=== PATIENT | female | born 1965 | race Hispanic/Latino ===

== ENCOUNTER 2017-10-11 23:46 | Inpatient (IN) | payer MEDICAID, OTHER ==
[2017-10-11 23:47] VITALS: BMI 54.9
--- NOTE | 2017-10-12 00:20 | ED PDOC ---
Arrival/HPI - General Chief Complaint: Shortness Of Breath Time Seen by Provider: 10/11/17 23:51 Historian: Patient - History of Present Illness Narrative History of Present Illness (Text): 10/12/17 00:19 Neena Dumont is a 52 year old female, whose past medical history includes diabetes, hypothyroidism, anemia, degenerative disc disease, GERD, and sarcoidosis, who presents to the Emergency department complaining of shortness of breath and fever. Patient states she has been experiencing intermittent fever for the past 2 days, max temperature of 102F at home tonight, with associated shortness of breath, chest tightness, and non-productive cough. Patient states she had nebulizer treatments at home with no significant relief. Patient also complaining of hematuria and left flank pain. Patient notes 1 episode of vomiting yesterday. Patient denies any chills, diarrhea, neck pain, headache, dizziness, or any other complaints. PMD: Dr. Hoffmann Time/Duration: < week (2 days) Symptom Onset: Gradual Symptom Course: Unchanged Activities at Onset: Light Context: Home Past Medical History - Provider Review Nursing Documentation Reviewed: Yes - Infectious Disease Hx of Infectious Diseases: None - Tetanus Immunization Tetanus Immunization: Unknown - Cardiac Hx Cardiac Disorders: Yes - Pulmonary Hx Respiratory Disorders: Yes Hx Asthma: Yes Hx Sleep Apnea: Yes Other/Comment: SARCOIDOSIS - Neurological Hx Neurological Disorder: Yes (headache,DM neuropathy left knee) - HEENT Hx HEENT Disorder: Yes (reading glasses) Hx Blind: No Hx Cataracts: No Hx Deafness: No Hx Difficulty Chewing: No Hx Epistaxis: No Hx Glaucoma: No Hx Macular Degeneration: No - Renal Hx Renal Disorder: No - Endocrine/Metabolic Hx Endocrine Disorders: Yes Hx Diabetes Mellitus Type 2: Yes Hx Hypothyroidism: Yes - Hematological/Oncological Hx Blood Disorders: Yes Hx Anemia: Yes Hx Cirrhosis: Yes (non alcoholic) - Integumentary Hx Dermatological Disorder: No Hx Basal Cell Carcinoma: No Hx Eczema: No Hx Melanoma: No Hx Psoriasis: No Hx Squamous Cell Carcinoma: No - Musculoskeletal/Rheumatological Hx Musculoskeletal Disorders: Yes Hx Arthritis: Yes - Gastrointestinal Hx Gastrointestinal Disorders: Yes Hx Gastroesophageal Reflux: Yes - Genitourinary/Gynecological Hx Genitourinary Disorders: No - Psychiatric Hx Anxiety: Yes Hx Panic Disorder: Yes Hx Substance Use: No - Past Surgical History Past Surgical History: No Previous - Surgical History Hx Cholecystectomy: Yes - Anesthesia Hx Anesthesia: Yes Hx Anesthesia Reactions: No Hx Malignant Hyperthermia: No - Suicidal Assessment Feels Threatened In Home Enviroment: No Family/Social History - Physician Review Nursing Documentation Reviewed: Yes Family/Social History: Unknown Family HX Smoking Status: Heavy Smoker > 10 Cigarettes Daily Hx Alcohol Use: No Hx Substance Use: No Hx Substance Use Treatment: No Allergies/Home Meds Allergies/Adverse Reactions: Allergies ciprofloxacin [From Cipro] Allergy (Verified 12/08/16 13:07) VOMITING ciprofloxacin HCl [From Cipro] Allergy (Verified 12/08/16 13:07) VOMITING clarithromycin [From Biaxin] Allergy (Verified 12/08/16 13:07) VOMITING clindamycin Allergy (Verified 12/08/16 13:07) VOMITING colistin Allergy (Verified 12/08/16 13:07) VOMITING erythromycin base Allergy (Verified 10/11/17 23:52) DIARRHEA hydromorphone HCl [From Dilaudid] Allergy (Verified 12/08/16 13:07) VOMITING levofloxacin [From Levaquin] Allergy (Verified 10/11/17 23:52) SHORTNESS OF BREATH Penicillins Allergy (Verified 10/11/17 23:52) SHORTNESS OF BREATH Home Medications: Home Meds Medication Instructions Recorded Confirmed Albuterol/Ipratropium [Duoneb 3 3 ml IH PRN PRN 03/16/12 12/08/16 mg/0.5 mg (3 ml) UD] Gabapentin 300 mg PO TID 07/05/13 12/08/16 Clonazepam [Klonopin] 1 mg PO TID 03/19/14 12/08/16 Quetiapine Fumarate [Seroquel] 100 mg PO TID 03/19/14 12/08/16 Sertraline [Zoloft] 200 mg PO DAILY 03/19/14 12/08/16 Hydroxyzine Pamoate [Vistaril] 50 mg PO BID PRN 06/03/14 12/08/16 Ondansetron ODT [Zofran ODT] 4 mg PO DAILY PRN 07/23/14 12/08/16 Topiramate [Topamax] 50 mg PO BID 07/23/14 12/08/16 Acetaminophen/Butalbital/Caf 1 tab PO Q6 PRN 09/03/14 12/08/16 [Fioricet 325 mg-50 mg-40 mg] Review of Systems - Physician Review All systems were reviewed & negative as marked: Yes - Review of Systems Constitutional: Fevers Eyes: Normal ENT: Normal Respiratory: SOB, Cough Cardiovascular: Chest Pain Gastrointestinal: Vomiting. absent: Abdominal Pain, Diarrhea Genitourinary Female: Hematuria. absent: Dysuria, Urine Output Changes Musculoskeletal: Back Pain. absent: Neck Pain Skin: Normal. absent: Rash Neurological: Normal. absent: Headache, Dizziness Endocrine: Normal Hemo/Lymphatic: Normal Psychiatric: Normal Physical Exam Vital Signs Reviewed: Yes Vital Signs Temp Pulse Resp BP Pulse Ox 10/12/17 02:00 96 H 20 133/66 97 10/12/17 00:55 102 F H 10/12/17 00:40 20 97 10/12/17 00:14 102.0 F H 94 H 30 H 128/88 97 Temperature: Febrile Blood Pressure: Normal Pulse: Regular Respiratory Rate: Normal Appearance: Positive for: Well-Appearing, Non-Toxic, Comfortable Pain Distress: None Mental Status: Positive for: Alert and Oriented X 3 - Systems Exam Head: Present: Atraumatic, Normocephalic Pupils: Present: PERRL Extroacular Muscles: Present: EOMI Conjunctiva: Present: Normal Mouth: Present: Moist Mucous Membranes Neck: Present: Normal Range of Motion Respiratory/Chest: Present: Rhonchi (Rhonchi bilaterally). No: Respiratory Distress, Accessory Muscle Use Cardiovascular: Present: Regular Rate and Rhythm, Normal S1, S2. No: Murmurs Abdomen: Present: Normal Bowel Sounds. No: Tenderness, Distention, Peritoneal Signs Back: Present: Normal Inspection Upper Extremity: Present: Normal Inspection. No: Cyanosis, Edema Lower Extremity: Present: Normal Inspection. No: Edema Neurological: Present: GCS=15, CN II-XII Intact, Speech Normal Skin: Present: Warm, Dry, Normal Color. No: Rashes Psychiatric: Present: Alert, Oriented x 3, Normal Insight, Normal Concentration Medical Decision Making ED Course and Treatment: 10/12/17 00:19 Impression: 52 year old female complaining of fever, shortness of breath, cough, and chest tightness x 2 days. Also complaining of hematuria and left flank pain. Plan: -- EKG -- Chest X-ray -- Labs, VBG, blood cultures -- Urinalysis, urine cultures -- IV fluids -- Duoneb -- Reassess and disposition Prior Visits: Notes and results from previous visits were reviewed. Progress Notes: Reviewed EKG, NSR at 95 bpm. Occasional PAC. Non-specific ST/T wave changes. 10/12/17 02:54 Chest X-ray reviewed, shows: LUNGS: Findings suspicious for mild pulmonary vascular congestion--there is bilateral perihilar interstitial prominence. Linear densities seen in the lower lobes bilaterally, most likely representing atelectasis or scarring. Lung volumes are low. No evidence of a large focal consolidation/infiltrate in the lungs. PLEURAL SPACE: No pneumothorax or pleural effusions seen. HEART: Heart does not appear significantly enlarged, allowing for magnification of the heart size by AP portable technique. MEDIASTINUM: Mediastinal contour is grossly stable. BONES/JOINTS: No acute bony abnormality visualized. IMPRESSION: - Findings suspicious for mild pulmonary vascular congestion. Recommend clinical correlation. - See above for remaining findings. 10/12/17 03:[address] Ruiz, who is aware and agrees with plan. Accepts pt in to her service. Pt will be admitted to Telemetry for COPD exacerbation and pyelonephritis. - Lab Interpretations Lab Results: 10/12/17 00:40 10/12/17 00:40 Lab Results 10/12/17 01:40: Urine Color Yellow, Urine Appearance Sl cloudy, Urine pH 6.0, Ur Specific [place] 1.025, Urine Protein 100 H, Urine Glucose (UA) Negative, Urine Ketones Negative, Urine Blood Moderate H, Urine Nitrate Positive H, Urine Bilirubin Moderate H, Urine Urobilinogen 2.0 H, Ur Leukocyte Esterase Trace H, Urine RBC 2 - 5, Urine WBC 15 - 20, Ur Epithelial Cells 1 - 3, Urine Bacteria Mod 10/12/17 00:40: Sodium 138, Chloride 105, Potassium 4.0, Carbon Dioxide 29, Anion Gap 8 L, BUN 20, Creatinine 0.8, Est GFR ( Amer) > 60, Est GFR (Non -Af Amer) > 60, Random Glucose 133 H, Calcium 8.9, Phosphorus 2.9, Magnesium 1.7 , Total Bilirubin 3.2 H, AST 42 H, ALT 39, Alkaline Phosphatase 187 H, Total Protein 6.7, Albumin 3.0, Globulin 3.7, Albumin/Globulin Ratio 0.8 L 10/12/17 00:40: pO2 56 H, VBG pH 7.33, VBG pCO2 58.0, VBG HCO3 30.6 H, VBG Total CO2 32.4 H, VBG O2 Sat (Calc) 90.3 H, VBG Base Excess 3.2 H, VBG Potassium 4.7, Sodium 140.0, Chloride 107.0, Glucose 146 H, Lactate 1.9, FiO2 21.0, Venous Blood Potassium 4.7 10/12/17 00:40: PT 14.8 H, INR 1.35 H, APTT 35.2 10/12/17 00:40: WBC 9.6 D, RBC 3.74, Hgb 11.9 L, Hct 36.0, MCV 96.3, MCH 31.8, MCHC 33.1, RDW 16.9 H, Plt Count 87 L, MPV 10.9, Gran % 79.7 H, Lymph % (Auto) 7.6 L, [place] % (Auto) 12.5 H, Eos % (Auto) 0.1 L, Baso % (Auto) 0.1, Gran # 7.63 H, Lymph # 0.7 L, [place] # 1.2 H, Eos # 0.0, Baso # 0.01 I have reviewed the lab results: Yes - RAD Interpretation Radiology Orders: 10/12/17 00:24 CHEST PORTABLE [RAD] Stat Body Recall Instructor: Radiologist - EKG Interpretation Interpreted by ED Physician: Yes Type: 12 lead EKG - Medication Orders Current Medication Orders: Albuterol/Ipratropium (Duoneb 3 Mg/0.5 Mg (3 Ml) Ud) 3 ml IH Q3H PRN PRN Reason: Shortness of Breath Discontinued Medications Acetaminophen (Tylenol 325mg Tab) 975 mg PO STAT STA Stop: 10/12/17 00:55 Last Admin: 10/12/17 00:55 Dose: Albuterol/Ipratropium (Duoneb 3 Mg/0.5 Mg (3 Ml) Ud) 3 ml IH ONCE STA Stop: 10/12/17 00:24 Last Admin: 10/12/17 00:40 Dose: 3 ml Albuterol/Ipratropium (Duoneb 3 Mg/0.5 Mg (3 Ml) Ud) 3 ml IH ONCE STA Stop: 10/12/17 01:01 Last Admin: 10/12/17 01:05 Dose: 3 ml Sodium Chloride (Sodium Chloride 0.9%) 1,000 mls @ 999 mls/hr IV .Q1H1M STA Stop: 10/12/17 01:34 Last Admin: 10/12/17 00:56 Dose: 999 mls/hr eMAR Start Stop Document 10/12/17 00:56 RD (Rec: 10/12/17 00:56 RD [id number]) Intravenous Solution Start Date 10/12/17 Start Time 00:56 End Date 10/12/17 End time 01:56 Total Infusion Time 60 Ceftriaxone Sodium (Rocephin 1 Gram Ivpb) 1 gm in 100 mls @ 200 mls/hr IV ONCE STA PRN Reason: Protocol Stop: 10/12/17 02:54 Ceftriaxone Sodium (Rocephin 1 Gram Ivpb (D5w)) 1 gm in 100 mls @ 200 mls/hr IVPB ONCE STA PRN Reason: Protocol Stop: 10/12/17 02:54 Last Admin: 10/12/17 02:42 Dose: 200 mls/hr eMAR Start Stop Document 10/12/17 02:42 RD (Rec: 10/12/17 02:43 RD [id number]) Intravenous Solution Start Date 10/12/17 Start Time 02:42 End Date 10/12/17 End time 03:12 Total Infusion Time 30 Methylprednisolone (Solu-Medrol) 125 mg IVP ONCE ONE Stop: 10/12/17 03:33 Oxycodone/Acetaminophen (Percocet 5/325 Mg Tab) 1 tab PO STAT STA Stop: 10/12/17 02:22 Last Admin: 10/12/17 02:42 Dose: 1 tab MAR Pain Assessment Document 10/12/17 02:42 RD (Rec: 10/12/17 02:42 RD [id number]) Pain Reassessment Is this a pain reassessment? No Sleep Is patient sleeping during reassessment? No Presence of Pain Presence of Pain Yes Location Pain Location Body Clarifier Operator - Scribe Statement The provider has reviewed the documentation as recorded by the Miguel Orozco Provider Scribe Attestation: All medical record entries made by the Scribe were at my direction and personally dictated by me. I have reviewed the chart and agree that the record accurately reflects my personal performance of the history, physical exam, medical decision making, and the department course for this patient. I have also personally directed, reviewed, and agree with the discharge instructions and disposition. Disposition/Present on Arrival - Present on Arrival Any Indicators Present on Arrival: No History of DVT/PE: Yes History of Uncontrolled Diabetes: Yes Urinary Catheter: No History of Decub. Ulcer: No History Surgical Site Infection Following: None - Disposition Have Diagnosis and Disposition been Completed?: Yes Diagnosis: Pyelonephritis, COPD exacerbation Disposition: HOSPITALIZED Disposition Time: 03:33 Patient Problems: Current Active Problems Problem Status Onset COPD exacerbation Acute Pyelonephritis Acute Condition: STABLE Referrals: Humberto Hoffmann MD [Primary Care Provider] - Follow up with primary Forms: [employer] ([place])
[2017-10-12] MEDS ORDERED: Albuterol-Ipratrop 3 mg / 0.5 (3 ml) UD IH STA ×2 (00:23→01:00)
[2017-10-12] MEDS ORDERED: Sodium Chloride 0.9% 1,000 ML IV ONE (00:24)
[2017-10-12] MEDS ORDERED: Sodium Chloride 0.9% 1,000 ML IV STA (00:34)
[2017-10-12 01:17] LABS: BASO # 0.01 K/mm3 (0.0-2.0); BASO % 0.1 % (0.0-3.0); EOS % 0.1 % (1.5-5.0); GRAN # 7.63 (1.4-6.5); GRAN % 79.7 % (50.0-68.0); LYMPH # 0.7 (1.2-3.4); LYMPH % 7.6 % (22.0-35.0); MEAN CELL VOLUME 96.3 fl (80.0-105.0); MEAN CORPUSCULAR HEMOGLOBIN 31.8 pg (25.0-35.0); MEAN CORPUSCULAR HGB CONC 33.1 g/dl (31.0-37.0); MEAN PLATELET VOLUME 10.9 fl (7.0-11.0); MONO # 1.2 (0.1-0.6); MONO % 12.5 % (1.0-6.0); RED CELL DISTRIBUTION WIDTH 16.9 % (11.5-14.5); WHITE BLOOD COUNT 9.6 10^3/ul (4.5-11.0)
[2017-10-12 01:22] LABS: VENOUS BLOOD GAS BASE EXCESS 3.2 mmol/L (0.0-2.0); VENOUS BLOOD PH 7.33 (7.32-7.43)
[2017-10-12 01:27] LABS: INR 1.35 (0.93-1.08); PARTIAL THROMBOPLASTIN TIME 35.2 Seconds (25.1-36.5)
[2017-10-12 01:30] LABS: ALB/GLOB RATIO 0.8 (1.1-1.8); ALKALINE PHOSPHATASE 187 U/L (38-126); ALT/SGPT 39 U/L (7-56); AST/SGOT 42 U/L (14-36); BILIRUBIN,TOTAL 3.2 mg/dL (0.2-1.3); BLOOD UREA NITROGEN 20 mg/dL (7-21); CALCIUM 8.9 mg/dL (8.4-10.5); CARBON DIOXIDE 29 mmol/L (21-33); CHLORIDE 105 mmol/L (98-107); GFR AFRICAN-AMERICAN > 60; GLUCOSE,RANDOM 133 mg/dL (70-110); MAGNESIUM 1.7 mg/dL (1.7-2.2); PHOSPHOROUS 2.9 mg/dL (2.5-4.5); SODIUM 138 mmol/L (132-148); TOTAL PROTEIN 6.7 g/dL (5.8-8.3)
[2017-10-12 02:12] LABS: URINE BILIRUBIN MODERATE (NEGATIVE); URINE BLOOD MODERATE (NEGATIVE); URINE GLUCOSE (UA) NEGATIVE (NEGATIVE); URINE KETONE NEGATIVE (NEGATIVE); URINE LEUKOCYTE ESTERASE TRACE Leu/uL (NEGATIVE); URINE PROTEIN 100 mg/dL (<30 mg/dL)
[2017-10-12 02:18] LABS: URINE APPEARANCE SL CLOUDY (CLEAR); URINE COLOR YELLOW (YELLOW)
[2017-10-12] MEDS ORDERED: Oxycodone/Acetaminophen 5/325 mg Tab PO STA (02:21)
[2017-10-12] MEDS ORDERED: cefTRIAXone 1 gm 1 GM/100 ML BAG IV STA (02:25)
[2017-10-12 02:27] LABS: URINE WBC 15 - 20 /hpf (0-6)
[2017-10-12 02:28] LABS: URINE BACTERIA MOD (NEG)
[2017-10-12] MEDS ORDERED: cefTRIAXone 1 gm 1 GM/100 ML BAG IVPB STA (02:32)
--- NOTE | 2017-10-12 02:49 | RAD ---
EXAM: XR Chest, 1 View EXAM DATE/TIME: 10/12/2017 12:24 AM CLINICAL HISTORY: 52 years old, female; Signs and symptoms; Shortness of breath; Additional info: Sepsis patient TECHNIQUE: Frontal view of the chest. COMPARISON: Prior chest radiographs of 2016-12-08 FINDINGS: LUNGS: Findings suspicious for mild pulmonary vascular congestion--there is bilateral perihilar interstitial prominence. Linear densities seen in the lower lobes bilaterally, most likely representing atelectasis or scarring. Lung volumes are low. No evidence of a large focal consolidation/infiltrate in the lungs. PLEURAL SPACE: No pneumothorax or pleural effusions seen. HEART: Heart does not appear significantly enlarged, allowing for magnification of the heart size by AP portable technique. MEDIASTINUM: Mediastinal contour is grossly stable. BONES/JOINTS: No acute bony abnormality visualized. IMPRESSION: - Findings suspicious for mild pulmonary vascular congestion. Recommend clinical correlation. - See above for remaining findings.
[2017-10-12] MEDS ORDERED: Albuterol-Ipratrop 3 mg / 0.5 (3 ml) UD IH PRN ×2 (03:33→11:17)
--- NOTE | 2017-10-12 10:50 | CARD ---
APPROVED REPORT EKG Measurement Heart [id number] <Conclusion> Sinus rhythm with premature supraventricular complexes Prolonged QT Abnormal ECG
[2017-10-12] MEDS: MethylPREDNISolone 40 mg Vial IV SCH ×2 (11:58→21:32)
[2017-10-12] MEDS: Levothyroxine 75 MCG TAB PO SCH (11:59)
[2017-10-12] MEDS: Albuterol-Ipratrop 3 mg / 0.5 (3 ml) UD IH SCH ×2 (14:08→20:06)
[2017-10-12] MEDS: Apap-Butalbital-Caffeine 325-50-40mg Tab PO PRN (15:00)
[2017-10-12] MEDS: Insulin Lispro (HUMAlog) HIGH Coverage SC SCH ×2 (17:46→21:57)
--- NOTE | 2017-10-12 18:29 | CT ---
CT chest without IV contrast Indication: Shortness of breath Technique: Contiguous axial images were obtained through the chest without intravenous contrast enhancement. Sagittal and coronal reconstructions were generated and reviewed. This CT exam was performed using 1 or more of the falling dose reduction techniques: Automated exposure control, adjustment of the MAA and/or kV according to patient size, and/or use of iterative reconstruction technique. Radiation dose (DLP): 957.32 MGy-cm. Comparison: Chest x-ray performed 10/12/17 Findings: Examination limited by habitus. Visualized portions of the inferior thyroid gland appear unremarkable. The unenhanced mediastinal and hilar vascular structures appear grossly unremarkable. Borderline cardiomegaly. Evaluation for adenopathy limited due to lack of IV contrast, particularly hilar adenopathy. Scattered prevascular mediastinal lymph nodes evident. Patchy bilateral multifocal opacities suspicious for pneumonia. Patchy ground-glass opacity at the right lung apex may reflect infection. Evidence of fluid noted along the periphery of the fissures on the right. No pneumothorax. Limited visualization of the noncontrast upper abdomen demonstrates partially imaged hepatomegaly and hepatic steatosis. Degenerative changes. Impression: Limited study. Patchy bilateral multifocal opacities suspicious for pneumonia. Patchy ground-glass opacity at the right lung apex may reflect infection. Evidence of fluid noted along the periphery of the fissures on the right. Recommend follow-up upon completion of treatment for acute symptoms to ensure complete resolution and exclude possibility of underlying neoplasm.
[2017-10-13] MEDS: Albuterol-Ipratrop 3 mg / 0.5 (3 ml) UD IH SCH ×4 (01:40→19:42)
[2017-10-13] MEDS: Pantoprazole 40 mg EC Tab PO SCH (05:49)
--- NOTE | 2017-10-13 08:05 | HP ---
HISTORY OF PRESENT ILLNESS: The patient is a 52-year-old came to the emergency room because of increasing shortness of breath. She did have fever, cough with yellow phlegm going on for 2 to 3 days. She spiked up to 102 and associated with generalized weakness, shortness of breath and some chest pressure. The patient states she does have nebulizer at home, has been using with no significant relief. She states that she was nauseous yesterday and she did vomit once. PAST MEDICAL HISTORY: Significant for; 1. Mmy-njjtlnf-aikfaqkdg diabetes. 2. Hypothyroidism. 3. Gastroesophageal reflux disease. 4. Degenerative disk disease. 5. Morbid obesity. 6. History of chronic anemia. ALLERGIES: THE PATIENT IS ALLERGIC TO CLINDAMYCIN, PENICILLIN, HYDROCORTISONE, LEVAQUIN, CLARITHROMYCIN, NEOMYCIN, CIPROFLOXACIN, AND HYDROMORPHONE. SOCIAL HISTORY: She used to smoke in the past. REVIEW OF SYSTEMS: Significant for generalized weakness and shortness of breath and cough. PHYSICAL EXAMINATION: VITAL SIGNS: She is afebrile, pulse 78, respirations 19, blood pressure 134/72. LUNGS: Bilateral fair expiratory rhonchi. HEART: S1 and S2 audible. ABDOMEN: Soft, obese, nontender. No rebound. No guarding. NEUROLOGIC: She is awake, alert, oriented, communicative. Moves all extremities. LABORATORY EXAMINATION: WBC is 9.6, hemoglobin is 11.9, hematocrit is 36, and platelet of . PT is 14.8 and INR is 1.35. Sodium 138, potassium 4.0, chloride is 105. CO2 is 29, BUN is 20, and creatinine is 0.8. Blood sugar is 133. Total bili 3.2. AST 42, alk phos 187. Urine shows moderate bilirubin, positive nitrites, wbc's. She had an x-ray of chest done that shows pulmonary congestion. ASSESSMENT: 1. Asthmatic bronchitis. 2. Pulmonary venous congestion. 3. Morbid obesity. 4. Xbj-kipmdqx-bjznzcubs diabetes. 5. History of depression. 6. Hypothyroidism. PLAN: We will start her on IV steroids, start her on doxycycline. Monitor her blood sugar.. Out of bed to chair. We will reevaluate the patient in a.m. I will order for CT scan of the chest also. Karson Ruiz MD [facility] # [id number]
[2017-10-13] MEDS: Insulin Lispro (HUMAlog) HIGH Coverage SC SCH ×4 (08:27→22:56)
[2017-10-13] MEDS: Levothyroxine 75 MCG TAB PO SCH (08:27)
[2017-10-13] MEDS: MethylPREDNISolone 40 mg Vial IV SCH ×2 (10:41→21:48)
[2017-10-13] MEDS: Apap-Butalbital-Caffeine 325-50-40mg Tab PO PRN (15:14)
--- NOTE | 2017-10-13 21:09 | PN ---
DATE: SUBJECTIVE: The patient is a 52-year-old, seen and examined. Still complaint of cough and congestion. No nausea or vomiting. No fever. No diarrhea. PHYSICAL EXAMINATION: VITAL SIGNS: She is afebrile, pulse 74, respirations 19, and blood pressure 146/74. LUNGS: Bilateral fair airflow. No rhonchi or crackle. HEART: S1 and S2 audible. ABDOMEN: Soft, obese, and nontender. No rebound. No guarding. NEUROLOGIC: She is awake, alert, oriented. Able to communicate. EXTREMITIES: Bilateral legs, no edema. However, she has stasis dermatitis. LABORATORY EXAM: There is no new lab available today. Her urine shows gram-negative rods. Blood cultures are negative. A CT scan of the chest was done that shows patchy bilateral multifocal obesity suspicious for pneumonia and patchy ground glass obesity at the right lung apex may reflect infection evidence of fluid noted. PLAN: The patient is currently on doxycycline. She is getting Rocephin. She is on IV steroid. I will start her on Rocephin to cover her for urinary tract infection and for pneumonia. Out of bed to chair. I ordered for deep vein thrombosis prophylaxis. Karson Ruiz MD
[2017-10-14] MEDS: Albuterol-Ipratrop 3 mg / 0.5 (3 ml) UD IH SCH ×4 (01:38→20:21)
[2017-10-14] MEDS: Pantoprazole 40 mg EC Tab PO SCH (06:23)
[2017-10-14] MEDS: Insulin Lispro (HUMAlog) HIGH Coverage SC SCH ×4 (08:00→21:48)
[2017-10-14] MEDS: Enoxaparin 40 mg Syringe SC SCH (09:58)
[2017-10-14] MEDS: MethylPREDNISolone 40 mg Vial IV SCH ×2 (09:58→21:53)
[2017-10-14] MEDS: Levothyroxine 75 MCG TAB PO SCH (09:58)
[2017-10-14] MEDS ORDERED: cefTRIAXone 1 gm 1 GM/100 ML BAG IVPB SCH (10:00)
--- NOTE | 2017-10-14 15:35 | PN ---
DATE: SUBJECTIVE: The patient is a 52-year-old, seen and examined. Still has cough and congestion. No more fever. PHYSICAL EXAMINATION: VITAL SIGNS: She is afebrile, pulse 70, respirations 20, and blood pressure 117/61. LUNGS: Bilateral expiratory rhonchi. HEART: S1 and S2 audible. ABDOMEN: Soft, obese, and nontender. No rebound. No guarding. NEUROLOGIC: She is awake, alert, oriented, and communicative. LABORATORY DATA: CT scan of the chest done shows patchy bilateral multifocal opacity suspicious for pneumonia and patchy ground-glass opacity at the right lung apex, may reflect infection. ASSESSMENT: 1. Patchy bilateral multifocal infiltrates. 2. Morbid obesity. 3. Hypertension. 4. Chronic stasis dermatitis. 5. Noninsulin-dependent diabetes. 6. Anxiety disorder. PLAN: Currently, the patient is on Rocephin and doxycycline. We will continue that. Dr. Ashley has been consulted. Out of bed to chair. Physical therapy evaluation and treatment. We will request for TCU evaluation. Since the patient has exertional dyspnea, she needs to complete a course of antibiotic also and will benefit from physical therapy. Karson Ruiz MD
--- NOTE | 2017-10-14 20:24 | CP.PCM.PCO ---
Physician Communication Note - Physician Communication Note Physician Communication Note: Benign but ugly ji-auricular 3cm skin lesion- Can be removed any time
--- NOTE | 2017-10-14 20:36 | CP.PCM.CON ---
Past Patient History - Infectious Disease Hx of Infectious Diseases: None - Tetanus Immunizations Tetanus Immunization: Unknown - Past Social History Smoking Status: Heavy Smoker > 10 Cigarettes Daily - CARDIAC Hx Cardiac Disorders: Yes - PULMONARY Hx Respiratory Disorders: Yes Hx Asthma: Yes Hx Sleep Apnea: Yes Other/Comment: SARCOIDOSIS - NEUROLOGICAL Hx Neurological Disorder: Yes (headache,DM neuropathy left knee) - HEENT Hx HEENT Problems: Yes (reading glasses) Hx Blind: No Hx Cataracts: No Hx Deafness: No Hx Difficulty Chewing: No Hx Epistaxis: No Hx Glaucoma: No Hx Macular Degeneration: No Other/Comment: Pseudotumor behind right eye - RENAL Hx Chronic Kidney Disease: No - ENDOCRINE/METABOLIC Hx Endocrine Disorders: Yes Hx Diabetes Mellitus Type 2: Yes Hx Hypothyroidism: Yes - HEMATOLOGICAL/ONCOLOGICAL Hx Blood Disorders: Yes Hx Anemia: Yes Hx Cirrhosis: Yes (non alcoholic) - INTEGUMENTARY Hx Dermatological Problems: No Hx Basil Cell: No Hx Eczema: No Hx Melanoma: No Hx Psoriasis: No Hx Squamous Cell: No - MUSCULOSKELETAL/RHEUMATOLOGICAL Hx Musculoskeletal Disorders: Yes Hx Arthritis: Yes Hx Falls: Yes - GASTROINTESTINAL Hx Gastrointestinal Disorders: Yes Hx Gastroesophageal Reflux: Yes - GENITOURINARY/GYNECOLOGICAL Hx Genitourinary Disorders: No - PSYCHIATRIC Hx Anxiety: Yes Hx Panic Symptoms: Yes - SURGICAL HISTORY Hx Cholecystectomy: Yes - ANESTHESIA Hx Anesthesia: Yes Hx Anesthesia Reactions: No Hx Malignant Hyperthermia: No Meds Allergies/Adverse Reactions: Allergies Allergy/AdvReac Type Severity Reaction Status Date / Time ciprofloxacin [From Cipro] Allergy VOMITING Verified 12/08/16 13:07 ciprofloxacin HCl Allergy VOMITING Verified 12/08/16 13:07 [From Cipro] clarithromycin [From Biaxin] Allergy VOMITING Verified 12/08/16 13:07 clindamycin Allergy VOMITING Verified 12/08/16 13:07 colistin Allergy VOMITING Verified 12/08/16 13:07 erythromycin base Allergy DIARRHEA Verified 10/11/17 23:52 hydromorphone HCl Allergy VOMITING Verified 12/08/16 13:07 [From Dilaudid] levofloxacin [From Levaquin] Allergy SHORTNESS Verified 10/11/17 23:52 OF BREATH Penicillins Allergy SHORTNESS Verified 10/11/17 23:52 OF BREATH - Medications Medications: Current Medications Acetaminophen/Butalbital/Caffeine (Fioricet) 1 tab PO Q6 PRN PRN Reason: Headache Last Admin: 10/13/17 15:14 Dose: 1 tab Albuterol/Ipratropium (Duoneb 3 Mg/0.5 Mg (3 Ml) Ud) 3 ml IH Q2H PRN PRN Reason: Shortness of Breath Albuterol/Ipratropium (Duoneb 3 Mg/0.5 Mg (3 Ml) Ud) 3 ml IH [id number] [facility] Last Admin: 10/14/17 14:16 Dose: 3 ml Clonazepam (Klonopin) 1 mg PO TID [facility] Last Admin: 10/14/17 17:51 Dose: 1 mg Enoxaparin Sodium (Lovenox) 40 mg SC DAILY [facility] PRN Reason: Protocol Last Admin: 10/14/17 09:58 Dose: 40 mg Gabapentin (Neurontin) 300 mg PO TID [facility] Last Admin: 10/14/17 17:52 Dose: 300 mg Hydroxyzine Pamoate (Vistaril) 50 mg PO BID PRN PRN Reason: Itching / Pruritus Last Admin: 10/13/17 10:52 Dose: 50 mg Doxycycline Hyclate 100 mg/ (Sodium Chloride) 100 mls @ 100 mls/hr IVPB Q12 [facility] PRN Reason: Protocol Last Admin: 10/14/17 10:00 Dose: 100 mls/hr Ceftriaxone Sodium (Rocephin 1 Gram Ivpb) 1 gm in 100 mls @ 100 mls/hr IVPB DAILY [facility] PRN Reason: Protocol Last Admin: 10/14/17 09:59 Dose: 100 mls/hr Insulin Human Lispro (Humalog High) 0 units SC ACHS [facility] PRN Reason: Protocol Last Admin: 10/14/17 18:23 Dose: 4 units Levothyroxine Sodium (Synthroid) 225 mcg PO ACB [facility] Last Admin: 10/14/17 09:58 Dose: 225 mcg Methylprednisolone (Solu-Medrol) 40 mg IV Q12 [facility] Last Admin: 10/14/17 09:58 Dose: 40 mg Pantoprazole Sodium (Protonix Ec Tab) 40 mg PO 0630 [facility] Last Admin: 10/14/17 06:23 Dose: 40 mg Quetiapine Fumarate (Seroquel) 100 mg PO TID [facility] PRN Reason: Protocol Last Admin: 10/14/17 17:51 Dose: 100 mg Sertraline HCl (Zoloft) 200 mg PO DAILY [facility] Last Admin: 10/14/17 09:56 Dose: 200 mg Topiramate (Topamax) 50 mg PO TID [facility] PRN Reason: Protocol Last Admin: 10/14/17 17:52 Dose: 50 mg Results - Vital Signs Recent Vital Signs: Last Vital Signs Temp 98.8 F 10/14/17 12:11 Pulse 86 10/14/17 18:00 Resp 18 10/14/17 12:11 BP 142/76 10/14/17 12:11 Pulse Ox 96 10/14/17 06:00 - Labs Result Diagrams: 10/12/17 00:40 10/12/17 00:40 Labs: Laboratory Results - last 24 hr 10/12/17 10/12/17 10/12/17 07:29 11:21 16:29 POC Glucose (mg/dL) 148 H 211 H 214 H 10/12/17 10/13/17 10/13/17 21:52 07:34 11:49 POC Glucose (mg/dL) 185 H 181 H 165 H 10/13/17 16:04 POC Glucose (mg/dL) 253 H
[2017-10-15] MEDS: Albuterol-Ipratrop 3 mg / 0.5 (3 ml) UD IH SCH ×4 (01:16→20:24)
--- NOTE | 2017-10-15 06:29 | CP.PCM.CON ---
<Soraya Schulte - Last Filed: 10/15/17 07:33> History of Present Illness - History of Present Illness History of Present Illness: Surgery HPI: 49 y/o Morbidly obese female with Pmhx ?Psuedotumor cerebri, DM, CHAY, Dyslipidemia, Hypothyroid and depression is admitted for Pneumonia and asthma attack. Surgery is consulted to evaluate for lesion on her left ear. Pt reports that she first noticed it on the back of her left ear when she was brushing her hair 2 year ago. It is getting larger and started to bother her ears when she put on her nasal oxygen. Denies bleeding, drainage, redness, swelling, peeling of the skin, skin dimpling, excoriation. She sometimes picks on it and see particles come out. Reports that her son also has similar dark raised lesion and has extensive history of cancer in the family. Pt hasn't had it checked out by a specialist. PMHX: as above Soc: (+) 1/2 ppd x 25 yrs; denies etoh, denies illicit drug substances Fam Hx: pancratic CA, lung CA Review of Systems - Review of Systems Review of Systems: See HPI Past Patient History - Infectious Disease Hx of Infectious Diseases: None - Tetanus Immunizations Tetanus Immunization: Unknown - Past Social History Smoking Status: Heavy Smoker > 10 Cigarettes Daily - CARDIAC Hx Cardiac Disorders: Yes - PULMONARY Hx Respiratory Disorders: Yes Hx Asthma: Yes Hx Sleep Apnea: Yes Other/Comment: SARCOIDOSIS - NEUROLOGICAL Hx Neurological Disorder: Yes (headache,DM neuropathy left knee) - HEENT Hx HEENT Problems: Yes (reading glasses) Hx Blind: No Hx Cataracts: No Hx Deafness: No Hx Difficulty Chewing: No Hx Epistaxis: No Hx Glaucoma: No Hx Macular Degeneration: No Other/Comment: Pseudotumor behind right eye - RENAL Hx Chronic Kidney Disease: No - ENDOCRINE/METABOLIC Hx Endocrine Disorders: Yes Hx Diabetes Mellitus Type 2: Yes Hx Hypothyroidism: Yes - HEMATOLOGICAL/ONCOLOGICAL Hx Blood Disorders: Yes Hx Anemia: Yes Hx Cirrhosis: Yes (non alcoholic) - INTEGUMENTARY Hx Dermatological Problems: No Hx Basil Cell: No Hx Eczema: No Hx Melanoma: No Hx Psoriasis: No Hx Squamous Cell: No - MUSCULOSKELETAL/RHEUMATOLOGICAL Hx Musculoskeletal Disorders: Yes Hx Arthritis: Yes Hx Falls: Yes - GASTROINTESTINAL Hx Gastrointestinal Disorders: Yes Hx Gastroesophageal Reflux: Yes - GENITOURINARY/GYNECOLOGICAL Hx Genitourinary Disorders: No - PSYCHIATRIC Hx Anxiety: Yes Hx Panic Symptoms: Yes - SURGICAL HISTORY Hx Cholecystectomy: Yes - ANESTHESIA Hx Anesthesia: Yes Hx Anesthesia Reactions: No Hx Malignant Hyperthermia: No Meds Allergies/Adverse Reactions: Allergies Allergy/AdvReac Type Severity Reaction Status Date / Time ciprofloxacin [From Cipro] Allergy VOMITING Verified 12/08/16 13:07 ciprofloxacin HCl Allergy VOMITING Verified 12/08/16 13:07 [From Cipro] clarithromycin [From Biaxin] Allergy VOMITING Verified 12/08/16 13:07 clindamycin Allergy VOMITING Verified 12/08/16 13:07 colistin Allergy VOMITING Verified 12/08/16 13:07 erythromycin base Allergy DIARRHEA Verified 10/11/17 23:52 hydromorphone HCl Allergy VOMITING Verified 12/08/16 13:07 [From Dilaudid] levofloxacin [From Levaquin] Allergy SHORTNESS Verified 10/11/17 23:52 OF BREATH Penicillins Allergy SHORTNESS Verified 10/11/17 23:52 OF BREATH - Medications Medications: Current Medications Acetaminophen/Butalbital/Caffeine (Fioricet) 1 tab PO Q6 PRN PRN Reason: Headache Last Admin: 10/13/17 15:14 Dose: 1 tab Albuterol/Ipratropium (Duoneb 3 Mg/0.5 Mg (3 Ml) Ud) 3 ml IH Q2H PRN PRN Reason: Shortness of Breath Albuterol/Ipratropium (Duoneb 3 Mg/0.5 Mg (3 Ml) Ud) 3 ml IH [id number] [facility] Last Admin: 10/15/17 01:16 Dose: 3 ml Clonazepam (Klonopin) 1 mg PO TID [facility] Last Admin: 10/14/17 17:51 Dose: 1 mg Enoxaparin Sodium (Lovenox) 40 mg SC DAILY [facility] PRN Reason: Protocol Last Admin: 10/14/17 09:58 Dose: 40 mg Gabapentin (Neurontin) 300 mg PO TID [facility] Last Admin: 10/14/17 17:52 Dose: 300 mg Hydroxyzine Pamoate (Vistaril) 50 mg PO BID PRN PRN Reason: Itching / Pruritus Last Admin: 10/13/17 10:52 Dose: 50 mg Doxycycline Hyclate 100 mg/ (Sodium Chloride) 100 mls @ 100 mls/hr IVPB Q12 [facility] PRN Reason: Protocol Last Admin: 10/14/17 21:53 Dose: 100 mls/hr Ceftriaxone Sodium (Rocephin 1 Gram Ivpb) 1 gm in 100 mls @ 100 mls/hr IVPB DAILY [facility] PRN Reason: Protocol Last Admin: 10/14/17 09:59 Dose: 100 mls/hr Insulin Human Lispro (Humalog High) 0 units SC ACHS [facility] PRN Reason: Protocol Last Admin: 10/14/17 21:48 Dose: Not Given Levothyroxine Sodium (Synthroid) 225 mcg PO ACB [facility] Last Admin: 10/14/17 09:58 Dose: 225 mcg Methylprednisolone (Solu-Medrol) 40 mg IV Q12 [facility] Last Admin: 10/14/17 21:53 Dose: 40 mg Pantoprazole Sodium (Protonix Ec Tab) 40 mg PO 0630 [facility] Last Admin: 10/14/17 06:23 Dose: 40 mg Quetiapine Fumarate (Seroquel) 100 mg PO TID [facility] PRN Reason: Protocol Last Admin: 10/14/17 17:51 Dose: 100 mg Sertraline HCl (Zoloft) 200 mg PO DAILY [facility] Last Admin: 10/14/17 09:56 Dose: 200 mg Topiramate (Topamax) 50 mg PO TID [facility] PRN Reason: Protocol Last Admin: 10/14/17 17:52 Dose: 50 mg Physical Exam - Constitutional Appears: No Acute Distress - Head Exam Head Exam: ATRAUMATIC, NORMAL INSPECTION, NORMOCEPHALIC - Eye Exam Eye Exam: EOMI, Normal appearance, PERRL Pupil Exam: NORMAL ACCOMODATION, PERRL - ENT Exam ENT Exam: Mucous Membranes Moist, Normal Exam Additional comments: L posterior side of ear has [id number] brown color raised mass. No erythema, no excoriation. - Neck Exam Neck exam: Positive for: Normal Inspection - Respiratory Exam Respiratory Exam: Clear to Auscultation Bilateral, NORMAL BREATHING PATTERN - Cardiovascular Exam Cardiovascular Exam: REGULAR RHYTHM - GI/Abdominal Exam GI & Abdominal Exam: Normal Bowel Sounds, Soft. absent: Tenderness - Extremities Exam Extremities exam: Positive for: normal inspection - Back Exam Back exam: NORMAL INSPECTION - Neurological Exam Neurological exam: Alert, CN II-XII Intact, Normal Gait, Oriented x3, Reflexes Normal - Psychiatric Exam Psychiatric exam: Normal Affect, Normal Mood - Skin Skin Exam: Dry, Intact, Normal Color, Warm Results - Vital Signs Recent Vital Signs: Last Vital Signs Temp 98.2 F 10/15/17 00:01 Pulse 74 10/15/17 06:00 Resp 18 10/15/17 00:01 BP 136/64 10/15/17 00:01 Pulse Ox 97 10/15/17 00:01 - Labs Result Diagrams: 10/12/17 00:40 10/12/17 00:40 Assessment & Plan - Assessment and Plan (Free Text) Assessment: L ear lesion -Planned for OR on for excision / biopsy -NPO after midnight on Mon night -Will book and get consent DW Dr. Valenzuela. <Zechariah Valenzuela - Last Filed: 10/16/17 10:28> Meds - Medications Medications: Current Medications Acetaminophen/Butalbital/Caffeine (Fioricet) 1 tab PO Q6 PRN PRN Reason: Headache Last Admin: 10/13/17 15:14 Dose: 1 tab Albuterol/Ipratropium (Duoneb 3 Mg/0.5 Mg (3 Ml) Ud) 3 ml IH Q2H PRN PRN Reason: Shortness of Breath Albuterol/Ipratropium (Duoneb 3 Mg/0.5 Mg (3 Ml) Ud) 3 ml IH [id number] [facility] Last Admin: 10/16/17 08:09 Dose: 3 ml Clonazepam (Klonopin) 1 mg PO TID [facility] Last Admin: 10/15/17 18:48 Dose: 1 mg Doxycycline Hyclate (Doryx) 100 mg PO Q12 [facility] PRN Reason: Protocol Stop: 10/24/17 22:01 Last Admin: 10/15/17 21:13 Dose: 100 mg Enoxaparin Sodium (Lovenox) 40 mg SC DAILY [facility] PRN Reason: Protocol Last Admin: 10/15/17 11:19 Dose: 40 mg Gabapentin (Neurontin) 300 mg PO TID [facility] Last Admin: 10/15/17 18:48 Dose: 300 mg Hydroxyzine Pamoate (Vistaril) 50 mg PO BID PRN PRN Reason: Itching / Pruritus Last Admin: 10/13/17 10:52 Dose: 50 mg Ceftriaxone Sodium (Rocephin 1 Gram Ivpb (D5w)) 1 gm in 100 mls @ 100 mls/hr IVPB DAILY [facility] PRN Reason: Protocol Last Admin: 10/15/17 11:23 Dose: 100 mls/hr Insulin Human Lispro (Humalog High) 0 units SC ACHS [facility] PRN Reason: Protocol Last Admin: 10/16/17 08:35 Dose: Not Given Levothyroxine Sodium (Synthroid) 225 mcg PO ACB [facility] Last Admin: 10/16/17 06:35 Dose: 225 mcg Methylprednisolone (Solu-Medrol) 40 mg IV Q12 [facility] Last Admin: 10/15/17 21:13 Dose: 40 mg Pantoprazole Sodium (Protonix Ec Tab) 40 mg PO 0630 [facility] Last Admin: 10/16/17 06:35 Dose: 40 mg Quetiapine Fumarate (Seroquel) 100 mg PO TID [facility] PRN Reason: Protocol Last Admin: 10/15/17 18:48 Dose: 100 mg Sertraline HCl (Zoloft) 200 mg PO DAILY [facility] Last Admin: 10/15/17 11:20 Dose: 200 mg Topiramate (Topamax) 50 mg PO TID [facility] PRN Reason: Protocol Last Admin: 10/15/17 18:48 Dose: 50 mg Results - Vital Signs Recent Vital Signs: Last Vital Signs Temp 97.8 F 10/16/17 06:00 Pulse 67 10/16/17 06:00 Resp 19 10/16/17 06:00 BP 142/73 10/16/17 06:00 Pulse Ox 97 10/16/17 06:00 - Labs Result Diagrams: 10/16/17 07:00 10/16/17 07:00 Labs: Laboratory Results - last 24 hr 10/15/17 10/16/17 10/16/17 10:45 07:00 07:00 WBC 6.0 D RBC 3.64 Hgb 11.6 L Hct 35.5 L MCV 97.5 MCH 31.9 MCHC 32.7 RDW 16.5 H Plt Count 98 L MPV 10.4 Sodium 143 Potassium 4.1 Chloride 106 Carbon Dioxide 29 Anion Gap 12 BUN 22 H Creatinine 0.7 Est GFR ( Amer) > 60 Est GFR (Non-Af Amer) > 60 Random Glucose 140 H Calcium 8.8 Total Bilirubin 1.2 AST 56 H D ALT 69 H Alkaline Phosphatase 202 H Total Protein 6.5 Albumin 2.9 L Globulin 3.6 Albumin/Globulin Ratio 0.8 L Procalcitonin 0.60 H Assessment & Plan - Assessment and Plan (Free Text) Plan: Change in plans: pt can have this removed under local in the office(Benign lesion) Lina Valenzuela MD FACS
[2017-10-15] MEDS: Levothyroxine 75 MCG TAB PO SCH (06:45)
[2017-10-15] MEDS: Pantoprazole 40 mg EC Tab PO SCH (06:45)
[2017-10-15] MEDS: Insulin Lispro (HUMAlog) HIGH Coverage SC SCH ×3 (08:38→17:12)
[2017-10-15] MEDS: Enoxaparin 40 mg Syringe SC SCH (11:19)
[2017-10-15] MEDS: cefTRIAXone 1 gm 1 GM/100 ML BAG IVPB SCH (11:23)
[2017-10-15] MEDS: MethylPREDNISolone 40 mg Vial IV SCH ×2 (11:23→21:13)
--- NOTE | 2017-10-15 13:32 | PN ---
DATE: 10/15/2017 SUBJECTIVE: The patient has no complaints of any chest pain. No shortness of breath. No headaches or dizziness. PHYSICAL EXAMINATION: VITAL SIGNS: Temperature is 98.2, pulse is 79, blood pressure is 137/72, respirations are 18. GENERAL: The patient is lying in bed, flat, comfortable. HEENT: No oral lesion. Anicteric sclerae. Moist mucosa. NECK: No JVD, adenopathy, or thyromegaly. CARDIOVASCULAR: S1 and S2, regular. No murmurs, rubs, or gallops. LUNGS: Clear to auscultation bilaterally. No wheeze, rales, or rhonchi. ABDOMEN: Bowel sounds are positive, soft, nontender and nondistended. EXTREMITIES: no cyanosis, clubbing or edema. LABORATORY DATA: White count is 9.6, hemoglobin is 11.9, creatinine 0.8. ASSESSMENT: 1. Urinary tract infection secondary to Klebsiella. 2. Morbid obesity with body mass index of 59. 3. Hypertension. 4. Chronic stasis dermatitis. 5. Diabetes type II. 6. Anxiety. PLAN: The patient is currently comfortable. She has had UTI secondary to Klebsiella, this is fairly sensitive. She is continuing on doxycycline for antibiotics. She is being followed by Infectious Disease. I appreciate the input. The patient is on Lovenox for DVT prophylaxis. She is on Neurontin for neuropathy. The patient is going to continue Solu-Medrol. She is receiving Zoloft for anxiety. She is on heart-healthy diet. Adam Wisdmo MD
[2017-10-16] MEDS: Insulin Lispro (HUMAlog) HIGH Coverage SC SCH ×5 (00:08→22:27)
[2017-10-16] MEDS: Albuterol-Ipratrop 3 mg / 0.5 (3 ml) UD IH SCH ×4 (01:49→19:39)
[2017-10-16] MEDS: Levothyroxine 75 MCG TAB PO SCH (06:35)
[2017-10-16] MEDS: Pantoprazole 40 mg EC Tab PO SCH (06:35)
[2017-10-16 07:19] LABS: HEMATOCRIT 35.5 % (36.0-48.0); MEAN CELL VOLUME 97.5 fl (80.0-105.0); MEAN CORPUSCULAR HEMOGLOBIN 31.9 pg (25.0-35.0); MEAN CORPUSCULAR HGB CONC 32.7 g/dl (31.0-37.0); MEAN PLATELET VOLUME 10.4 fl (7.0-11.0); RED CELL DISTRIBUTION WIDTH 16.5 % (11.5-14.5)
[2017-10-16 08:00] LABS: ALB/GLOB RATIO 0.8 (1.1-1.8); ALKALINE PHOSPHATASE 202 U/L (38-126); ALT/SGPT 69 U/L (7-56); AST/SGOT 56 U/L (14-36); BILIRUBIN,TOTAL 1.2 mg/dL (0.2-1.3); BLOOD UREA NITROGEN 22 mg/dL (7-21); CALCIUM 8.8 mg/dL (8.4-10.5); CARBON DIOXIDE 29 mmol/L (21-33); CHLORIDE 106 mmol/L (98-107); GFR AFRICAN-AMERICAN > 60; GLUCOSE,RANDOM 140 mg/dL (70-110); POTASSIUM 4.1 mmol/L (3.6-5.0); SODIUM 143 mmol/L (132-148); TOTAL PROTEIN 6.5 g/dL (5.8-8.3)
--- NOTE | 2017-10-16 09:49 | CON ---
DATE: 10/15/2017 CHIEF COMPLAINT: Weakness. LOCATION: The patient is seen earlier today in 374, bed 1. HISTORY OF PRESENT ILLNESS: This is a 52-year-old female with morbid obesity with BMI of 57, history of sarcoidosis, chronic obstructive lung disease, history of diverticulitis, history of cholecystectomy with multiple allergies including CIPRO, CLINDAMYCIN, CLARITHROMYCIN, ERYTHROMYCIN, COLISTIN and LEVAQUIN, who is admitted through the Emergency Room with diagnosis of pyelonephritis and COPD. In the Emergency Room, the patient was seen by Dr. Milan Menidola, who states the patient is also has diabetes mellitus, hypothyroidism, anemia, degenerative joint disease, and complained of shortness of breath. The patient is normally followed by Dr. Hoffmann. The patient also had complained of left flank pain and found to have a fever in the Emergency Room. Infectious Disease consultation requested. REVIEW OF SYSTEMS: Reveals the patient states her flank pain is improved. No nausea and vomiting at this point. No diarrhea or constipation. PAST MEDICAL HISTORY: Significant for morbid obesity with BMI of 59, sarcoidosis, chronic obstructive lung disease, depression on Zoloft, also on Seroquel, diverticulitis, diabetes, hypothyroidism, degenerative joint disease and anemia. PAST SURGICAL HISTORY: Significant for cholecystectomy and liver biopsy. ALLERGIES: THE PATIENT IS ALLERGIC TO CIPRO, CLARITHROMYCIN, CLINDAMYCIN, ERYTHROMYCIN, COLISTIN, LEVAQUIN, AND HYDROMORPHONE. HOME MEDICATIONS: Include Zoloft, Seroquel and inhalers. The patient was on doxycycline at home. The patient has no travel or no pet exposure. PHYSICAL EXAMINATION VITAL SIGNS: On exam, the patient's temperature is 98, T-max was 102, blood pressure is 130/60, respiratory rate is 18, it was up to 30 in the Emergency Room and yesterday it was 22 and a heart rate of 84, it was up to 98 in the Emergency Room. The patient was saturating at 94%. HEENT: Unremarkable. NECK: Supple. LUNGS: Have decreased breath sounds. HEART: Exam is normal S1, S2. ABDOMEN: Examination is soft, nontender. LABORATORY DATA: Examination reveals a white count of 9.6, hemoglobin of 11 and platelets of 87 and 79% granulocytosis. Coagulation is noted. INR of 1.35 and the chemistries reveals the patient's bilirubin is 3.2, alk phos is 187, glucose is elevated, BUN of 20, creatinine of 0.8. Urinalysis reveals 15-20 WBCs, moderate bacteria, moderate bilirubin and nitrates are positive, trace leukocyte esterase. Blood cultures are reported to be negative. Urine cultures; pansensitive Klebsiella in the urine. Urinalysis is noted and Dr. Schulte's consultation is reviewed. Left ear lesion, planning to go to the OR for excision or biopsy. Dr. Valenzuela communication report is reviewed. CAT scan of the chest shows bilateral opacities. Chest x-ray is also noted. The patient is on doxycycline and ceftriaxone. ASSESSMENT AND PLAN: This is a 52-year-old with morbidly obese female with BMI of 59 with sarcoidosis, chronic obstructive pulmonary disease, diverticulitis, depression, diabetes mellitus, degenerative joint disease, hypothyroidism, anemia, presenting with a temperature of 102, tachycardia, dyspnea, shortness of breath, infiltrates on the CAT scan and positive urinalysis, left-sided flank pain. 1. Sepsis with bilateral community-acquired pneumonia with Klebsiella urinary tract infection and left-sided pyelonephritis with multiple allergies and will treat the patient with Rocephin and doxycycline, maybe able to switch to p.o. once the patient's symptoms resolved. The patient should at least receive 10-14 days for both pyelonephritis and shorter course for community-acquired pneumonia in this patient with sepsis. We will order an human immunodeficiency virus test because of her age to be complete and we will check on the final culture and we will also order a procalcitonin, which determines the infiltrates are bacterial atypical versus viral. We will order a urine for Legionella and we will make further recommendations. We will change the doxycycline to p.o. if the patient is able to tolerate p.o. Madhav Ashley MD
[2017-10-16] MEDS: MethylPREDNISolone 40 mg Vial IV SCH ×2 (10:55→21:56)
[2017-10-16] MEDS: cefTRIAXone 1 gm 1 GM/100 ML BAG IVPB SCH (10:56)
[2017-10-16] MEDS: Enoxaparin 40 mg Syringe SC SCH (10:58)
--- NOTE | 2017-10-16 14:04 | CP.PCM.PN ---
Subjective - Date & Time of Evaluation Date of Evaluation: 10/16/17 Time of Evaluation: 06:45 - Subjective Subjective: General Surgery- Dr. Valenzuela Patient seen and examined at bedside this AM. No acute events overnight. tolerating current diet. Denies fevers, chills, nausea, vomiting, diarrhea, headaches Objective - Vital Signs/Intake and Output Vital Signs (last 24 hours): Temp Pulse Resp BP Pulse Ox 97.8 F 67 19 142/73 97 10/16/17 06:00 10/16/17 06:00 10/16/17 06:00 10/16/17 06:00 10/16/17 06:00 Intake and Output: 10/16/17 10/16/17 06:59 18:59 Intake Total 320 Output Total 1300 Balance -980 - Medications Medications: Current Medications Acetaminophen/Butalbital/Caffeine (Fioricet) 1 tab PO Q6 PRN PRN Reason: Headache Last Admin: 10/13/17 15:14 Dose: 1 tab Albuterol/Ipratropium (Duoneb 3 Mg/0.5 Mg (3 Ml) Ud) 3 ml IH Q2H PRN PRN Reason: Shortness of Breath Albuterol/Ipratropium (Duoneb 3 Mg/0.5 Mg (3 Ml) Ud) 3 ml IH [id number] [facility] Last Admin: 10/16/17 08:09 Dose: 3 ml Clonazepam (Klonopin) 1 mg PO TID [facility] Last Admin: 10/16/17 10:55 Dose: 1 mg Doxycycline Hyclate (Doryx) 100 mg PO Q12 [facility] PRN Reason: Protocol Stop: 10/24/17 22:01 Last Admin: 10/16/17 10:57 Dose: 100 mg Enoxaparin Sodium (Lovenox) 40 mg SC DAILY [facility] PRN Reason: Protocol Last Admin: 10/16/17 10:58 Dose: 40 mg Gabapentin (Neurontin) 300 mg PO TID [facility] Last Admin: 10/16/17 10:55 Dose: 300 mg Hydroxyzine Pamoate (Vistaril) 50 mg PO BID PRN PRN Reason: Itching / Pruritus Last Admin: 10/13/17 10:52 Dose: 50 mg Ceftriaxone Sodium (Rocephin 1 Gram Ivpb (D5w)) 1 gm in 100 mls @ 100 mls/hr IVPB DAILY [facility] PRN Reason: Protocol Last Admin: 10/16/17 10:56 Dose: 100 mls/hr Insulin Human Lispro (Humalog High) 0 units SC ACHS [facility] PRN Reason: Protocol Last Admin: 10/16/17 12:28 Dose: Not Given Levothyroxine Sodium (Synthroid) 225 mcg PO ACB [facility] Last Admin: 10/16/17 06:35 Dose: 225 mcg Methylprednisolone (Solu-Medrol) 40 mg IV Q12 [facility] Last Admin: 10/16/17 10:55 Dose: 40 mg Pantoprazole Sodium (Protonix Ec Tab) 40 mg PO 0630 [facility] Last Admin: 10/16/17 06:35 Dose: 40 mg Quetiapine Fumarate (Seroquel) 100 mg PO TID [facility] PRN Reason: Protocol Last Admin: 10/16/17 10:55 Dose: 100 mg Sertraline HCl (Zoloft) 200 mg PO DAILY [facility] Last Admin: 10/16/17 10:55 Dose: 200 mg Topiramate (Topamax) 50 mg PO TID [facility] PRN Reason: Protocol Last Admin: 10/16/17 10:55 Dose: 50 mg - Labs Labs: 10/16/17 07:00 10/16/17 07:00 PT 14.8 SECONDS (9.4-12.5) H 10/12/17 00:40 INR 1.35 (0.93-1.08) H 10/12/17 00:40 APTT 35.2 Seconds (25.1-36.5) 10/12/17 00:40 - Constitutional Appears: Non-toxic, No Acute Distress - Eye Exam Eye Exam: EOMI. absent: Scleral icterus - ENT Exam Additional comments: dark well circumscribed lesion on left year. raised, non-erythematous - Respiratory Exam Respiratory Exam: NORMAL BREATHING PATTERN. absent: Accessory Muscle Use, Respiratory Distress - Cardiovascular Exam Cardiovascular Exam: +S1, +S2. absent: Bradycardia, Tachycardia - GI/Abdominal Exam GI & Abdominal Exam: Soft, Normal Bowel Sounds. absent: Firm, Guarding, Rigid, Tenderness, Rebound - Extremities Exam Extremities Exam: Joint Swelling. absent: Calf Tenderness - Neurological Exam Neurological Exam: Alert, Awake, Oriented x3 - Skin Skin Exam: Erythema, Warm Assessment and Plan - Assessment and Plan (Free Text) Assessment: 52F admitted for Kelebsiella pneumoa, surgery consulted for lesion on left ear Plan: - will plan for removal of lesion in office as outpatient - no acute surgical intervention during this admission - continue medical management - further recs per Dr. Nicolas Mcfarland PGY1
[2017-10-16] MEDS: Alum-Mag Hydrox-Simethicone Susp (30 mL) PO PRN (14:20)
[2017-10-16] MEDS: Apap-Butalbital-Caffeine 325-50-40mg Tab PO PRN (16:09)
--- NOTE | 2017-10-16 17:38 | CP.PCM.PN ---
Subjective - Date & Time of Evaluation Date of Evaluation: 10/16/17 Time of Evaluation: 10:55 - Subjective Subjective: Comfortable, no fevers, not in distress, afebrile, breathing better. Objective - Vital Signs/Intake and Output Vital Signs (last 24 hours): Temp Pulse Resp BP Pulse Ox 97.8 F 67 19 142/73 97 10/16/17 06:00 10/16/17 06:00 10/16/17 06:00 10/16/17 06:00 10/16/17 06:00 Intake and Output: 10/16/17 10/16/17 06:59 18:59 Intake Total 320 Output Total 1300 Balance -980 - Medications Medications: Current Medications Acetaminophen/Butalbital/Caffeine (Fioricet) 1 tab PO Q6 PRN PRN Reason: Headache Last Admin: 10/13/17 15:14 Dose: 1 tab Albuterol/Ipratropium (Duoneb 3 Mg/0.5 Mg (3 Ml) Ud) 3 ml IH Q2H PRN PRN Reason: Shortness of Breath Albuterol/Ipratropium (Duoneb 3 Mg/0.5 Mg (3 Ml) Ud) 3 ml IH [id number] [facility] Last Admin: 10/16/17 08:09 Dose: 3 ml Clonazepam (Klonopin) 1 mg PO TID [facility] Last Admin: 10/15/17 18:48 Dose: 1 mg Doxycycline Hyclate (Doryx) 100 mg PO Q12 NOAM PRN Reason: Protocol Stop: 10/24/17 22:01 Last Admin: 10/15/17 21:13 Dose: 100 mg Enoxaparin Sodium (Lovenox) 40 mg SC DAILY NO[facility] PRN Reason: Protocol Last Admin: 10/15/17 11:19 Dose: 40 mg Gabapentin (Neurontin) 300 mg PO TID [facility] Last Admin: 10/15/17 18:48 Dose: 300 mg Hydroxyzine Pamoate (Vistaril) 50 mg PO BID PRN PRN Reason: Itching / Pruritus Last Admin: 10/13/17 10:52 Dose: 50 mg Ceftriaxone Sodium (Rocephin 1 Gram Ivpb (D5w)) 1 gm in 100 mls @ 100 mls/hr IVPB DAILY [facility] PRN Reason: Protocol Last Admin: 10/15/17 11:23 Dose: 100 mls/hr Insulin Human Lispro (Humalog High) 0 units SC ACHS [facility] PRN Reason: Protocol Last Admin: 10/16/17 08:35 Dose: Not Given Levothyroxine Sodium (Synthroid) 225 mcg PO ACB [facility] Last Admin: 10/16/17 06:35 Dose: 225 mcg Methylprednisolone (Solu-Medrol) 40 mg IV Q12 [facility] Last Admin: 10/15/17 21:13 Dose: 40 mg Pantoprazole Sodium (Protonix Ec Tab) 40 mg PO 0630 [facility] Last Admin: 10/16/17 06:35 Dose: 40 mg Quetiapine Fumarate (Seroquel) 100 mg PO TID [facility] PRN Reason: Protocol Last Admin: 10/15/17 18:48 Dose: 100 mg Sertraline HCl (Zoloft) 200 mg PO DAILY [facility] Last Admin: 10/15/17 11:20 Dose: 200 mg Topiramate (Topamax) 50 mg PO TID [facility] PRN Reason: Protocol Last Admin: 10/15/17 18:48 Dose: 50 mg - Labs Labs: 10/16/17 07:00 10/16/17 07:00 PT 14.8 SECONDS (9.4-12.5) H 10/12/17 00:40 INR 1.35 (0.93-1.08) H 10/12/17 00:40 APTT 35.2 Seconds (25.1-36.5) 10/12/17 00:40 - Constitutional Appears: Non-toxic, No Acute Distress - Head Exam Head Exam: NORMAL INSPECTION - Neck Exam Neck Exam: absent: Meningismus - Respiratory Exam Respiratory Exam: Decreased Breath Sounds - Cardiovascular Exam Cardiovascular Exam: +S1, +S2 - GI/Abdominal Exam GI & Abdominal Exam: Soft. absent: Tenderness Assessment and Plan - Assessment and Plan (Free Text) Plan: Assessment sepsis due to bilateral community-acquired pneumonia as well as Klebsiella left sided pyelopnephritis history of sepsis secondary to E. coli bacteremia secondary to left sided pyelonephritis Sarcoidosis History of diverticulitis History of cholecystectomy Morbid obesity with BMI 59 COPD DM degenerative joint disease hisotry of depression hypothyrtoidism chronic anemia Plan continue Rocephin to complete 10-14 days of therapy and 5-7 days of Doxycycline (day 2 today); PCT is slightly elevated at 0.6; blood cx are negative will continue to monitor clinically
--- NOTE | 2017-10-16 21:08 | PN ---
DATE: SUBJECTIVE: Patient is 52 years old, seen and examined, sitting in chair, still complaining of cough, congestion, shortness of breath, feeling weak. PHYSICAL EXAMINATION VITAL SIGNS: She is afebrile, pulse 67, respirations 19, blood pressure 142/73. LUNGS: Bilateral few expiratory rhonchi. HEART: S1 and S2 audible. ABDOMEN: Soft, nontender. No rebound. No guarding. NEUROLOGIC: She is awake, alert, oriented, communicative. LABORATORY DATA: WBC 6.0, hemoglobin 11.6, hematocrit 35, platelet of 98. Chemistry: Sodium 143, potassium 4.1, chloride 106, CO2 29, BUN 22, creatinine 0.7, blood sugar of 140. Her procalcitonin is 0.60. HIV test is negative. ASSESSMENT AND PLAN: 1. Bilateral pulmonary infiltrates. 2. Morbid obesity. 3. Noninsulin-dependent diabetes. 4. Hypertension. 5. Klebsiella urinary tract infection with pyelonephritis. PLAN: Currently, the patient is on doxycycline. She is getting nebulizer treatment. She is on DVT prophylaxis. She is on Protonix. She is on IV steroids. Patient is slowly making progress. We will request for TCU evaluation. If she is accepted, can be transferred to TCU today. Karson Ruiz MD
[2017-10-17] MEDS: Albuterol-Ipratrop 3 mg / 0.5 (3 ml) UD IH SCH ×4 (01:29→20:35)
[2017-10-17] MEDS: Pantoprazole 40 mg EC Tab PO SCH (05:51)
[2017-10-17] MEDS: Insulin Lispro (HUMAlog) HIGH Coverage SC SCH ×4 (07:58→21:27)
[2017-10-17] MEDS: Levothyroxine 75 MCG TAB PO SCH (08:01)
[2017-10-17] MEDS: MethylPREDNISolone 40 mg Vial IV SCH ×2 (09:47→21:26)
[2017-10-17] MEDS: cefTRIAXone 1 gm 1 GM/100 ML BAG IVPB SCH (09:48)
[2017-10-17] MEDS: Enoxaparin 40 mg Syringe SC SCH (09:52)
[2017-10-17] MEDS ORDERED: Lidocaine 5% Patch TD STA (12:43)
[2017-10-17] MEDS: Alum-Mag Hydrox-Simethicone Susp (30 mL) PO PRN (13:43)
[2017-10-17] MEDS: Apap-Butalbital-Caffeine 325-50-40mg Tab PO PRN (15:18)
--- NOTE | 2017-10-17 17:59 | PN ---
DATE: 10/17/2017 SUBJECTIVE: The patient is in bed, in no acute distress, nontoxic. OBJECTIVE: VITAL SIGNS: Temperature is 97, blood pressure is 112/70, respiratory rate is 16. HEENT: Unremarkable. NECK: Supple. LUNGS: Have decreased breath sounds. HEART: Normal S1, S2. ABDOMEN: Soft, nontender. LABORATORY EXAMINATION: Reveals a BUN of 22, creatinine of 0.7. White count of 6. Urinalysis is noted. Serology is noted. Urine culture has Klebsiella pneumoniae in the urine. The blood cultures are no growth. The Klebsiella in the urine is pansensitive. Review of orders reveals the patient to be on p.o. doxycycline and IV ceftriaxone. ASSESSMENT AND PLAN: This is a 52-year-old super morbidly obese female with a BMI of 59 and sepsis due to bilateral community-acquired pneumonia as well as urinary tract Klebsiella and left-sided pyelonephritis. The patient with a history of Escherichia coli bacteremia with a pyelonephritis and history of sarcoidosis and diverticulitis, history of cholecystectomy, depression, hypothyroidism, on ceftriaxone, doxycycline. Will need 10-14 days of antibiotics, maybe able to switch to p.o. doxycycline and p.o. Vantin to complete therapy or at least 14 days. Madhav Ashley MD
--- NOTE | 2017-10-17 19:18 | PN ---
DATE: SUBJECTIVE: The patient is 52 years old, seen and examined. Complaint of left lower back pain. Complaint of shortness of breath. No nausea or vomiting. Eating and tolerating. PHYSICAL EXAMINATION: VITAL SIGNS: The patient is afebrile, pulse 63, respirations 18, blood pressure 127/67. LUNGS: Bilateral fair airflow. No rhonchi or crackle. HEART: S1 and S2 audible. ABDOMEN: Soft, obese, nontender. No rebound. No guarding. She has paraspinal discomfort in the left mid back area. NEUROLOGIC: The patient is awake, alert, oriented, and communicative. Able to ambulate. Bilateral leg, no edema. Has chronic stasis dermatitis. LABORATORY DATA: Her blood sugar is 132. ASSESSMENT AND PLAN: 1. Bilateral infiltrates. 2. Morbid obesity. 3. Hypertension. 4. Hyperlipidemia. 5. History of depression. PLAN: We will order for lumbosacral spine x-ray, apply 5% Lidoderm patch. Continue on antibiotics. We will order for TCU evaluation if the patient is accepted, she can be transferred to TCU. Karson Ruiz MD
[2017-10-18] MEDS: Albuterol-Ipratrop 3 mg / 0.5 (3 ml) UD IH SCH ×4 (02:00→20:05)
[2017-10-18] MEDS: Pantoprazole 40 mg EC Tab PO SCH (06:03)
[2017-10-18] MEDS: Insulin Lispro (HUMAlog) HIGH Coverage SC SCH ×4 (08:00→21:59)
[2017-10-18] MEDS: Levothyroxine 75 MCG TAB PO SCH (08:11)
--- NOTE | 2017-10-18 10:42 | RAD ---
PROCEDURE: Radiographs of the Lumbar Spine. HISTORY: lower back pain COMPARISON: No prior. FINDINGS: BONES: Normal alignment. No listhesis. No fracture. DISC SPACES: There is disc degeneration at L4-5. OTHER FINDINGS: None. IMPRESSION: Disc degeneration at L4-5. The spine is otherwise unremarkable
[2017-10-18] MEDS: Apap-Butalbital-Caffeine 325-50-40mg Tab PO PRN (10:43)
[2017-10-18] MEDS: Enoxaparin 40 mg Syringe SC SCH (10:44)
[2017-10-18] MEDS: cefTRIAXone 1 gm 1 GM/100 ML BAG IVPB SCH (10:44)
[2017-10-18] MEDS: MethylPREDNISolone 40 mg Vial IV SCH (10:45)
[2017-10-18] MEDS: Lidocaine 5% Patch TD SCH (10:45)
[2017-10-18] MEDS: Alum-Mag Hydrox-Simethicone Susp (30 mL) PO PRN (11:48)
[2017-10-18] MEDS ORDERED: Barium Sulfate Susp 2.1% w/v, 2.0% w/w 450 mL Bottle PO ONE (13:51)
--- NOTE | 2017-10-18 15:53 | PN ---
DATE: 10/18/2017 SUBJECTIVE: The patient is in bed, in no acute distress, nontoxic. PHYSICAL EXAMINATION: VITAL SIGNS: Temperature is 98, blood pressure is 120/50, and respiratory rate of 18. HEENT: Unremarkable. NECK: Supple. LUNGS: Have decreased breath sounds. HEART: Normal S1, S2. ABDOMEN: Soft, nontender. LABORATORY DATA: Reveals a white count is 6, hemoglobin of 11, and platelets of 98. Chemistries reveals BUN of 22, creatinine of 0.7, and procalcitonin is 0.6. Microbiology reveals Klebsiella in the urine culture. Klebsiella in the urine is reported to be sensitive to ceftriaxone, Cipro, Bactrim, and cephalosporins, only resistant to ampicillin. ASSESSMENT AND PLAN: This is a 52-year-old morbidly obese female with a body mass index of 59 and sepsis with bilateral community-acquired pneumonia as well as Klebsiella and left-sided pyelonephritis. She continues to have pain in the left flank. We will order a CAT of the abdomen and pelvis and we will continue with the doxycycline and ceftriaxone. Her CAT is not possible because of size of the patient, at least an ultrasound should be done. We will also order an ultrasound of the kidneys. We will follow closely with you. Madhav Ashley MD
--- NOTE | 2017-10-18 16:32 | PN ---
DATE: 10/18/2017 SUBJECTIVE: The patient is 52 years old, seen and examined. Complains of mid back pain, lower back pain, minimal cough and congestion. PHYSICAL EXAMINATION: VITAL SIGNS: The patient is afebrile, pulse 74, respirations 20, blood pressure 125/52. LUNGS: Bilateral fair airflow. No rhonchi or crackles. HEART: S1 and S2 audible. ABDOMEN: Soft, obese, nontender. No rebound. No guarding. NEUROLOGIC: She is awake, alert, oriented, communicative. Bilateral leg, she has stasis dermatitis. LABORATORY DATA: Blood sugar is 132. Urine is growing Klebsiella pneumonia, so we will continue on doxycycline. She is on Rocephin. We will continue ____ and steroid. Currently, the patient is on Vantin. We will discontinue Rocephin and discontinue IV steroid and change into p.o. prednisone. If she remains stable, we will discharge in a.m. Karson Ruiz MD
--- NOTE | 2017-10-18 18:13 | US ---
PROCEDURE: Ultrasound of the Kidneys HISTORY: left flank pain r/o stones COMPARISON: CT abdomen pelvis without contrast performed 07/13/15 TECHNIQUE: Sonogram of the kidneys. FINDINGS: Examination markedly limited by habitus. RIGHT KIDNEY: Measures: 14.1 x 4.3 x 5.9 cm. Midpole echogenic focus measuring approximately 0.6 x 0.6 x 0.4 cm without clear evidence of posterior acoustic shadowing. No hydronephrosis or obstructing calculus identified. LEFT KIDNEY: Measures: 14.3 x 4.1 x 6.8 cm. Midpole echogenic focus measuring approximately 0.7 x 0.8 x 0.7 cm without clear evidence of posterior acoustic shadowing. No hydronephrosis or obstructing calculus identified. OTHER FINDINGS: None. IMPRESSION: Examination markedly limited by habitus. Bilateral sub cm echogenic foci without clear evidence of posterior acoustic shadowing, consider possible tiny angio myelolipoma less likely calcification. No hydronephrosis or obstructing calculus identified.
--- NOTE | 2017-10-18 20:22 | CT ---
EXAM: CT Abdomen and Pelvis Without Intravenous Contrast EXAM DATE/TIME: 10/18/2017 1:43 PM CLINICAL HISTORY: 52 years old, female; Pain; Abdominal pain; Prior surgery; Surgery type: Cholecystectomy - (3) c-sections - tubal ligation; Additional info: Left pylon TECHNIQUE: Axial computed tomography images of the abdomen and pelvis without intravenous contrast. All CT scans at this facility use one or more dose reduction techniques, viz.: automated exposure control; ma/kV adjustment per patient size (including targeted exams where dose is matched to indication; i.e. head); or iterative reconstruction technique. Coronal and sagittal reformatted images were created and reviewed. COMPARISON: Prior CT abdomen and pelvis of 07/13/2015. FINDINGS: LIMITATIONS: Artifact related to the patient's body habitus. LOWER THORAX: No infiltrate seen in the lung bases. ABDOMEN: LIVER: Liver is cirrhotic in appearance. Multiple abdominal collateral vessels again seen seen. This constellation of findings is compatible with portal hypertension due to chronic liver disease. GALLBLADDER AND BILE DUCTS: Cholecystectomy clips. No evidence of significant biliary ductal dilatation. PANCREAS: No CT evidence of acute pancreatitis. SPLEEN: Splenomegaly, with the spleen measuring 17 cm in length. This finding appears stable. ADRENALS: No acute abnormality of the adrenal glands identified. KIDNEYS AND URETERS: No acute abnormality of the kidneys seen. STOMACH AND BOWEL: No acute abnormality of the stomach, small bowel or colon identified. No evidence of bowel obstruction. APPENDIX: Appendix is seen, and is within normal limits in appearance. Negative. PELVIS: BLADDER: No acute abnormality of the bladder identified. REPRODUCTIVE:No acute abnormality of the reproductive organs is seen. No acute abnormality of the uterus identified. No evidence of large adnexal masses. ABDOMEN and PELVIS: INTRAPERITONEAL SPACE: No evidence of free intraperitoneal air or fluid. BONES/JOINTS: No acute fractures or other acute bony abnormality noted. SOFT TISSUES: Mild subcutaneous edema is seen in the pelvic wall soft tissues. No evidence of soft tissue abscess, soft tissue gas or soft tissue hematoma. VASCULATURE: No evidence of abdominal aortic aneurysm. LYMPH NODES: No evidence of diffuse lymphadenopathy. IMPRESSION: - No evidence of significant acute process. - Stable findings compared to an 07/13/2015 CT. - Findings compatible with portal hypertension due to chronic liver disease/cirrhosis. - Splenomegaly. - See above for remaining findings.
[2017-10-18] MEDS: Cefpodoxime (Vantin) 200 mg Tab PO SCH (21:27)
[2017-10-19] MEDS: Albuterol-Ipratrop 3 mg / 0.5 (3 ml) UD IH SCH ×3 (02:40→14:12)
[2017-10-19] MEDS: Pantoprazole 40 mg EC Tab PO SCH (05:35)
[2017-10-19 08:01] VITALS: BP 114/65; PULSE 64; RESP 18; TEMP 97.5; O2SAT 96
[2017-10-19] MEDS: Insulin Lispro (HUMAlog) HIGH Coverage SC SCH (08:36)
[2017-10-19] MEDS: Levothyroxine 75 MCG TAB PO SCH (08:36)
[2017-10-19] MEDS: Enoxaparin 40 mg Syringe SC SCH (10:14)
[2017-10-19] MEDS: Cefpodoxime (Vantin) 200 mg Tab PO SCH (10:15)
[2017-10-19] MEDS: Lidocaine 5% Patch TD SCH (10:37)
[2017-10-19] MEDS: Alum-Mag Hydrox-Simethicone Susp (30 mL) PO PRN (10:38)
--- NOTE | 2017-10-19 18:39 | PN ---
DATE: 10/19/2017 SUBJECTIVE: The patient is seen earlier this morning. She states her back pain is much improved. No nausea. No vomiting. No chest pain. No abdominal pain, diarrhea, or constipation. PHYSICAL EXAMINATION: VITAL SIGNS: Temperature is 98, blood pressure is 120/70, and respirations 16. HEENT: Unremarkable. NECK: Supple. LUNGS: Decreased breath sounds. HEART: Normal S1, S2. ABDOMEN: Soft, nontender. LABORATORY EXAMINATION: Reveals a white count of 6, hemoglobin of 11, and platelets of 98. Chemistries are noted. ASSESSMENT AND PLAN: This is a 52-year-old morbidly obese female with a body mass index of 59 and sepsis, bilateral community-acquired pneumonia with Klebsiella, and left-sided pyelonephritis and switched p.o. doxycycline and p.o. cefepime, complete 10 days therapy for pyelonephritis and pneumonia. Case discussed with PMD earlier today. The patient to follow up as outpatient. Madhav Ashley MD
--- NOTE | 2017-10-19 19:21 | DS ---
HISTORY OF PRESENT ILLNESS: The patient is 52 years old , seen and examined. Complaining of shortness of breath, but no cough, no fever, no chills, no nausea, no vomiting, no diarrhea. Eating and tolerating. PHYSICAL EXAMINATION: VITAL SIGNS: She is afebrile. Pulse 64, respirations 18, blood pressure 114/65. LUNGS: Bilateral good airflow. No rhonchi or crackles. HEART: S1, S2, audible. ABDOMEN: Soft, obese, nontender. No rebound, no guarding. NEUROLOGIC: The patient is awake, alert, oriented, communicative, able to ambulate. LABORATORY DATA: Her blood culture urine shows Klebsiella pneumonia. Blood cultures are negative. Urine culture is Klebsiella. Her CT scan of the abdomen and pelvis was done that is unremarkable. CT scan of the chest shows bilateral infiltrates. X-ray of the lumbar spine is unremarkable except DJD. PLAN: The patient is clinically stable. We will discharge the patient home on Doxy 100 twice a day for 10 days and Vantin 100 twice a day for 10 days. She has nebulizer at home. She will resume all her medications as prior to admission. Karson Ruiz MD
== END 2017-10-19 14:54 | disposition home or self-care (01) | DRG 584 ==
LOC: ED 23:46 → ERH 10-12 03:29 → 3RSO 10-12 05:39 → 3RNO 10-18 18:51
PROVIDERS: ADMIT Internal Medicine; ATTEND Internal Medicine
DX: A41.9 Sepsis, unspecified organism (principal); J18.9 Pneumonia, unspecified organism; J44.0 Chronic obstructive pulmonary disease with (acute) lower respiratory infection; E11.40 Type 2 diabetes mellitus with diabetic neuropathy, unspecified; N12 Tubulo-interstitial nephritis, not specified as acute or chronic; B96.1 Klebsiella pneumoniae [K. pneumoniae] as the cause of diseases classified elsewhere; D86.9 Sarcoidosis, unspecified; E66.01 Morbid (severe) obesity due to excess calories; Z68.43 Body mass index [BMI] 50.0-59.9, adult; I87.2 Venous insufficiency (chronic) (peripheral); M19.90 Unspecified osteoarthritis, unspecified site; F32.9 Major depressive disorder, single episode, unspecified; E03.9 Hypothyroidism, unspecified; D64.9 Anemia, unspecified; F41.9 Anxiety disorder, unspecified; I10 Essential (primary) hypertension; E78.5 Hyperlipidemia, unspecified; M51.36 Other intervertebral disc degeneration, lumbar region; K21.9 Gastro-esophageal reflux disease without esophagitis; Z88.3 Allergy status to other anti-infective agents; Z88.0 Allergy status to penicillin; Z79.84 Long term (current) use of oral hypoglycemic drugs; Z79.899 Other long term (current) drug therapy

== ENCOUNTER 2017-12-01 12:15 | Inpatient (IN) | payer MEDICAID, OTHER ==
[2017-12-01 12:17] VITALS: BMI 55.4
--- NOTE | 2017-12-01 13:19 | ED PDOC ---
Arrival/HPI - General Chief Complaint: Shortness Of Breath Time Seen by Provider: 12/01/17 12:22 - History of Present Illness Narrative History of Present Illness (Text): 12/01/17 13:16 52yoF, who has COPD, hx of recent hospitalization in october for pneumonia and dc'd on doxycycline 10/19/17, with progressive sob, yellow cough, and secondarily both lower legs swelling/redness and sent by PMD to ED but otherwise no nausea/vomiting/headache/dizziness/abdomen pain/numbness/tingling/ chest pain/loss of limb function/pain with urination/travel/prior blood clots/ prior cancer hx/prior hormonal use. 12/01/17 14:11 Time/Duration: Other (several days) Past Medical History - Provider Review Nursing Documentation Reviewed: Yes - Travel History Have you recently traveled outside [place] w/in the past 3 mons?: No - Infectious Disease Hx of Infectious Diseases: None - Tetanus Immunization Tetanus Immunization: Unknown - Cardiac Hx Cardiac Disorders: Yes - Pulmonary Hx Respiratory Disorders: Yes Hx Asthma: Yes Hx Sleep Apnea: Yes Other/Comment: SARCOIDOSIS on O2 @ 3LPM via NC - Neurological Hx Neurological Disorder: Yes (headache,DM neuropathy left knee) - HEENT Hx HEENT Disorder: Yes (reading glasses) Hx Blind: No Hx Cataracts: No Hx Deafness: No Hx Difficulty Chewing: No Hx Epistaxis: No Hx Glaucoma: No Hx Macular Degeneration: No Other/Comment: Pseudotumor behind right eye - Renal Hx Renal Disorder: No - Endocrine/Metabolic Hx Endocrine Disorders: Yes Hx Diabetes Mellitus Type 2: Yes Hx Hypothyroidism: Yes - Hematological/Oncological Hx Blood Disorders: Yes Hx Anemia: Yes Hx Cirrhosis: Yes (non alcoholic) - Integumentary Hx Dermatological Disorder: No Hx Basal Cell Carcinoma: No Hx Eczema: No Hx Melanoma: No Hx Psoriasis: No Hx Squamous Cell Carcinoma: No - Musculoskeletal/Rheumatological Hx Musculoskeletal Disorders: Yes Hx Arthritis: Yes Hx Falls: Yes - Gastrointestinal Hx Gastrointestinal Disorders: Yes Hx Gastroesophageal Reflux: Yes - Genitourinary/Gynecological Hx Genitourinary Disorders: No - Psychiatric Hx Anxiety: Yes Hx Depression: Yes Hx Panic Disorder: Yes Hx Substance Use: No - Past Surgical History Past Surgical History: No Previous - Surgical History Hx Cholecystectomy: Yes - Anesthesia Hx Anesthesia: Yes Hx Anesthesia Reactions: No Hx Malignant Hyperthermia: No - Suicidal Assessment Feels Threatened In Home Enviroment: No Family/Social History - Physician Review Nursing Documentation Reviewed: Yes Family/Social History: No Known Family HX Smoking Status: Heavy Smoker > 10 Cigarettes Daily Hx Alcohol Use: No Hx Substance Use: No Hx Substance Use Treatment: No Allergies/Home Meds Allergies/Adverse Reactions: Allergies ciprofloxacin [From Cipro] Allergy (Verified 12/08/16 13:07) VOMITING ciprofloxacin HCl [From Cipro] Allergy (Verified 12/08/16 13:07) VOMITING clarithromycin [From Biaxin] Allergy (Verified 12/08/16 13:07) VOMITING clindamycin Allergy (Verified 12/08/16 13:07) VOMITING colistin Allergy (Verified 12/08/16 13:07) VOMITING erythromycin base Allergy (Verified 10/11/17 23:52) DIARRHEA hydromorphone HCl [From Dilaudid] Allergy (Verified 12/08/16 13:07) VOMITING levofloxacin [From Levaquin] Allergy (Verified 10/11/17 23:52) SHORTNESS OF BREATH Penicillins Allergy (Verified 10/11/17 23:52) SHORTNESS OF BREATH Home Medications: Home Meds Medication Instructions Recorded Confirmed Acetaminophen/Butalbital/Caf 1 tab PO QID PRN 12/01/17 12/01/17 [Fioricet] Albuterol/Ipratropium [Duoneb 3 1 vial IH QID 12/01/17 12/01/17 mg/0.5 mg (3 ml) UD] Ergocalciferol [Drisdol 50,000 1 cap PO Q7D 12/01/17 12/01/17 Intl Units Cap] Gabapentin [Neurontin] 1 cap PO DAILY 12/01/17 12/01/17 Glimepiride [amaRYL] 1 tab PO DAILY 12/01/17 12/01/17 Ibuprofen [Motrin Tab] 1 tab PO PRN PRN 12/01/17 12/01/17 Levothyroxine [Synthroid] 1 tab PO DAILY 12/01/17 12/01/17 Metoclopramide [Reglan] 1 tab PO DAILY 12/01/17 12/01/17 QUEtiapine [Seroquel] 1 tab PO TID 12/01/17 12/01/17 Sertraline [Zoloft] 1 tab PO BID 12/01/17 12/01/17 Topiramate [Topamax] 1 tab PO TID 12/01/17 12/01/17 clonazePAM [Klonopin] 1 tab PO BID 12/01/17 12/01/17 clonazePAM [Klonopin] 1 tab PO DAILY 12/01/17 12/01/17 rifAXIMin [Xifaxan] 1 tab PO BID 12/01/17 12/01/17 Review of Systems - Review of Systems Systems not reviewed;Unavailable: Acuity of Condition Constitutional: Fatigue Eyes: Normal ENT: Normal Respiratory: SOB Cardiovascular: Normal Gastrointestinal: Normal Genitourinary Female: Normal Musculoskeletal: Other (b/l le swelling) Skin: Other (redness b/l le) Endocrine: Normal Hemo/Lymphatic: Normal Psychiatric: Normal Physical Exam Vital Signs Reviewed: Yes Vital Signs Temp Pulse Resp BP Pulse Ox 12/01/17 20:43 77 20 113/56 L 97 12/01/17 17:50 74 18 118/65 97 12/01/17 15:44 81 18 122/64 97 12/01/17 13:36 82 18 142/71 96 12/01/17 13:00 18 96 12/01/17 12:28 98.5 F 90 20 144/79 96 Temperature: Afebrile Blood Pressure: Hypertensive Pulse: Regular Respiratory Rate: Normal Appearance: Positive for: Comfortable, Ill-Appearing Pain Distress: None Mental Status: Positive for: Alert and Oriented X 3 - Systems Exam Head: Present: Atraumatic, Normocephalic Pupils: Present: PERRL Extroacular Muscles: Present: EOMI Conjunctiva: Present: Normal Ears: Present: Normal Mouth: Present: Moist Mucous Membranes Pharnyx: Present: Normal Nose (External): Present: Atraumatic Nose (Internal): Present: Normal Inspection Neck: Present: Normal Range of Motion Respiratory/Chest: Present: Clear to Auscultation, Good Air Exchange, Respiratory Distress Cardiovascular: Present: Regular Rate and Rhythm Abdomen: No: Tenderness, Distention, Normal Bowel Sounds, Peritoneal Signs, Rebound, Guarding, McBurney's Point Tender, Rovsing's Sign Present, Hernias, Feeding Tubes, Ostomy Tubes, Mass/Organomegaly, Scars, Other Back: Present: Normal Inspection Upper Extremity: Present: Normal Inspection Neurological: Present: GCS=15, CN II-XII Intact, Speech Normal, Motor Func Grossly Intact, Other (b/l le mild edema/pitting, with hyperemia with mild warmth but no fluctuance/crepitus. otherwise +warm/sensation/cap refill/dp pulses+) Skin: Present: Warm, Other (see le) Psychiatric: Present: Alert, Oriented x 3, Normal Insight, Normal Concentration Medical Decision Making ED Course and Treatment: 52yoF, who has COPD, hx of recent hospitalization in october for pneumonia and dc'd on doxycycline 10/19/17, with progressive sob, yellow cough, and secondarily both lower legs swelling/redness and sent by PMD to ED but otherwise no nausea/vomiting/headache/dizziness/abdomen pain/numbness/tingling/ chest pain/loss of limb function/pain with urination/travel/prior blood clots/ prior cancer hx/prior hormonal use. 97.6T 83HR 18RR 104/61BP 97% oxygen level. 12/01/17 14:10 pt states can tolerate morphine. 12/01/17 14:11 12/01/17 14:12 nurse notified labs hemolyzed chem and lactic. will re-draw. 12/01/2017 15:23 Chest X-ray IMPRESSION: Moderate vascular congestion. Dictator: Stef Egan MD 12/01/17 17:33 lactic 0.9 12/01/17 18:37 trop negative BNP 56 US b/l LE no acute finding of DVT. doxycycline iv paged Dr. Hoffmann 12/01/17 20:[address] Hoffmann/Kyle 12/01/17 21:32 d/w Dr. Mcfadden regarding pt with cellulitis b/l le, sob with neg trop/bnp, but cxr with vascular congestion. she stated can admit to med/surge for obs. - Critical Care Narrative Critical Care (Text): 52yoF, who has COPD, hx of recent hospitalization in october for pneumonia, with progressive sob, yellow cough, and secondarily both lower legs swelling/ redness and sent by PMD to ED but otherwise no nausea/vomiting/headache/ dizziness/abdomen pain/numbness/tingling/chest pain/loss of limb function/pain with urination/travel/prior blood clots/prior cancer hx/prior hormonal use. 98.5T 90Hr 20RR 144/79BP 96% 12/01/17 13:21 - Lab Interpretations Lab Results: 12/01/17 13:35 12/01/17 16:20 Lab Results 12/01/17 16:20: pO2 66 H, VBG pH 7.33, VBG pCO2 55.0, VBG HCO3 29.0 H, VBG Total CO2 30.7 H, VBG O2 Sat (Calc) 95.8 H, VBG Base Excess 1.9, VBG Potassium 3.8, Sodium 141.0, Chloride 110.0 H, Glucose 135 H, Lactate 0.9, FiO2 21.0, Venous Blood Potassium 3.8 12/01/17 16:20: Sodium 138, Chloride 105, Potassium 3.7, Carbon Dioxide 28, Anion Gap 9 L, BUN 13, Creatinine 0.7, Est GFR ( Amer) > 60, Est GFR (Non -Af Amer) > 60, Random Glucose 136 H, Calcium 9.1, Magnesium 1.8, Total Bilirubin 0.8, AST 41 H D, ALT 29, Alkaline Phosphatase 187 H, Lactate Dehydrogenase 455, Total Creatine Kinase 38, Troponin I < 0.01, NT-Pro-B Natriuret Pep 54.6, Total Protein 7.6, Albumin 3.3, Globulin 4.3, Albumin/ Globulin Ratio 0.8 L 12/01/17 14:00: Urine Color Yellow, Urine Appearance Clear, Urine pH 7.0, Ur Specific Chambers 1.015, Urine Protein Negative, Urine Glucose (UA) Negative, Urine Ketones Negative, Urine Blood Negative, Urine Nitrate Negative, Urine Bilirubin Negative, Urine Urobilinogen 1.0 H, Ur Leukocyte Esterase Negative 12/01/17 13:35: PT 11.8, INR 1.03, APTT 36.9 H 12/01/17 13:35: WBC 4.6 D, RBC 3.68, Hgb 11.9 L, Hct 37.0, MCV 100.5 D, MCH 32.3, MCHC 32.2, RDW 16.7 H, Plt Count 94 L, MPV 10.0, Gran % 63.4, Lymph % ( Auto) 24.1, [place] % (Auto) 10.1 H, Eos % (Auto) 1.5, Baso % (Auto) 0.9, Gran # 2.94, Lymph # 1.1 L, [place] # 0.5, Eos # 0.1, Baso # 0.04 - RAD Interpretation Radiology Orders: 12/01/17 12:45 CHEST TWO VIEWS (PA/LAT) [RAD] Stat 12/01/17 13:45 DUPLEX LOWER EXTRM VEIN BILAT [US] Stat Primer Inspector: Radiologist (cxr moderate degree of vascular congestion) - EKG Interpretation Interpreted by ED Physician: Yes (NSR, flipped t waves avr.) - Medication Orders Current Medication Orders: Discontinued Medications Acetaminophen (Tylenol 325mg Tab) 650 mg PO STAT STA Stop: 12/01/17 13:48 Last Admin: 12/01/17 14:12 Dose: Not Given Non-Admin Reason: Patient Refused Doxycycline Hyclate 100 mg/ (Sodium Chloride) 100 mls @ 100 mls/hr IVPB ONCE ONE PRN Reason: Protocol Stop: 12/01/17 19:35 Last Admin: 12/01/17 19:20 Dose: 100 mls/hr eMAR Start Stop Document 12/01/17 19:20 OCS (Rec: 12/01/17 19:21 [id number]) Intravenous Solution Start Date 12/01/17 Start Time 19:20 End Date 12/01/17 End time 20:20 Total Infusion Time 60 Morphine Sulfate (Morphine) 2 mg IVP STAT STA Stop: 12/01/17 14:09 Last Admin: 12/01/17 14:21 Dose: 2 mg MAR Pain Assessment Document 12/01/17 14:21 OCS (Rec: 12/01/17 14:21 [id number]) Pain Reassessment Is this a pain reassessment? Yes Sleep Is patient sleeping during reassessment? No Presence of Pain Presence of Pain Yes Pain Scale Used Pain Scale Used Numeric Location Left, Right or Bilateral Bilateral Upper or Lower Lower Pain Location Body Site Leg Description Description Constant Aggravating Factors ADL's IVP Administration Document 12/01/17 14:21 OCS (Rec: 12/01/17 14:21 [id number]) Charges for Administration # of IVP Administrations 1 Ondansetron HCl (Zofran Inj) 4 mg IM STAT STA Stop: 12/01/17 14:10 Last Admin: 12/01/17 14:21 Dose: 4 mg IM Administration Charges Document 12/01/17 14:21 OCS (Rec: 12/01/17 14:21 OCS [facility] [id number]) Injection Site MAR Injection Site Right Arm Charges for Administration # of IM Administrations 1 Disposition/Present on Arrival - Present on Arrival Any Indicators Present on Arrival: No History of DVT/PE: Yes History of Uncontrolled Diabetes: No Urinary Catheter: No History of Decub. Ulcer: No History Surgical Site Infection Following: None - Disposition Have Diagnosis and Disposition been Completed?: Yes Diagnosis: Cellulitis Disposition: HOSPITALIZED Disposition Time: 21:34 Patient Plan: Admission Condition: SERIOUS Discharge Instructions (ExitCare): Cellulitis (ED) Referrals: Humberto Hoffmann MD [Primary Care Provider] - Follow up with primary Forms: [employer] (Nauruan)
[2017-12-01 13:53] LABS: BASO # 0.04 K/mm3 (0.0-2.0); BASO % 0.9 % (0.0-3.0); EOS # 0.1 (0.0-0.7); EOS % 1.5 % (1.5-5.0); GRAN # 2.94 (1.4-6.5); GRAN % 63.4 % (50.0-68.0); HEMOGLOBIN 11.9 g/dL (12.0-16.0); LYMPH # 1.1 (1.2-3.4); LYMPH % 24.1 % (22.0-35.0); MEAN CELL VOLUME 100.5 fl (80.0-105.0); MEAN CORPUSCULAR HEMOGLOBIN 32.3 pg (25.0-35.0); MEAN CORPUSCULAR HGB CONC 32.2 g/dl (31.0-37.0); MONO # 0.5 (0.1-0.6); MONO % 10.1 % (1.0-6.0); RBC 3.68 10^6/uL (3.5-6.1); RED CELL DISTRIBUTION WIDTH 16.7 % (11.5-14.5); WHITE BLOOD COUNT 4.6 10^3/ul (4.5-11.0)
[2017-12-01 14:05] LABS: INR 1.03 (0.93-1.08); PARTIAL THROMBOPLASTIN TIME 36.9 Seconds (25.1-36.5); PROTHROMBIN TIME 11.8 SECONDS (9.4-12.5)
[2017-12-01] MEDS ORDERED: Morphine 2 mg/ml ISec IVP STA (14:08)
[2017-12-01 14:29] LABS: URINE BILIRUBIN NEGATIVE (NEGATIVE); URINE BLOOD NEGATIVE (NEGATIVE); URINE GLUCOSE (UA) NEGATIVE (NEGATIVE); URINE LEUKOCYTE ESTERASE NEGATIVE Leu/uL (NEGATIVE); URINE NITRATE NEGATIVE (NEGATIVE); URINE PROTEIN NEGATIVE mg/dL (<30 mg/dL)
[2017-12-01 14:32] LABS: URINE APPEARANCE CLEAR (CLEAR); URINE COLOR YELLOW (YELLOW)
--- NOTE | 2017-12-01 15:25 | RAD ---
HISTORY: 52yoF, SOB COMPARISON: 10/12/2017 TECHNIQUE: Chest PA and lateral FINDINGS: LUNGS: No active pulmonary disease. PLEURA: No significant pleural effusion identified. No pneumothorax apparent. CARDIOVASCULAR: There is a moderate degree of vascular congestion OSSEOUS STRUCTURES: No significant abnormalities. VISUALIZED UPPER ABDOMEN: Normal. OTHER FINDINGS: None. IMPRESSION: Moderate vascular congestion
[2017-12-01 16:29] LABS: VENOUS BLOOD GAS BASE EXCESS 1.9 mmol/L (0.0-2.0); VENOUS BLOOD GAS PO2 66 mm/Hg (30-55); VENOUS BLOOD PH 7.33 (7.32-7.43)
[2017-12-01 16:38] LABS: ALB/GLOB RATIO 0.8 (1.1-1.8); ALBUMIN 3.3 g/dL (3.0-4.8); ALT/SGPT 29 U/L (7-56); AST/SGOT 41 U/L (14-36); BLOOD UREA NITROGEN 13 mg/dL (7-21); CALCIUM 9.1 mg/dL (8.4-10.5); GFR AFRICAN-AMERICAN > 60; GFR NON-AFRICAN AMERICAN > 60; MAGNESIUM 1.8 mg/dL (1.7-2.2)
[2017-12-01 17:35] LABS: B-TYPE NATRIURETIC PEPTIDE 54.6 pg/mL (0-450); TROPONIN I < 0.01 ng/mL
--- NOTE | 2017-12-01 17:56 | US ---
HISTORY: Leg pain and swelling. Evaluate for DVT PHYSICIAN(S): Panda Osorio MD. TECHNIQUE: Duplex sonography and color-flow Doppler with graded compression were used to evaluate the deep venous systems of both lower extremities. The exam is limited by body habitus and edema. The tibial veins are not well seen. FINDINGS: The visualized deep venous systems of both lower extremities are sonographically normal and compressible. Normal wave forms and augmentation are seen. There is no sonographic evidence for deep venous thrombosis in the visualized segments of both lower extremities. IMPRESSION: No sonographic evidence for deep venous thrombosis in the visualized segments of both lower extremities. Very limited study.
[2017-12-01] MEDS: MethylPREDNISolone 40 mg Vial IVP SCH (22:53)
[2017-12-02] MEDS ORDERED: Albuterol-Ipratrop 3 mg / 0.5 (3 ml) UD IH SCH
[2017-12-02] MEDS: Levothyroxine 25 MCG TAB PO SCH ×2 (07:10→11:25)
--- NOTE | 2017-12-02 10:39 | CARD ---
APPROVED REPORT EKG Measurement Heart [id number] MI [id number] <Conclusion> Normal sinus rhythm NSSTW changes Prolonged QTC No change
[2017-12-02] MEDS: Enoxaparin 40 mg Syringe SC SCH (15:38)
[2017-12-02] MEDS: MethylPREDNISolone 40 mg Vial IVP SCH (21:17)
--- NOTE | 2017-12-03 00:52 | CON ---
DATE: CARDIOLOGY CONSULTATION REASON FOR CONSULTATION: Exacerbation of chronic obstructive lung disease. HISTORY OF PRESENT ILLNESS: The patient is a 52-year-old morbidly obese female, who has a history of chronic obstructive lung disease, on nasal O2 at home, who was recently hospitalized for pneumonia last month and was discharged on doxycycline. The patient presented because of worsening of shortness of breath, cough with productive yellow sputum as well as worsening of leg swelling and leg pain. The patient stated that she did have history of blood clots in her legs in the past. SOCIAL HISTORY: The patient was , lives with her . She is a smoker. CURRENT MEDICATIONS: Amaryl 2 mg once a day, Lasix 20 mg intravenous once a day, Protonix 40 mg intravenous once a day, Seroquel 100 mg t.i.d., Solu-Medrol 20 mg twice a day, Synthroid 25 mcg once a day, Zoloft 100 mg twice a day and Zofran 4 mg IM q. 6 hours p.r.n. REVIEW OF SYSTEMS: The patient reports multiple falls, but denies any passing out. PHYSICAL EXAMINATION GENERAL: The patient is morbidly obese, middle-aged female, who does not appear to in acute distress. VITAL SIGNS: Blood pressure 116/58, heart rate 68, temperature 98 and respirations 20. HEENT: Normocephalic. CHEST: Bilateral rhonchi. HEART: S1 and S2 regular. ABDOMEN: Soft. EXTREMITIES: 2 to 3+ pitting edema with changes of cellulitis. LABORATORY DATA: Hemoglobin and hematocrit 11.9 and 37, white count 4.6 and platelet count 94,000. SMA-7 within normal limits except for glucose of 139 and anion gap of 9. PTT 36.9. INR is 1.03. Influenza type A and B. EIA is negative. EKG revealed sinus rhythm, non-specific ST-T wave changes and prolonged QT interval. Echocardiogram study in 2015, revealed ejection fraction in the range of 45 to 50% with mild concentric LVH. Venous Doppler of the lower extremities. No sonographic evidence of DVT in the visualized segments. ASSESSMENT: 1. Congestive heart failure. 2. Exacerbation of chronic obstructive lung disease. 3. Bilateral leg cellulitis. 4. Multiple falls. RECOMMENDATIONS: Continue current IV Lasix 20 mg daily, Solu-Medrol 20 mg intravenously twice a day, Synthroid 25 mcg once a day. Obtain an echocardiogram and consider carotid ultrasound as well as CT scan without contrast. The most recent ultrasound study was in 2011, which revealed no significant disease. Kelby Marina MD
--- NOTE | 2017-12-03 02:15 | CP.PCM.HP ---
History of Present Illness - History of Present Illness History of Present Illness: Presented to ED with increase shortness of breath for past few days. No chest pain . She is also complaining of both leg swelling and erythema. No history of chest pain. No fever, cough. Present on Admission - Present on Admission Any Indicators Present on Admission: No Review of Systems - Constitutional Constitutional: As Per HPI - EENT Eyes: absent: As Per HPI, Blind Spots, Blurred Vision, Change in Vision, Decreased Night Vision, Diplopia, Discharge, Dry Eye, Exophthalmos, Floaters, Irritation, Itchy Eyes, Loss of Peripheral Vision, Pain, Photophobia, Requires Corrective Lenses, Sees Flashes, Spots in Vision, Tunnel Vision, Other Visual Disturbances, Loss of Vision, Other Ears: absent: As Per HPI, Decreased Hearing, Ear Discharge, Ear Pain, Tinnitus, Abnormal Hearing, Disequilibrium, Dizziness, Other Nose/Mouth/Throat: absent: As Per HPI, Epistaxis, Nasal Congestion, Nasal Discharge, Nasal Obstruction, Nasal Trauma, Nose Pain, Post Nasal Drip, Sinus Pain, Sinus Pressure, Bleeding Gums, Change in Voice, Dental Pain, Dry Mouth, Dysphagia, Halitosis, Hoarsness, Lip Swelling, Mouth Lesions, Mouth Pain, Odynophagia, Sore Throat, Throat Swelling, Tongue Swelling, Facial Pain, Neck Pain, Neck Mass, Other - Breasts Breasts: absent: As Per HPI, Change in Shape, Mass, Pain, Nipple Discharge, Nipple Inversion, Skin Changes, Swelling, Other - Cardiovascular Cardiovascular: As Per HPI - Respiratory Respiratory: As Per HPI - Gastrointestinal Gastrointestinal: absent: As Per HPI, Abdominal Pain, Belching, Bloating, Change in Bowel Habits, Change in Stool Character, Coffee Ground Emesis, Constipation, Cramping, Diarrhea, Dyspepsia, Dysphagia, Early Satiety, Excessive Flatus, Fecal Incontinence, Heartburn, Hematemesis, Hematochezia, Loose Stools, Melena, Nausea, Odynophagia, Temesmus, Vomiting, Other - Genitourinary Genitourinary: absent: As Per HPI, Change in Urinary Stream, Difficulty Urinating, Dysuria, Flank Pain, Hematuria, Pyuria, Nocturia, Urinary Incontinence, Urinary Frequency, Urinary Hesitance, Urinary Urgency, Voiding Freq/Small Amts, Freq UTI, Hx Renal/Bladder Calculi, Hx /Renal Surgery, Bladder Distension, Other - Musculoskeletal Musculoskeletal: absent: As Per HPI, Abnormal Gait, Arthralgias, Atrophy, Back Pain, Deformity, Joint Swelling, Limited Range of Motion, Loss of Height, Muscle Cramps, Muscle Weakness, Myalgias, Neck Pain, Numbness, Radiating Pain into Limb, Stiffness, Tingling, Other - Integumentary Integumentary: absent: As Per HPI, Acne, Alopecia, Bleeding Lesions, Change in Hair, Change in Nails, Change in Pigmentation, Changing Lesions, Dry Skin, Erythema, Furuncle, Hirsutism, Lesions, New Lesions, Non-Healing Lesions, Photosensitivity, Pruritus, Rash, Skin Pain, Skin Ulcer, Sores, Striae, Swelling , Unusual Bruising, Wounds, Jaundice, Other - Neurological Neurological: absent: As Per HPI, Abnormal Gait, Abnormal Hearing, Abnormal Movements, Abnormal Speech, Behavioral Changes, Burning Sensations, Confusion, Convulsions, Disequilibrium, Dizziness, Numbness, Focal Weakness, Frequent Falls , Headaches, Lack of Coordination, Loss of Vision, Memory Loss, Paresthesias, Radicular Pain, Restless Legs, Sensory Deficit, Syncope, Tingling, Tremor, Vertigo, Weakness, Other Visual Disturbances, Other - Psychiatric Psychiatric: absent: As Per HPI, Abnormal Sleep Pattern, Anhedonia, Anxiety, Auditory Hallucinations, Behavioral Changes, Change in Appetite, Change in Libido, Confusion, Depression, Difficulty Concentrating, Hallucinations, Homicidal Ideation, Hopelessness, Irritability, Memory Loss, Mood Swings, Panic Attacks, Paranoia, Suicidal Ideation, Visual Hallucinations, Tactile Hallucinations, Other - Hematologic/Lymphatic Hematologic: absent: As Per HPI, Easy Bleeding, Easy Bruising, Lymphadenopathy, Other Past Patient History - Infectious Disease Hx of Infectious Diseases: None - Tetanus Immunizations Tetanus Immunization: Unknown - Past Social History Smoking Status: Current Some Days Smoker - CARDIAC Hx Cardiac Disorders: Yes - PULMONARY Hx Asthma: Yes - NEUROLOGICAL Hx Neurological Disorder: Yes (headache,DM neuropathy left knee) - HEENT Hx HEENT Problems: Yes (reading glasses) Hx Blind: No Hx Cataracts: No Hx Deafness: No Hx Difficulty Chewing: No Hx Epistaxis: No Hx Glaucoma: No Hx Macular Degeneration: No Other/Comment: Pseudotumor behind right eye - RENAL Hx Chronic Kidney Disease: No - ENDOCRINE/METABOLIC Hx Diabetes Mellitus Type 2: Yes - HEMATOLOGICAL/ONCOLOGICAL Hx Blood Disorders: Yes Hx Anemia: Yes Hx Cirrhosis: Yes (non alcoholic) - INTEGUMENTARY Hx Dermatological Problems: No Hx Basil Cell: No Hx Eczema: No Hx Melanoma: No Hx Psoriasis: No Hx Squamous Cell: No - MUSCULOSKELETAL/RHEUMATOLOGICAL Hx Falls: Yes - GASTROINTESTINAL Hx Gastroesophageal Reflux: Yes - GENITOURINARY/GYNECOLOGICAL Hx Genitourinary Disorders: No - PSYCHIATRIC Hx Anxiety: Yes Hx Depression: Yes Hx Panic Symptoms: Yes Hx Substance Use: No - SURGICAL HISTORY Hx Cholecystectomy: Yes - ANESTHESIA Hx Anesthesia: Yes Hx Anesthesia Reactions: No Hx Malignant Hyperthermia: No Meds Allergies/Adverse Reactions: Allergies Allergy/AdvReac Type Severity Reaction Status Date / Time ciprofloxacin [From Cipro] Allergy VOMITING Verified 12/08/16 13:07 ciprofloxacin HCl Allergy VOMITING Verified 12/08/16 13:07 [From Cipro] clarithromycin [From Biaxin] Allergy VOMITING Verified 12/08/16 13:07 clindamycin Allergy VOMITING Verified 12/08/16 13:07 colistin Allergy VOMITING Verified 12/08/16 13:07 erythromycin base Allergy DIARRHEA Verified 10/11/17 23:52 hydromorphone HCl Allergy VOMITING Verified 12/08/16 13:07 [From Dilaudid] levofloxacin [From Levaquin] Allergy SHORTNESS Verified 10/11/17 23:52 OF BREATH Penicillins Allergy SHORTNESS Verified 10/11/17 23:52 OF BREATH Physical Exam - Constitutional Appears: Chronically Ill - Head Exam Head Exam: ATRAUMATIC, NORMAL INSPECTION, NORMOCEPHALIC - Eye Exam Eye Exam: Normal appearance - ENT Exam ENT Exam: Mucous Membranes Moist, Normal Exam - Neck Exam Neck exam: Positive for: Normal Inspection - Respiratory Exam Respiratory Exam: Clear to Auscultation Bilateral, NORMAL BREATHING PATTERN - Cardiovascular Exam Cardiovascular Exam: REGULAR RHYTHM, +S1, +S2 - GI/Abdominal Exam GI & Abdominal Exam: Normal Bowel Sounds - Extremities Exam Extremities exam: Positive for: normal inspection - Neurological Exam Neurological exam: Alert, CN II-XII Intact, Normal Gait, Oriented x3 - Skin Skin Exam: Normal Color, Warm Results - Vital Signs Recent Vital Signs: Last Vital Signs Temp 98.0 F 12/02/17 07:30 Pulse 68 12/02/17 08:02 Resp 20 12/02/17 07:30 BP 111/54 L 12/02/17 17:17 Pulse Ox 96 12/02/17 07:30 - Labs Result Diagrams: 12/01/17 13:35 12/01/17 16:20 Assessment & Plan - Assessment and Plan (Free Text) Assessment: 1. Respiratory distress 2. B/L leg cellulitis 3. Anemia Plan : CXR vascular congestion, no infiltrate. Cardiac evaluation, consult requested Dr. Sidhu. Echocardiogram ordered. B/L leg cellulitis. Multiple antibiotics allergy. ID consult Dr. Ramirez requested. Anemia - work up - iron studies, B12, folate, stool occult. encouraged ambulation. - Date & Time Date: 12/01/17 Time: 17:00
--- NOTE | 2017-12-03 02:23 | CP.PCM.PN ---
Subjective - Date & Time of Evaluation Date of Evaluation: 12/02/17 Time of Evaluation: 10:00 - Subjective Subjective: Comfortable in bed. SOB on walking few steps. No chest pain. No fever. Doppler lower ext. negative for DVT. CXR no infiltrate. Objective - Vital Signs/Intake and Output Vital Signs (last 24 hours): Temp Pulse Resp BP Pulse Ox 98.0 F 68 20 111/54 L 96 12/02/17 07:30 12/02/17 08:02 12/02/17 07:30 12/02/17 17:17 12/02/17 07:30 Intake and Output: 12/02/17 12/03/17 18:59 06:59 Intake Total 600 Balance 600 - Medications Medications: Current Medications Acetaminophen (Tylenol 325mg Tab) 650 mg PO Q6H PRN PRN Reason: Fever >100.4 F Clonazepam (Klonopin) 0.5 mg PO BID [facility] PRN Reason: Protocol Last Admin: 12/02/17 17:23 Dose: 0.5 mg Enoxaparin Sodium (Lovenox) 40 mg SC DAILY [facility] PRN Reason: Protocol Last Admin: 12/02/17 15:38 Dose: 40 mg Furosemide (Lasix) 40 mg IVP BID [facility] Last Admin: 12/02/17 17:17 Dose: 40 mg Gabapentin (Neurontin) 300 mg PO DAILY [facility] PRN Reason: Protocol Last Admin: 12/02/17 11:27 Dose: 300 mg Glimepiride (Amaryl) 2 mg PO BRK [facility] Last Admin: 12/02/17 11:28 Dose: 2 mg Levothyroxine Sodium (Synthroid) 25 mcg PO ACB [facility] Last Admin: 12/02/17 11:25 Dose: 25 mcg Methylprednisolone (Solu-Medrol) 20 mg IVP Q12 [facility] Last Admin: 12/02/17 21:17 Dose: 20 mg Ondansetron HCl (Zofran Inj) 4 mg IM Q6 PRN PRN Reason: Nausea/Vomiting Pantoprazole Sodium (Protonix Inj) 40 mg IVP DAILY [facility] Last Admin: 12/02/17 10:22 Dose: 40 mg Quetiapine Fumarate (Seroquel) 100 mg PO TID [facility] PRN Reason: Protocol Last Admin: 12/02/17 17:25 Dose: 100 mg Sertraline HCl (Zoloft) 100 mg PO BID [facility] Last Admin: 12/02/17 17:25 Dose: 100 mg Topiramate (Topamax) 100 mg PO TID [facility] PRN Reason: Protocol Last Admin: 12/02/17 17:25 Dose: 100 mg - Labs Labs: PT 11.8 SECONDS (9.4-12.5) 12/01/17 13:35 INR 1.03 (0.93-1.08) 12/01/17 13:35 APTT 36.9 Seconds (25.1-36.5) H 12/01/17 13:35 - Constitutional Appears: Chronically Ill - Head Exam Head Exam: ATRAUMATIC, NORMAL INSPECTION, NORMOCEPHALIC - Eye Exam Eye Exam: Normal appearance - ENT Exam ENT Exam: Mucous Membranes Moist - Neck Exam Neck Exam: Normal Inspection - Cardiovascular Exam Cardiovascular Exam: REGULAR RHYTHM, +S1, +S2 - GI/Abdominal Exam GI & Abdominal Exam: Soft, Normal Bowel Sounds - Extremities Exam Extremities Exam: Pedal Edema - Back Exam Back Exam: NORMAL INSPECTION - Neurological Exam Neurological Exam: Alert, Awake, CN II-XII Intact, Normal Gait, Oriented x3 - Skin Skin Exam: Normal Color, Warm Assessment and Plan - Assessment and Plan (Free Text) Assessment: 1. Dyspnea 2. B/L leg cellulitis 4.Anemia. Plan : continue IV diuretics. Echo awaited. Cardiology consult appreciated. doppler negative for DVT. Hb/hct stable. ID consulted for cellulitis.
[2017-12-03] MEDS: Levothyroxine 25 MCG TAB PO SCH (08:42)
[2017-12-03] MEDS: MethylPREDNISolone 40 mg Vial IVP SCH ×2 (11:11→21:48)
[2017-12-03] MEDS: Enoxaparin 40 mg Syringe SC SCH (11:11)
[2017-12-03 15:34] LABS: BARBITURATES, UR NEGATIVE (NEGATIVE); OPIATES, UR NEGATIVE (NEGATIVE); PHENCYCLIDINE, UR NEGATIVE (NEGATIVE)
[2017-12-03 15:39] LABS: BENZODIAZEPINES, UR POSITIVE (NEGATIVE)
[2017-12-03] MEDS: Vancomycin 1gm in NS 250ml 1 GM/250 ML BAG IVPB SCH (17:55)
--- NOTE | 2017-12-03 20:40 | PN ---
DATE: SUBJECTIVE: The patient is still experiencing shortness of breath and leg swelling. PHYSICAL EXAMINATION: VITAL SIGNS: Blood pressure 118/63, heart rate 81, temperature 97.8, respirations 22. HEENT: Normocephalic. CHEST: Bilateral rhonchi. HEART: S1 and S2 regular. EXTREMITIES: 2+ pitting edema. ASSESSMENT: 1. Congestive heart failure. 2. Chronic obstructive lung disease. 3. History of multiple falls. 4. Bilateral leg cellulitis. RECOMMENDATIONS: Continue current Amaryl, IV Lasix, subcutaneous Lovenox 40 mg once a day, Neurontin 300 mg once a day, Solu-Medrol 20 mg intervenous twice a day. I did request urine for drug screen and awaiting echocardiograph study. Kelby Marina MD
--- NOTE | 2017-12-03 22:06 | PN ---
DATE: SUBJECTIVE: The patient has no complaints of any chest pain, no shortness of breath, no headache. OBJECTIVE: VITAL SIGNS: Temperature is 97.8, pulse of 81, blood pressure is 118/63, and respirations are 23. GENERAL: The patient is lying in bed, flat, comfortable. HEENT: No oral lesion. Anicteric sclerae. Moist mucosa. NECK: No JVD, adenopathy, or thyromegaly. CARDIOVASCULAR: S1 and S2, regular. No murmurs, rubs, or gallops. LUNGS: Clear to auscultation bilaterally. No wheeze, rales, or rhonchi. ABDOMEN: Bowel sounds are positive, soft, nontender and nondistended. EXTREMITIES: Lower extremity erythema is improving. Right lower extremity 2 +edema. LABS: 11.9 hemoglobin ASSESSMENT: 1. Lower extremity cellulitis. 2. Anemia. 3. CIPRO ALLERGY. 4. Obesity with BMI of 55. 5. Right lower extremity edema. 6. Hypothyroidism. 7. Diabetes type 2 PLAN: The patient is currently comfortable. She is on Amaryl for diabetes. She is on Lasix IV daily. She is using Lovenox for DVT prophylaxis. She is on Solu-Medrol for her COPD. She is on Synthroid for her hypothyroidism. She is on sertraline, she is going to continue on that twice a day. Echocardiogram has been ordered. She is being followed by Cardiology and by Infectious Disease. Adam Wisdom MD
[2017-12-04] MEDS: Insulin Lispro (humaLOG) LOW Coverage SC SCH ×5 (00:46→22:26)
--- NOTE | 2017-12-04 04:34 | CON ---
DATE: 12/03/2017 LOCATION: The patient seen earlier this morning in room 567, bed 2. CHIEF COMPLAINT: Weakness from several days. HISTORY OF PRESENT ILLNESS: This is a 52-year-old female known to me from previous admissions with past medical history of morbid obesity with a BMI of 57, history of sarcoidosis, history of chronic obstructive lung disease, diverticulitis, history of cholecystectomy, and the patient has multiple allergies to Cipro, clarithromycin, colistin, erythromycin, Levaquin and clindamycin. She was admitted to the Emergency Room with diagnoses of cellulitis and shortness of breath. The patient may have multiple admissions in the past and the patient was in the hospital last month in 10/2017. REVIEW OF SYSTEMS: At this point, she is complaining of shortness of breath and she has had low-grade fever. No chills. No chest pain. No abdominal pain, diarrhea or constipation and she was seen in the Emergency Room by Dr. Chance Lara and complained of shortness of breath with cough, which is slightly worse than her usual cough, bilateral lower extremity erythema and edema. There is no headache. No abdominal pain. No dysuria or frequency. PAST MEDICAL HISTORY: Significant for asthma, sarcoidosis, chronic obstructive lung disease, nonalcoholic cirrhosis, diabetes mellitus and anemia. The patient also with a history of Klebsiella pyelonephritis, arthritis and hypothyroidism. PAST SURGICAL HISTORY: Significant for cholecystectomy and liver biopsy. ALLERGIES: INCLUDE CIPRO, LEVAQUIN, CLARITHROMYCIN, ERYTHROMYCIN, CLINDAMYCIN AND COLISTIN. MEDICATIONS AT HOME: Reveals the patient to be on rifaximin, Topamax, Zoloft, Seroquel, Reglan, levothyroxine, Motrin and gabapentin. PHYSICAL EXAMINATION VITAL SIGNS: The patient's temperature is 98, blood pressure is 111/60, respiratory rate of 22 and heart rate of 90. HEENT: Unremarkable. NECK: Supple. LUNGS: Decreased breath sounds. HEART: Normal S1 and S2. ABDOMEN: Soft and nontender. EXTREMITIES: Examination of lower extremities reveals the patient to have bilateral lower extremity edema and erythema. LABORATORY DATA: Reveals a white count of 4.6, hemoglobin of 11 and platelets of 94. Coagulation is noted. The patient's creatinine is 0.7 and random glucose is 131, AST is 41 and alk phos is 187. Urinalysis is unremarkable. The patient's toxicology showed cannabinoids to be positive. Serology for influenza is negative and the patient had a chest x-ray which has no active disease. History and physical examination of Dr. Mcfadden is reviewed. The patient had a ultrasound of the lower extremities. No evidence of DVT and review of orders reveals the patient started on Solu-Medrol. ASSESSMENT AND PLAN: This is a 52-year-old female with past medical history of asthma, sarcoidosis, morbid obesity, chronic obstructive lung disease, diverticulitis, cirrhosis, diabetes, anemia, hypothyroidism, admitted with shortness of breath, lower extremity edema and bilateral lower extremity cellulitis in a patient with multiple allergies with acute systolic congestive heart failure chronic congestive heart failure and we will follow with the patient's condition clinically and the patient's last echo was in 2014 which showed ejection fraction of 45%. We will also order procalcitonin and chest x-ray is reported to be negative. We will follow closely with you. Madhav Ashley MD
[2017-12-04] MEDS: Vancomycin 1gm in NS 250ml 1 GM/250 ML BAG IVPB SCH ×2 (04:43→18:05)
--- NOTE | 2017-12-04 07:45 | CON ---
DATE: 12/04/2017 PULMONARY CONSULTATION REFERRING PHYSICIAN: Dr. Wisdom. REASON FOR CONSULTATION: Chronic obstructive pulmonary disease. HISTORY OF PRESENT ILLNESS: The patient is a chronically ill 52-year-old female , with past medical history significant for advanced chronic obstructive pulmonary disease, on home oxygen, asthma, obesity, diabetes mellitus, who presents to [facility] with a 4-day history of worsening shortness of breath at rest, dyspnea on exertion, cough, and sputum production. There is no history of chest pain, coughing up of blood, or chest pain - made worse with deep respirations. There is no history of temperatures, chills or infectious exposure. There is no history of night sweats, weight loss or appetite change prior to the above events. No history of calf pains. No history of syncope or diaphoresis. No history of recent travel or trauma. REVIEW OF SYSTEMS: The patient does complain of some pain at the anterior aspects of both lower legs. No nausea, vomiting or diarrhea. No acute urinary symptoms. No new neurologic complaints. Rest of the review of systems negative. ALLERGIES: TO CIPROFLOXACIN, CLARITHROMYCIN, CLINDAMYCIN, DILAUDID, LEVAQUIN AND PENICILLINS. SOCIAL HISTORY: Positive for tobacco and negative for alcohol. FAMILY HISTORY: No inheritable diseases. MEDICATIONS: Include Topamax, Zoloft, Seroquel, Reglan, Synthroid, Neurontin, DuoNeb, Fioricet, Klonopin, Amaryl. PHYSICAL EXAMINATION: GENERAL: The patient appears comfortable this morning. She is not short of breath at rest. VITAL SIGNS: (Last noted in the computer): Temperature is 98.0, pulse 65, respirations 18, blood pressure 139/73. Oxygen saturation on nasal cannula is 94%. HEENT: Normocephalic, atraumatic. NECK: No JVD. CARDIOVASCULAR: Positive S1, S2. No S3 gallop. LUNGS: Decreased breath sounds at the bases. Mild bilateral rhonchi. No wheezing. EXTREMITIES: Positive for edema. No cyanosis, no clubbing. Calves are nontender to palpation. GI: Abdomen is soft, nontender and nondistended. Bowel sounds are positive. SKIN: Bilateral lower leg cellulitis. NEUROLOGIC: Exam limited at the present time. PERTINENT LABORATORY DATA: Chest x-ray was done on 12/01/2017 and reviewed. There is a mild increase in pulmonary vascular congestion. These findings are similar to the previous films done in [facility]. Complete metabolic profile: Anion gap 9, glucose 136, AST 41, alkaline phosphatase 187. Rest of the metabolic profile is within normal limits. CBC: White count 4.6, hemoglobin 11.9, hematocrit 37.0, platelets of 94,000. IMPRESSION: 1. Acute bronchitis. 2. Advanced chronic obstructive pulmonary disease, on home oxygen. 3. Asthma. 4. Bilateral lower leg cellulitis. 5. Possible congestive heart failure. PLAN: The patient presents to [facility] with a 4-day history of worsening pulmonary symptoms. In addition, as above, the patient also complains of worsening pain to the lower aspects of both lower extremities. In the emergency room, the patient was noted to have an acute cellulitis. She was thus admitted for additional evaluation. I did review the chest x-ray as above. On the chest x-ray, there is a mild increase in pulmonary vascular congestion. These findings are seen on previous films. On physical exam, the patient is in mild bronchospasm. The patient is currently on low-dose intravenous steroids. I will also add DuoNeb treatments. The patient is on DuoNeb treatments at home. I would continue with the antibiotic coverage as per Infectious Disease. Input by Dr. Ashley is noted. There are no temperatures noted. There is no leukocytosis. Procalcitonin has also been ordered. Input by Cardiology (Dr. Purcell) is also noted. Echocardiogram is ordered. The patient is on Lasix. The patient does feel much better this morning and is clinically improved - compared to the past few days. Additional pulmonary intervention will be based on the clinical status of the patient. I will discuss the above with Dr. Wisdom. Thank you very much for this pulmonary consultation. Quang Mann MD [facility]
[2017-12-04] MEDS: Albuterol-Ipratrop 3 mg / 0.5 (3 ml) UD IH SCH ×2 (07:49→13:08)
[2017-12-04] MEDS: Levothyroxine 25 MCG TAB PO SCH (08:13)
[2017-12-04] MEDS: MethylPREDNISolone 40 mg Vial IVP SCH ×2 (09:54→23:03)
[2017-12-04] MEDS: Enoxaparin 40 mg Syringe SC SCH (09:56)
--- NOTE | 2017-12-04 15:34 | PN ---
DATE: 12/04/2017 SUBJECTIVE: The patient is a 52-year-old seen and examined, sitting in chair. No shortness of breath at rest; however, complained of shortness of breath on walking. The patient is morbidly obese with chronic bilateral leg cellulitis. Eating and tolerating. PHYSICAL EXAMINATION: VITAL SIGNS: She is afebrile, pulse 69, respirations 20, and blood pressure 126/75. LUNGS: Bilateral fair airflow. No rhonchi or crackle. HEART: S1 and S2 audible. ABDOMEN: Soft, obese, nontender. No rebound. No guarding. NEUROLOGIC: The patient is awake, alert, and oriented. Able to communicate. EXTREMITIES: Bilateral erythema seems to be improving. LABORATORY EXAM: Blood sugar is 132. Echocardiogram is pending. Bilateral leg Doppler negative for DVT. ASSESSMENT: 1. Bilateral leg cellulitis. 2. Exertional dyspnea. 3. Chronic anemia. 4. Morbid obesity. 5. Hypothyroidism. 6. Non-insulin dependent diabetes. PLAN: Currently, the patient is on IV diuretics. She is on deep vein thrombosis prophylaxis. She is on IV vancomycin. Dr. Sidhu has been requested to consult to rule out underlying coronary disease. We will follow up with the patient in a.m. Karson Ruiz MD
--- NOTE | 2017-12-04 16:02 | PN ---
DATE: 12/04/2017 LOCATION: The patient is in room 567, bed 2. REASON FOR CONSULTATION: Shortness of breath and exacerbation of chronic obstructive pulmonary disease. SUBJECTIVE: The patient denied any chest pain or palpitation. The patient is sitting in chair. She says her shortness of breath is improving. The patient denies palpitation. PHYSICAL EXAMINATION: GENERAL: The patient is morbidly obese. VITAL SIGNS: Blood pressure 126/75, respirations 20, pulse 69, and temperature 97.8. HEENT: Head is normocephalic. Eyes, pupils are normal. Conjunctivae normal. Nose and throat normal. NECK: JVP low. Carotids equal. THORAX: AP diameter normal. LUNGS: Distant lung sounds. No significant rales. CARDIOVASCULAR: S1 and S2. ABDOMEN: Protuberant. No organomegaly. EXTREMITIES: The patient has cellulitis in bilateral legs with edema. LABORATORY DATA: WBC 4.6, hemoglobin 11.9, hematocrit 37.0, and platelets 94. Random sugar 132. Sodium 138, potassium 3.7, BUN 13, creatinine 0.7, calcium 9.1, magnesium 1.8, AST 41, and ALT 29. Troponin less than 0.01. Total protein and albumin normal. [id number] natriuretic peptide 54.6. DIAGNOSES: The patient is with shortness of breath, cough, and expectoration, history of chronic obstructive pulmonary disease, exacerbation of chronic obstructive pulmonary disease, morbid obesity, diabetes, hypertension, hyperlipidemia, pseudo cerebri, depression, history of hypothyroidism, sarcoidosis, history of ovarian tumor, history of migraine, and morbid obesity. PLAN: Chest x-ray looks like vascular congestion, film and the patient's [id number] natriuretic peptide is only 54.6. However, the patient has oedema on the legs. We will continue furosemide 40 IV b.i.d. The patient is on Lovenox 40 subcutaneously daily, gabapentin 300 mg p.o., DuoNeb hand nebulizer therapy, Amaryl 2 mg p.o. , methylprednisolone 20 mg IV q.12 hours, Synthroid 25 mcg daily, and vancomycin 1 g IV q.12 hours. Repeat echo has been ordered. Previously, the patient's echo on 07/13/2015, which showed LV ejection fraction of 45% to 42%, trace aortic regurgitation, trace to mild mitral regurgitation, so repeat echo has been ordered. We will continue present therapy and we will follow the results on those repeat echocardiogram. We will follow with you. Eagle Bales MD
--- NOTE | 2017-12-04 16:31 | CP.PCM.PN ---
Subjective - Date & Time of Evaluation Date of Evaluation: 12/04/17 Time of Evaluation: 12:30 - Subjective Subjective: Patient feels a little better, no fevers overnight, less swelling of her legs, no nausea or vomiting. Objective - Vital Signs/Intake and Output Vital Signs (last 24 hours): Temp Pulse Resp BP Pulse Ox 97.8 F 69 20 126/75 94 L 12/04/17 07:30 12/04/17 07:52 12/04/17 07:30 12/04/17 09:54 12/04/17 07:30 Intake and Output: 12/04/17 12/04/17 06:59 18:59 Intake Total 360 Balance 360 - Medications Medications: Current Medications Acetaminophen (Tylenol 325mg Tab) 650 mg PO Q6H PRN PRN Reason: Fever >100.4 F Albuterol/Ipratropium (Duoneb 3 Mg/0.5 Mg (3 Ml) Ud) 3 ml IH [id number] [facility] Last Admin: 12/04/17 07:49 Dose: 3 ml Albuterol/Ipratropium (Duoneb 3 Mg/0.5 Mg (3 Ml) Ud) 3 ml IH Q2H PRN PRN Reason: Shortness of Breath Clonazepam (Klonopin) 0.5 mg PO BID [facility] PRN Reason: Protocol Last Admin: 12/04/17 09:53 Dose: 0.5 mg Enoxaparin Sodium (Lovenox) 40 mg SC DAILY [facility] PRN Reason: Protocol Last Admin: 12/04/17 09:56 Dose: 40 mg Furosemide (Lasix) 40 mg IVP BID [facility] Last Admin: 12/04/17 09:54 Dose: 40 mg Gabapentin (Neurontin) 300 mg PO DAILY [facility] PRN Reason: Protocol Last Admin: 12/04/17 09:53 Dose: 300 mg Glimepiride (Amaryl) 2 mg PO BRK [facility] Last Admin: 12/04/17 08:13 Dose: 2 mg Vancomycin HCl (Vancomycin 1gm) 1 gm in 250 mls @ 167 mls/hr IVPB Q12H [facility] PRN Reason: Protocol Stop: 12/12/17 17:01 Last Admin: 12/04/17 04:43 Dose: 167 mls/hr Insulin Human Lispro (Humalog Low) 0 units SC ACHS [facility] PRN Reason: Protocol Last Admin: 12/04/17 08:14 Dose: Not Given Levothyroxine Sodium (Synthroid) 25 mcg PO ACB [facility] Last Admin: 12/04/17 08:13 Dose: 25 mcg Methylprednisolone (Solu-Medrol) 20 mg IVP Q12 [facility] Last Admin: 12/04/17 09:54 Dose: 20 mg Ondansetron HCl (Zofran Inj) 4 mg IM Q6 PRN PRN Reason: Nausea/Vomiting Pantoprazole Sodium (Protonix Inj) 40 mg IVP DAILY [facility] Last Admin: 12/04/17 09:54 Dose: 40 mg Quetiapine Fumarate (Seroquel) 100 mg PO TID [facility] PRN Reason: Protocol Last Admin: 12/04/17 09:53 Dose: 100 mg Sertraline HCl (Zoloft) 100 mg PO BID [facility] Last Admin: 12/04/17 09:53 Dose: 100 mg Topiramate (Topamax) 100 mg PO TID [facility] PRN Reason: Protocol Last Admin: 12/04/17 09:54 Dose: 100 mg - Labs Labs: PT 11.8 SECONDS (9.4-12.5) 12/01/17 13:35 INR 1.03 (0.93-1.08) 12/01/17 13:35 APTT 36.9 Seconds (25.1-36.5) H 12/01/17 13:35 - Constitutional Appears: Chronically Ill - Head Exam Head Exam: NORMAL INSPECTION - ENT Exam ENT Exam: Mucous Membranes Moist - Neck Exam Neck Exam: absent: Meningismus - Respiratory Exam Respiratory Exam: Decreased Breath Sounds - Cardiovascular Exam Cardiovascular Exam: +S1, +S2 - GI/Abdominal Exam GI & Abdominal Exam: Soft. absent: Tenderness - Extremities Exam Additional comments: decreased swelling and erythema of both legs Assessment and Plan - Assessment and Plan (Free Text) Plan: Assessment bilateral lower extremity cellulitis history of sepsis due to bilateral community-acquired pneumonia as well as Klebsiella left sided pyelopnephritis history of sepsis secondary to E. coli bacteremia secondary to left sided pyelonephritis Sarcoidosis History of diverticulitis History of cholecystectomy Morbid obesity with BMI 59 COPD DM degenerative joint disease hisotry of depression hypothyrtoidism chronic anemia Plan continue Vancomycin day 2 and will continue to monitor clinical response
--- NOTE | 2017-12-04 17:04 | CARD ---
APPROVED REPORT EXAM: Two-dimensional and M-mode echocardiogram with Doppler and color Doppler. INDICATION 2D DIMENSIONS IVSd1.2 (0.7-1.1cm)LVDd4.1 (3.9-5.9cm) PWd1.4 (0.7-1.1cm)LVDs2.9 (2.5-4.0cm) FS (%) 30.3 %LVEF (%)58.1 (>50%) M-Mode DIMENSIONS Left Atrium (MM)3.90 (2.5-4.0cm)Aortic Root3.10 (2.2-3.7cm) Aortic Cusp Exc.1.60 (1.5-2.0cm) Aortic Valve AoV Peak Lgsrlscx387.0cm/Angel Peak GR.23mmHg Mitral Valve MV E Itddlyrz495.0cm/sMV A Hwumlmlk321.0cm/sE/A ratio1.5 TDI Lateral E' Peak V13.40cm/sMedial E' Peak V8.19cm/sE/Lateral E'11.6 E/Medial E'19.0 Tricuspid Valve TR Peak [id number]/sRAP [id number] Peak Gr.40mmHg [id number] LEFT VENTRICLE The left ventricle is normal size. There is normal left ventricular wall thickness. The left ventricular function is normal. The left ventricular ejection fraction is within the normal range. There is normal LV segmental wall motion. The left ventricular diastolic function is normal. RIGHT VENTRICLE The right ventricle is normal size. There is normal right ventricular wall thickness. The right ventricular systolic function is normal. ATRIA The left atrium size is normal. The right atrium size is normal. AORTIC VALVE The aortic valve is not well visualized. No aortic regurgitation is present. MITRAL VALVE The mitral valve is not well visualized. There is no mitral valve regurgitation noted. TRICUSPID VALVE There is moderate pulmonary hypertension. GREAT VESSELS The aortic root is normal in size. The IVC is dilated. <Conclusion> Poor Echo window The left ventricle is normal size. There is normal left ventricular wall thickness. The left ventricular function is normal. The left ventricular ejection fraction is within the normal range. There is normal LV segmental wall motion. The left ventricular diastolic function is normal. There is moderate pulmonary hypertension.
--- NOTE | 2017-12-04 22:27 | CP.PCM.PN ---
Subjective - Date & Time of Evaluation Date of Evaluation: 12/04/17 Time of Evaluation: 22:27 - Subjective Subjective: Patient was seen at bedside. She complained of both legs pain. Has no other complaints. Pertinent medical record was reviewed. This 52 year old woman was admitted with increasing shortness of breath for past few days, bilateral leg cellulitis ,anemia. Has PMH of GERD,DM II, cirrhosism asthma, anxiety, depression, Anemia, smoker, cholecystectomy, 02:17 Ultram helped earlier, pain came back Rx, repeat. Objective - Vital Signs/Intake and Output Vital Signs (last 24 hours): Temp Pulse Resp BP Pulse Ox 98.3 F 77 20 131/70 96 12/04/17 16:00 12/04/17 16:00 12/04/17 16:00 12/04/17 18:06 12/04/17 16:00 Intake and Output: 12/04/1718 18:59 06:59 Intake Total 780 Balance 780 - Medications Medications: Current Medications Acetaminophen (Tylenol 325mg Tab) 650 mg PO Q6H PRN PRN Reason: Fever >100.4 F Albuterol/Ipratropium (Duoneb 3 Mg/0.5 Mg (3 Ml) Ud) 3 ml IH [id number] [facility] Last Admin: 12/04/17 13:08 Dose: 3 ml Albuterol/Ipratropium (Duoneb 3 Mg/0.5 Mg (3 Ml) Ud) 3 ml IH Q2H PRN PRN Reason: Shortness of Breath Clonazepam (Klonopin) 0.5 mg PO BID [facility] PRN Reason: Protocol Last Admin: 12/04/17 18:05 Dose: 0.5 mg Enoxaparin Sodium (Lovenox) 40 mg SC DAILY [facility] PRN Reason: Protocol Last Admin: 12/04/17 09:56 Dose: 40 mg Furosemide (Lasix) 40 mg IVP BID [facility] Last Admin: 12/04/17 18:06 Dose: 40 mg Gabapentin (Neurontin) 300 mg PO DAILY [facility] PRN Reason: Protocol Last Admin: 12/04/17 09:53 Dose: 300 mg Glimepiride (Amaryl) 2 mg PO BRK [facility] Last Admin: 12/04/17 08:13 Dose: 2 mg Vancomycin HCl (Vancomycin 1gm) 1 gm in 250 mls @ 167 mls/hr IVPB Q12H [facility] PRN Reason: Protocol Stop: 12/12/17 17:01 Last Admin: 12/04/17 18:05 Dose: 167 mls/hr Insulin Human Lispro (Humalog Low) 0 units SC ACHS NOAM PRN Reason: Protocol Last Admin: 12/04/17 22:26 Dose: Not Given Levothyroxine Sodium (Synthroid) 25 mcg PO ACB [facility] Last Admin: 12/04/17 08:13 Dose: 25 mcg Methylprednisolone (Solu-Medrol) 20 mg IVP Q12 [facility] Last Admin: 12/04/17 09:54 Dose: 20 mg Ondansetron HCl (Zofran Inj) 4 mg IM Q6 PRN PRN Reason: Nausea/Vomiting Pantoprazole Sodium (Protonix Ec Tab) 40 mg PO ACB [facility] Quetiapine Fumarate (Seroquel) 100 mg PO TID [facility] PRN Reason: Protocol Last Admin: 12/04/17 18:05 Dose: 100 mg Sertraline HCl (Zoloft) 100 mg PO BID [facility] Last Admin: 12/04/17 18:05 Dose: 100 mg Topiramate (Topamax) 100 mg PO TID [facility] PRN Reason: Protocol Last Admin: 12/04/17 18:05 Dose: 100 mg - Labs Labs: PT 11.8 SECONDS (9.4-12.5) 12/01/17 13:35 INR 1.03 (0.93-1.08) 12/01/17 13:35 APTT 36.9 Seconds (25.1-36.5) H 12/01/17 13:35 - Constitutional Appears: Well, No Acute Distress - Head Exam Head Exam: ATRAUMATIC, NORMAL INSPECTION, NORMOCEPHALIC - Eye Exam Eye Exam: Normal appearance - ENT Exam ENT Exam: Normal External Ear Exam - Neck Exam Neck Exam: Normal Inspection - Respiratory Exam Respiratory Exam: NORMAL BREATHING PATTERN - Cardiovascular Exam Cardiovascular Exam: absent: JVD - GI/Abdominal Exam GI & Abdominal Exam: absent: Distended - Rectal Exam Rectal Exam: Deferred - Exam Additional comments: Deferred. - Extremities Exam Additional comments: Both legs swelling, redness positive. - Back Exam Back Exam: NORMAL INSPECTION - Neurological Exam Neurological Exam: Alert, Oriented x3 - Psychiatric Exam Psychiatric exam: Normal Affect, Normal Mood - Skin Skin Exam: Normal Color Assessment and Plan - Assessment and Plan (Free Text) Assessment: Legs Pain. Cellulitis both legs. Obesity. Anemia. Anxiety. Depression. Plan: Ultram 50 mg PO stat. Ultra 50 mg PO was ordered later on also. Continue present management.
[2017-12-05] MEDS: Albuterol-Ipratrop 3 mg / 0.5 (3 ml) UD IH SCH ×4 (02:13→19:47)
[2017-12-05] MEDS: Vancomycin 1gm in NS 250ml 1 GM/250 ML BAG IVPB SCH ×2 (05:53→17:24)
[2017-12-05] MEDS: Insulin Lispro (humaLOG) LOW Coverage SC SCH ×4 (08:10→21:15)
--- NOTE | 2017-12-05 08:27 | PN ---
DATE: 12/05/2017 PULMONARY PROGRESS NOTE SUBJECTIVE: The patient appears comfortable this morning. She is not short of breath at rest. PHYSICAL EXAMINATION: VITAL SIGNS: Temperature is 98.4, pulse is 66, respirations are 18/20, and blood pressure is 114/56. Oxygen saturation on nasal cannula is 95% to 96%. HEENT: Normocephalic and atraumatic. NECK: No JVD. CARDIOVASCULAR: Positive S1 and S2. No S3 gallop. LUNGS: Improved breath sounds at the bases. Minimal/less rhonchi. No wheezing. EXTREMITIES: Positive for edema. No cyanosis, no clubbing. Calves are nontender to palpation. GASTROINTESTINAL: Abdomen is soft, nontender and nondistended. Bowel sounds are positive. SKIN: Bilateral lower leg cellulitis. NEUROLOGIC: Exam is limited at the present time. IMPRESSION 1. Acute bronchitis. 2. Advanced chronic obstructive pulmonary disease, on home oxygen. 3. Asthma. 4. Bilateral lower leg cellulitis. 5. Possible congestive heart failure. PLAN: The patient appears very comfortable this morning. She is not short of breath at rest. She does state to feeling much better overall. On physical exam, her bronchospasm is definitely less. I will continue the current nebulizer treatments and change to oral steroids this morning. The patient remains on antibiotic therapy - as per Infectious Diseases. There are no temperatures noted. There is no leukocytosis. Clinical status of the patient is certainly improved. The patient is advised to be out of bed as much as possible. I will discuss the above with the attending physician. Quang Mann MD [facility]
[2017-12-05] MEDS: Enoxaparin 40 mg Syringe SC SCH (10:21)
[2017-12-05] MEDS: Pantoprazole 40 mg EC Tab PO SCH (10:22)
[2017-12-05] MEDS: Levothyroxine 25 MCG TAB PO SCH (10:23)
[2017-12-05] MEDS: Oxycodone/Acetaminophen 5/325 mg Tab PO PRN (20:29)
--- NOTE | 2017-12-05 22:05 | PN ---
DATE: 12/05/2017 LOCATION: The patient is in room 567, bed 2. REASON FOR CONSULTATION: Shortness of breath and exacerbation of chronic obstructive pulmonary disease. SUBJECTIVE: The patient denied chest pain or palpitation. She is sitting in chair. She says that her shortness of breath is improving. The patient does not have any complaints of palpitation. PHYSICAL EXAMINATION VITAL SIGNS: Blood pressure 115/59, respirations 20, pulse 70, temperature 98.6. HEENT: Head is normocephalic. Eyes, pupils normal. Conjunctivae normal. NECK: JVP low. Carotids equal. THORAX: AP diameter normal. LUNGS: No significant rales. CARDIOVASCULAR: S1 and S2. ABDOMEN: Protuberant. No organomegaly. EXTREMITIES: No clubbing. No cyanosis. LABORATORY DATA: WBC 4.6, hemoglobin 11.9, hematocrit 37.0, and platelets 94. Random sugar 145. Sodium 138, potassium 3.7, BUN 13, creatinine 0.7, random glucose 137 and 136, AST 41, and ALT 29. The patient's chest x-ray read as vascular congestion, but actually is a poor presentation of film and NT pro brain natriuretic peptide is only 546; however, the patient has edema on the legs. The patient had echocardiogram done yesterday on 12/04/2017. It showed normal size LV. Normal LV systolic function with LV ejection fraction of 58%. Moderate pulmonary hypertension with RSVP 50 mmHg. Normal diastolic function. DIAGNOSES: The patient with shortness of breath, cough, and exacerbation of chronic obstructive pulmonary disease, morbid obesity, diabetes, hypertension, hyperlipidemia, pseudo cerebri, depression, history of hypothyroidism, sarcoidosis, history of ovarian tumor, history of migraine, and morbidly obese patient. PLAN: The patient is on Amaryl 2 mg p.o. daily, DuoNeb hand nebulizer therapy, furosemide 40 mg IV b.i.d., Lovenox 40 mg subcutaneously daily, gabapentin 300 mg daily, prednisone 30 mg p.o. daily, Protonix 40 mg daily, Synthroid 25 mcg daily. The patient is getting vancomycin 1 gm IV q.12 hours, Zoloft 100 mg p.o. b.i.d. We will continue present therapy and we will follow with you.. Eagle Bales MD [facility] # [id number]
[2017-12-05] MEDS: Albuterol-Ipratrop 3 mg / 0.5 (3 ml) UD IH PRN (23:34)
--- NOTE | 2017-12-06 00:14 | PN ---
DATE: 12/05/2017 SUBJECTIVE: The patient is in bed, in no acute distress. PHYSICAL EXAMINATION: VITAL SIGNS: Temperature is 98, blood pressure is 119/60, respiratory rate of 20. HEENT: Unremarkable. NECK: Supple. CARDIOPULMONARY: Normal S1 and S2. LUNGS: Have decreased breath sounds. ABDOMEN: Soft and nontender. LABORATORY DATA: Reveals a white count of 4.6, hemoglobin of 11, and platelets of 94. Chemistries reveal the patient to have a creatinine 0.7. The patient's procalcitonin is less than 0.05. Urinalysis is noted. Toxicology is noted. Serology reveals the influenza is negative. Microbiology reveals the blood cultures are negative. Urine cultures, mixed organisms. Review of orders revealed the patient is on vancomycin. Dr. Mann's note is reviewed from today. ASSESSMENT AND PLAN: This is a 52-year-old female with bilateral lower extremity cellulitis, which is greatly improved today and the history of sepsis with bilateral community-acquired pneumonia as well as Klebsiella, left-sided pyelonephritis, and history of sepsis secondary to Escherichia coli bacteremia with left-sided pyelonephritis, history of sarcoidosis, diverticulitis, and may be able to switch to p.o. doxycycline since the legs are greatly improved at 100 mg p.o. b.i.d. x5 days. We will discontinue the vancomycin and switch to p.o. doxycycline 100 mg p.o. 5 days. Madhav Ashley MD
[2017-12-06] MEDS: Albuterol-Ipratrop 3 mg / 0.5 (3 ml) UD IH SCH ×4 (01:11→19:34)
[2017-12-06 07:11] LABS: BASO # 0.02 K/mm3 (0.0-2.0); BASO % 0.4 % (0.0-3.0); EOS % 0.6 % (1.5-5.0); GRAN # 2.47 (1.4-6.5); GRAN % 51.1 % (50.0-68.0); HEMOGLOBIN 11.4 g/dL (12.0-16.0); LYMPH # 1.7 (1.2-3.4); LYMPH % 34.4 % (22.0-35.0); MEAN CELL VOLUME 98.1 fl (80.0-105.0); MEAN CORPUSCULAR HEMOGLOBIN 31.2 pg (25.0-35.0); MEAN CORPUSCULAR HGB CONC 31.8 g/dl (31.0-37.0); MEAN PLATELET VOLUME 10.1 fl (7.0-11.0); MONO # 0.7 (0.1-0.6); MONO % 13.5 % (1.0-6.0); RBC 3.65 10^6/uL (3.5-6.1); RED CELL DISTRIBUTION WIDTH 15.8 % (11.5-14.5); WHITE BLOOD COUNT 4.8 10^3/ul (4.5-11.0)
[2017-12-06 07:22] LABS: LDL CHOLESTEROL 83 mg/dL (0-129)
[2017-12-06 07:31] LABS: BLOOD UREA NITROGEN 20 mg/dL (7-21); GFR AFRICAN-AMERICAN > 60; GFR NON-AFRICAN AMERICAN > 60; HDL CHOLESTEROL 78 mg/dL (29-60)
[2017-12-06] MEDS: Insulin Lispro (humaLOG) LOW Coverage SC SCH ×3 (07:47→18:23)
--- NOTE | 2017-12-06 09:20 | PN ---
DATE: 12/05/2017 SUBJECTIVE: The patient is 52 years old, seen and examined, states she feels exhausted. Complained of back pain. Complained of leg pain. Wants Lasix to be discontinued, she states it is draining her and denies any chest pain. Mild shortness of breath on walking. PHYSICAL EXAMINATION VITAL SIGNS: She is afebrile. Pulse 73, respirations 20, blood pressure 119/67. LUNGS: Bilateral fair airflow. No rhonchi or crackle. HEART: S1 and S2 audible. ABDOMEN: Soft, obese, nontender. No rebound. No guarding. NEUROLOGIC: She is awake, alert, and oriented. Able to communicate. LABORATORY DATA: Blood sugar is 148. She had echocardiogram done that shows left ventricle is normal, normal wall thickness, function is also normal, left ventricular diastolic function is also within normal limit, and moderate pulmonary hypertension. ASSESSMENT: 1. Bilateral leg cellulitis, seems to be improving. 2. Bilateral leg edema, improving. 3. Asthmatic bronchitis. 4. Chronic obstructive pulmonary disease. 5. Morbid obesity. 6. Insulin-dependent diabetes. 7. Congestive heart failure. PLAN: We will discontinue Lasix. Encourage physical therapy. If the patient tolerated physical therapy, we will make discharge plan in a.m. Karson Ruiz MD
--- NOTE | 2017-12-06 09:26 | PN ---
DATE: 12/06/2017 PULMONARY NOTE SUBJECTIVE: The patient appears very comfortable this morning. She is not short of breath at rest. PHYSICAL EXAMINATION: VITAL SIGNS: (Last noted in the computer): Temperature is 98.6, pulse 73, respirations 18, blood pressure 119/67. Oxygen saturation on nasal cannula is 96%. HEENT: Normocephalic, atraumatic. NECK: No JVD. CARDIOVASCULAR: Positive S1, S2. No S3 gallop. LUNGS: Improved breath sounds at the bases. No rhonchi or wheezing this morning. EXTREMITIES: Positive for edema. No cyanosis or clubbing. Calves are nontender to palpation. GI: Abdomen is soft, nontender and nondistended. Bowel sounds are positive. SKIN: Improving lower leg cellulitis. NEUROLOGIC: Exam limited at the present time. IMPRESSION: 1. Acute bronchitis. 2. Advanced chronic obstructive pulmonary disease, on home oxygen. 3. Asthma. 4. Bilateral lower leg cellulitis. 5. Possible congestive heart failure. PLAN: The patient appears very comfortable this morning. She is not short of breath at rest. She does state to feeling much better overall. On physical exam, her bronchospasm has resolved. In addition, the oxygen saturation on nasal cannula is now 96%. I will continue with the current nebulizer treatments and oral steroids (changed yesterday) for now. I would continue with the treatment for her cellulitis as per Infectious Disease. Input by Dr. Ashley is noted. There are no temperatures noted. There is no leukocytosis. The clinical status of this patient is significantly improved overall. I would continue to wean the steroids over the next 5-7 days. I would also continue with the nebulizer treatments and supplemental oxygen. The patient is for probable discharge in the near future. I will thus follow up on this patient again as requested. Please call me for any additional Pulmonary questions or problems with this patient. I would be happy to reevaluate. Thank you for allowing me to participate the care of this patient. Quang Mann MD [facility]
[2017-12-06] MEDS ORDERED: Potassium Chloride 20 mEq/15 ml LIQ UD PO STA (10:35)
[2017-12-06] MEDS: Enoxaparin 40 mg Syringe SC SCH (10:46)
[2017-12-06] MEDS: Pantoprazole 40 mg EC Tab PO SCH (10:49)
[2017-12-06] MEDS: Levothyroxine 25 MCG TAB PO SCH (10:49)
--- NOTE | 2017-12-06 16:57 | PN ---
DATE: 12/06/2017 SUBJECTIVE: The patient is in bed, in no acute distress. Nontoxic. No fevers or chills. PHYSICAL EXAMINATION VITAL SIGNS: Temperature is 98, blood pressure is 120/70, and respiratory rate of 16. HEENT: Unremarkable. NECK: Supple. LUNGS: Decreased breath sounds. HEART: Normal S1 and S2. ABDOMEN: Soft and nontender. LABORATORY DATA: Reveals the patient has a white count of 4.8, hemoglobin of 11, and the chemistries are noted. The patient's urinalysis is noted. Microbiology is reviewed.. ASSESSMENT AND PLAN: This is a 52-year-old female with morbid obesity, body mass index of 55, super morbid obesity, with bilateral lower extremity cellulitis, which has greatly improved in a patient with a history of sepsis and bilateral community-acquired pneumonia, Klebsiella, left-sided pyelonephritis, history of chronic sepsis with Escherichia coli bacteremia, left-sided pyelonephritis, history of sarcoidosis, and currently on p.o. doxycycline 100 mg p.o. b.i.d. x5 days. The patient is also on prednisone. Dr. Mann's note is reviewed and appreciated. Madhav Ashley MD
--- NOTE | 2017-12-06 18:15 | PN ---
DATE: 12/06/2017 LOCATION: The patient is in room 567, bed 2. REASON FOR CONSULTATION: Shortness of breath, exacerbation of chronic obstructive pulmonary disease. SUBJECTIVE: The patient is morbidly obese, sitting in a chair. Denies chest pain, shortness of breath, palpitation, but she says when exerts she gets shortness of breath. PHYSICAL EXAMINATION VITAL SIGNS: Blood pressure 115/56, respirations 24, pulse 65, and temperature 98.8. HEENT: Head is normocephalic. Eyes, pupils are normal. Conjunctivae slightly pale. NECK: JVP low. Carotids equal. THORAX: AP diameter normal. LUNGS: No rales. CARDIOVASCULAR: S1 and S2. ABDOMEN: Protuberant. No organomegaly. EXTREMITIES: No clubbing. No cyanosis. LABORATORY DATA: WBC 4.8, hemoglobin 11.4, hematocrit 35.8, and platelets 90. Sodium 142, potassium 3.1, BUN 20, creatinine 0.7. Triglycerides 74, cholesterol 192, LDL 83, HDL 78, TSH 4.94. DIAGNOSES: Edema of the leg and cellulitis of the leg, respiratory tract infection, exacerbation of chronic obstructive pulmonary disease, morbid obesity, diabetes, hypertension, hyperlipidemia, pseudo cerebri, depression, history of hypothyroidism, sarcoidosis, history of ovarian tumor, and history of migraine patient is high risk for coronary artery disease. The patient is diabetic and goal in the diabetic is to keep LDL below 70, so we will add Lipitor 10 mg daily to the therapy. Also, patient's TSH is slightly elevated, we will go to Synthroid to 50 mcg daily, before she was getting 25 mcg daily. The patient is already on Lovenox, gabapentin, hand nebulizer therapy, Doryx 100 mg q. 12 hours, and Amaryl 2 mg p.o. daily. Also advised the patient to lose weight. We will repeat labs in the morning. We will follow with you. Eagle Bales MD
[2017-12-06] MEDS: Apap-Butalbital-Caffeine 325-50-40mg Tab PO PRN (18:24)
--- NOTE | 2017-12-06 19:59 | PN ---
DATE: SUBJECTIVE: The patient is a 52-year-old seen and examined, sitting in chair. Complain of generalized weakness. Bilateral leg swelling has improved. She still has difficulty walking. Complain of shortness of breath on walking. Eating and tolerating. PHYSICAL EXAMINATION VITAL SIGNS: She is afebrile, pulse 65, respirations 25 and blood pressure 115/56. LUNGS: Bilateral good air flow. No rhonchi or crackle. HEART: S1 and S2 audible. ABDOMEN: Soft, obese and nontender. No rebound. No guarding. NEUROLOGIC: She is awake, alert and oriented. Moves all extremities. EXTREMITIES: Bilateral leg +1 edema. Her erythema has significantly improved. LABORATORY DATA: WBC is 4.8, hemoglobin 11.4, hematocrit 35.8 and platelet of 90. Chemistry: Sodium 143, potassium 3.1, chloride 107, CO2 29, BUN 20, creatinine 0.7 and blood sugar of 172. Blood culture and urine cultures are negative. Had echocardiogram done that seems to be unremarkable. ASSESSMENT: 1. Exertional dyspnea. 2. Bilateral cellulitis, improving. 3. Morbid obesity. 4. Depression. 5. Hypothyroidism. PLAN: The patient is scheduled to have stress test done tomorrow that is unremarkable. She can be discharge home on p.o. Lasix. Karson Ruiz MD
[2017-12-06] MEDS: Albuterol-Ipratrop 3 mg / 0.5 (3 ml) UD IH PRN (23:32)
[2017-12-07] MEDS: Insulin Lispro (humaLOG) LOW Coverage SC SCH ×5 (01:02→22:07)
[2017-12-07] MEDS: Albuterol-Ipratrop 3 mg / 0.5 (3 ml) UD IH SCH ×4 (01:22→20:04)
[2017-12-07] MEDS: Levothyroxine 50 MCG TAB PO SCH (05:18)
[2017-12-07] MEDS ORDERED: Aminophylline 25 mg/ml Inj ONE (07:31)
[2017-12-07] MEDS: Pantoprazole 40 mg EC Tab PO SCH (07:54)
[2017-12-07 08:20] LABS: BLOOD UREA NITROGEN 17 mg/dL (7-21); CALCIUM 9.4 mg/dL (8.4-10.5); GFR AFRICAN-AMERICAN > 60; GFR NON-AFRICAN AMERICAN > 60
[2017-12-07] MEDS ORDERED: Potassium Chloride 20 mEq ER Tab PO ONE (08:53)
--- NOTE | 2017-12-07 10:54 | PN ---
DATE: 12/07/2017 LOCATION: The patient is in room number 567, bed 2. REASON FOR CONSULTATION: Follow up shortness of breath, exacerbation of chronic obstructive pulmonary disease. SUBJECTIVE: The patient states that when she exerts she gets shortness of breath, otherwise, she denies any chest pain or palpitation. She has no shortness of breath while sitting alone. PHYSICAL EXAMINATION: VITAL SIGNS: Blood pressure is 121/58, respirations of 24, pulse of 82, and temperature of 97.9. HEENT: Head is normocephalic. Eyes, pupils are normal. Conjunctivae are slightly pale. NECK: JVP is low. Carotids are equal. THORAX: AP diameter normal. LUNGS: No rales. CARDIOVASCULAR: S1 and S2. ABDOMEN: Protuberant. No organomegaly. EXTREMITIES: No clubbing. No cyanosis. LABORATORY DATA: WBC of 4.8, hemoglobin of 11.4, hematocrit of 35.8, and platelets of 90. Sodium of 140, potassium of 3.4, BUN of 17, and creatinine of 0.7. Calcium, phosphorus and magnesium are normal. Random sugar is 67. DIAGNOSES: Edema of the leg and cellulitis of the leg, respiratory tract infection, morbid obesity, diabetes, hypertension, hyperlipidemia, pseudo cerebri, depression, history of hypothyroidism, sarcoidosis, history of ovarian tumor, and history of migraine. PLAN: The patient will have IV Lexiscan stress test today with 2 days protocol because of the patient's overweight so stress test cannot be completed, Monday it will be completed and second set of which will be done tomorrow. The patient is diabetic and goal is to keep LDL below 70, so we will start Lipitor also 10 mg daily. TSH was slightly elevated, so we will increase Synthroid to 50 mcg daily from 25 mcg daily. The patient's potassium is low, we will give extra potassium and the patient is already on Lovenox, gabapentin, and nebulizer therapy. Doryx 100 mg q.12 hours. and Amaryl 2 mg p.o. daily. As before advised the patient to lose weight and will repeat SMA-7 tomorrow. Eagle Bales MD [facility] # [id number]
[2017-12-07] MEDS: Enoxaparin 40 mg Syringe SC SCH (10:58)
[2017-12-07] MEDS ORDERED: Potassium Chloride 20 mEq ER Tab PO SCH (11:00)
[2017-12-07] MEDS: Oxycodone/Acetaminophen 5/325 mg Tab PO PRN (16:16)
--- NOTE | 2017-12-07 18:22 | PN ---
DATE: SUBJECTIVE: The patient is 52-year-old, seen and examined, sitting in chair. Complain of bilateral leg getting stiff again. The patient refused to have Lasix yesterday. She states Lasix drains her and she feels very weak. Had nuclear stress test done first part today, awaiting for second part tomorrow. PHYSICAL EXAMINATION: GENERAL: She is awake, alert, oriented and communicative. VITAL SIGNS: She is afebrile. Pulse 65, respirations 20 and blood pressure 118/69. LUNGS: Bilateral fair airflow. No rhonchi or crackle. HEART: S1 and S2 audible. ABDOMEN: Soft, obese and nontender. No rebound. No guarding. NEUROLOGIC: The patient is awake, alert, and oriented. Able to communicate. Ambulatory. EXTREMITIES: Bilateral leg, resolving cellulitis and +2 leg edema. LABORATORY DATA: Sodium 140, potassium 3.4, chloride 109, CO2 of 24, BUN 17, creatinine 0.7 and blood sugar of 98. ASSESSMENT: 1. Bilateral leg cellulitis, improving bilateral leg edema. 2. Morbid obesity. 3. Hypertension. 4. Depression. 5. Electrolyte imbalance. PLAN: Currently, the patient is on glimepiride and doxycycline. Continue nebulizer treatment. Supplement potassium. Analgesic as needed. She is on Protonix and Seroquel, we will continue that. The patient will have second set of stress test done tomorrow and if it is unremarkable, will be discharged in a.m. Karson Ruiz MD
[2017-12-07 19:16] VITALS: TEMP 98.1
--- NOTE | 2017-12-08 | PN ---
DATE: 12/07/2017 SUBJECTIVE: The patient is in bed, in no acute distress. PHYSICAL EXAMINATION: VITAL SIGNS: Temperature is 98, blood pressure is 130/50, and respiratory rate of 18. HEENT: Unremarkable. NECK: Supple. LUNGS: Have decreased breath sounds. HEART: Normal S1 and S2. ABDOMEN: Soft and nontender. EXTREMITIES: Examination of legs are improved. LABORATORY DATA: Review of orders reveals the patient is on p.o. doxycycline. Microbiology is noted. ASSESSMENT AND PLAN: This is a 52-year-old female with bilateral leg cellulitis, bilateral leg edema, morbid obesity, hypertension, and depression, on p.o. doxycycline. Madhav Ashley MD
[2017-12-08] MEDS: Albuterol-Ipratrop 3 mg / 0.5 (3 ml) UD IH SCH ×3 (01:18→13:45)
[2017-12-08] MEDS: Levothyroxine 50 MCG TAB PO SCH (05:09)
[2017-12-08] MEDS: Insulin Lispro (humaLOG) LOW Coverage SC SCH (07:34)
[2017-12-08] MEDS: Pantoprazole 40 mg EC Tab PO SCH (07:34)
[2017-12-08 07:50] LABS: BLOOD UREA NITROGEN 19 mg/dL (7-21); CALCIUM 9.2 mg/dL (8.4-10.5); GFR AFRICAN-AMERICAN > 60; GFR NON-AFRICAN AMERICAN > 60; MAGNESIUM 2.1 mg/dL (1.7-2.2)
[2017-12-08 08:16] VITALS: BP 113/59; PULSE 71; RESP 20; O2SAT 100
[2017-12-08] MEDS: Enoxaparin 40 mg Syringe SC SCH (10:38)
[2017-12-08] MEDS: Apap-Butalbital-Caffeine 325-50-40mg Tab PO PRN (13:03)
--- NOTE | 2017-12-08 21:01 | CARD ---
APPROVED REPORT Protocol: LEXISCAN Test Type: Lexiscan Sestamibi Stress Test Attending Physician: Dr. Eagle Bales Referring Physician: Dr. Karson Ruiz Test Indications: Dyspnea Height:5 ft 5 in Weight:333lbs Medications: duoneb, klonopin, lovenox, neurontin, glimpeperide, insulin, synthroid, percocet, protonix, prednisone, seroquel, zoloft, topamax, ultram Medical History: 52 year old female with a h/o diabetes, COPD, htm and high cholesterol Target HR: 167 bpm Resting ECG: RSR. Resting Heart Rate: 64 bpm Resting Blood Pressure: 128/76mmHg Submaximum (85%): 142 bpm PROCEDURE Pharmacologic stress testing was performed using 0.4mg per 5ml of regadenoson given intravenously over 7-10 seconds. Reversal agent aminophyline 100 mg, given intravenously for Dyspnea. POST EXERCISE Reason for Termination: Protocol completed Target HR: No Max HR: 63 bpm 47% of Maximum Predicted HR: 167 bpm Exercise duration: 00:31 min:sec, 0 Stage Exercise capacity: 1.0METs Max Blood Pressure: 128/76mmHg Blood Pressure response to exercise: normal resting BP - appropriate response Heart Rate response to exercise: appropriate Chest Pain: No, none Angina index: 0 Arrhythmia: No, none ST Change: No, none Deviation: 0 mm TEST SUMMARY [id number]. INFUSIONDOSE 100:[id number]/.[id number]. [id number]. INTERPRETATION Stress EKG Conclusion: IV LEXISCAN NUCLEAR STRESS TEST NEGATIVE FOR CHEST PAIN AND NEGATIVE FOR ST-T CHANGES. NUCLEAR SCAN REPORT PENDING. Signed by Eagle Bales Electronically Approved: 12/07/2017 10:00:06 EXAM: Myocardial Perfusion STRESS/REST 2DAYS Stress Test Type: Pharmacologic Imaging Protocol Rest Spect myocardial perfusion imaging was performed in supine position 70 minutes following the injection of 30.6 mCi of Tc-99 Myoview. At peak stress, the patient was injected intravenously with 30.9mCi of Tc-99 tetrofosmin after an infusion time of 0 minutes and 10 seconds. Gated Stress Spect was performed 70 minutes after intravenous Tc-99 Myoview injection. The images were gated to evaluate regional wall motion and calculate ventricular ejection fraction.Images were reconstructed using backfilter projection method in short horizontal and verticle long axis. Spect slices were generated. LV Perfusion The quality of the study is suboptimal due to motion during the stress acquisition, significant breast attenuation and change of brest position from stress to rest sudy. The left ventricle is mildly enlarged in size. The right ventricle is unremarkable. The lung uptake is normal. The distribution of tracer reveals an area of moderately decreased perfusion involving mid to distal inferolateral wall on the stress study. The remainder of the LV myocardium is unremarkable. The rest myocardial perfusion study shows slight improvemento the defect. Wall Motion Gated wall motion study shows good contractility of the left ventricle. LVEF = 66%. Conclusion 1. Technically suboptimal study. 2. Probably normal SPECT myocardial perfusion study. 3. Partially reversible, inferolaeral defect is probably due to changing breast postion and motion artifact. 4. Normal gated wall motion of the left ventricle.
--- NOTE | 2017-12-08 21:23 | PN ---
DATE: 12/08/2017 LOCATION: The patient is in room 567, bed 2. REASON FOR CONSULTATION: Shortness of breath, exacerbation of chronic obstructive pulmonary disease, morbid obesity. SUBJECTIVE: The patient is sitting in chair without chest pain, palpitation, shortness of breath. She only gets shortness of breath when she start exerting. PHYSICAL EXAMINATION VITAL SIGNS: Blood pressure of 113/59, respirations 20, pulse 71, and temperature 98.1. HEENT: Head is normocephalic. Eyes, pupils are normal. Conjunctivae are slightly pale. NECK: JVP low. Carotids are equal. THORAX: AP diameter normal. LUNGS: Clear. CARDIOVASCULAR: S1 and S2. ABDOMEN: Protuberant. No organomegaly. EXTREMITIES: No clubbing. No cyanosis. LABORATORY DATA: WBC of 4.8, hemoglobin of 11.4, hematocrit 35.8 and platelets 90. Sodium 142, potassium 4.0, BUN 19, creatinine 0.9, random sugar 66 and second random sugar 177, calcium 9.2, phosphorus 4.0 and magnesium 2.1. DIAGNOSES: Edema of the leg with cellulitis, respiratory tract infection, morbid obesity, diabetes, hypertension, hyperlipidemia, pseudo cerebri, depression, history of hypothyroidism, sarcoidosis, history of ovarian tumor and history of migraine. PLAN: The patient's second part of IV Lexiscan will be completed today because of the patient being obese that is two days protocol. The patient clinically has no anginal symptoms. Strongly advised the patient to loose weight. We will continue present therapy and we will follow Lexiscan nuclear stress test report. Eagle Bales MD
--- NOTE | 2017-12-09 05:47 | DS ---
HOSPITAL COURSE: The patient is a 52-year-old, seen and examined. The patient was admitted because of both leg swelling, shortness of breath, generalized weakness, body aches and pain. She was diuresed, given IV antibiotic, did well. She has a stress test done that is pending, wants to go home. PHYSICAL EXAMINATION: VITAL SIGNS: She is afebrile, pulse 71, respiration 20, blood pressure 113/59. LUNGS: Bilateral fair airflow, decreased at the bases. HEART: S1 and S2 audible. ABDOMEN: Soft, obese, nontender. No rebound, no guarding. NEUROLOGIC: She is awake, alert, oriented, communicative, able to ambulate with a walker. Bilateral leg, she has chronic cellulitis, erythema has significantly improved. Edema also has come down from +3 to +1. LABORATORY EXAM: Sodium 142, potassium 4.0, chloride 108, CO2 of 28, BUN 19, creatinine 0.9, blood sugar of 177. Urine drug screen positive for marijuana. ASSESSMENT AND PLAN: 1. Bilateral leg cellulitis. 2. Morbid obesity. 3. Hypertension. 4. History of depression. 5. History of migraine headaches. 6. Hypothyroidism. 7. Neuropathy. PLAN: The patient is being discharged home. She will take Lasix 20 mg daily with potassium 20 mEq daily. She is given prescription for walker, and she will follow up with her PMD. Karson Ruiz MD
== END 2017-12-08 14:56 | disposition home or self-care (01) | DRG 563 ==
LOC: ED 12:15 → ERH 21:30 → 5RNO 12-02 00:32 → OBSVTOIN 12-02 15:00
PROVIDERS: ADMIT Internal Medicine Medical Oncology; ATTEND Internal Medicine
DX: L03.115 Cellulitis of right lower limb (principal); I50.23 Acute on chronic systolic (congestive) heart failure; E11.40 Type 2 diabetes mellitus with diabetic neuropathy, unspecified; E87.8 Other disorders of electrolyte and fluid balance, not elsewhere classified; J44.1 Chronic obstructive pulmonary disease with (acute) exacerbation; I11.0 Hypertensive heart disease with heart failure; K74.60 Unspecified cirrhosis of liver; D86.9 Sarcoidosis, unspecified; J44.0 Chronic obstructive pulmonary disease with (acute) lower respiratory infection; L03.116 Cellulitis of left lower limb; F32.9 Major depressive disorder, single episode, unspecified; F17.200 Nicotine dependence, unspecified, uncomplicated; E66.01 Morbid (severe) obesity due to excess calories; D64.9 Anemia, unspecified; G43.909 Migraine, unspecified, not intractable, without status migrainosus; J20.9 Acute bronchitis, unspecified; E03.9 Hypothyroidism, unspecified; I08.0 Rheumatic disorders of both mitral and aortic valves; K21.9 Gastro-esophageal reflux disease without esophagitis; R29.6 Repeated falls; Z91.81 History of falling; M19.90 Unspecified osteoarthritis, unspecified site; E78.5 Hyperlipidemia, unspecified; F41.0 Panic disorder [episodic paroxysmal anxiety]; Z68.43 Body mass index [BMI] 50.0-59.9, adult; Z99.81 Dependence on supplemental oxygen; Z88.3 Allergy status to other anti-infective agents; Z88.0 Allergy status to penicillin; Z87.01 Personal history of pneumonia (recurrent); Z79.84 Long term (current) use of oral hypoglycemic drugs

== ENCOUNTER 2017-12-25 16:21 | Emergency (ER) | payer OTHER ==
[2017-12-25 16:21] VITALS: BMI 55.4
[2017-12-25 16:57] VITALS: TEMP 98.2
--- NOTE | 2017-12-25 17:02 | ED PDOC ---
Arrival/HPI - General Time Seen by Provider: 12/25/17 16:54 Historian: Patient - History of Present Illness Narrative History of Present Illness (Text): 12/25/17 16:50 Neena Dumont is a 52 year old female, whose past medical history includes COPD and sarcoidosis, who presents to the emergency department complaining of shortness of breath since being discharged from the hospital on 12/09/17. Patient notes that 4 days ago she began to experience associated URI symptoms with low-grade fevers. No other complaints offered at this time. PMD: Dr. Ruiz Time/Duration: < week ( URI symptoms with low-grade fevers.), < month Symptom Onset: Gradual Symptom Course: Unchanged Activities at Onset: Light Context: Home Past Medical History - Provider Review Nursing Documentation Reviewed: Yes - Infectious Disease Hx of Infectious Diseases: None - Tetanus Immunization Tetanus Immunization: Unknown - Cardiac Hx Hypertension: Yes - Pulmonary Hx Chronic Obstructive Pulmonary Disease (COPD): Yes - Neurological Hx Neurological Disorder: Yes (headache,DM neuropathy left knee) - HEENT Hx HEENT Disorder: Yes (reading glasses) Hx Blind: No Hx Cataracts: No Hx Deafness: No Hx Difficulty Chewing: No Hx Epistaxis: No Hx Glaucoma: No Hx Macular Degeneration: No Other/Comment: Pseudotumor behind right eye - Renal Hx Renal Disorder: No - Endocrine/Metabolic Hx Diabetes Mellitus Type 2: Yes Hx Hypothyroidism: Yes - Hematological/Oncological Hx Blood Disorders: Yes Hx Anemia: Yes Hx Cirrhosis: Yes (non alcoholic) - Integumentary Hx Dermatological Disorder: No Hx Basal Cell Carcinoma: No Hx Eczema: No Hx Melanoma: No Hx Psoriasis: No Hx Squamous Cell Carcinoma: No - Musculoskeletal/Rheumatological Hx Falls: Yes - Gastrointestinal Hx Gastroesophageal Reflux: Yes - Genitourinary/Gynecological Hx Genitourinary Disorders: No - Psychiatric Hx Anxiety: Yes Hx Depression: Yes Hx Panic Disorder: Yes Hx Substance Use: No - Past Surgical History Past Surgical History: No Previous - Surgical History Hx Cholecystectomy: Yes - Anesthesia Hx Anesthesia: Yes Hx Anesthesia Reactions: No Hx Malignant Hyperthermia: No - Suicidal Assessment Feels Threatened In Home Enviroment: No Family/Social History - Physician Review Nursing Documentation Reviewed: Yes Family/Social History: No Known Family HX Smoking Status: Current Some Days Smoker Hx Alcohol Use: No Hx Substance Use: No Hx Substance Use Treatment: No Allergies/Home Meds Allergies/Adverse Reactions: Allergies ciprofloxacin [From Cipro] Allergy (Verified 12/25/17 16:40) VOMITING ciprofloxacin HCl [From Cipro] Allergy (Verified 12/25/17 16:40) VOMITING clarithromycin [From Biaxin] Allergy (Verified 12/25/17 16:40) VOMITING clindamycin Allergy (Verified 12/25/17 16:40) VOMITING colistin Allergy (Verified 12/25/17 16:40) VOMITING erythromycin base Allergy (Verified 12/25/17 16:40) DIARRHEA hydromorphone HCl [From Dilaudid] Allergy (Verified 12/25/17 16:40) VOMITING levofloxacin [From Levaquin] Allergy (Verified 12/25/17 16:40) SHORTNESS OF BREATH Penicillins Allergy (Verified 12/25/17 16:40) SHORTNESS OF BREATH Home Medications: Home Meds Medication Instructions Recorded Confirmed Albuterol/Ipratropium [Duoneb 3 1 vial IH QID 12/01/17 12/01/17 mg/0.5 mg (3 ml) UD] Ergocalciferol [Drisdol 50,000 1 cap PO Q7D 12/01/17 12/01/17 Intl Units Cap] Gabapentin [Neurontin] 1 cap PO DAILY 12/01/17 12/01/17 Glimepiride [amaRYL] 1 tab PO DAILY 12/01/17 12/01/17 Ibuprofen [Motrin Tab] 1 tab PO PRN PRN 12/01/17 12/01/17 Levothyroxine [Synthroid] 1 tab PO DAILY 12/01/17 12/01/17 Metoclopramide [Reglan] 1 tab PO DAILY 12/01/17 12/01/17 QUEtiapine [Seroquel] 1 tab PO TID 12/01/17 12/01/17 Sertraline [Zoloft] 1 tab PO BID 12/01/17 12/01/17 Topiramate [Topamax] 1 tab PO TID 12/01/17 12/01/17 clonazePAM [Klonopin] 1 tab PO BID 12/01/17 12/01/17 clonazePAM [Klonopin] 1 tab PO DAILY 12/01/17 12/01/17 rifAXIMin [Xifaxan] 1 tab PO BID 12/01/17 12/01/17 Review of Systems - Physician Review All systems were reviewed & negative as marked: Yes - Review of Systems Constitutional: Fevers Eyes: absent: Vision Changes ENT: absent: Hearing Changes Respiratory: SOB Cardiovascular: absent: Chest Pain Gastrointestinal: absent: Abdominal Pain Genitourinary Female: absent: Dysuria, Frequency Musculoskeletal: absent: Arthralgias Neurological: absent: Headache Endocrine: absent: Diaphoresis Hemo/Lymphatic: absent: Adenopathy Psychiatric: absent: Anxiety, Depression Physical Exam Vital Signs Reviewed: Yes Vital Signs Temp Pulse Resp BP Pulse Ox 12/25/17 17:49 88 18 145/58 L 95 12/25/17 16:57 98.2 F 79 18 149/54 L 97 Temperature: Afebrile Pulse: Regular Respiratory Rate: Normal Mental Status: Positive for: Alert and Oriented X 3 - Systems Exam Head: Present: Atraumatic, Normocephalic Pupils: Present: PERRL Extroacular Muscles: Present: EOMI Conjunctiva: Present: Normal Mouth: Present: Moist Mucous Membranes Neck: Present: Normal Range of Motion Respiratory/Chest: Present: Wheezes Cardiovascular: Present: Regular Rate and Rhythm, Normal S1, S2. No: Murmurs Abdomen: Present: Normal Bowel Sounds. No: Tenderness, Distention, Peritoneal Signs Back: Present: Normal Inspection Upper Extremity: Present: Normal Inspection. No: Cyanosis, Edema Lower Extremity: Present: Edema (non-pitting LE Edema) Neurological: Present: GCS=15, CN II-XII Intact, Speech Normal Skin: Present: Warm, Dry, Normal Color. No: Rashes Psychiatric: Present: Alert, Oriented x 3, Normal Insight, Normal Concentration Medical Decision Making ED Course and Treatment: 12/25/17 17:03 Impression: 52 year old female complaining of shortness of breath since being discharged from the hospital on 12/09/17 Differential Diagnosis included but are not limited to: Plan: -- Chest X-ray -- Labs -- Duoneb and Solu-medrol -- Reassess and disposition Prior Visits: Notes and results from previous visits were reviewed. Patient was last seen in the emergency department on 12/01/17 for progressive shortness of breath, yellow cough, and secondarily both lower legs swelling/redness. Patient was admitted to hospitalist care for further evaluation. Progress Notes: 12/25/17 17:34 EKG shows NSR at 75bpm with QTc:482. Otherwise normal intervals and no ST changes 12/25/17 21:21 Patient offered admission for shortness of breath. Cxray unchanged. Patient ambulating around ED without issue. Wheezing resolved. She is requesting dc with steroids. - Lab Interpretations Lab Results: 12/25/17 17:43 12/25/17 17:43 Lab Results 12/25/17 17:43: Sodium 143, Potassium 3.7, Chloride 108 H, Carbon Dioxide 28, Anion Gap 11, BUN 11, Creatinine 0.7, Est GFR ( Amer) > 60, Est GFR (Non- Af Amer) > 60, Random Glucose 113 H, Calcium 9.5, Phosphorus 3.0, Magnesium 1.9 , Total Bilirubin 0.6, AST 38 H, ALT 42, Alkaline Phosphatase 179 H, Troponin I < 0.01, Total Protein 7.0, Albumin 3.4, Globulin 3.6, Albumin/Globulin Ratio 1.0 L 12/25/17 17:43: WBC 6.3 D, RBC 3.79, Hgb 11.9 L, Hct 37.4, MCV 98.7, MCH 31.4, MCHC 31.8, RDW 14.8 H, Plt Count 89 L, MPV 9.5, Gran % 63.4, Lymph % (Auto) 25.8 , Dodge % (Auto) 9.7 H, Eos % (Auto) 0.8 L, Baso % (Auto) 0.3, Gran # 3.99, Lymph # (Auto) 1.6, Dodge # (Auto) 0.6, Eos # (Auto) 0.1, Baso # (Auto) 0.02 I have reviewed the lab results: Yes - RAD Interpretation Radiology Orders: 12/25/17 17:01 CHEST TWO VIEWS (PA/LAT) [RAD] Stat - Medication Orders Current Medication Orders: Discontinued Medications Albuterol/Ipratropium (Duoneb 3 Mg/0.5 Mg (3 Ml) Ud) 3 ml IH Q15M NOAM Stop: 12/25/17 17:46 Last Admin: 12/25/17 18:12 Dose: 3 ml Methylprednisolone (Solu-Medrol) 125 mg IVP STAT STA Stop: 12/25/17 17:02 Last Admin: 12/25/17 18:11 Dose: 125 mg IVP Administration Document 12/25/17 18:11 [place] (Rec: 12/25/17 18:11 [place] [facility] [id number] Charges for Administration # of IVP Administrations 1 Morphine Sulfate (Morphine) 4 mg IVP STAT STA Stop: 12/25/17 18:20 Last Admin: 12/25/17 18:43 Dose: 4 mg MAR Pain Assessment Document 12/25/17 18:43 [place] (Rec: 12/25/17 18:46 [place] [facility] [id number][place] Pain Reassessment Is this a pain reassessment? No Sleep Is patient sleeping during reassessment? No Presence of Pain Presence of Pain Yes Pain Scale Used Pain Scale Used Numeric Location Pain Location [employer] Description Intensity of Pain at present 7 IVP Administration Document 12/25/17 18:43 [place] (Rec: 12/25/17 18:46 [place] [facility] [id number][place] Charges for Administration # of IVP Administrations 1 - Scribe Statement The provider has reviewed the documentation as recorded by the Miguel Younger Provider Scribe Attestation: All medical record entries made by the Yessyibsantiago were at my direction and personally dictated by me. I have reviewed the chart and agree that the record accurately reflects my personal performance of the history, physical exam, medical decision making, and the department course for this patient. I have also personally directed, reviewed, and agree with the discharge instructions and disposition. Disposition/Present on Arrival - Present on Arrival Any Indicators Present on Arrival: No History of DVT/PE: Yes History of Uncontrolled Diabetes: Yes Urinary Catheter: No History Surgical Site Infection Following: None - Disposition Have Diagnosis and Disposition been Completed?: Yes Diagnosis: COPD exacerbation Disposition: HOME/ ROUTINE Disposition Time: 21:21 Patient Plan: Discharge Patient Problems: Current Active Problems Problem Status Onset COPD exacerbation Acute Condition: GOOD Discharge Instructions (ExitCare): COPD (Chronic Obstructive Pulmonary Disease ) (ED) Additional Instructions: Follow-up with PMD within 2 days. Return to ED if condition worsens. Use nebulizer as needed. Use full course of steroids. Prescriptions: Prednisone 50 mg PO DAILY #3 tablet Referrals: Humberto Hoffmann MD [Primary Care Provider] - Follow up with primary
[2017-12-25] MEDS: Albuterol-Ipratrop 3 mg / 0.5 (3 ml) UD IH SCH ×3 (17:15→18:12)
[2017-12-25 17:49] VITALS: O2SAT 95
[2017-12-25 17:55] LABS: BASO # 0.02 K/mm3 (0.0-2.0); BASO % 0.3 % (0.0-3.0); EOS # 0.1 (0.0-0.7); EOS % 0.8 % (1.5-5.0); GRAN # 3.99 (1.4-6.5); GRAN % 63.4 % (50.0-68.0); HEMOGLOBIN 11.9 g/dL (12.0-16.0); LYMPH # 1.6 (1.2-3.4); LYMPH % 25.8 % (22.0-35.0); MEAN CELL VOLUME 98.7 fl (80.0-105.0); MEAN CORPUSCULAR HEMOGLOBIN 31.4 pg (25.0-35.0); MEAN CORPUSCULAR HGB CONC 31.8 g/dl (31.0-37.0); MEAN PLATELET VOLUME 9.5 fl (7.0-11.0); MONO # 0.6 (0.1-0.6); MONO % 9.7 % (1.0-6.0); RBC 3.79 10^6/uL (3.5-6.1); RED CELL DISTRIBUTION WIDTH 14.8 % (11.5-14.5); WHITE BLOOD COUNT 6.3 10^3/ul (4.5-11.0)
[2017-12-25 18:19] LABS: ALBUMIN 3.4 g/dL (3.0-4.8); ALT/SGPT 42 U/L (7-56); AST/SGOT 38 U/L (14-36); BLOOD UREA NITROGEN 11 mg/dL (7-21); CALCIUM 9.5 mg/dL (8.4-10.5); GFR AFRICAN-AMERICAN > 60; GFR NON-AFRICAN AMERICAN > 60; MAGNESIUM 1.9 mg/dL (1.7-2.2)
[2017-12-25] MEDS ORDERED: Morphine 4 mg/ml ISec IVP STA (18:19)
[2017-12-25 18:22] LABS: TROPONIN I < 0.01 ng/mL
[2017-12-26 01:01] VITALS: BP 140/70; PULSE 81; RESP 20
--- NOTE | 2017-12-26 08:50 | RAD ---
HISTORY: COMPARISON: 12/01/2017. TECHNIQUE: Chest PA and lateral FINDINGS: LINES AND TUBES: None. LUNG AND PLEURA: There has been no significant interval change in severe pulmonary venous congestion interstitial pulmonary edema. No focal consolidation. HEART AND MEDIASTINUM: Persistent mild cardiomegaly with prominent central vasculature. The hilar and mediastinal contours are within normal limits. SKELETAL STRUCTURES: The bony structures are within normal limits for the patient's age. VISUALIZED UPPER ABDOMEN: Normal. OTHER FINDINGS: None. IMPRESSION: Cardiomegaly no change in pulmonary venous congestion and interstitial pulmonary edema.
--- NOTE | 2017-12-26 10:11 | CARD ---
APPROVED REPORT EKG Measurement Heart [id number] <Conclusion> Normal sinus rhythm NSSTW changes Prolonged QTc No change
== END 2017-12-25 21:35 | disposition home or self-care (01) ==
LOC: ED 16:21
DX: J44.1 Chronic obstructive pulmonary disease with (acute) exacerbation (principal); I10 Essential (primary) hypertension; E11.9 Type 2 diabetes mellitus without complications; D64.9 Anemia, unspecified; F17.210 Nicotine dependence, cigarettes, uncomplicated
CPT/HCPCS: 71046; 80053; 83735; 84100; 84484; 85025; 93005; 96374; 96375; 99284; J2270; J2930

== ENCOUNTER 2018-04-20 17:48 | Inpatient (IN) | payer OTHER ==
[2018-04-20 18:20] VITALS: BMI 51.2
[2018-04-20] MEDS ORDERED: Albuterol 0.083% Inhal Sol (2.5 mg/3 mL) UD INH STA (18:32)
[2018-04-20] MEDS ORDERED: Albuterol-Ipratrop 3 mg / 0.5 (3 ml) UD IH STA (18:32)
[2018-04-20 18:41] LABS: ARTERIAL BLOOD GAS HCO3 30.1 mmol/L (21-28); ARTERIAL BLOOD GAS O2 SAT 99.4 % (95-98); ARTERIAL BLOOD GAS PCO2 57 mm/Hg (35-45); ARTERIAL BLOOD GAS PH 7.33 (7.35-7.45); ARTERIAL BLOOD GAS TCO2 31.8 mmol.L (22-28)
--- NOTE | 2018-04-20 18:44 | ED PDOC ---
Arrival/HPI - General Chief Complaint: Shortness Of Breath Time Seen by Provider: 04/20/18 18:15 Historian: Patient, Spouse - History of Present Illness Narrative History of Present Illness (Text): 04/20/18 18:32 Patient is a 53 year old female whose past medical history includes anxiety, pseudotumor cerebri, and sarcoidosis of liver and lungs, who presents to the Emergency department complaining of dyspnea, hematuria, and blood with her stool over the past 2-3 days. Patient is present with her spouse, who is giving the patients history due to her dyspnea. Spouse reports that 3 days ago patient woke up with blood in her mouth. She subsequently had difficulty going to the bathroom. 2 days ago patient was able to have a bowel movement and urinate but noticed that both had blood present and her stool was black. Yesterday patient had another bowel movement with blood and black stool. of note patient had a fever for past 2 days but found her temperature to be normal today. She also mentions vomiting after taking anything PO. She denies any history of bowel obstruction or any documented episodes of seizures. She also mentions experiencing a severe headache that is located around her forehead. She has experienced headaches in the past but states those tend to be located behind her eyes. Patient denies fevers, chills, chest pain, cough, abdominal pain, back pain, neck pain, or any other complaint. Neurologist: PMD: Time/Duration: < week Symptom Onset: Gradual Symptom Course: Worsening Context: Home Past Medical History - Provider Review Nursing Documentation Reviewed: Yes - Infectious Disease Hx of Infectious Diseases: None - Tetanus Immunization Tetanus Immunization: Unknown - Cardiac Hx Hypertension: Yes - Pulmonary Hx Chronic Obstructive Pulmonary Disease (COPD): Yes - Neurological Hx Neurological Disorder: Yes (headache,DM neuropathy left knee) - HEENT Hx HEENT Disorder: Yes (reading glasses) Other/Comment: Pseudotumor behind right eye - Renal Hx Renal Disorder: No - Endocrine/Metabolic Hx Diabetes Mellitus Type 2: Yes Hx Hypothyroidism: Yes - Hematological/Oncological Hx Blood Disorders: Yes Hx Anemia: Yes Hx Cirrhosis: Yes (non alcoholic) - Integumentary Hx Dermatological Disorder: No - Musculoskeletal/Rheumatological Hx Falls: Yes - Gastrointestinal Hx Gastroesophageal Reflux: Yes - Genitourinary/Gynecological Hx Genitourinary Disorders: No - Psychiatric Hx Anxiety: Yes Hx Depression: Yes Hx Panic Disorder: Yes Hx Substance Use: No - Past Surgical History Past Surgical History: No Previous - Surgical History Hx Section: Yes (x3) Hx Cholecystectomy: Yes - Anesthesia Hx Anesthesia: Yes Hx Anesthesia Reactions: No Hx Malignant Hyperthermia: No - Suicidal Assessment Feels Threatened In Home Enviroment: No Family/Social History - Physician Review Nursing Documentation Reviewed: Yes Family/Social History: No Known Family HX Smoking Status: Current Some Days Smoker Hx Alcohol Use: No Hx Substance Use: No Hx Substance Use Treatment: No Allergies/Home Meds Allergies/Adverse Reactions: Allergies ciprofloxacin [From Cipro] Allergy (Verified 04/20/18 17:55) VOMITING ciprofloxacin HCl [From Cipro] Allergy (Verified 04/20/18 17:55) VOMITING clarithromycin [From Biaxin] Allergy (Verified 04/20/18 17:55) VOMITING clindamycin Allergy (Verified 04/20/18 17:55) VOMITING colistin Allergy (Verified 04/20/18 17:55) VOMITING erythromycin base Allergy (Verified 04/20/18 17:55) DIARRHEA hydromorphone HCl [From Dilaudid] Allergy (Verified 04/20/18 17:55) VOMITING levofloxacin [From Levaquin] Allergy (Verified 04/20/18 17:55) SHORTNESS OF BREATH Penicillins Allergy (Verified 04/20/18 17:55) SHORTNESS OF BREATH Home Medications: Home Meds Medication Instructions Recorded Confirmed Gabapentin [Neurontin] 1 cap PO DAILY 12/01/17 04/20/18 Glimepiride [amaRYL] 1 tab PO DAILY 12/01/17 04/20/18 Ibuprofen [Motrin Tab] 1 tab PO PRN PRN 12/01/17 04/20/18 Levothyroxine [Synthroid] 225 tab PO DAILY 12/01/17 04/20/18 Metoclopramide [Reglan] 1 tab PO DAILY 12/01/17 04/20/18 QUEtiapine [Seroquel] 1 tab PO TID 12/01/17 04/20/18 Sertraline [Zoloft] 200 mg PO DAILY 12/01/17 04/20/18 Topiramate [Topamax] 1 tab PO TID 12/01/17 04/20/18 clonazePAM [Klonopin] 1 mg PO BID 12/01/17 04/20/18 clonazePAM [Klonopin] 1 tab PO HS 12/01/17 04/20/18 Fluticasone Furoate [Arnuity 1 puff IH DAILY 04/20/18 04/20/18 Ellipta] Gabapentin [Neurontin] 1 cap PO TID 04/20/18 04/20/18 Glimepiride [amaRYL] 1 tab PO DAILY 04/20/18 04/20/18 Temazepam [Restoril] 1 cap PO HS 04/20/18 04/20/18 Tiotropium [place] [Spiriva 2 puff IH DAILY 04/20/18 04/20/18 Respimat] Tizanidine HCl [Zanaflex] 1 tab PO BID 04/20/18 04/20/18 Topiramate [Topamax] 1 tab PO DAILY 04/20/18 04/20/18 hydrOXYzine Pamoate [Vistaril] 1 cap PO TID 04/20/18 04/20/18 Review of Systems - Physician Review All systems were reviewed & negative as marked: Yes - Review of Systems Constitutional: absent: Fevers, Night Sweats Respiratory: SOB Cardiovascular: absent: Chest Pain Gastrointestinal: absent: Abdominal Pain Genitourinary Female: Hematuria Musculoskeletal: absent: Back Pain, Neck Pain Neurological: Headache. absent: Dizziness Physical Exam Vital Signs Reviewed: Yes Vital Signs Temp Pulse Resp BP Pulse Ox 04/21/18 00:43 97.9 F 83 19 135/68 99 04/20/18 23:15 73 19 133/71 98 04/20/18 18:13 16 04/20/18 17:59 99.4 F 75 18 125/69 98 Temperature: Afebrile Blood Pressure: Normal Pulse: Regular Respiratory Rate: Normal Appearance: Positive for: Well-Appearing Mental Status: Positive for: Alert and Oriented X 3 - Systems Exam Head: Present: Atraumatic, Normocephalic Pupils: Present: PERRL Extroacular Muscles: Present: EOMI Conjunctiva: Present: Normal Mouth: Present: Moist Mucous Membranes Neck: Present: Normal Range of Motion, JVD Respiratory/Chest: Present: Good Air Exchange, Wheezes (Musical wheezing anteriorly), Rales (Rales at the bases), Other (Conversational dyspnea). No: Clear to Auscultation, Respiratory Distress, Accessory Muscle Use Cardiovascular: Present: Regular Rate and Rhythm, Normal S1, S2. No: Murmurs Abdomen: Present: Other (Morbidly obese). No: Tenderness, Distention, Peritoneal Signs Back: Present: Normal Inspection Upper Extremity: Present: Edema (Chronic lymph edema). No: Cyanosis Lower Extremity: Present: Edema (chronic lymph edema) Neurological: Present: GCS=15, CN II-XII Intact, Speech Normal Skin: Present: Warm, Dry, Normal Color. No: Rashes Psychiatric: Present: Alert, Oriented x 3, Normal Insight, Normal Concentration Medical Decision Making ED Course and Treatment: 04/20/18 18:45 Impression: Patient is a 53 year old female who is complaining of hematuria, blood with bowel movements, and melena for the past 2-3 days. Differential Diagnosis included but are not limited to: GI bleeding vs. Heart failure vs. Severe anemia vs. Seizure disorder Plan: --Labs --EKG --arterial blood gas --Cardiac enzymes --Albuterol --Duoneb --Solu-Medrol --Protonix --Blood and urine culture --Urinalysis -- Reassess and disposition Prior Visits: Notes and results from previous visits were reviewed. Progress Notes: EKG shows NSR at 79 BPM with normal intervals and axis. Normal EKG. Interpreted by me. 04/20/18 21:12 Reevaluation: On reevaluation patient still feels the same and is wondering when she will undergo her CT exam. I told the patient that it should be soon. - Lab Interpretations Microbiology Results: Microbiology Results 04/20/18 19:35 Urine,Gallego Urine Culture - Final Gram Negative Scooter 04/20/18 18:50 Blood-Venous Blood Culture - Preliminary NO GROWTH AFTER 24 HOURS Lab Results: 04/20/18 18:50 04/20/18 18:50 Lab Results 04/20/18 19:52: Blood Type Confirm B POSITIVE 04/20/18 19:35: Urine Color Light brown, Urine Appearance Slight-cloudy, Urine pH 8.0, Ur Specific [place] 1.015, Urine Protein Trace H, Urine Glucose (UA) Negative, Urine Ketones Negative, Urine Blood Large H, Urine Nitrate Positive H , Urine Bilirubin Negative, Urine Urobilinogen 4.0 H, Ur Leukocyte Esterase Small H, Urine RBC 25 - 30, Urine WBC 10 - 15, Ur Epithelial Cells 4 - 5, Amorphous Sediment Few, Urine Bacteria Large, Urine Other Uyeast 04/20/18 18:50: Blood Type B POSITIVE, Antibody Screen Negative, BBK History Checked No verified bt 04/20/18 18:50: Sodium 145, Chloride 106, Potassium 3.8, Carbon Dioxide 32, Anion Gap 11, BUN 11, Creatinine 0.6 L, Est GFR ( Amer) > 60, Est GFR ( Non-Af Amer) > 60, Random Glucose 87, Calcium 8.4, Total Bilirubin 0.9, AST 28, ALT 30, Alkaline Phosphatase 154 H, Lactate Dehydrogenase 388, Total Creatine Kinase 25 L, Troponin I < 0.01, NT-Pro-B Natriuret Pep 284, Total Protein 6.8, Albumin 3.1, Globulin 3.7, Albumin/Globulin Ratio 0.8 L, Lipase 29 04/20/18 18:50: PT 12.5, INR 1.09 H 04/20/18 18:50: WBC 5.1, RBC 4.04, Hgb 12.3, Hct 37.9, MCV 93.8 D, MCH 30.4, MCHC 32.5, RDW 14.9 H, Plt Count 96 L, MPV 9.6, Gran % 59.4, Lymph % (Auto) 27.9 , [place] % (Auto) 11.3 H, Eos % (Auto) 1.0 L, Baso % (Auto) 0.4, Gran # 3.01, Lymph # (Auto) 1.4, [place] # (Auto) 0.6, Eos # (Auto) 0.1, Baso # (Auto) 0.02 04/20/18 18:39: pCO2 57 H, pO2 115.0 H, HCO3 30.1 H, ABG pH 7.33 L, ABG Total CO2 31.8 H, ABG O2 Saturation 99.4 H, ABG Base Excess 2.8, ABG Potassium 3.2 L, Sodium 142.0, Chloride 112.0 H, Glucose 79, Lactate 0.6 L, FiO2 32.0, Arterial Blood Potassium 3.2 L I have reviewed the lab results: Yes - RAD Interpretation Radiology Orders: 04/20/18 19:56 ANGIO CHEST/ABDOMEN/PELVIS [CT] Stat HEAD W/O CONTRAST [CT] Stat - EKG Interpretation Interpreted by ED Physician: Yes Type: 12 lead EKG - Medication Orders Current Medication Orders: Acetaminophen/Butalbital/Caffeine (Fioricet) 1 tab PO QID PRN PRN Reason: Headache Albuterol/Ipratropium (Duoneb 3 Mg/0.5 Mg (3 Ml) Ud) 3 ml IH [id number] [facility] Last Admin: 04/22/18 07:54 Dose: 3 ml Albuterol/Ipratropium (Duoneb 3 Mg/0.5 Mg (3 Ml) Ud) 3 ml IH Q2H PRN PRN Reason: Shortness of Breath Clonazepam (Klonopin) 1 mg PO HS NOAM PRN Reason: Protocol Last Admin: 04/21/18 21:53 Dose: Not Given Non-Admin Reason: Patient Asleep Clonazepam (Klonopin) 1 mg PO BID NOAM PRN Reason: Protocol Last Admin: 04/22/18 09:21 Dose: 1 mg Enoxaparin Sodium (Lovenox) 40 mg SC DAILY NOAM PRN Reason: Protocol Last Admin: 04/22/18 09:22 Dose: 40 mg Subcutaneous Administrations Document 04/22/18 09:22 PEPE (Rec: 04/22/18 09:22 PEPE [id number]) Injection Site MAR Injection Site Right Abdomen Charges for Administration # of Subcutaneous Administrations 1 Gabapentin (Neurontin) 300 mg PO TID NOAM PRN Reason: Protocol Last Admin: 04/22/18 09:21 Dose: 300 mg Glimepiride (Amaryl) 2 mg PO BRK [facility] Last Admin: 04/22/18 08:12 Dose: 2 mg Doxycycline Hyclate 100 mg/ (Sodium Chloride) 100 mls @ 100 mls/hr IVPB Q12 NOAM PRN Reason: Protocol Last Admin: 04/22/18 09:23 Dose: 100 mls/hr eMAR Start Stop Document 04/22/18 09:23 PEPE (Rec: 04/22/18 09:23 PEPE [id number]) Intravenous Solution Start Date 04/22/18 Start Time 09:23 End Date 04/22/18 End time 10:23 Total Infusion Time 60 Meropenem (Merrem Iv 1 Gm Premix) 50 mls @ 100 mls/hr IVPB Q8 NOAM PRN Reason: Protocol Last Admin: 04/22/18 05:51 Dose: 100 mls/hr eMAR Start Stop Document 04/22/18 05:51 AP (Rec: 04/22/18 05:52 AP [id number]) Intravenous Solution Start Date 04/22/18 Start Time 05:51 End Date 04/22/18 End time 06:21 Total Infusion Time 30 Insulin Human Lispro (Humalog High) 0 units SC ACHS NOAM PRN Reason: Protocol Last Admin: 04/22/18 11:50 Dose: Not Given Non-Admin Reason: Blood Sugar Parameter MAR Blood Glucose Document 04/22/18 11:50 BK (Rec: 04/22/18 11:50 BK [id number]) Blood Glucose Finger Stick Blood Glucose (70-120) 111 Levothyroxine Sodium (Synthroid) 225 mcg PO DAILY [facility] Last Admin: 04/22/18 09:22 Dose: 225 mcg Methylprednisolone (Solu-Medrol) 40 mg IV Q12 NOAM Last Admin: 04/22/18 09:22 Dose: 40 mg eMAR Start Stop Document 04/22/18 09:22 BK (Rec: 04/22/18 09:22 BK [id number]) Intravenous Solution Start Date 04/22/18 Start Time 09:22 End Date 04/22/18 End time 09:24 Total Infusion Time 2 Pantoprazole Sodium (Protonix Ec Tab) 40 mg PO 0630 [facility] Last Admin: 04/22/18 05:51 Dose: 40 mg Quetiapine Fumarate (Seroquel) 100 mg PO BID NOAM PRN Reason: Protocol Last Admin: 04/22/18 09:22 Dose: 100 mg Sertraline HCl (Zoloft) 200 mg PO DAILY [facility] Last Admin: 04/22/18 09:21 Dose: 200 mg Discontinued Medications Albuterol Sulfate (Albuterol 0.083% Inhal Mabel (2.5 Mg/3 Ml) Ud) 2.5 mg INH STAT STA Stop: 04/20/18 18:33 Last Admin: 04/20/18 18:46 Dose: 2.5 mg Albuterol/Ipratropium (Duoneb 3 Mg/0.5 Mg (3 Ml) Ud) 3 ml IH STAT STA Stop: 04/20/18 18:33 Last Admin: 04/20/18 19:00 Dose: 3 ml Albuterol/Ipratropium (Duoneb 3 Mg/0.5 Mg (3 Ml) Ud) 3 ml IH Q4H PRN PRN Reason: Wheezing Last Admin: 04/21/18 00:16 Dose: 3 ml Gabapentin (Neurontin) 300 mg PO DAILY NOAM PRN Reason: Protocol Last Admin: 04/21/18 10:30 Dose: Doxycycline Hyclate 100 mg/ (Sodium Chloride) 100 mls @ 100 mls/hr IVPB STAT STA PRN Reason: Protocol Stop: 04/20/18 23:51 Last Admin: 04/20/18 23:09 Dose: 100 mls/hr eMAR Start Stop Document 04/20/18 23:09 RD (Rec: 04/20/18 23:10 RD [id number]) Intravenous Solution Start Date 04/20/18 Start Time 23:09 End Date 04/21/18 End time 00:09 Total Infusion Time 60 Ceftriaxone Sodium (Rocephin 2 Gm Ivpb) 2 gm in 100 mls @ 100 mls/hr IVPB STAT STA PRN Reason: Protocol Stop: 04/20/18 23:51 Last Admin: 04/21/18 00:16 Dose: 100 mls/hr eMAR Start Stop Document 04/21/18 00:16 RD (Rec: 04/21/18 00:16 RD [id number]) Intravenous Solution Start Date 04/21/18 Start Time 00:16 End Date 04/21/18 End time 01:16 Total Infusion Time 60 Meropenem 500 mg/ Sodium (Chloride) 50 mls @ 100 mls/hr IVPB Q12 NOAM PRN Reason: Protocol Stop: 04/21/18 22:29 Last Admin: 04/21/18 21:54 Dose: 100 mls/hr eMAR Start Stop Document 04/21/18 21:54 AP (Rec: 04/21/18 21:54 AP [id number]) Intravenous Solution Start Date 04/21/18 Start Time 21:54 Vancomycin HCl 1.5 gm/ Sodium (Chloride) 500 mls @ 167 mls/hr IVPB ONCE ONE PRN Reason: Protocol Stop: 04/22/18 01:19 Last Admin: 04/21/18 23:00 Dose: 167 mls/hr eMAR Start Stop Document 04/21/18 23:00 AP (Rec: 04/21/18 23:01 AP [id number]) Intravenous Solution Start Date 04/22/18 Start Time 00:01 Methylprednisolone (Solu-Medrol) 125 mg IVP STAT STA Stop: 04/20/18 18:33 Last Admin: 04/20/18 18:59 Dose: 125 mg IVP Administration Document 04/20/18 18:59 SRE (Rec: 04/20/18 18:59 SRE [id number]) Charges for Administration # of IVP Administrations 1 Pantoprazole Sodium (Protonix Inj) 80 mg IVP STAT STA Stop: 04/20/18 18:33 Last Admin: 04/20/18 18:46 Dose: 80 mg IVP Administration Document 04/20/18 18:46 SRE (Rec: 04/20/18 18:59 SRE [id number]) Charges for Administration # of IVP Administrations 1 Quetiapine Fumarate (Seroquel) 100 mg PO TID NOAM PRN Reason: Protocol Last Admin: 04/21/18 13:25 Dose: 100 mg Behavioural Document 04/21/18 13:25 SG (Rec: 04/21/18 13:25 SG [id number]) Maintenance Maintenance Dose Yes Nonmedicinal Nonmedicinal Interventions Redirect Therapeutic Communication Activity Give food/fluids See nurse's notes Behavior Behavior for Medication: Anxiety Re-Assess: Reassess Psych Meds Document 04/21/18 14:25 SG (Rec: 04/21/18 15:21 SG [id number]) Reassess Psych Med Effective - Scribe Statement The provider has reviewed the documentation as recorded by the Scribe Humberto Carlos Provider Scribe Attestation: All medical record entries made by the Scribe were at my direction and personally dictated by me. I have reviewed the chart and agree that the record accurately reflects my personal performance of the history, physical exam, medical decision making, and the department course for this patient. I have also personally directed, reviewed, and agree with the discharge instructions and disposition. Disposition/Present on Arrival - Present on Arrival Any Indicators Present on Arrival: No History of DVT/PE: Yes History of Uncontrolled Diabetes: Yes Urinary Catheter: No History of Decub. Ulcer: No History Surgical Site Infection Following: None - Disposition Have Diagnosis and Disposition been Completed?: Yes Diagnosis: Acute exacerbation of COPD with asthma, Incontinence of feces, Bloody taste in mouth, Pseudotumor cerebri syndrome, New onset seizure, Near syncope, Sarcoidosis, Urinary tract infection, Upper GI bleeding, Lower GI bleeding Disposition: HOSPITALIZED Disposition Time: 23:00 Patient Plan: Admission Patient Problems: Current Active Problems Problem Status Onset Acute exacerbation of COPD with asthma Acute Bloody taste in mouth Acute Incontinence of feces Acute Lower GI bleeding Acute Near syncope Acute New onset seizure Acute Pseudotumor cerebri syndrome Acute Sarcoidosis Acute Upper GI bleeding Acute Urinary tract infection Acute Condition: FAIR
[2018-04-20 19:22] LABS: INR 1.09 (0.93-1.08); PROTHROMBIN TIME 12.5 SECONDS (9.4-12.5)
[2018-04-20 19:24] LABS: ALB/GLOB RATIO 0.8 (1.1-1.8); ALBUMIN 3.1 g/dL (3.0-4.8); ALT/SGPT 30 U/L (7-56); AST/SGOT 28 U/L (14-36); BLOOD UREA NITROGEN 11 mg/dL (7-21); CALCIUM 8.4 mg/dL (8.4-10.5); GFR AFRICAN-AMERICAN > 60; GFR NON-AFRICAN AMERICAN > 60; LIPASE 29 U/L (23-300)
[2018-04-20 19:28] LABS: BASO # 0.02 K/mm3 (0.0-2.0); BASO % 0.4 % (0.0-3.0); EOS # 0.1 (0.0-0.7); GRAN # 3.01 (1.4-6.5); GRAN % 59.4 % (50.0-68.0); HEMOGLOBIN 12.3 g/dL (12.0-16.0); LYMPH # 1.4 (1.2-3.4); LYMPH % 27.9 % (22.0-35.0); MEAN CELL VOLUME 93.8 fl (80.0-105.0); MEAN CORPUSCULAR HEMOGLOBIN 30.4 pg (25.0-35.0); MEAN CORPUSCULAR HGB CONC 32.5 g/dl (31.0-37.0); MEAN PLATELET VOLUME 9.6 fl (7.0-11.0); MONO # 0.6 (0.1-0.6); MONO % 11.3 % (1.0-6.0); RBC 4.04 10^6/uL (3.5-6.1); RED CELL DISTRIBUTION WIDTH 14.9 % (11.5-14.5); WHITE BLOOD COUNT 5.1 10^3/ul (4.5-11.0)
[2018-04-20 19:37] LABS: B-TYPE NATRIURETIC PEPTIDE 284 pg/mL (0-450); TROPONIN I < 0.01 ng/mL
[2018-04-20 20:05] LABS: URINE BILIRUBIN NEGATIVE (NEGATIVE); URINE BLOOD LARGE (NEGATIVE); URINE GLUCOSE (UA) NEGATIVE (NEGATIVE); URINE LEUKOCYTE ESTERASE SMALL Leu/uL (NEGATIVE); URINE PROTEIN TRACE mg/dL (<30 mg/dL)
[2018-04-20 20:08] LABS: URINE APPEARANCE SLIGHT-CLOUDY (CLEAR); URINE COLOR LIGHT BROWN (YELLOW)
[2018-04-20 20:13] LABS: URINE RBC 25 - 30 /hpf (0-2)
[2018-04-20 20:14] LABS: URINE AMORPHOUS SEDIMENT FEW; URINE BACTERIA LARGE (NEG)
[2018-04-20] MEDS ORDERED: cefTRIAXone 2 GM IN NS 2 GM/100 ML BAG IVPB STA (22:52)
--- NOTE | 2018-04-20 23:04 | ED PDOC ---
Physical Exam Vital Signs Reviewed: Yes Vital Signs Temp Pulse Resp BP Pulse Ox 04/20/18 23:15 73 19 133/71 98 04/20/18 18:13 16 04/20/18 17:59 99.4 F 75 18 125/69 98 Temperature: Afebrile Blood Pressure: Normal Pulse: Regular Respiratory Rate: Normal Appearance: Positive for: Well-Appearing, Non-Toxic, Comfortable Pain Distress: None Mental Status: Positive for: Alert and Oriented X 3 Medical Decision Making ED Course and Treatment: 04/20/18 23:03: Case endorsed to me by Dr. Eli. Pending CT scan results, reassessment and disposition. CT Angiography Chest With Intravenous Contrast Dictated and Authenticated by: Jenelle Lopes MD 04/20/2018 11:21 PM Eastern Time ([place] & [place]) IMPRESSION: No central pulmonary embolism. The segmental branches are limited by motion. Small bilateral pleural effusions with mild diffuse bilateral groundglass opacities. Findings could be secondary to pulmonary edema or infectious/laboratory process. Diffuse bilateral streaky opacities secondary to atelectasis or infiltrate. Mild nonspecific mediastinal adenopathy. CT Angiography Abdomen and Pelvis With Intravenous Contrast Dictated and Authenticated by: Jenelle Lopes MD 04/20/2018 11:21 PM Eastern Time ([place] & [place]) IMPRESSION: No evidence of an acute intra-abdominal or pelvic abnormality. Findings suspicious for cirrhosis with splenomegaly and portal hypertension. 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 Stable left adnexal mass since 2014. CT Head Without Intravenous Contrast Dictated and Authenticated by: Jenelle Lopes MD 04/20/2018 11:31 PM Eastern Time ([place] & [place]) IMPRESSION: No evidence of an acute intracranial abnormality. 04/20/18 23:55: Case discussed in detail with Dr. Ruiz results of imaging. rajix held as pt with h/o of bleeding. Will admit patient to her service. 04/21/18 19:45 - Lab Interpretations Lab Results: 04/20/18 18:50 04/20/18 18:50 Lab Results 04/20/18 19:52: Blood Type Confirm B POSITIVE 04/20/18 19:35: Urine Color Light brown, Urine Appearance Slight-cloudy, Urine pH 8.0, Ur Specific [place] 1.015, Urine Protein Trace H, Urine Glucose (UA) Negative, Urine Ketones Negative, Urine Blood Large H, Urine Nitrate Positive H , Urine Bilirubin Negative, Urine Urobilinogen 4.0 H, Ur Leukocyte Esterase Small H, Urine RBC 25 - 30, Urine WBC 10 - 15, Ur Epithelial Cells 4 - 5, Amorphous Sediment Few, Urine Bacteria Large, Urine Other Uyeast 04/20/18 18:50: Blood Type B POSITIVE, Antibody Screen Negative, BBK History Checked No verified bt 04/20/18 18:50: Sodium 145, Chloride 106, Potassium 3.8, Carbon Dioxide 32, Anion Gap 11, BUN 11, Creatinine 0.6 L, Est GFR ( Amer) > 60, Est GFR ( Non-Af Amer) > 60, Random Glucose 87, Calcium 8.4, Total Bilirubin 0.9, AST 28, ALT 30, Alkaline Phosphatase 154 H, Lactate Dehydrogenase 388, Total Creatine Kinase 25 L, Troponin I < 0.01, NT-Pro-B Natriuret Pep 284, Total Protein 6.8, Albumin 3.1, Globulin 3.7, Albumin/Globulin Ratio 0.8 L, Lipase 29 04/20/18 18:50: PT 12.5, INR 1.09 H 04/20/18 18:50: WBC 5.1, RBC 4.04, Hgb 12.3, Hct 37.9, MCV 93.8 D, MCH 30.4, MCHC 32.5, RDW 14.9 H, Plt Count 96 L, MPV 9.6, Gran % 59.4, Lymph % (Auto) 27.9 , [place] % (Auto) 11.3 H, Eos % (Auto) 1.0 L, Baso % (Auto) 0.4, Gran # 3.01, Lymph # (Auto) 1.4, [place] # (Auto) 0.6, Eos # (Auto) 0.1, Baso # (Auto) 0.02 04/20/18 18:39: pCO2 57 H, pO2 115.0 H, HCO3 30.1 H, ABG pH 7.33 L, ABG Total CO2 31.8 H, ABG O2 Saturation 99.4 H, ABG Base Excess 2.8, ABG Potassium 3.2 L, Sodium 142.0, Chloride 112.0 H, Glucose 79, Lactate 0.6 L, FiO2 32.0, Arterial Blood Potassium 3.2 L - RAD Interpretation Radiology Orders: 04/20/18 19:56 ANGIO CHEST/ABDOMEN/PELVIS [CT] Stat HEAD W/O CONTRAST [CT] Stat - Medication Orders Current Medication Orders: Discontinued Medications Albuterol Sulfate (Albuterol 0.083% Inhal [place]abel (2.5 Mg/3 Ml) Ud) 2.5 mg INH STAT STA Stop: 04/20/18 18:33 Last Admin: 04/20/18 18:46 Dose: 2.5 mg Albuterol/Ipratropium (Duoneb 3 Mg/0.5 Mg (3 Ml) Ud) 3 ml IH STAT STA Stop: 04/20/18 18:33 Last Admin: 04/20/18 19:00 Dose: 3 ml Doxycycline Hyclate 100 mg/ (Sodium Chloride) 100 mls @ 100 mls/hr IVPB STAT STA PRN Reason: Protocol Stop: 04/20/18 23:51 Last Admin: 04/20/18 23:09 Dose: 100 mls/hr eMAR Start Stop Document 04/20/18 23:09 RD (Rec: 04/20/18 23:10 RD [id number]) Intravenous Solution Start Date 04/20/18 Start Time 23:09 End Date 04/21/18 End time 00:09 Total Infusion Time 60 Ceftriaxone Sodium (Rocephin 2 Gm Ivpb) 2 gm in 100 mls @ 100 mls/hr IVPB STAT STA PRN Reason: Protocol Stop: 04/20/18 23:51 Methylprednisolone (Solu-Medrol) 125 mg IVP STAT STA Stop: 04/20/18 18:33 Last Admin: 04/20/18 18:59 Dose: 125 mg IVP Administration Document 04/20/18 18:59 SRE (Rec: 04/20/18 18:59 SRE [id number]) Charges for Administration # of IVP Administrations 1 Pantoprazole Sodium (Protonix Inj) 80 mg IVP STAT STA Stop: 04/20/18 18:33 Last Admin: 04/20/18 18:46 Dose: 80 mg IVP Administration Document 04/20/18 18:46 SRE (Rec: 04/20/18 18:59 SRE [id number]) Charges for Administration # of IVP Administrations 1 - Scribe Statement The provider has reviewed the documentation as recorded by the Scribe Isamar Hauser Provider Yessyibe Attestation: All medical record entries made by the Scribe were at my direction and personally dictated by me. I have reviewed the chart and agree that the record accurately reflects my personal performance of the history, physical exam, medical decision making, and the department course for this patient. I have also personally directed, reviewed, and agree with the discharge instructions and disposition. Disposition/Present on Arrival - Present on Arrival Any Indicators Present on Arrival: No History of DVT/PE: Yes History of Uncontrolled Diabetes: Yes Urinary Catheter: No History of Decub. Ulcer: No History Surgical Site Infection Following: None - Disposition Have Diagnosis and Disposition been Completed?: Yes Diagnosis: Acute exacerbation of COPD with asthma, Incontinence of feces, Bloody taste in mouth, Pseudotumor cerebri syndrome, New onset seizure, Near syncope, Sarcoidosis, Urinary tract infection, Upper GI bleeding, Lower GI bleeding Disposition: HOSPITALIZED Disposition Time: 02:00 Patient Problems: Current Active Problems Problem Status Onset Acute exacerbation of COPD with asthma Acute Bloody taste in mouth Acute Incontinence of feces Acute Lower GI bleeding Acute Near syncope Acute New onset seizure Acute Pseudotumor cerebri syndrome Acute Sarcoidosis Acute Upper GI bleeding Acute Urinary tract infection Acute Condition: FAIR
--- NOTE | 2018-04-20 23:22 | CT ---
EXAM: CT Angiography Chest With Intravenous Contrast CLINICAL HISTORY: 53 years old, female; Signs and symptoms; Shortness of breath; Patient HX: Blood in stool , gi bleed; Additional info: Shortness of breath and upper/lower gi bleeding TECHNIQUE: Axial computed tomographic angiography images of the chest with intravenous contrast using pulmonary embolism protocol. All CT scans at this facility use one or more dose reduction techniques, viz.: automated exposure control; ma/kV adjustment per patient size (including targeted exams where dose is matched to indication; i.e. head); or iterative reconstruction technique. MIP reconstructed images were created and reviewed. Coronal and sagittal reformatted images were created and reviewed. CONTRAST: 140 mL of OMNI 350 administered intravenously. COMPARISON: No relevant prior studies available. FINDINGS: Pulmonary arteries: The segmental branches of the pulmonary arteries are limited by motion. No central pulmonary embolism. Aorta: No acute findings. No thoracic aortic aneurysm. Lungs: Diffuse bilateral groundglass opacities. Pleural space: Small right pleural effusion. Trace left pleural effusion. Diffuse streaky opacities in the lungs bilaterally secondary to atelectasis or infiltrate. No pneumothorax. Heart: The heart demonstrates mild diffuse enlargement. No significant pericardial effusion. No evidence of RV dysfunction. Bones/joints: Degenerative changes. Anterior flowing osteophytes at multiple levels. No acute fracture. No dislocation. Soft tissues: Unremarkable. Lymph nodes: There multiple prominent mediastinal lymph nodes. The largest roofing sales representative lymph node measures 2.5 cm in the precarinal area. IMPRESSION: No central pulmonary embolism. The segmental branches are limited by motion. Small bilateral pleural effusions with mild diffuse bilateral groundglass opacities. Findings could be secondary to pulmonary edema or infectious/laboratory process. Diffuse bilateral streaky opacities secondary to atelectasis or infiltrate. Mild nonspecific mediastinal adenopathy. EXAM: CT Angiography Abdomen and Pelvis With Intravenous Contrast CLINICAL HISTORY: 53 years old, female; Signs and symptoms; Shortness of breath; Patient HX: Blood in stool , gi bleed; Additional info: Shortness of breath and upper/lower gi bleeding TECHNIQUE: Axial computed tomographic angiography images of the abdomen and pelvis with intravenous contrast. All CT scans at this facility use one or more dose reduction techniques, viz.: automated exposure control; ma/kV adjustment per patient size (including targeted exams where dose is matched to indication; i.e. head); or iterative reconstruction technique. MIP reconstructed images were created and reviewed. Coronal and sagittal reformatted images were created and reviewed. CONTRAST: 140 mL of OMNI 350 administered intravenously. COMPARISON: CT - ABD PELVIS PO CONTRAST ONLY 2017-10-18 18:15 FINDINGS: VASCULATURE: Aorta: The aorta demonstrates mild atherosclerotic calcification. No acute findings. No abdominal aortic aneurysm. No dissection. Celiac trunk and mesenteric arteries: No acute findings. No occlusion or significant stenosis. Renal arteries: No acute findings. No occlusion or significant stenosis. Iliac arteries: No acute findings. No occlusion or significant stenosis. Other veins: The left gonadal vein is enlarged, unchanged. There are varices extending from the upper abdomen to the anterior pelvis. ABDOMEN: Liver: The liver is nodular in contour raising suspicion for cirrhosis. Gallbladder and bile ducts: There has been a cholecystectomy. No ductal dilation. Pancreas: Unremarkable. No ductal dilation. No mass. Spleen: There is moderate splenomegaly measuring 17 cm. There are splenic varices are present. Adrenals: Unremarkable. No mass. Kidneys and ureters: Unremarkable. No hydronephrosis. No solid mass. Stomach and bowel: The descending and sigmoid are mildly thick walled probably secondary to nondistention. There is no evidence of intestinal obstruction. PELVIS: Appendix: A normal appendix is identified. Bladder: The bladder is decompressed by a Gallego catheter. Reproductive: There is a mass in the left adnexa measuring 5 x 3.6 cm, stable since 2015. ABDOMEN and PELVIS: Intraperitoneal space: Unremarkable. No significant fluid collection. No free air. Bones/joints: Degenerative changes. No acute fracture. No dislocation. Soft tissues: Unremarkable. Lymph nodes: Unremarkable. No enlarged lymph nodes. IMPRESSION: No evidence of an acute intra-abdominal or pelvic abnormality. Findings suspicious for cirrhosis with splenomegaly and portal hypertension. 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 Stable left adnexal mass since 2014.
--- NOTE | 2018-04-20 23:32 | CT ---
EXAM: CT Head Without Intravenous Contrast CLINICAL HISTORY: 53 years old, female; Signs and symptoms; Other: Seizure; Additional info: Pseudo tumor cerebri ? new onset seizure TECHNIQUE: Axial computed tomography images of the head/brain without intravenous contrast. All CT scans at this facility use one or more dose reduction techniques, viz.: automated exposure control; ma/kV adjustment per patient size (including targeted exams where dose is matched to indication; i.e. head); or iterative reconstruction technique. COMPARISON: No relevant prior studies available. FINDINGS: Brain: Unremarkable. No hemorrhage. No significant white matter disease. No edema. Ventricles: Unremarkable. No ventriculomegaly. Bones/joints: Unremarkable. No acute fracture. Soft tissues: Unremarkable. Sinuses: Unremarkable as visualized. No acute sinusitis. Mastoid air cells: Unremarkable as visualized. No mastoid effusion. IMPRESSION: No evidence of an acute intracranial abnormality.
[2018-04-21] MEDS ORDERED: Albuterol-Ipratrop 3 mg / 0.5 (3 ml) UD IH PRN ×2 (09:46)
--- NOTE | 2018-04-21 09:58 | CARD ---
APPROVED REPORT EKG Measurement Heart [id number] <Conclusion> Normal sinus rhythm Prolonged QTc No change
[2018-04-21] MEDS ORDERED: TIOTROPIUM BROMIDE IH SCH (10:00)
[2018-04-21] MEDS ORDERED: Levothyroxine 25 MCG TAB PO SCH (10:00)
[2018-04-21] MEDS: MethylPREDNISolone 40 mg Vial IV SCH ×2 (10:09→22:01)
[2018-04-21] MEDS: Insulin Lispro (HUMAlog) HIGH Coverage SC SCH ×3 (12:00→21:53)
[2018-04-21] MEDS: Enoxaparin 40 mg Syringe SC SCH (17:45)
[2018-04-21] MEDS: Albuterol-Ipratrop 3 mg / 0.5 (3 ml) UD IH SCH (21:53)
[2018-04-21] MEDS ORDERED: TEMAZEPAM PO SCH ×2 (22:00)
[2018-04-21] MEDS ORDERED: Meropenem 500 MG in Sodium Chloride 0.9% 50 ML IVPB SCH (22:00)
[2018-04-21] MEDS ORDERED: Vancomycin 1.5 GM in Sodium Chloride 0.9% 500 ML IVPB ONE (22:20)
[2018-04-22] MEDS: Albuterol-Ipratrop 3 mg / 0.5 (3 ml) UD IH SCH ×5 (01:09→20:02)
--- NOTE | 2018-04-22 03:25 | CON ---
DATE: HISTORY OF PRESENT ILLNESS: This is a 53-year-old obese female who has a past medical history of pseudotumor cerebri, sarcoidosis of the lung and liver, came to the emergency room with dyspnea, hematuria and patient had bowel movement with black stool and also experiencing severe headache, that is the reason called for the consult. No nausea. No vomiting. PAST MEDICAL HISTORY: As above. ALLERGIES: TO CIPRO, BIAXIN, CLINDAMYCIN, HYDROMORPHONE AND PENICILLIN. HOME MEDICATIONS: Gabapentin, glimepiride, Synthroid, Reglan, sertraline, Topamax, Klonopin, Neurontin, temazepam. REVIEW OF SYSTEMS: A 10-point review of system was negative. PHYSICAL EXAMINATION: GENERAL: The patient lying comfortably in the bed. VITAL SIGNS: Blood pressure 125/69. HEENT: Normocephalic, atraumatic. NECK: Supple. NEUROLOGIC: Awake, alert, oriented x3. No aphasia. Cranial nerves II through XII are tested. Pupils reactive. Spontaneous movement of the extremities noted. Deep tendon reflexes 1+. Sensory appears intact. Cerebellar gait deferred. LABORATORY DATA: WBC 5.1, hemoglobin 12.3, hematocrit 37.9, platelet 96. Sodium 145, potassium 3.8, chloride 106, CO2 of 32, glucose 87, BUN 11, creatinine 0.6. IMPRESSION: Headache, history of pseudotumor cerebri. PLAN: Continue present management. Patient is on Fioricet and headache is getting better. We will follow up. Anrdea Vigil MD
--- NOTE | 2018-04-22 04:06 | HP ---
HISTORY OF PRESENT ILLNESS: The patient is 53 years old, known from previous admissions, came to emergency room because of increasing cough, congestion, productive cough, generalized weakness. Denies any nausea. No hemoptysis, no hematemesis, had fever few days ago, took her usual nebulizer, but no significant relief. She came to the emergency room for further evaluation. PAST MEDICAL HISTORY: 1. Significant for morbid obesity. 2. COPD. 3. Hypertension. 4. History of pseudotumor cerebri. 5. Non-insulin dependent diabetes. 6. Chronic anemia. 7. History of cirrhosis of liver. ALLERGIES: SHE IS ALLERGIC TO CIPRO, CLARITHROMYCIN, CLINDAMYCIN, COLISTIN, LEVAQUIN AND HYDROMORPHONE. MEDICATIONS AT HOME: She is on hydroxyzine, glimepiride, gabapentin, Topamax, Zoloft, levothyroxine, tizanidine, Spiriva, Klonopin. SOCIAL HISTORY: She lives by herself with her . Heavy smoker, still smokes couple of cigarettes a day, socially drinks. PHYSICAL EXAMINATION GENERAL: On examination, complain of feeling tired, fatigued, cough, congestion. On examination, she is awake, alert, oriented, communicative. VITAL SIGNS: She is afebrile. Pulse 62, respirations 18, blood pressure 136/73. LUNGS: Bilateral fair airflow. No rhonchi or crackle. HEART: S1 and S2 audible. She has soft crackle posteriorly, cleared by coughing. EXTREMITIES: Bilateral legs, +2 edema. LABORATORY DATA: WBC is 5.1, hemoglobin 12.3, hematocrit , PT 12.5, INR 1.09. Chemistry, sodium 145, potassium 3.8, chloride 102, CO2 of 32, BUN 11, creatinine 0.6, blood sugar 157. LFTs are within normal limits. Alkaline phosphatase is 154. Troponin is negative. Urine showed leukocytes and large nitrites. CT scan of the head is negative. CT of the chest, small bilateral pleural effusion with mild diffuse bilateral ground-glass opacities. No evidence of any intraabdominal abnormalities. however, she has cirrhosis of liver. ASSESSION AND PLAN: 1. Probably chronic obstructive pulmonary disease exacerbation and community-acquired pneumonia. 2. Bilateral leg cellulitis. 3. Non-insulin dependent diabetes. 4. History of depression. 5. Asthmatic bronchitis. 6. Neuropathy. PLAN: Resume patient's usual medications, start on nebulizer treatment, started on doxycycline and I will also request for ID consult. Karson Ruiz MD
[2018-04-22] MEDS: Meropenem IV 1 gm in NS 50 ML IVPB SCH ×3 (05:51→21:50)
[2018-04-22] MEDS: Pantoprazole 40 mg EC Tab PO SCH (05:51)
[2018-04-22 07:42] LABS: GRAN # 2.9 (1.4-6.5); GRAN % 74.9 % (50.0-68.0); HEMOGLOBIN 12.2 g/dL (12.0-16.0); LYMPH # 0.7 (1.2-3.4); LYMPH % 18.6 % (22.0-35.0); MEAN CELL VOLUME 95.1 fl (80.0-105.0); MEAN CORPUSCULAR HGB CONC 31.6 g/dl (31.0-37.0); MONO # 0.3 (0.1-0.6); MONO % 6.5 % (1.0-6.0); RBC 4.06 10^6/uL (3.5-6.1); WHITE BLOOD COUNT 3.9 10^3/ul (4.5-11.0)
[2018-04-22] MEDS: Insulin Lispro (HUMAlog) HIGH Coverage SC SCH ×5 (08:04→22:05)
[2018-04-22 08:22] LABS: ALB/GLOB RATIO 0.8 (1.1-1.8); ALBUMIN 3.1 g/dL (3.0-4.8); ALT/SGPT 24 U/L (7-56); AST/SGOT 21 U/L (14-36); BLOOD UREA NITROGEN 17 mg/dL (7-21); CALCIUM 8.7 mg/dL (8.4-10.5); GFR AFRICAN-AMERICAN > 60; GFR NON-AFRICAN AMERICAN > 60
[2018-04-22] MEDS: MethylPREDNISolone 40 mg Vial IV SCH ×2 (09:22→21:49)
[2018-04-22] MEDS: Enoxaparin 40 mg Syringe SC SCH (09:22)
[2018-04-22] MEDS: Levothyroxine 75 MCG TAB PO SCH (09:22)
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
--- NOTE | 2018-04-22 13:42 | PN ---
DATE: 04/22/2018 SUBJECTIVE: The patient is 53 years old, seen and examined. Complained on generalized aches and pain. Complained of cough and congestion. PHYSICAL EXAMINATION: VITAL SIGNS: She is afebrile, pulse 58, respirations 18, blood pressure 124/62. LUNGS: Bilateral soft crackle, upper lung bases. HEART: S1 and S2 audible. ABDOMEN: Soft. Nontender. No rebound. No guarding. NEUROLOGICAL: She is awake, alert, oriented, able to communicate. EXTREMITIES: Bilateral legs, no edema. LABORATORY EXAM: WBC 3.9, hemoglobin 12, hematocrit 38, platelet 291. Chemistry: Sodium 144, potassium 4.2, chloride 106, CO2 of 31, BUN 17, creatinine 0.5, blood sugar of 111. Urine shows gram-negative rods. Blood cultures were negative. Sensitivity to follow. ASSESSMENT: 1. Chronic obstructive pulmonary disease exacerbation. 2. Gram-negative xander urinary tract infection. 3. Morbid obesity. 4. [id number] diabetes. 5. Hypertension. 6. Hyperlipidemia. PLAN: Currently, the patient is on doxycycline. She is on meropenem. Continue IV steroid. Continue on psych medication. The patient needs to be mobilized, but she is not very cooperative for that. She is encouraged to get out of bed to sit in a chair. I will discontinue . Karson Ruiz MD
[2018-04-22] MEDS: Apap-Butalbital-Caffeine 325-50-40mg Tab PO PRN ×2 (17:54→22:56)
[2018-04-23] MEDS: Albuterol-Ipratrop 3 mg / 0.5 (3 ml) UD IH SCH ×4 (03:55→22:21)
[2018-04-23] MEDS: Meropenem IV 1 gm in NS 50 ML IVPB SCH ×3 (06:02→21:15)
[2018-04-23] MEDS: Pantoprazole 40 mg EC Tab PO SCH (06:03)
[2018-04-23] MEDS: Apap-Butalbital-Caffeine 325-50-40mg Tab PO PRN (08:19)
[2018-04-23] MEDS: Levothyroxine 75 MCG TAB PO SCH (10:49)
[2018-04-23] MEDS: Enoxaparin 40 mg Syringe SC SCH (10:49)
[2018-04-23] MEDS: MethylPREDNISolone 40 mg Vial IV SCH ×2 (10:49→21:15)
--- NOTE | 2018-04-23 14:11 | PN ---
DATE: 04/23/2018 SUBJECTIVE: The patient is a 53 years old, seen and examined, lying in bed, complaining of back pain, complaining of feeling weak, gets tremulous when trying to get out of bed, still has cough and congestion. PHYSICAL EXAMINATION: VITAL SIGNS: She is afebrile. Pulse 63, respirations 18, blood pressure 114/59. LUNGS: Bilateral fair airflow with soft crackles, diffuse. HEART: S1, S2 audible. ABDOMEN: Soft, nontender. No rebound. No guarding. NEUROLOGICAL: The patient is awake, alert, oriented and communicative. DATA: Blood sugar is 96. Urine has gram-negative rods with colony count of 10,000. ASSESSMENT AND PLAN: 1. Chronic obstructive pulmonary disease exacerbation. 2. Morbid obesity. 3. Deconditioning, difficulty walking. 4. Gram-negative rods, urinary tract infection, probably Escherichia coli. PLAN: We will continue patient on Synthroid and doxycycline. Patient is on nebulizer treatment. Encourage ambulation. She is on DVT prophylaxis, taper down her steroid to 30 every 12 hours. Karson Ruiz MD
--- NOTE | 2018-04-23 14:58 | CP.PCM.PN ---
Subjective - Date & Time of Evaluation Date of Evaluation: 04/23/18 Time of Evaluation: 13:00 - Subjective Subjective: Does not feel short of breath if she is not moving, no fevers. Objective - Vital Signs/Intake and Output Vital Signs (last 24 hours): Temp Pulse Resp BP Pulse Ox 98.2 F 63 18 114/59 L 95 04/23/18 06:00 04/23/18 06:00 04/23/18 06:00 04/23/18 06:00 04/23/18 06:00 Intake and Output: 04/23/18 04/23/18 06:59 18:59 Intake Total 540 Output Total 1400 Balance -860 - Medications Medications: Current Medications Acetaminophen (Tylenol 325mg Tab) 650 mg PO Q6H PRN PRN Reason: Pain, moderate (4-7) Last Admin: 04/22/18 15:10 Dose: 650 mg Acetaminophen/Butalbital/Caffeine (Fioricet) 1 tab PO QID PRN PRN Reason: Headache Last Admin: 04/23/18 08:19 Dose: 1 tab Albuterol/Ipratropium (Duoneb 3 Mg/0.5 Mg (3 Ml) Ud) 3 ml IH [id number] NO[facility] Last Admin: 04/23/18 07:44 Dose: 3 ml Albuterol/Ipratropium (Duoneb 3 Mg/0.5 Mg (3 Ml) Ud) 3 ml IH Q2H PRN PRN Reason: Shortness of Breath Clonazepam (Klonopin) 1 mg PO HS NO[facility] PRN Reason: Protocol Last Admin: 04/22/18 21:47 Dose: 1 mg Clonazepam (Klonopin) 1 mg PO BID NO[facility] PRN Reason: Protocol Last Admin: 04/22/18 18:21 Dose: 1 mg Enoxaparin Sodium (Lovenox) 40 mg SC DAILY [facility] PRN Reason: Protocol Last Admin: 04/22/18 09:22 Dose: 40 mg Gabapentin (Neurontin) 300 mg PO TID [facility] PRN Reason: Protocol Last Admin: 04/22/18 17:54 Dose: 300 mg Glimepiride (Amaryl) 2 mg PO BRK [facility] Last Admin: 04/23/18 08:19 Dose: 2 mg Doxycycline Hyclate 100 mg/ (Sodium Chloride) 100 mls @ 100 mls/hr IVPB Q12 [facility] PRN Reason: Protocol Last Admin: 04/22/18 21:48 Dose: 100 mls/hr Meropenem (Merrem Iv 1 Gm Premix) 50 mls @ 100 mls/hr IVPB Q8 [facility] PRN Reason: Protocol Last Admin: 04/23/18 06:02 Dose: 100 mls/hr Insulin Human Lispro (Humalog High) 0 units SC ACHS [facility] PRN Reason: Protocol Last Admin: 04/22/18 22:05 Dose: Not Given Levothyroxine Sodium (Synthroid) 225 mcg PO DAILY [facility] Last Admin: 04/22/18 09:22 Dose: 225 mcg Methylprednisolone (Solu-Medrol) 40 mg IV Q12 [facility] Last Admin: 04/22/18 21:49 Dose: 40 mg Pantoprazole Sodium (Protonix Ec Tab) 40 mg PO 0630 [facility] Last Admin: 04/23/18 06:03 Dose: 40 mg Quetiapine Fumarate (Seroquel) 100 mg PO BID [facility] PRN Reason: Protocol Last Admin: 04/22/18 17:54 Dose: 100 mg Sertraline HCl (Zoloft) 200 mg PO DAILY [facility] Last Admin: 04/22/18 09:21 Dose: 200 mg - Labs Labs: 04/22/18 06:30 04/22/18 06:30 PT 12.5 SECONDS (9.4-12.5) 04/20/18 18:50 INR 1.09 (0.93-1.08) H 04/20/18 18:50 - Constitutional Appears: Chronically Ill - Head Exam Head Exam: NORMAL INSPECTION - Respiratory Exam Respiratory Exam: Decreased Breath Sounds - Cardiovascular Exam Cardiovascular Exam: +S1, +S2 - GI/Abdominal Exam GI & Abdominal Exam: Soft. absent: Tenderness Assessment and Plan - Assessment and Plan (Free Text) Plan: Assessment consider acute COPD exacerbation and bilateral HCAP history of bilateral lower extremity cellulitis history of sepsis due to bilateral community-acquired pneumonia as well as Klebsiella left sided pyelopnephritis history of sepsis secondary to E. coli bacteremia secondary to left sided pyelonephritis Sarcoidosis History of diverticulitis History of cholecystectomy Morbid obesity with BMI 59 COPD DM degenerative joint disease hisotry of depression hypothyrtoidism chronic anemia Plan gave a dose of IV Vancomycin and continue Merrem and Doxycycline day 2 pending blood, sputum cx, PCT; reviewed CT C/A/P; urine cx is showing <10 k GNB and the patient is not complaining of urinary symptoms - will repeat urine cx again will continue to monitor clinically
--- NOTE | 2018-04-23 15:52 | PN ---
DATE: 04/23/2018 NEUROLOGY FOLLOWUP CHIEF COMPLAINT: Headache followup. SUBJECTIVE: The patient is seen and examined at bedside and is doing much better. She had came in for COPD exacerbation and also found to have gram-negative rods and urinary tract infection, probably E. coli, on antibiotics. She is on Fioricet and gabapentin and Topamax at home for headaches. ALLERGIES: ALLERGIC TO CIPROFLOXACIN, CLARITHROMYCIN AND CLINDAMYCIN. MEDICATIONS: Reviewed by nurses' reconciliation sheet. FAMILY HISTORY: Noncontributory. PAST MEDICAL HISTORY: History of pseudotumor cerebri; history of morbid obesity; history of obstructive sleep apnea; history of anxiety, depression, on Zoloft and Seroquel high doses; history of hypothyroidism; history of migraine headaches and diabetes and diabetic peripheral neuropathy. LABORATORY DATA: Today's blood sugar is 96. PHYSICAL EXAMINATION: VITAL SIGNS: Temperature 98.2, pulse rate of 62, blood pressure 114/59, respiratory rate of 18, oxygen saturation 95% by room air. GENERAL: The patient is sitting up in bed with oxygen, in no acute distress. HEENT: Atraumatic, normocephalic. PERRLA. Extraocular muscles intact. NECK: Supple. No JVD, no adenopathy noted. LUNGS: Decreased breath sounds bilaterally with scattered rhonchi. ABDOMEN: Soft, nontender and nondistended. Bowel sounds are present. Morbid obesity. EXTREMITIES: Peripheral pulses 2+ felt bilaterally. There is mild lower extremity chronic stasis changes, has trace pedal edema bilaterally. NEUROLOGIC: The patient is alert and oriented to person, place, month and year. Speech is fluent without any errors. Cranial nerves II through XII intact. Poor attention span. Slow thought process. Motor exam: Moves all extremities equally. No pronator drifts seen. Sensory exam: Decreased light touch and pinprick up to the calves bilaterally. Decreased vibration of the toes. DTRs are 2+ throughout except for absent at both knees and ankles. Coordination: [id number] intact. No dysmetria noted. Occasional tremulousness of the hands, which is chronic. Gait is deferred for now. ASSESSMENT AND PLAN: This is a 53-year-old woman with history of chronic obstructive pulmonary disease, history of hypertension, history of morbid obesity, history of obstructive sleep apnea, history of diabetes type 2, history of diabetic peripheral neuropathy, history of deconditioned state, history of migraine headaches, history of depression and anxiety, who presented for a chronic obstructive pulmonary disease exacerbation, also found to have urinary tract infection with gram-negative rods, on antibiotics. I was consulted for headaches. The headaches are a combination of pseudotumor cerebri and migraine headaches exacerbated by chronic obstructive pulmonary disease exacerbation. 1. At this time, continue with her Fioricet 1 tablet p.o. four times daily for acute onset of headache. 2. Reduce the amount of Seroquel and Zoloft as an outpatient by Psychiatry. 3. We will continue with Topamax as well as her gabapentin from home. 4. We will give 1 stat dose of valproic acid to break the headache. At this time, continue with current present medical management and she will follow up with me as an outpatient. Jamari Vigil MD
[2018-04-23] MEDS: Valproate 500 MG in Sodium Chloride 0.9% 100 ML IVPB SCH ×2 (16:34→22:06)
[2018-04-23] MEDS: Insulin Lispro (HUMAlog) HIGH Coverage SC SCH ×2 (19:00→21:41)
[2018-04-23] MEDS ORDERED: Pantoprazole 40 mg EC Tab PO ONE (23:06)
[2018-04-24] MEDS: Albuterol-Ipratrop 3 mg / 0.5 (3 ml) UD IH SCH ×4 (03:05→20:55)
--- NOTE | 2018-04-24 03:46 | CP.PCM.PN ---
Subjective - Date & Time of Evaluation Date of Evaluation: 04/23/18 Time of Evaluation: 23:00 (Seen earlier) - Subjective Subjective: Seen for heart burn. Has no other complaints. Denies chest pain,sob,nausea,sweating ,palpitation. Medical record was reviewed. This 53 year old woman was admitted cough,congestion, generalized weakness, COPD exacerbation?/ PNA? Has PMH of NIDDM, bronchitis, neuropathy, obesity, depression, cellulitis of legs. Objective - Vital Signs/Intake and Output Vital Signs (last 24 hours): Temp Pulse Resp BP Pulse Ox 98.1 F 70 18 108/49 L 95 04/23/18 23:25 04/23/18 23:25 04/23/18 23:25 04/23/18 23:25 04/23/18 23:25 Intake and Output: 04/23/18 04/24/18 18:59 06:59 Intake Total 780 Output Total 980 950 Balance -980 -170 - Medications Medications: Current Medications Acetaminophen (Tylenol 325mg Tab) 650 mg PO Q6H PRN PRN Reason: Pain, moderate (4-7) Last Admin: 04/22/18 15:10 Dose: 650 mg Acetaminophen/Butalbital/Caffeine (Fioricet) 1 tab PO QID PRN PRN Reason: Headache Last Admin: 04/23/18 08:19 Dose: 1 tab Albuterol/Ipratropium (Duoneb 3 Mg/0.5 Mg (3 Ml) Ud) 3 ml IH [id number] NOAM Last Admin: 04/24/18 03:05 Dose: 3 ml Albuterol/Ipratropium (Duoneb 3 Mg/0.5 Mg (3 Ml) Ud) 3 ml IH Q2H PRN PRN Reason: Shortness of Breath Clonazepam (Klonopin) 1 mg PO HS NOAM PRN Reason: Protocol Last Admin: 04/23/18 21:15 Dose: 1 mg Clonazepam (Klonopin) 1 mg PO BID NOAM PRN Reason: Protocol Last Admin: 04/23/18 18:27 Dose: 1 mg Doxycycline Hyclate (Doryx) 100 mg PO Q12 NOAM Last Admin: 04/23/18 21:15 Dose: 100 mg Enoxaparin Sodium (Lovenox) 40 mg SC DAILY NO[facility] PRN Reason: Protocol Last Admin: 04/23/18 10:49 Dose: 40 mg Gabapentin (Neurontin) 300 mg PO TID [facility] PRN Reason: Protocol Last Admin: 04/23/18 18:27 Dose: 300 mg Glimepiride (Amaryl) 2 mg PO BRK [facility] Last Admin: 04/23/18 08:19 Dose: 2 mg Meropenem (Merrem Iv 1 Gm Premix) 50 mls @ 100 mls/hr IVPB Q8 [facility] PRN Reason: Protocol Last Admin: 04/23/18 21:15 Dose: 100 mls/hr Valproate Sodium 500 mg/ (Sodium Chloride) 105 mls @ 100 mls/hr IVPB Q8 [facility] Last Admin: 04/23/18 22:06 Dose: 100 mls/hr Insulin Human Lispro (Humalog High) 0 units SC ACHS [facility] PRN Reason: Protocol Last Admin: 04/23/18 21:41 Dose: Not Given Levothyroxine Sodium (Synthroid) 225 mcg PO DAILY [facility] Last Admin: 04/23/18 10:49 Dose: 225 mcg Methylprednisolone (Solu-Medrol) 40 mg IV Q12 [facility] Last Admin: 04/23/18 21:15 Dose: 40 mg Pantoprazole Sodium (Protonix Ec Tab) 40 mg PO 0630 [facility] Last Admin: 04/23/18 06:03 Dose: 40 mg Quetiapine Fumarate (Seroquel) 100 mg PO BID [facility] PRN Reason: Protocol Last Admin: 04/23/18 18:27 Dose: 100 mg Sertraline HCl (Zoloft) 200 mg PO DAILY [facility] Last Admin: 04/23/18 10:49 Dose: 200 mg - Labs Labs: 04/22/18 06:30 04/22/18 06:30 PT 12.5 SECONDS (9.4-12.5) 04/20/18 18:50 INR 1.09 (0.93-1.08) H 04/20/18 18:50 Micro Results 04/20/18 18:50 Blood-Venous Blood Culture - Preliminary NO GROWTH AFTER 4 DAYS 04/20/18 19:35 Urine,Gallego Urine Culture - Final Gram Negative Scooter Most Recent Lab Values WBC 3.9 10^3/ul (4.5-11.0) L D 04/22/18 06:30 RBC 4.06 10^6/uL (3.5-6.1) 04/22/18 06:30 Hgb 12.2 g/dL (12.0-16.0) 04/22/18 06:30 Hct 38.6 % (36.0-48.0) 04/22/18 06:30 MCV 95.1 fl (80.0-105.0) 04/22/18 06:30 MCH 30.0 pg (25.0-35.0) 04/22/18 06:30 MCHC 31.6 g/dl (31.0-37.0) 04/22/18 06:30 RDW 15.0 % (11.5-14.5) H 04/22/18 06:30 Plt Count 91 10^3/uL (120.0-450.0) L 04/22/18 06:30 MPV 10.0 fl (7.0-11.0) 04/22/18 06:30 Gran % 74.9 % (50.0-68.0) H 04/22/18 06:30 Lymph % (Auto) 18.6 % (22.0-35.0) L 04/22/18 06:30 [place] % (Auto) 6.5 % (1.0-6.0) H 04/22/18 06:30 Eos % (Auto) 0.0 % (1.5-5.0) L 04/22/18 06:30 Baso % (Auto) 0.0 % (0.0-3.0) 04/22/18 06:30 Gran # 2.90 (1.4-6.5) 04/22/18 06:30 Lymph # (Auto) 0.7 (1.2-3.4) L 04/22/18 06:30 [place] # (Auto) 0.3 (0.1-0.6) 04/22/18 06:30 Eos # (Auto) 0.0 (0.0-0.7) 04/22/18 06:30 Baso # (Auto) 0.00 K/mm3 (0.0-2.0) 04/22/18 06:30 PT 12.5 SECONDS (9.4-12.5) 04/20/18 18:50 INR 1.09 (0.93-1.08) H 04/20/18 18:50 pCO2 57 mm/Hg (35-45) H 04/20/18 18:39 pO2 115.0 mm/Hg (80-100) H 04/20/18 18:39 HCO3 30.1 mmol/L (21-28) H 04/20/18 18:39 ABG pH 7.33 (7.35-7.45) L 04/20/18 18:39 ABG Total CO2 31.8 mmol.L (22-28) H 04/20/18 18:39 ABG O2 Saturation 99.4 % (95-98) H 04/20/18 18:39 ABG Base Excess 2.8 mmol/L (-2.0-3.0) 04/20/18 18:39 ABG Potassium 3.2 mmol/L (3.6-5.2) L 04/20/18 18:39 Sodium 142.0 mmol/L (132-148) 04/20/18 18:39 Chloride 112.0 mmol/L (98-107) H 04/20/18 18:39 Glucose 79 mg/dl (65-105) 04/20/18 18:39 Lactate 0.6 mmol/L (0.7-2.1) L 04/20/18 18:39 FiO2 32.0 % 04/20/18 18:39 Sodium 144 mmol/L (132-148) 04/22/18 06:30 Potassium 4.2 mmol/L (3.6-5.0) 04/22/18 06:30 Chloride 106 mmol/L (98-107) 04/22/18 06:30 Carbon Dioxide 31 mmol/L (21-33) 04/22/18 06:30 Anion Gap 11 (10-20) 04/22/18 06:30 BUN 17 mg/dL (7-21) 04/22/18 06:30 Creatinine 0.5 mg/dl (0.7-1.2) L 04/22/18 06:30 Est GFR ( Amer) > 60 04/22/18 06:30 Est GFR (Non-Af Amer) > 60 04/22/18 06:30 POC Glucose (mg/dL) 118 mg/dL (65-110) H 04/24/18 21:26 Random Glucose 119 mg/dL (70-110) H 04/22/18 06:30 Calcium 8.7 mg/dL (8.4-10.5) 04/22/18 06:30 Total Bilirubin 0.4 mg/dL (0.2-1.3) 04/22/18 06:30 AST 21 U/L (14-36) 04/22/18 06:30 ALT 24 U/L (7-56) 04/22/18 06:30 Alkaline Phosphatase 133 U/L (38-126) H 04/22/18 06:30 Lactate Dehydrogenase 388 U/L (333-699) 04/20/18 18:50 Total Creatine Kinase 25 U/L (35-230) L 04/20/18 18:50 Troponin I < 0.01 ng/mL 04/20/18 18:50 NT-Pro-B Natriuret Pep 284 pg/mL (0-450) 04/20/18 18:50 Total Protein 6.8 g/dL (5.8-8.3) 04/22/18 06:30 Albumin 3.1 g/dL (3.0-4.8) 04/22/18 06:30 Globulin 3.7 gm/dL 04/22/18 06:30 Albumin/Globulin Ratio 0.8 (1.1-1.8) L 04/22/18 06:30 Lipase 29 U/L (23-300) 04/20/18 18:50 Procalcitonin < 0.05 NG/ML (0.19-0.49) L 04/23/18 11:55 Arterial Blood Potassium 3.2 mmol/L (3.6-5.2) L 04/20/18 18:39 Urine Color Light brown (YELLOW) 04/20/18 19:35 Urine Appearance Slight-cloudy (CLEAR) 04/20/18 19:35 Urine pH 8.0 (4.7-8.0) 04/20/18 19:35 Ur Specific [place] 1.015 (1.005-1.035) 04/20/18 19:35 Urine Protein Trace mg/dL (<30 mg/dL) H 04/20/18 19:35 Urine Glucose (UA) Negative mg/dL (NEGATIVE) 04/20/18 19:35 Urine Ketones Negative mg/dL (NEGATIVE) 04/20/18 19:35 Urine Blood Large (NEGATIVE) H 04/20/18 19:35 Urine Nitrate Positive (NEGATIVE) H 04/20/18 19:35 Urine Bilirubin Negative (NEGATIVE) 04/20/18 19:35 Urine Urobilinogen 4.0 E.U./dL (<1 E.U./dL) H 04/20/18 19:35 Ur Leukocyte Esterase Small [place]/uL (NEGATIVE) H 04/20/18 19:35 Urine RBC 25 - 30 /hpf (0-2) 04/20/18 19:35 Urine WBC 10 - 15 /hpf (0-6) 04/20/18 19:35 Ur Epithelial Cells 4 - 5 /hpf (0-5) 04/20/18 19:35 Amorphous Sediment Few 04/20/18 19:35 Urine Bacteria Large (NEG) 04/20/18 19:35 Urine Other Uyeast 04/20/18 19:35 Blood Type B POSITIVE 04/20/18 18:50 Blood Type Confirm B POSITIVE 04/20/18 19:52 Antibody Screen Negative 04/20/18 18:50 BBK History Checked No verified bt 04/20/18 18:50 - Constitutional Appears: Well, No Acute Distress - Head Exam Head Exam: ATRAUMATIC, NORMAL INSPECTION, NORMOCEPHALIC - Eye Exam Eye Exam: Normal appearance - ENT Exam ENT Exam: Normal External Ear Exam - Neck Exam Neck Exam: Normal Inspection - Respiratory Exam Respiratory Exam: NORMAL BREATHING PATTERN - Cardiovascular Exam Cardiovascular Exam: absent: JVD - GI/Abdominal Exam GI & Abdominal Exam: Distended - Rectal Exam Rectal Exam: Deferred - Exam Additional comments: Deferred. - Extremities Exam Extremities Exam: Normal Inspection - Back Exam Back Exam: NORMAL INSPECTION - Neurological Exam Neurological Exam: Alert, Awake, Oriented x3 - Psychiatric Exam Psychiatric exam: Normal Affect, Normal Mood - Skin Skin Exam: Normal Color Assessment and Plan - Assessment and Plan (Free Text) Assessment: Heart burn. NIDDM. Obesity. Depression Plan: Protonix 40 mg PO x 1. Continue present management.
[2018-04-24] MEDS: Meropenem IV 1 gm in NS 50 ML IVPB SCH (05:41)
[2018-04-24] MEDS: Pantoprazole 40 mg EC Tab PO SCH (05:41)
[2018-04-24] MEDS: Valproate 500 MG in Sodium Chloride 0.9% 100 ML IVPB SCH ×3 (06:38→21:20)
[2018-04-24] MEDS: Insulin Lispro (HUMAlog) HIGH Coverage SC SCH ×4 (07:56→21:53)
[2018-04-24] MEDS: Levothyroxine 75 MCG TAB PO SCH (09:34)
[2018-04-24] MEDS: Enoxaparin 40 mg Syringe SC SCH (09:35)
[2018-04-24] MEDS: MethylPREDNISolone 40 mg Vial IV SCH (09:36)
[2018-04-24] MEDS: Apap-Butalbital-Caffeine 325-50-40mg Tab PO PRN (13:54)
[2018-04-24 16:25] VITALS: PULSE 67
--- NOTE | 2018-04-24 20:56 | CP.PCM.PN ---
Subjective - Date & Time of Evaluation Date of Evaluation: 04/24/18 Time of Evaluation: 11:25 - Subjective Subjective: Breathing a little better, no fevers, still with cough but a little less. Objective - Vital Signs/Intake and Output Vital Signs (last 24 hours): Temp Pulse Resp BP Pulse Ox 98.5 F 67 20 131/66 95 04/24/18 14:00 04/24/18 14:00 04/24/18 14:00 04/24/18 14:00 04/24/18 14:00 Intake and Output: 04/24/18 04/25/18 18:59 06:59 Intake Total 1080 Output Total 1300 Balance -220 - Medications Medications: Current Medications Acetaminophen (Tylenol 325mg Tab) 650 mg PO Q6H PRN PRN Reason: Pain, moderate (4-7) Last Admin: 04/22/18 15:10 Dose: 650 mg Acetaminophen/Butalbital/Caffeine (Fioricet) 1 tab PO QID PRN PRN Reason: Headache Last Admin: 04/24/18 13:54 Dose: 1 tab Albuterol/Ipratropium (Duoneb 3 Mg/0.5 Mg (3 Ml) Ud) 3 ml IH [id number] NOAM Last Admin: 04/24/18 15:01 Dose: 3 ml Albuterol/Ipratropium (Duoneb 3 Mg/0.5 Mg (3 Ml) Ud) 3 ml IH Q2H PRN PRN Reason: Shortness of Breath Cefpodoxime Proxetil (Vantin) 200 mg PO Q12 [facility] PRN Reason: Protocol Clonazepam (Klonopin) 1 mg PO HS [facility] PRN Reason: Protocol Last Admin: 04/23/18 21:15 Dose: 1 mg Clonazepam (Klonopin) 1 mg PO BID [facility] PRN Reason: Protocol Last Admin: 04/24/18 18:20 Dose: 1 mg Doxycycline Hyclate (Doryx) 100 mg PO Q12 [facility] Last Admin: 04/24/18 09:34 Dose: 100 mg Enoxaparin Sodium (Lovenox) 40 mg SC DAILY [facility] PRN Reason: Protocol Last Admin: 04/24/18 09:35 Dose: 40 mg Gabapentin (Neurontin) 300 mg PO TID [facility] PRN Reason: Protocol Last Admin: 04/24/18 18:20 Dose: 300 mg Glimepiride (Amaryl) 2 mg PO BRK [facility] Last Admin: 04/24/18 08:38 Dose: 2 mg Valproate Sodium 500 mg/ (Sodium Chloride) 105 mls @ 100 mls/hr IVPB Q8 [facility] Last Admin: 04/24/18 13:54 Dose: 100 mls/hr Insulin Human Lispro (Humalog High) 0 units SC ACHS [facility] PRN Reason: Protocol Last Admin: 04/24/18 16:53 Dose: Not Given Levothyroxine Sodium (Synthroid) 225 mcg PO DAILY [facility] Last Admin: 04/24/18 09:34 Dose: 225 mcg Pantoprazole Sodium (Protonix Ec Tab) 40 mg PO 0630 [facility] Last Admin: 04/24/18 05:41 Dose: 40 mg Prednisone (Prednisone Tab) 20 mg PO DAILY [facility] Last Admin: 04/24/18 13:55 Dose: Not Given Quetiapine Fumarate (Seroquel) 100 mg PO BID [facility] PRN Reason: Protocol Last Admin: 04/24/18 18:20 Dose: 100 mg Sertraline HCl (Zoloft) 200 mg PO DAILY [facility] Last Admin: 04/24/18 09:34 Dose: 200 mg - Labs Labs: 04/22/18 06:30 04/22/18 06:30 PT 12.5 SECONDS (9.4-12.5) 04/20/18 18:50 INR 1.09 (0.93-1.08) H 04/20/18 18:50 - Constitutional Appears: Chronically Ill - Head Exam Head Exam: NORMAL INSPECTION - ENT Exam ENT Exam: Mucous Membranes Moist - Respiratory Exam Respiratory Exam: Decreased Breath Sounds - Cardiovascular Exam Cardiovascular Exam: +S1, +S2 - GI/Abdominal Exam GI & Abdominal Exam: Soft. absent: Tenderness Assessment and Plan - Assessment and Plan (Free Text) Plan: Assessment consider acute COPD exacerbation and bilateral HCAP history of bilateral lower extremity cellulitis history of sepsis due to bilateral community-acquired pneumonia as well as Klebsiella left sided pyelopnephritis history of sepsis secondary to E. coli bacteremia secondary to left sided pyelonephritis Sarcoidosis History of diverticulitis History of cholecystectomy Morbid obesity with BMI 59 COPD DM degenerative joint disease hisotry of depression hypothyrtoidism chronic anemia Plan gave a dose of IV Vancomycin and continue Merrem and Doxycycline day 3 pending blood, sputum cx, PCT; reviewed CT C/A/P; urine cx is showing <10 k GNB and the patient is not complaining of urinary symptoms - will repeat urine cx again complete 4-7 days of antibiotics will continue to monitor clinically
[2018-04-24] MEDS: Cefpodoxime (Vantin) 200 mg Tab PO SCH (21:21)
[2018-04-24] MEDS ORDERED: Pantoprazole 40 mg EC Tab PO ONE (22:50)
[2018-04-25] MEDS: Albuterol-Ipratrop 3 mg / 0.5 (3 ml) UD IH SCH ×3 (03:15→13:13)
[2018-04-25] MEDS: Valproate 500 MG in Sodium Chloride 0.9% 100 ML IVPB SCH ×2 (05:21→15:02)
[2018-04-25 07:55] VITALS: BP 109/53; RESP 18; TEMP 97.9; O2SAT 94
[2018-04-25] MEDS: Pantoprazole 40 mg EC Tab PO SCH (08:40)
[2018-04-25] MEDS: Enoxaparin 40 mg Syringe SC SCH (09:33)
[2018-04-25] MEDS: Levothyroxine 75 MCG TAB PO SCH (09:33)
[2018-04-25] MEDS: Cefpodoxime (Vantin) 200 mg Tab PO SCH (09:34)
[2018-04-25] MEDS: Insulin Lispro (HUMAlog) HIGH Coverage SC SCH ×2 (09:37→14:42)
[2018-04-25] MEDS: Apap-Butalbital-Caffeine 325-50-40mg Tab PO PRN ×2 (09:59→15:03)
--- NOTE | 2018-04-25 11:37 | DS ---
HISTORY OF PRESENT ILLNESS: The patient is 53 years old, seen and examined, lying in bed, seems to be comfortable, but no nausea or vomiting. No diarrhea. Complaining of generalized weakness and shakiness. PHYSICAL EXAMINATION: VITAL SIGNS: The patient is afebrile. Pulse 62, respirations 20, blood pressure 122/70. LUNGS: Bilateral soft crackle. expiratory rhonchi. HEART: S1, S2 audible. ABDOMEN: Soft, obese, nontender. No rebound or guarding. NEUROLOGIC: She is awake, alert, oriented, able to move all extremities, but has difficulty walking and she states she is very tired to walk on her own. High risk of fall. LABORATORY DATA: Blood sugar is 110, procalcitonin 0.05. Urine culture has gram-negative rods, 10,000 colony count. ASSESSMENT AND PLAN: 1. Morbid obesity, deconditioning. 2. Chronic obstructive pulmonary disease exacerbation. 3. Asthmatic bronchitis. 4. Gram-negative xander urinary tract infection. 5. History of anxiety disorder. 6. Difficulty walking and high risk for fall. PLAN: I spoke to social director. The patient needs subacute rehab. Her blood sugar is being monitored. As soon as arrangement is made, the patient will be transferred to subacute rehab. She will be maintained on doxycycline. She is on meropenem that can be switched to p.o. Vantin. We will continue all other medication and cut down her steroid to prednisone 20 b.i.d. for 5 days and then 20 daily for 5 days. Karson Ruiz MD
[2018-04-25] MEDS ORDERED: Meropenem IV 1 gm in NS 50 ML IVPB SCH (14:00)
--- NOTE | 2018-04-25 14:05 | DS ---
HISTORY OF PRESENT ILLNESS: The patient is 53 years old, who was admitted with increasing shortness of breath, generalized weakness, difficulty walking, unable to get out of bed. Has been on IV steroid, nebulizer treatment and antibiotics. Still feels weak, tired. Becomes dizzy when she chair. Has been on IV antibiotic and nebulizer treatment with very subtle improvement. She is totally deconditioned, has difficulty walking. PHYSICAL EXAMINATION: GENERAL: She is awake, alert, oriented, communicative. VITAL SIGNS: She is afebrile, pulse 67, respirations 18, blood pressure 109/53. LUNGS: Bilateral fair airflow. No rhonchi or crackle. HEART: S1 and S2 audible. ABDOMEN: Soft, obese, nontender. No rebound. No guarding. NEUROLOGICAL: The patient is awake, alert, oriented, communicative. LABORATORY EXAM: Blood sugar is 93. ASSESSMENT: 1. Morbid obesity. 2. Chronic obstructive pulmonary disease exacerbation. 3. Gram-negative urinary tract infection. 4. Anxiety disorder. 5. History of benign essential tremors. PLAN: Social workers are in the process of making arrangement for long-term rehab. We will continue her on nebulizer treatment and monitor her blood sugar. Currently, she is on doxycycline and meropenem. We will finish the duration as recommended by ID. Karson Ruiz MD
--- NOTE | 2018-04-25 19:14 | CP.PCM.PN ---
Subjective - Date & Time of Evaluation Date of Evaluation: 04/25/18 Time of Evaluation: 11:45 - Subjective Subjective: Breathing a little better, no fevers. Objective - Vital Signs/Intake and Output Vital Signs (last 24 hours): Temp Pulse Resp BP Pulse Ox 97.9 F 67 18 109/53 L 94 L 04/25/18 06:00 04/25/18 06:00 04/25/18 06:00 04/25/18 06:00 04/25/18 06:00 Intake and Output: 04/25/18 04/25/18 06:59 18:59 Intake Total 540 Output Total 1400 Balance -860 - Medications Medications: Current Medications Acetaminophen (Tylenol 325mg Tab) 650 mg PO Q6H PRN PRN Reason: Pain, moderate (4-7) Last Admin: 04/22/18 15:10 Dose: 650 mg Acetaminophen/Butalbital/Caffeine (Fioricet) 1 tab PO QID PRN PRN Reason: Headache Last Admin: 04/25/18 09:59 Dose: 1 tab Albuterol/Ipratropium (Duoneb 3 Mg/0.5 Mg (3 Ml) Ud) 3 ml IH [id number] NOAM Last Admin: 04/25/18 07:30 Dose: 3 ml Albuterol/Ipratropium (Duoneb 3 Mg/0.5 Mg (3 Ml) Ud) 3 ml IH Q2H PRN PRN Reason: Shortness of Breath Cefpodoxime Proxetil (Vantin) 200 mg PO Q12 [facility] PRN Reason: Protocol Last Admin: 04/25/18 09:34 Dose: 200 mg Clonazepam (Klonopin) 1 mg PO HS [facility] PRN Reason: Protocol Last Admin: 04/24/18 21:23 Dose: 1 mg Clonazepam (Klonopin) 1 mg PO BID [facility] PRN Reason: Protocol Last Admin: 04/25/18 09:33 Dose: 1 mg Doxycycline Hyclate (Doryx) 100 mg PO Q12 [facility] Last Admin: 04/25/18 09:34 Dose: 100 mg Enoxaparin Sodium (Lovenox) 40 mg SC DAILY [facility] PRN Reason: Protocol Last Admin: 04/25/18 09:33 Dose: 40 mg Gabapentin (Neurontin) 300 mg PO TID [facility] PRN Reason: Protocol Last Admin: 04/25/18 09:33 Dose: 300 mg Glimepiride (Amaryl) 2 mg PO BRK [facility] Last Admin: 04/25/18 08:40 Dose: 2 mg Valproate Sodium 500 mg/ (Sodium Chloride) 105 mls @ 100 mls/hr IVPB Q8 [facility] Last Admin: 04/25/18 05:21 Dose: 100 mls/hr Meropenem (Merrem Iv 1 Gm Premix) 50 mls @ 100 mls/hr IVPB Q8 [facility] PRN Reason: Protocol Insulin Human Lispro (Humalog High) 0 units SC ACHS [facility] PRN Reason: Protocol Last Admin: 04/25/18 09:37 Dose: Not Given Levothyroxine Sodium (Synthroid) 225 mcg PO DAILY [facility] Last Admin: 04/25/18 09:33 Dose: 225 mcg Pantoprazole Sodium (Protonix Ec Tab) 40 mg PO 0630 [facility] Last Admin: 04/25/18 08:40 Dose: Not Given Prednisone (Prednisone Tab) 20 mg PO DAILY [facility] Last Admin: 04/25/18 09:34 Dose: 20 mg Quetiapine Fumarate (Seroquel) 100 mg PO BID [facility] PRN Reason: Protocol Last Admin: 04/25/18 09:34 Dose: 100 mg Sertraline HCl (Zoloft) 200 mg PO DAILY [facility] Last Admin: 04/25/18 09:34 Dose: 200 mg - Labs Labs: 04/22/18 06:30 04/22/18 06:30 PT 12.5 SECONDS (9.4-12.5) 04/20/18 18:50 INR 1.09 (0.93-1.08) H 04/20/18 18:50 - Constitutional Appears: Chronically Ill - Head Exam Head Exam: NORMAL INSPECTION - Respiratory Exam Respiratory Exam: Decreased Breath Sounds - Cardiovascular Exam Cardiovascular Exam: +S1, +S2 - GI/Abdominal Exam GI & Abdominal Exam: Soft. absent: Tenderness Assessment and Plan - Assessment and Plan (Free Text) Plan: Assessment consider acute COPD exacerbation and bilateral HCAP history of bilateral lower extremity cellulitis history of sepsis due to bilateral community-acquired pneumonia as well as Klebsiella left sided pyelopnephritis history of sepsis secondary to E. coli bacteremia secondary to left sided pyelonephritis Sarcoidosis History of diverticulitis History of cholecystectomy Morbid obesity with BMI 59 COPD DM degenerative joint disease hisotry of depression hypothyrtoidism chronic anemia Plan gave a dose of IV Vancomycin and continue Merrem and Doxycycline day 4 pending blood, sputum cx, PCT; reviewed CT C/A/P; urine cx is showing <10 k GNB and the patient is not complaining of urinary symptoms - repeat urine cx is negative complete 4-7 days of antibiotics will continue to monitor clinically
== END 2018-04-25 18:43 | DRG 88 ==
LOC: ED 17:48 → ERH 23:57 → 2RSO 04-21 01:36 → 5RNO 04-22 13:56
PROVIDERS: ADMIT Internal Medicine; ATTEND Internal Medicine
DX: J44.1 Chronic obstructive pulmonary disease with (acute) exacerbation (principal); J45.901 Unspecified asthma with (acute) exacerbation; N39.0 Urinary tract infection, site not specified; E11.42 Type 2 diabetes mellitus with diabetic polyneuropathy; K74.60 Unspecified cirrhosis of liver; L03.116 Cellulitis of left lower limb; L03.115 Cellulitis of right lower limb; D86.0 Sarcoidosis of lung; R56.9 Unspecified convulsions; J98.11 Atelectasis; B96.89 Other specified bacterial agents as the cause of diseases classified elsewhere; E66.01 Morbid (severe) obesity due to excess calories; Z68.43 Body mass index [BMI] 50.0-59.9, adult; G25.0 Essential tremor; F41.0 Panic disorder [episodic paroxysmal anxiety]; D64.9 Anemia, unspecified; E03.9 Hypothyroidism, unspecified; E78.00 Pure hypercholesterolemia, unspecified; E78.5 Hyperlipidemia, unspecified; G47.33 Obstructive sleep apnea (adult) (pediatric); K21.9 Gastro-esophageal reflux disease without esophagitis; I10 Essential (primary) hypertension; I86.2 Pelvic varices; G93.2 Benign intracranial hypertension; F17.210 Nicotine dependence, cigarettes, uncomplicated; M19.90 Unspecified osteoarthritis, unspecified site; F31.9 Bipolar disorder, unspecified; G43.909 Migraine, unspecified, not intractable, without status migrainosus; R26.2 Difficulty in walking, not elsewhere classified; Z87.01 Personal history of pneumonia (recurrent); Z79.84 Long term (current) use of oral hypoglycemic drugs; Z85.43 Personal history of malignant neoplasm of ovary

== ENCOUNTER 2018-05-01 18:20 | Observation (INO) | payer OTHER ==
[2018-05-01 18:40] VITALS: BMI 50.5
[2018-05-01] MEDS ORDERED: Albuterol-Ipratrop 3 mg / 0.5 (3 ml) UD IH STA (19:09)
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
[2018-05-01 20:07] LABS: ARTERIAL BLOOD GAS HCO3 30.6 mmol/L (21-28); ARTERIAL BLOOD GAS O2 SAT 97.8 % (95-98); ARTERIAL BLOOD GAS PCO2 44 mm/Hg (35-45); ARTERIAL BLOOD GAS PH 7.45 (7.35-7.45)
[2018-05-01 20:13] LABS: BASO # 0.01 K/mm3 (0.0-2.0); BASO % 0.2 % (0.0-3.0); EOS % 0.6 % (1.5-5.0); GRAN # 2.91 (1.4-6.5); GRAN % 61.3 % (50.0-68.0); HEMOGLOBIN 12.5 g/dL (12.0-16.0); LYMPH # 1.3 (1.2-3.4); LYMPH % 27.6 % (22.0-35.0); MEAN CELL VOLUME 94.1 fl (80.0-105.0); MEAN CORPUSCULAR HEMOGLOBIN 30.9 pg (25.0-35.0); MEAN CORPUSCULAR HGB CONC 32.8 g/dl (31.0-37.0); MEAN PLATELET VOLUME 10.2 fl (7.0-11.0); MONO # 0.5 (0.1-0.6); MONO % 10.3 % (1.0-6.0); RBC 4.05 10^6/uL (3.5-6.1); RED CELL DISTRIBUTION WIDTH 15.1 % (11.5-14.5); WHITE BLOOD COUNT 4.8 10^3/ul (4.5-11.0)
[2018-05-01 20:24] LABS: PROTHROMBIN TIME 11.9 SECONDS (9.4-12.5)
[2018-05-01 20:25] LABS: INR 1.04 (0.93-1.08); PARTIAL THROMBOPLASTIN TIME 39.5 Seconds (25.1-36.5)
[2018-05-01 20:29] LABS: ALB/GLOB RATIO 0.9 (1.1-1.8); ALBUMIN 3.2 g/dL (3.0-4.8); ALT/SGPT 76 U/L (7-56); AST/SGOT 76 U/L (14-36); BLOOD UREA NITROGEN 15 mg/dL (7-21); CALCIUM 8.6 mg/dL (8.4-10.5); GFR AFRICAN-AMERICAN > 60; GFR NON-AFRICAN AMERICAN > 60
[2018-05-01 20:42] LABS: B-TYPE NATRIURETIC PEPTIDE 251 pg/mL (0-450); TROPONIN I < 0.01 ng/mL
[2018-05-01 21:20] LABS: PH,URINE 7.5 (4.7-8.0); URINE BILIRUBIN NEGATIVE (NEGATIVE); URINE BLOOD LARGE (NEGATIVE); URINE GLUCOSE (UA) NEGATIVE (NEGATIVE); URINE LEUKOCYTE ESTERASE SMALL Leu/uL (NEGATIVE); URINE PROTEIN TRACE mg/dL (<30 mg/dL)
[2018-05-01 21:21] LABS: URINE APPEARANCE CLEAR (CLEAR); URINE COLOR YELLOW (YELLOW)
[2018-05-01 21:27] LABS: URINE BACTERIA MANY (NEG); URINE RBC 25 - 30 /hpf (0-2)
[2018-05-01 21:28] LABS: URINE AMORPHOUS SEDIMENT FEW
[2018-05-01] MEDS ORDERED: Albuterol-Ipratrop 3 mg / 0.5 (3 ml) UD IH PRN (23:12)
[2018-05-01] MEDS ORDERED: Apap-Butalbital-Caffeine 325-50-40mg Tab PO ONE (23:14)
[2018-05-01] MEDS ORDERED: Apap-Butalbital-Caffeine 325-50-40mg Tab PO STA (23:31)
[2018-05-02] MEDS ORDERED: Levothyroxine 200 MCG TAB PO SCH (06:00)
[2018-05-02] MEDS: Levothyroxine 25 MCG TAB PO SCH (06:24)
[2018-05-02] MEDS: Albuterol-Ipratrop 3 mg / 0.5 (3 ml) UD IH SCH ×3 (07:28→19:43)
[2018-05-02] MEDS: Insulin Lispro (humaLOG) MEDIUM Coverage SC SCH ×4 (07:50→21:33)
[2018-05-02 08:16] VITALS: RESP 20
--- NOTE | 2018-05-02 08:31 | CT ---
PROCEDURE: CT HEAD WITHOUT CONTRAST. HISTORY: SILVA s/p fall/head trauma COMPARISON: None available. TECHNIQUE: Axial computed tomography images were obtained through the head/brain without intravenous contrast. Radiation dose: Total exam DLP = mGy-cm. This CT exam was performed using one or more of the following dose reduction techniques: Automated exposure control, adjustment of the mA and/or kV according to patient size, and/or use of iterative reconstruction technique. FINDINGS: HEMORRHAGE: No intracranial hemorrhage. BRAIN: No mass effect or edema. No atrophy or chronic microvascular ischemic changes. VENTRICLES: Unremarkable. No hydrocephalus. CALVARIUM: Unremarkable. PARANASAL SINUSES: Unremarkable as visualized. No significant inflammatory changes. MASTOID AIR CELLS: Unremarkable as visualized. No inflammatory changes. OTHER FINDINGS: None. IMPRESSION: Normal CT of the Head.
--- NOTE | 2018-05-02 09:22 | RAD ---
HISTORY: sob COMPARISON: 12/25/2017 FINDINGS: LUNGS: No active pulmonary disease. PLEURA: No significant pleural effusion identified, no pneumothorax apparent. CARDIOVASCULAR: Mild cardiomegaly and mild vascular congestion unchanged OSSEOUS STRUCTURES: No significant abnormalities. VISUALIZED UPPER ABDOMEN: Normal. OTHER FINDINGS: None. IMPRESSION: Mild cardiomegaly and mild vascular congestion unchanged
[2018-05-02] MEDS: Potassium Chloride 10 mEq ER Tab PO SCH (09:25)
--- NOTE | 2018-05-02 09:37 | CARD ---
APPROVED REPORT EKG Measurement Heart [id number] <Conclusion> Sinus bradycardia Otherwise normal ECG
[2018-05-02] MEDS ORDERED: TIZANIDINE HCL PO SCH (10:00)
[2018-05-02] MEDS ORDERED: Levothyroxine 25 MCG TAB PO SCH (10:00)
[2018-05-02] MEDS: Apap-Butalbital-Caffeine 325-50-40mg Tab PO PRN (11:10)
--- NOTE | 2018-05-02 13:58 | CP.PCM.PCO ---
Assessment & Plan - Assessment and Plan (Free Text) Assessment: NEURO COMMUNICATION NOTE: MRS. CLAYTON IS A PATIENT WITH HISTORY OF PSEUDOTUMOR CEREBRI, SEVERE MIGRAINE HEADACHES, COPD, CHAY, OBESITY, DIABETES, DIABETIC NEUROPATHY, HTN, DEPRESSION, INSOMNIA, ANXIETY WHO HAS UNSTABLE GAIT SECONDARY TO SEVERE PERIPHERAL NEUROPATHY FROM DIABETES AND DECONDITIONED STATE FROM CHRONIC MEDICAL PROBLEMS. -WOULD RECOMMEND PSYCH CONSULT TO REDUCE MEDS LIKE KLONIPIN OR HER DEPRESSION MEDICATIONS DUE TO SEDATIVE EFFECTS. - PHYSICAL THERAPY IS NEEDED. - B12 LEVEL -C/W MIGRAINE MEDICATIONS SUCH FIORICET AND TOPAMAX. THANK YOU. KAMRAN SAMPSON
--- NOTE | 2018-05-02 22:27 | CON ---
HISTORY OF PRESENT ILLNESS: This is a 53-year-old female with a past medical history of pseudotumor cerebri, anxiety, sarcoidosis of the liver and the lung, came to the Emergency Room, complaining of head trauma and difficulty to walk with a gait difficulty. The patient hit her forehead. Denies loss of consciousness and sitting comfortably on the chair on examination. ALLERGIES: TO MANY MEDICATIONS LIKE CIPROFLOXACIN, CLARITHROMYCIN, CLINDAMYCIN, ERYTHROMYCIN, LEVOFLOXACIN, AND PENICILLIN. REVIEW OF SYSTEMS: Ten-point review of systems negative except sitting on the chair comfortably. PHYSICAL EXAMINATION: HEENT: Normocephalic, atraumatic. NECK: Supple. NEUROLOGIC: Awake and oriented to self, place. Cranial nerves II to XII were tested, hearing intact, visual kohli full. No facial asymmetry. Tongue midline. Spontaneous movement of all the extremities noted. Deep tendon reflexes 1+. Both plantar's are downgoing. Sensory appears intact. Cerebellar, gait deferred. IMPRESSION: Fall secondary to possibly peripheral neuropathy and gait instability, obese, and traumatic fall with head injury. PLAN: CAT scan of the head was done which was reported negative. Continue present management. Workup in progress. We will follow up. Andrea Vigil MD
[2018-05-03] MEDS: Albuterol-Ipratrop 3 mg / 0.5 (3 ml) UD IH SCH ×4 (01:32→20:33)
--- NOTE | 2018-05-03 02:08 | HP ---
HISTORY OF PRESENT ILLNESS: Patient is 53 years old, who was recently transferred to [place] for rehab after she had COPD exacerbation. She has been on tapering dose of steroid and antibiotic. Patient claimed that she only had therapy for one time and yesterday when she was told that she is going home, she was trying to pack up her stuff and she lost balance and she fell. She states she is very unsteady to walk. She does complain of cough, congestion, and back pain. No history of nausea, vomiting. No diarrhea. PHYSICAL EXAMINATION: VITAL SIGNS: She is afebrile, pulse 56, respirations 20, blood pressure 115/53. LUNGS: Bilateral fair airflow. No rhonchi or crackle. HEART: S1 and S2 audible. ABDOMEN: Soft, nontender. No rebound. No guarding. NEUROLOGICAL: Patient is awake, alert, and communicative. EXTREMITIES: Bilateral legs +1 edema. ALLERGIES: SHE IS ALLERGIC TO CIPROFLOXACIN, CLARITHROMYCIN, CLINDAMYCIN, HYDROMORPHONE, LEVAQUIN, AND PENICILLIN. SOCIAL HISTORY: She used to be a heavy smoker. She still smokes but a few cigarettes a day. Socially drinks. MEDICATIONS AT HOME: She is on Vistaril 1 tablet three times a day, Klonopin 1 mg at bedtime and 1 mg twice a day, Topamax. She is on Zanaflex, temazepam, Zoloft, Seroquel, levothyroxine, ibuprofen, glimepiride, Advair. LABORATORY DATA: WBC is 4.8, hemoglobin 12.5, hematocrit 38.1, platelets of 83. Chemistry: Sodium 143, potassium 4.3, chloride 104, CO2 of 32, BUN 15, creatinine 0.5, blood sugar of 84. AST 76, ALT 76, alkaline phosphatase is 207. Urine shows small leukocyte and rbc's 25 to 30, wbc's 5 to [address] scan of the head done that is unremarkable. X-ray chest shows mild cardiomegaly and vascular congestion. ASSESSMENT: 1. Status post fall because of unstable gait. 2. History of chronic obstructive pulmonary disease. 3. Bipolar disorder. 4. History of hypertension. 5. Migraine headaches. 6. Hyperlipidemia. PLAN: Patient is on a bunch of medication affecting her mentation and balance. I will request Dr. Ceron to evaluate patient if medication can be modified or cut down. We will discontinue telemetry and probably transfer to [facility] in the a.m. Karson Ruiz MD
[2018-05-03] MEDS ORDERED: Levothyroxine 100 MCG TAB PO SCH (05:28)
[2018-05-03] MEDS: Levothyroxine 25 MCG TAB PO SCH (05:54)
[2018-05-03] MEDS: Insulin Lispro (humaLOG) MEDIUM Coverage SC SCH ×3 (08:00→17:22)
[2018-05-03] MEDS: Apap-Butalbital-Caffeine 325-50-40mg Tab PO PRN (09:13)
[2018-05-03] MEDS: Potassium Chloride 10 mEq ER Tab PO SCH (09:15)
[2018-05-03 19:30] VITALS: BP 100/68; PULSE 61; TEMP 98.4; O2SAT 96
--- NOTE | 2018-05-03 23:01 | CON ---
HISTORY OF PRESENT ILLNESS: The patient is a 53-year-old white female with a history of depression and anxiety as well as multiple psychiatric hospitalizations generally within the year 2012, as well as most recent one in 2014, at [facility], and treatment with Corinne Ornelas at [facility] where she was prescribed Zoloft 200 mg daily, Seroquel 100 mg p.o. four times daily, and Klonopin 1 mg in the a.m., 0.5 mg p.m., and 1 mg at bedtime, who presented to the emergency room 2 days ago bringing with a head injury due to a fall. Psychiatry was consulted to see if any medication adjustments can be made if in fact these medications are contributing to her gait instability and weakness. I reviewed recent notes of prior admissions and met with the patient at bedside as well as confirmed patient's medication doses with [facility]. The patient is a good historian. She is alert and well oriented to her current circumstances. She indicates that she has been feeling very stable with current psychiatric medication regimen and that she has been compliant with this regimen. She any medication changes as she strongly feels that this is not attributing to why she fell. The patient was recently medically hospitalized to an extended period of time and then was transferred to rehab for IV antibiotic at [place]. Apparently, the patient was given physical therapy as her insurance issues and her insurance did not want to cover this service. The patient became specifically more deconditioned in her opinion and has never regained her strength with this medical hospitalization. The patient indicates that she has been feeling weak in this past weak, but does not feel that her psychiatric medications as noted previously contributed at all for her fall. The patient denies taking more medications than prescribed and this was generally confirmed by speaking with her pharmacist who denied the patient asking for early refill. The patient denies any depression, feels that she is optimistic and doing fairly well right now except for recent stresses of her medical issues. She feels like she can overcome them. She is not hopeless. She does not feel helpless. Her anxiety is under control. She denies any hallucinations. The patient's thought process is coherent. The patient presented as well related and with appropriate reactivity during my interview. Her insight and judgment considered to be fair. RELEVANT PSYCHIATRIC MEDICATIONS: Reviewed. Include Klonopin 1 mg at bedtime and 0.5 mg b.i.d., Seroquel 50 mg at bedtime, and Zoloft 200 mg daily. PSYCHIATRIC HISTORY: The patient has had multiple hospitalizations mostly in the year 2012, and her first hospitalization was in 11/2012, for depression and after she overdosed on Xanax and metformin. She also overdosed on Xanax in 10/2013, that also led to a hospitalization at [facility]. Her most recent hospitalization was at [facility] approximately 2-1/2 years ago. The patient had tried to hang herself. After that hospitalization, she has been following up with Corinne Ornelas at [facility], has been following up with her over 2 years and has been reliably prescribed Zoloft, Seroquel, and Klonopin. The patient reports that she has been taking dose of Seroquel at 100 mg daily for over a year and Zoloft for multiple years as well as Klonopin. The patient sees Corinne Ornelas every 3 months, most recent followup be in this month, April. SOCIAL HISTORY: The patient was born and raised in [place]. She has been for 32 years with her and she resides with her . She has 3 adult children and she indicates that she is close to them. She is not employed and only has a 10th grade education. 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 Denies any drug or alcohol issues. Labs and vital were reviewed by this provider. IMPRESSION: Major depressive disorder in remission, anxiety disorder in remission, no acute psychiatric issues. RECOMMENDATIONS: We will resume Seroquel at 100 mg p.o. t.i.d. as the patient reports that this has been beneficial for herself for her mood and specifically stabilization of her mood, we will also continue with Klonopin at 1 mg in the a.m., 0.5 mg in the p.m., and 1 mg at bedtime. Zoloft will also be continued at 200 mg. It is very unlikely that her psychiatric medications caused her fall as the patient indicates there was deconditioning that contributed to her weakness at that time. I would not consider changing her psychiatric medications at this time as she has been stressed due to her medical issue and she requires having the dosages to have kept her stable for years. Again, please do not change her psychiatric medications dosages as we would like to ensure her continued psychiatric stability at this time. Psychiatry will sign off at this time. Miriam Causey MD
--- NOTE | 2018-05-04 10:29 | DS ---
DATE: 05/03/2018 SUBJECTIVE: The patient is a 53-year-old, seen and examined, lying in bed, not in any distress. No cough. No congestion. Complains of headache off and on. She is extremely weak. Difficulty walking. She was assessed by physical therapist and was advised to go to subacute rehab. Social Service are in the process of getting authorization for rehab. PHYSICAL EXAMINATION: GENERAL: She is awake, alert, oriented, communicative. Complains of headache intermittently. VITAL SIGNS: She is afebrile, pulse 60, respirations 20, blood pressure 102/58. LUNGS: Bilateral good airflow, a few occasional expiratory rhonchi. HEART: S1 and S2 audible. ABDOMEN: Soft, nontender. No rebound, no guarding. NEUROLOGICAL: She is awake, alert, communicative, morbidly obese. EXTREMITIES: Moves both extremities. She has chronic stasis dermatitis on both legs. ASSESSMENT: 1. Deconditioning. 2. Difficulty walking. 3. Chronic obstructive pulmonary disease. 4. Anxiety disorder. 5. Hypothyroidism. 6. History of migraine headache. 7. Morbid obesity. 8. Difficulty walking, status post multiple fall. PLAN: Once her authorization is approved for subacute rehab, she can be discharged today. Karson Ruiz MD
== END 2018-05-03 21:12 | disposition short-term general hospital (02) ==
LOC: ED 18:20 → ERH 22:08 → 3RNO 05-02 04:47
PROVIDERS: ADMIT Internal Medicine; ATTEND Internal Medicine
DX: E11.42 Type 2 diabetes mellitus with diabetic polyneuropathy (principal); S00.83XA Contusion of other part of head, initial encounter; S09.90XA Unspecified injury of head, initial encounter; R26.81 Unsteadiness on feet; J44.9 Chronic obstructive pulmonary disease, unspecified; I10 Essential (primary) hypertension; G43.909 Migraine, unspecified, not intractable, without status migrainosus; E78.5 Hyperlipidemia, unspecified; F41.9 Anxiety disorder, unspecified; D86.0 Sarcoidosis of lung; D86.89 Sarcoidosis of other sites; F17.210 Nicotine dependence, cigarettes, uncomplicated; G47.33 Obstructive sleep apnea (adult) (pediatric); F32.5 Major depressive disorder, single episode, in full remission; G93.2 Benign intracranial hypertension; G47.00 Insomnia, unspecified; E66.9 Obesity, unspecified; Z68.43 Body mass index [BMI] 50.0-59.9, adult; Z79.84 Long term (current) use of oral hypoglycemic drugs; Z88.3 Allergy status to other anti-infective agents; Z88.0 Allergy status to penicillin; W19.XXXA Unspecified fall, initial encounter
CPT/HCPCS: 70450; 71045; 80053; 81001; 82550; 82803; 82948; 83615; 83735; 83880; 84484; 85025; 85610; 85730; 87040; 87086; 93005; 94640; 94760; 97162; 97530; 99285; G0378; G8978; G8979

== ENCOUNTER 2018-09-01 14:09 | Inpatient (IN) | payer OTHER ==
[2018-09-01] MEDS ORDERED: Albuterol-Ipratrop 3 mg / 0.5 (3 ml) UD IH STA ×2 (14:15→14:22)
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
[2018-09-01 14:51] LABS: VENOUS BLOOD GAS PO2 108 mm/Hg (30-55); VENOUS BLOOD PH 7.37 (7.32-7.43)
[2018-09-01 14:57] LABS: BASO # 0.02 K/mm3 (0.0-2.0); BASO % 0.5 % (0.0-3.0); EOS # 0.1 (0.0-0.7); EOS % 1.7 % (1.5-5.0); GRAN # 1.96 (1.4-6.5); GRAN % 48.8 % (50.0-68.0); HEMOGLOBIN 13.1 g/dL (12.0-16.0); LYMPH # 1.4 (1.2-3.4); LYMPH % 33.8 % (22.0-35.0); MEAN CELL VOLUME 96.4 fl (80.0-105.0); MEAN CORPUSCULAR HEMOGLOBIN 31.5 pg (25.0-35.0); MEAN CORPUSCULAR HGB CONC 32.7 g/dl (31.0-37.0); MEAN PLATELET VOLUME 10.9 fl (7.0-11.0); MONO # 0.6 (0.1-0.6); MONO % 15.2 % (1.0-6.0); RBC 4.16 10^6/uL (3.5-6.1); RED CELL DISTRIBUTION WIDTH 14.3 % (11.5-14.5)
[2018-09-01 15:05] LABS: INR 1.02; PARTIAL THROMBOPLASTIN TIME 36.8 Seconds (25.1-36.5); PROTHROMBIN TIME 11.6 SECONDS (9.4-12.5)
--- NOTE | 2018-09-01 15:15 | CARD ---
APPROVED REPORT Date of service: 09/01/2018 EKG Measurement Heart [id number] <Conclusion> Normal sinus rhythm Normal ECG
[2018-09-01] MEDS ORDERED: guaiFENesin DM 200 mg-20 mg/10 ml UD PO PRN (15:47)
[2018-09-01] MEDS ORDERED: Albuterol 0.083% Inhal Sol (2.5 mg/3 mL) UD INH STA (15:52)
[2018-09-01 16:29] LABS: URINE APPEARANCE CLEAR (CLEAR); URINE BILIRUBIN NEGATIVE (NEGATIVE); URINE BLOOD LARGE (NEGATIVE); URINE COLOR YELLOW (YELLOW); URINE GLUCOSE (UA) NEGATIVE (NEGATIVE); URINE LEUKOCYTE ESTERASE TRACE Leu/uL (NEGATIVE); URINE PROTEIN NEGATIVE mg/dL (<30 mg/dL)
[2018-09-01 16:37] LABS: URINE EPITHELIAL CELLS 0 - 2 /hpf (0-5); URINE WBC 0 - 2 /hpf (0-6)
[2018-09-01 16:38] LABS: URINE BACTERIA NEG (NEG)
[2018-09-01 16:48] LABS: ALB/GLOB RATIO 0.8 (1.1-1.8); ALBUMIN 3.3 g/dL (3.0-4.8); ALT/SGPT 22 U/L (7-56); AST/SGOT 38 U/L (14-36); BLOOD UREA NITROGEN 12 mg/dL (7-21); CALCIUM 8.9 mg/dL (8.4-10.5); GFR NON-AFRICAN AMERICAN > 60
[2018-09-01 16:58] LABS: B-TYPE NATRIURETIC PEPTIDE 96.3 pg/mL (0-450); TROPONIN I < 0.01 ng/mL
[2018-09-01] MEDS ORDERED: Apap-Butalbital-Caffeine 325-50-40mg Tab PO PRN (18:05)
[2018-09-01] MEDS ORDERED: Albuterol-Ipratrop 3 mg / 0.5 (3 ml) UD IH PRN (18:05)
--- NOTE | 2018-09-01 18:21 | RAD ---
Date of service: 09/01/2018 HISTORY: Shortness of breath. COMPARISON: 05/01/2018. FINDINGS: LUNGS: No active pulmonary disease. Stable chronic interstitial lung disease. PLEURA: No significant pleural effusion identified, no pneumothorax apparent. CARDIOVASCULAR: No atherosclerotic calcification present Cardiomegaly. OSSEOUS STRUCTURES: No significant abnormalities. VISUALIZED UPPER ABDOMEN: Normal. OTHER FINDINGS: None. IMPRESSION: No active disease. No significant interval change compared to the prior examination(s).
[2018-09-01 20:09] LABS: VENOUS BLOOD GAS BASE EXCESS 5.6 mmol/L (0.0-2.0); VENOUS BLOOD GAS PO2 28 mm/Hg (30-55); VENOUS BLOOD PH 7.34 (7.32-7.43)
[2018-09-01 20:20] VITALS: BMI 62.1
[2018-09-01] MEDS ORDERED: Influenza Vaccine 60 mcg/0.5 mL SYR (4YR UP) IM ONE (20:21)
[2018-09-01] MEDS ORDERED: Pneumococcal 23-Valent Vaccine IM ONE (20:21)
[2018-09-01] MEDS: Albuterol-Ipratrop 3 mg / 0.5 (3 ml) UD IH SCH (20:42)
[2018-09-01] MEDS: Insulin Reg-HIGH-Coverage SC SCH (21:49)
[2018-09-01] MEDS: MethylPREDNISolone 40 mg Vial IV SCH (21:54)
[2018-09-01] MEDS ORDERED: TEMAZEPAM PO SCH (22:00)
[2018-09-01 23:32] LABS: VENOUS BLOOD GAS BASE EXCESS 6.5 mmol/L (0.0-2.0); VENOUS BLOOD GAS PO2 65 mm/Hg (30-55); VENOUS BLOOD PH 7.35 (7.32-7.43)
[2018-09-02] MEDS: Albuterol-Ipratrop 3 mg / 0.5 (3 ml) UD IH SCH ×4 (01:45→19:52)
--- NOTE | 2018-09-02 05:38 | HP ---
HISTORY OF PRESENT ILLNESS: The patient is a 53-year-old came to emergency room because of increasing cough, congestion, shortness of breath, had chills at home. She states she cannot walk small distance without getting short of breath. She cannot even go to the bathroom without getting short of breath. The patient states she has home oxygen, has been using more often, and her condition had got worse within the last 3 to 4 days. Did have chills and has productive cough, and she did notice that she has audible wheezing sound coming from her chest. Denies any nausea. Does complain of decreased appetite. The patient states she has been using her nebulizer with no significant relief. PAST MEDICAL HISTORY: Significant for 1. Being overweight. 2. Hypertension. 3. Evp-ezlbybs-kjgnbkgkl diabetes. 4. Degenerative disk disease. 5. Morbid obesity. 6. Anxiety disorder. ALLERGIES: SHE IS ALLERGIC TO CIPRO, CLARITHROMYCIN, CLINDAMYCIN, COLISTIN, HYDROMORPHONE, LEVAQUIN, AND PENICILLIN. SOCIAL HISTORY: She lives with her family. Denies smoking. Used to be heavy smoker, does smoke 5 to 6 cigarettes a day. MEDICATIONS AT HOME: The patient is on nebulizer treatment. She is on gabapentin, glimepiride 1 mg twice a day, ibuprofen, levothyroxine, Klonopin, temazepam and Zanaflex. REVIEW OF SYSTEMS: Significant for cough, congestion, and shortness of breath. PHYSICAL EXAMINATION GENERAL: She is awake, alert, able to communicate. VITAL SIGNS: She is afebrile, pulse 63, respirations 17, blood pressure 143/66. LUNGS: Bilateral fair airflow. No rhonchi or crackles. HEART: S1 and S2, audible. ABDOMEN: Soft, obese, nontender. No rebound, no guarding. NEUROLOGIC: The patient is awake, alert, and oriented. Able to communicate. Has generalized weakness. LABORATORY EXAM: WBC 4.0, hemoglobin 13, hematocrit 40, platelets 93. PT 11.6, INR 1.02. Chemistry: Sodium 141, potassium 3.5, chloride 107, CO2 of 30, BUN 12, creatinine 0.6, AST 38, alk phos 150. UA shows large blood, trace leukocytes. ASSESSMENT AND PLAN: 1. Chronic obstructive pulmonary disease exacerbation. 2. Morbid obesity. 3. Degenerative disk disease. 4. Hypertension. 5. Kre-pgormtq-fqzvnebvs diabetes. 6. Anxiety disorder. 7. Bipolar disorder. 8. Hypothyroidism. 9. History of migraine headaches. PLAN: The patient will be admitted to [facility]. We will start IV steroids, nebulizer treatment, out of bed to chair. We will monitor blood sugar, and we will order for CT of the chest to rule out underlying pneumonia. Karson Ruiz MD
[2018-09-02] MEDS: Pantoprazole 40 mg EC Tab PO SCH (06:02)
[2018-09-02] MEDS: Levothyroxine 200 MCG TAB PO SCH (06:02)
[2018-09-02 06:37] LABS: ALB/GLOB RATIO 0.8 (1.1-1.8); ALBUMIN 3.2 g/dL (3.0-4.8); ALT/SGPT 24 U/L (7-56); AST/SGOT 27 U/L (14-36); BLOOD UREA NITROGEN 13 mg/dL (7-21); GFR NON-AFRICAN AMERICAN > 60
[2018-09-02] MEDS: Insulin Reg-HIGH-Coverage SC SCH ×3 (07:51→16:19)
--- NOTE | 2018-09-02 08:52 | CT ---
Date of service: 09/02/2018 PROCEDURE: CT Chest without contrast HISTORY: Shortness of breath. COMPARISON: 04/20/2018. TECHNIQUE: Contiguous axial images were obtained through the chest without intravenous contrast enhancement. Sagittal and coronal reconstructions were performed. Radiation dose: Total exam DLP = 816.38 mGy-cm. This CT exam was performed using one or more of the following dose reduction techniques: Automated exposure control, adjustment of the mA and/or kV according to patient size, and/or use of iterative reconstruction technique. FINDINGS: LUNGS: Clear lungs. Visualized airway clear MEDIASTINUM: Unremarkable thoracic aorta. No aneurysm. Normal sized heart. Main pulmonary artery unremarkable. No vascular congestion. Stable mediastinal lymph nodes. No atherosclerotic calcification or mural plaque present. PLEURA: Trace right pleural effusion smaller than that seen previously. BONES: No fracture. No destructive lesion. Scoliosis, secondary degenerative change at multiple levels. UPPER ABDOMEN: Incompletely visualized cirrhotic liver and splenomegaly. OTHER FINDINGS: None. IMPRESSION: No acute findings related to/accounting for the clinical presentation. Interval improvement in previously identified infiltrates and pleural effusion. Additional benign and/or incidental findings described above.
[2018-09-02] MEDS: Potassium Chloride 20 mEq ER Tab PO SCH (09:58)
[2018-09-02] MEDS: MethylPREDNISolone 40 mg Vial IV SCH ×2 (09:59→21:33)
[2018-09-02] MEDS: cefTRIAXone 1 gm 1 GM/100 ML BAG IVPB SCH (09:59)
[2018-09-02] MEDS ORDERED: Potassium Chloride 10 mEq ER Tab PO SCH (10:00)
[2018-09-02] MEDS ORDERED: Levothyroxine 25 MCG TAB PO SCH (10:00)
--- NOTE | 2018-09-02 14:51 | PN ---
DATE: 09/02/2018 FOLLOWUP NOTE HISTORY OF PRESENT ILLNESS: Ms. Dumont is a 53-year-old female, admitted to the hospital with an increasing shortness of breath, chest congestion. No fever. Feeling lethargic. Has productive cough. Had chills. No rigors. CT chest done in the ED did not show any infiltrate. She has urine positive for E. coli. Continued IV antibiotic, ceftriaxone. PAST MEDICAL HISTORY: Overweight, hypertension, diabetes mellitus type 2, degenerative disk disease, morbid obesity, anxiety. ALLERGIES: MULTIPLE ALLERGIES TO CIPRO, CLARITHROMYCIN, CLINDAMYCIN, HYDROMORPHONE, LEVAQUIN, PENICILLIN. SOCIAL HISTORY: Lives with the family. No history of smoking. Ex heavy smoker. Lives at home. FAMILY HISTORY: Noncontributory. MEDICATIONS: Home medications are nebulizer, glimepiride, ibuprofen, levothyroxine, Klonopin, temazepam, Zanaflex. REVIEW OF SYSTEMS: As per HPI. Rest of 12-point review of systems reviewed negative. PHYSICAL EXAMINATION: GENERAL: Awake, alert, oriented, comfortable in chair. VITAL SIGNS: Afebrile, temperature 98.7; heart rate 60 per minute; respiratory rate 14 per minute; blood pressure 140/66. HEENT: Pallor positive. NECK: No lymphadenopathy. CHEST: Air entry present and equal, bilateral. No rhonchi. No crackle. ABDOMEN: Obese, soft, nontender. NEURO: Awake, alert, oriented x3. No focal sensorimotor deficits. EXTREMITIES: Bilateral 1+ edema. LABORATORY DATA: White count 4000, hemoglobin 13, hematocrit 40, platelets 93. INR 1.02. Sodium 141, potassium 3.5, creatinine 0.6. ASSESSMENT: 1. Chronic obstructive pulmonary disease exacerbation. 2. Escherichia coli urinary tract infection. 3. Leukopenia, anemia. 4. Migraine headache. 5. Bipolar. PLAN: She is currently on IV antibiotic, we will continue that. CT chest did not show any infiltrate, currently on Neurontin every 8 hours. We will continue that. Insulin, Synthroid 200 mcg daily, we will continue that. On IV steroids, Solu-Medrol 40 mg every 12 hours. Encourage ambulation. Protonix to continue. Sandra Mcfadden MD
[2018-09-03] MEDS: Albuterol-Ipratrop 3 mg / 0.5 (3 ml) UD IH SCH ×3 (01:20→20:43)
[2018-09-03] MEDS: Pantoprazole 40 mg EC Tab PO SCH (06:53)
[2018-09-03] MEDS: Levothyroxine 200 MCG TAB PO SCH (06:54)
[2018-09-03] MEDS: Insulin Reg-HIGH-Coverage SC SCH ×3 (07:30→16:24)
[2018-09-03] MEDS: Potassium Chloride 20 mEq ER Tab PO SCH (10:28)
[2018-09-03] MEDS: MethylPREDNISolone 40 mg Vial IV SCH ×2 (10:29→22:31)
[2018-09-03] MEDS: cefTRIAXone 1 gm 1 GM/100 ML BAG IVPB SCH (10:31)
--- NOTE | 2018-09-03 17:39 | PN ---
DATE: 09/03/2018 SUBJECTIVE: The patient is a 53-year-old, seen and examined, complaining of generalized weakness, complaining of difficulty walking, complaining of getting shortness of breath on walking. No nausea or vomiting. Eating fair. PHYSICAL EXAMINATION: VITAL SIGNS: She is afebrile. Pulse 63, respirations 20, blood pressure 100/50. LUNGS: Bilateral fair airflow. A few occasional expiratory rhonchi posteriorly. HEART: S1, S2 audible. ABDOMEN: Soft, obese, nontender. No rebound. No guarding. NEUROLOGICAL: The patient is awake, alert, oriented, able to communicate. LABORATORY DATA: There is no new lab available today. Blood sugar is 150. Urine culture positive for gram-positive cocci, identification to follow. ASSESSMENT: 1. Chronic obstructive pulmonary disease exacerbation. 2. Morbid obesity. 3. Qmt-vpdlnrk-vbgmoqvjf diabetes. 4. Hypertension. 5. Deconditioning and difficulty walking. PLAN: We will continue the patient on current medications. I will cut down methylprednisolone to 30 every 12 hours. Encourage ambulation. Awaiting physical therapy evaluation to make a disposition plan once we switch the steroid to p.o. Karson Ruiz MD
[2018-09-03 23:05] VITALS: TEMP 97.9
[2018-09-04] MEDS: Albuterol-Ipratrop 3 mg / 0.5 (3 ml) UD IH SCH ×3 (01:16→13:14)
[2018-09-04] MEDS: Levothyroxine 200 MCG TAB PO SCH (05:59)
[2018-09-04] MEDS: Insulin Reg-HIGH-Coverage SC SCH ×3 (07:03→14:18)
[2018-09-04] MEDS: Pantoprazole 40 mg EC Tab PO SCH (07:10)
[2018-09-04 07:41] VITALS: BP 121/66; PULSE 63; RESP 20; O2SAT 97
[2018-09-04] MEDS: Potassium Chloride 20 mEq ER Tab PO SCH (10:26)
[2018-09-04] MEDS: MethylPREDNISolone 40 mg Vial IV SCH (10:27)
[2018-09-04] MEDS: cefTRIAXone 1 gm 1 GM/100 ML BAG IVPB SCH (10:37)
--- NOTE | 2018-09-05 04:21 | DS ---
HISTORY OF PRESENT ILLNESS: The patient is a 53-year-old, seen and examined. She came in because of increasing shortness of breath, wheezing and cough, doing much better. Eating and tolerating. PHYSICAL EXAMINATION: VITAL SIGNS: She is afebrile, pulse 63, respirations 20, blood pressure 121/66. LUNGS: Bilateral fair airflow. No rhonchi or crackles. Few occasional expiratory rhonchi, posteriorly. HEART: S1, S2 audible. ABDOMEN: Soft, obese, nontender. No rebound. No guarding. NEUROLOGIC: She is awake, alert, oriented, communicative, and able to ambulate. LABORATORY DATA: Blood sugar is 108. ASSESSMENT: 1. Chronic obstructive pulmonary disease exacerbation. 2. Morbid obesity. 3. Hypertension. 4. Hyperlipidemia. 5. Degenerative disc disease. PLAN: We will discharge the patient on Vantin 200 mg twice a day and prednisone 20 mg twice a day for 5 days. The patient will follow with Dr. Palomo as an outpatient. Karson Ruiz MD
[2018-09-05] MEDS ORDERED: Cefpodoxime (Vantin) 200 mg Tab PO SCH (10:00)
== END 2018-09-04 19:51 | disposition home or self-care (01) | DRG 88 ==
LOC: ED 14:09 → ERH 17:23 → 5RSO 19:12 → OBSVTOIN 09-02 15:47 → INTOOBSV 09-03 15:32 → 5RSO 09-04 18:38
PROVIDERS: ADMIT Internal Medicine; ATTEND Internal Medicine
DX: J44.1 Chronic obstructive pulmonary disease with (acute) exacerbation (principal); N39.0 Urinary tract infection, site not specified; B96.20 Unspecified Escherichia coli [E. coli] as the cause of diseases classified elsewhere; E11.9 Type 2 diabetes mellitus without complications; D64.9 Anemia, unspecified; D72.819 Decreased white blood cell count, unspecified; E78.5 Hyperlipidemia, unspecified; E03.9 Hypothyroidism, unspecified; F31.9 Bipolar disorder, unspecified; G43.909 Migraine, unspecified, not intractable, without status migrainosus; I10 Essential (primary) hypertension; K21.9 Gastro-esophageal reflux disease without esophagitis; M51.9 Unspecified thoracic, thoracolumbar and lumbosacral intervertebral disc disorder; F41.9 Anxiety disorder, unspecified; R26.2 Difficulty in walking, not elsewhere classified; E66.01 Morbid (severe) obesity due to excess calories; Z68.44 Body mass index [BMI] 60.0-69.9, adult; Z79.84 Long term (current) use of oral hypoglycemic drugs; Z85.43 Personal history of malignant neoplasm of ovary; Z87.891 Personal history of nicotine dependence

== ENCOUNTER 2018-09-17 14:46 | Inpatient (IN) | payer OTHER ==
[2018-09-17 14:46] VITALS: BMI 62.1
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
[2018-09-17] MEDS: Albuterol-Ipratrop 3 mg / 0.5 (3 ml) UD IH SCH ×3 (16:05→16:33)
--- NOTE | 2018-09-17 16:19 | RAD ---
Date of service: 09/17/2018 HISTORY: dyspnea COMPARISON: 09/01/2018 FINDINGS: LUNGS: No active pulmonary disease. PLEURA: No significant pleural effusion identified, no pneumothorax apparent. CARDIOVASCULAR: No aortic atherosclerotic calcification present. Mild cardiomegaly mild vascular congestion OSSEOUS STRUCTURES: No significant abnormalities. VISUALIZED UPPER ABDOMEN: Normal. OTHER FINDINGS: None. IMPRESSION: Mild cardiomegaly and mild vascular congestion
[2018-09-17 16:34] LABS: BASO # 0.02 K/mm3 (0.0-2.0); BASO % 0.3 % (0.0-3.0); EOS # 0.1 (0.0-0.7); EOS % 0.9 % (1.5-5.0); GRAN # 5.33 (1.4-6.5); GRAN % 71.7 % (50.0-68.0); HEMOGLOBIN 13.8 g/dL (12.0-16.0); LYMPH # 1.3 (1.2-3.4); LYMPH % 17.8 % (22.0-35.0); MEAN CELL VOLUME 97.5 fl (80.0-105.0); MEAN CORPUSCULAR HEMOGLOBIN 31.9 pg (25.0-35.0); MEAN CORPUSCULAR HGB CONC 32.7 g/dl (31.0-37.0); MEAN PLATELET VOLUME 9.9 fl (7.0-11.0); MONO # 0.7 (0.1-0.6); MONO % 9.3 % (1.0-6.0); RBC 4.33 10^6/uL (3.5-6.1); RED CELL DISTRIBUTION WIDTH 14.8 % (11.5-14.5); WHITE BLOOD COUNT 7.4 10^3/uL (4.5-11.0)
[2018-09-17 16:50] LABS: ALB/GLOB RATIO 0.8 (1.1-1.8); ALBUMIN 3.3 g/dL (3.0-4.8); ALT/SGPT 42 U/L (7-56); AST/SGOT 37 U/L (14-36); BLOOD UREA NITROGEN 15 mg/dL (7-21); CALCIUM 9.2 mg/dL (8.4-10.5); GFR NON-AFRICAN AMERICAN > 60
--- NOTE | 2018-09-17 17:02 | CARD ---
APPROVED REPORT Date of service: 09/17/2018 EKG Measurement Heart [id number] [id number] <Conclusion> Normal sinus rhythm ST abnormality, possible digitalis effect Prolonged QT Abnormal ECG
[2018-09-17] MEDS ORDERED: Albuterol-Ipratrop 3 mg / 0.5 (3 ml) UD IH PRN (21:04)
[2018-09-17] MEDS: MethylPREDNISolone 40 mg Vial IV SCH (23:33)
[2018-09-18] MEDS: Albuterol-Ipratrop 3 mg / 0.5 (3 ml) UD IH SCH ×5 (01:34→19:29)
--- NOTE | 2018-09-18 03:55 | HP ---
DATE OF EXAM: HISTORY OF PRESENT ILLNESS: The patient is 53 years old came to emergency room because of increasing cough, congestion, shortness of breath. The patient states she has not been feeling well since then she was discharged. The patient was admitted on 09/02/2018 and she was discharged after 2 days; the patient states since then she has been having cough, congestion, shortness of breath, intermittent fever. The patient denies any nausea or vomiting. No history of chest pain. Does have shortness of breath. PAST MEDICAL HISTORY: Significant for: 1. Morbid obesity. 2. Hypertension. 3. Non-insulin dependent diabetes. 4. Degenerative disk disease. 5. Anxiety disorder. ALLERGIES: SHE IS ALLERGIC TO: 1. PENICILLIN. 2. LEVAQUIN. 3. HYDROMORPHONE. 4. COLISTIN. 5. CLINDAMYCIN. 6. CLARITHROMYCIN. 7. CIPRO. SOCIAL HISTORY: She lives with her . Used to smoke in the remote past. Used to be very heavy smoker. Still smokes a few cigarettes a day. MEDICATIONS AT HOME: She is on glimepiride 2 mg daily, nebulizer treatment, Klonopin, gabapentin, Seroquel, levothyroxine, sertraline. REVIEW OF SYSTEMS: Significant for cough, congestion, intermittent fever. PHYSICAL EXAMINATION: GENERAL: She is awake, alert, oriented, communicative. VITAL SIGNS: The patient is afebrile, pulse 96, respirations 18, blood pressure 120/51. LUNGS: Bilateral fair airflow. Bilateral rhonchi and crackle. HEART: S1 and S2 audible. ABDOMEN: Soft, obese, nontender. No rebound. No guarding. NEUROLOGIC: She is awake, alert, oriented, communicative. EXTREMITIES: Bilateral leg, +2 edema with chronic stasis dermatitis. LABORATORY DATA: WBC 7.4, hemoglobin 13.8, hematocrit 42.2, platelets 95. Chemistry; sodium 141, potassium 3.7, chloride 105, CO2 of 32, BUN 15, creatinine 0.5, blood sugar 129, total bili 2.3, alk phos 158. X-ray of chest, mild cardiomegaly and vascular congestion. ASSESSMENT: 1. Chronic obstructive pulmonary disease exacerbation. 2. Asthmatic bronchitis. 3. Morbid obesity. 4. Chronic degenerative disk disease. 5. Non-insulin dependent diabetes. PLAN: We will start the patient on IV steroid, nebulizer treatment. We will order CT scan of the chest for tomorrow. Monitor blood sugar. We will follow up in a.m. Karson Ruiz MD
[2018-09-18] MEDS: Levothyroxine 25 MCG TAB PO SCH (06:14)
[2018-09-18] MEDS: Levothyroxine 200 MCG TAB PO SCH (06:14)
[2018-09-18] MEDS: Insulin Lispro (humaLOG) MEDIUM Coverage SC SCH ×4 (08:11→21:28)
[2018-09-18] MEDS: MethylPREDNISolone 40 mg Vial IV SCH ×2 (09:57→21:19)
[2018-09-18] MEDS: TOPIRAMATE 100 MG PO SCH (09:58)
--- NOTE | 2018-09-18 10:42 | CT ---
Date of service: 09/18/2018 PROCEDURE: CT Chest without contrast HISTORY: SOB COMPARISON: Comparison made with CT chest 09/02/2018. TECHNIQUE: Contiguous axial images were obtained through the chest without intravenous contrast enhancement. Sagittal and coronal reconstructions were performed. Radiation dose: Total exam DLP = 1153.29 mGy-cm. This CT exam was performed using one or more of the following dose reduction techniques: Automated exposure control, adjustment of the mA and/or kV according to patient size, and/or use of iterative reconstruction technique. FINDINGS: LUNGS: Mild-moderate pulmonary venous congestion with more discrete patchy scattered opacities in both lower lobes left greater than right which may represent atelectasis and some chronic scarring changes. There also minor scarring changes in the right upper lobe and lung apex.. Minor atelectasis seen in the upper lobes as well. Previously noted small right-sided effusion improved. MEDIASTINUM: Heart remains enlarged. No significant pericardial effusion..The ascending thoracic aorta measures approximately 3. 4 cm and descending thoracic aorta measures approximately 2.9 cm. Pulmonary trunk measures approximately 3.2 cm. Minor aortic atherosclerotic calcification. PLEURA: No pleural fluid. No pneumothorax. BONES: No fracture. No destructive lesion. UPPER ABDOMEN: Cirrhotic appearing liver incompletely visualized. Additionally, incompletely visualized spleen remains enlarged measuring over 15 cm in AP dimension. Cholecystectomy. There are calcifications seen in the upper pole collecting system of both kidneys. The. The OTHER FINDINGS: None. IMPRESSION: Mild-moderate pulmonary venous congestive changes. There are more discrete patchy scattered opacities in both lower lobes that may represent atelectasis and chronic scarring changes. Minor atelectatic changes also seen in the posterior upper lobes previously noted small right-sided effusion improved. Hepatic cirrhosis. Marked splenomegaly. Cholecystectomy.
[2018-09-18] MEDS: Apap-Butalbital-Caffeine 325-50-40mg Tab PO PRN (20:34)
--- NOTE | 2018-09-18 22:18 | PN ---
DATE: 09/18/2018 SUBJECTIVE: The patient is a 53-year-old, seen and examined, complained of cough, congestion, chest pressure on coughing, feels very tired and fatigued, cannot walk without getting short of breath. Complaining of shortness of breath and chest discomfort when coughing. PHYSICAL EXAMINATION: VITAL SIGNS: She is afebrile, pulse 71, respirations 18, blood pressure 117/54. LUNGS: Bilateral soft crackles, more at bases. HEART: S1, S2 audible. ABDOMEN: Soft, nontender. No rebound, no guarding. NEUROLOGIC: The patient is awake, alert, oriented, able to communicate. LABORATORY DATA: Blood sugar is 187. ASSESSMENT: 1. Morbid obesity. 2. Congestive heart failure. 3. Chronic obstructive pulmonary disease exacerbation. 4. Hypertension. 5. Qkc-hqwbvqi-mnosmnaiv diabetes. PLAN: We will continue the patient on current medications. Continue nebulizer treatment. We will discontinue telemetry. Physical therapy evaluation has been requested. I will order for Dr. Mann for evaluation. Monitor blood sugar. We will reevaluate the patient in a.m. Karson Ruiz MD
[2018-09-18] MEDS: Non Formulary Medication (Temazepam [Restoril] 30 MG) PO SCH (23:50)
[2018-09-19] MEDS: Albuterol-Ipratrop 3 mg / 0.5 (3 ml) UD IH SCH ×4 (01:48→19:46)
[2018-09-19] MEDS: Levothyroxine 25 MCG TAB PO SCH (05:27)
[2018-09-19] MEDS: Levothyroxine 200 MCG TAB PO SCH (05:28)
[2018-09-19] MEDS ORDERED: Albuterol-Ipratrop 3 mg / 0.5 (3 ml) UD IH PRN (06:56)
[2018-09-19] MEDS: Insulin Lispro (humaLOG) MEDIUM Coverage SC SCH ×4 (08:42→21:25)
--- NOTE | 2018-09-19 09:50 | CON ---
PULMONARY CONSULTATION DATE: 09/19/2018 REASON FOR PULMONARY CONSULTATION: Chronic obstructive pulmonary disease. REFERRING PHYSICIAN: Dr. Ruiz. HISTORY OF PRESENT ILLNESS: The patient is a chronically ill 52-year-old female, with past medical history significant for advanced chronic obstructive pulmonary disease, positive extensive smoking history - still smokes, on home oxygen, asthma, obesity, diabetes mellitus, who presents with a 1-week history of increasing shortness of breath at rest, dyspnea on exertion, cough and sputum production. There is no history of chest pain, coughing up of blood or chest pain - made worse with deep respirations. There is no history of temperatures, chills or infectious exposure. There is no history of night sweats, weight loss or appetite change prior to the above events. No history of calf pains. No history of syncope or diaphoresis. No history of recent travel or trauma. REVIEW OF SYSTEMS. No history of nausea, vomiting or diarrhea. No acute urinary symptoms. No new neurological or musculoskeletal complaints. Rest of the review of systems negative. ALLERGIES: CIPROFLOXACIN, BIAXIN, CLINDAMYCIN, ERYTHROMYCIN, DILAUDID LEVAQUIN AND PENICILLIN. SOCIAL HISTORY: Positive for extensive tobacco usage - still smokes. No alcohol. FAMILY HISTORY: No inheritable diseases. HOME MEDICATIONS: Include Klonopin, Topiramate, Restoril, Zoloft, Seroquel, Lasix, Neurontin, DuoNebs, Zanaflex, prednisone and gabapentin. PHYSICAL EXAMINATION: GENERAL: The patient appears comfortable this morning. She is not short of breath at rest. VITAL SIGNS: Temperature is 97.9, pulse 66, respirations 19 and blood pressure 146/73. Oxygen saturation on nasal cannula is 96%. HEENT: Normocephalic and atraumatic. No JVD. CARDIOVASCULAR: Positive S1 and S2. No S3 gallop. LUNGS: Decreased breath sounds at the bases. Mild bilateral rhonchi. No wheezing. EXTREMITIES: Positive for edema. No cyanosis or clubbing. Calves are nontender to palpation. GASTROINTESTINAL: Abdomen is soft, nontender and nondistended. Bowel sounds are positive. SKIN: No acute rash. NEUROLOGIC: Limited at the present time. PERTINENT LABORATORY DATA: CAT scan of the chest was done yesterday. I did review the CAT scan. There are no significant infiltrates noted. There are scar like changes at both lower lobes. There are no obvious masses or nodules. There is no lymphadenopathy. CBC: White count 7.4K, hemoglobin 13.8, hematocrit 42.2 and platelets of 95,000. Complete metabolic profile: Glucose 129, bilirubin 2.3, AST 37 and alkaline phosphatase 158. Rest of the metabolic profile is within normal limits. IMPRESSION: 1. Acute bronchitis. 2. Advanced chronic obstructive pulmonary disease, on home oxygen. 3. Asthma. 4. Obesity. 5. Diabetes mellitus. PLAN: I did discuss the case with the night nurse at length. I have also reviewed the chart at length, and discussed the case with the patient at length. The patient presents to [facility] with a 1-week history of worsening pulmonary symptoms. The patient did have a CAT scan of the chest - noted above. There are scar like changes in both lower lobes. There are no significant infiltrates noted. There is no pulmonary mass or nodule noted. On physical exam, the patient is in [id number] bronchospasm. However, there is no significant alveolar-arterial gradient. I will continue the current nebulizer treatments and moderate dose intravenous steroids for now. I will also add inhaled budesonide. The patient was on a course of Vantin at home. There is no history of fevers. There is no leukocytosis. The patient does state to feeling much better overall, and is clinically improved. I have spoken with the patient again in reference to her social habits. The patient is followed by a private computational theory scientist (Dr. Rice) as an outpatient. Additional pulmonary intervention will be based on the clinical status of the patient. I will discuss the above with Dr. Ruiz. Thank you very much for this pulmonary consultation. Quang Mann MD [facility]
[2018-09-19] MEDS: MethylPREDNISolone 40 mg Vial IV SCH ×2 (09:51→21:26)
[2018-09-19] MEDS: TOPIRAMATE 100 MG PO SCH (10:37)
--- NOTE | 2018-09-19 11:50 | PN ---
DATE: 09/19/2018 SUBJECTIVE: The patient is 53 years old, seen and examined lying in bed. Still has cough, congestion with thick yellow greenish phlegm. Complained of shortness of breath on minimal exertion. PHYSICAL EXAMINATION: VITAL SIGNS: She is afebrile, pulse 66, respirations 19, blood pressure 143/73. LUNGS: Bilateral soft crackles, more so posteriorly. HEART: S1 and S2 audible. ABDOMEN: Soft, obese, nontender. No rebound. No guarding. NEUROLOGICAL: The patient is awake, alert, oriented, communicative. EXTREMITIES: Moves all extremities. His CT of the chest shows mild to moderate pulmonary venous congestion changes and discrete patchy scattered opacities in both lower lobes. ASSESSMENT: 1. Chronic obstructive pulmonary disease exacerbation. 2. Bilateral patchy infiltrate versus basal atelectasis. 3. Noninuslin-dependent diabetes. 4. Hypertension. 5. Hyperlipidemia. 6. Morbid obesity. PLAN: Currently, the patient is on nebulizer treatment. She is on glimepiride. She is getting Klonopin as needed. I will cut down her morning Klonopin since she is too sleepy during the activity time and she has been refusing physical therapy. Continue her on IV Lasix. I spoke to the therapist. We will start physical therapy and decide if the patient is a candidate of TCU or subacute rehab. Karson Ruiz MD
[2018-09-19] MEDS: guaiFENesin 100 mg/5 ml Syrup UD PO PRN (13:48)
[2018-09-19] MEDS: Apap-Butalbital-Caffeine 325-50-40mg Tab PO PRN ×2 (15:29→21:25)
[2018-09-19] MEDS ORDERED: Promethazine/Cod 6.25mg-10mg/5ml Syr UD PO ONE (20:58)
[2018-09-19] MEDS: Non Formulary Medication (Temazepam [Restoril] 30 MG) PO SCH (21:10)
[2018-09-20] MEDS: Albuterol-Ipratrop 3 mg / 0.5 (3 ml) UD IH SCH ×4 (01:15→19:28)
[2018-09-20] MEDS: Levothyroxine 25 MCG TAB PO SCH (06:21)
[2018-09-20] MEDS: Levothyroxine 200 MCG TAB PO SCH (06:21)
--- NOTE | 2018-09-20 07:25 | PN ---
DATE: 09/20/2018 PULMONARY NOTE SUBJECTIVE: The patient appears comfortable this morning. She is not short of breath at rest. PHYSICAL EXAMINATION: VITAL SIGNS: Temperature is 97.8, pulse 61, respirations 18/20, blood pressure 142/72. Oxygen saturation on nasal cannula is 96%. HEENT: Normocephalic, atraumatic. No JVD. CARDIOVASCULAR: Positive S1, S2. No S3 gallop. LUNGS: Decreased breath sounds at the bases. Much less rhonchi. No wheezing. EXTREMITIES: Positive for edema. No cyanosis. No clubbing. Calves are nontender to palpation. GI: Abdomen is soft, nontender and nondistended. Bowel sounds are positive. SKIN: No acute rash. NEUROLOGIC: Limited at the present time. IMPRESSION: 1. Acute bronchitis. 2. Advanced chronic obstructive pulmonary disease. 3. Asthma. 4. Obesity. 5. Diabetes mellitus. PLAN: The patient appears comfortable this morning. She is not short of breath at rest. She does state to feeling much better overall. On physical exam, her bronchospasm is definitely less. In addition, the alveolar-arterial gradient is also less. I will continue with the current nebulizer treatments and decrease the intravenous steroids this morning. I would also like to see the patient out of bed more often. Physical therapy evaluation is pending. Clinical status of the patient is definitely improved - compared to the initial presentation. She does remain guarded overall - as she continues to have advanced lung disease. I will discuss the above with Dr. Ruiz. Quang Mann MD MTD[facility]ianney
[2018-09-20] MEDS: Budesonide 0.5 mg/2 ml Inhal Susp UD IH SCH ×2 (07:57→19:29)
[2018-09-20] MEDS: Insulin Lispro (humaLOG) MEDIUM Coverage SC SCH ×4 (09:03→21:34)
[2018-09-20] MEDS: MethylPREDNISolone 40 mg Vial IVP SCH ×2 (09:27→21:38)
[2018-09-20] MEDS: TOPIRAMATE 100 MG PO SCH (09:31)
[2018-09-20] MEDS ORDERED: Promethazine 6.25 MG/5 ML CUP PO ONE ×2 (11:28→12:21)
--- NOTE | 2018-09-20 13:17 | PN ---
DATE: 09/20/2018 SUBJECTIVE: The patient is 53 years old, seen and examined, lying in bed, seems to be comfortable, still has productive cough. Complaining of generalized weakness. According to therapist, she is not participating in physical therapy either. PHYSICAL EXAMINATION: VITAL SIGNS: She is afebrile, pulse 61, respiration 22, blood pressure 108/45. LUNGS: Bilateral soft crackle in upper lung region. Bilateral lungs, few expiratory rhonchi. Decreased breath sounds at bases. HEART: S1 and S2 audible. No gallop. ABDOMEN: Soft, obese, and nontender. No rebound. No guarding. NEUROLOGICAL: The patient is awake, alert, able to communicate, moves all extremities, answering appropriately. LABORATORY DATA: Blood sugar is 103. ASSESSMENT: 1. Chronic obstructive pulmonary disease exacerbation. 2. Morbid obesity. 3. Hypertension. 4. Chronic headaches. 5. Cwo-kjsgxqz-qbrwgyedb diabetes. PLAN: We will continue patient on IV steroids, nebulizer treatment. We will discontinue telemetry. The patient is receiving Risperdal, cut down the nighttime Klonopin because the patient seems to be too sleepy. We will get input from physical therapy to evaluate that if she need to go to subacute rehab or she should be discharged home. Karson Ruiz MD
[2018-09-20] MEDS: Apap-Butalbital-Caffeine 325-50-40mg Tab PO PRN ×2 (16:29→22:28)
[2018-09-20] MEDS: guaiFENesin 100 mg/5 ml Syrup UD PO PRN (18:25)
[2018-09-20] MEDS: TEMAZEPAM 15 MG PO SCH (21:37)
[2018-09-21] MEDS: Albuterol-Ipratrop 3 mg / 0.5 (3 ml) UD IH SCH ×4 (02:16→19:46)
[2018-09-21] MEDS: Levothyroxine 25 MCG TAB PO SCH (05:59)
[2018-09-21] MEDS: Levothyroxine 200 MCG TAB PO SCH (05:59)
[2018-09-21] MEDS: Insulin Lispro (humaLOG) MEDIUM Coverage SC SCH ×4 (08:00→21:37)
--- NOTE | 2018-09-21 08:16 | PN ---
DATE: 09/21/2018 PULMONARY NOTE SUBJECTIVE: The patient appears comfortable this morning. She is not short of breath at rest. PHYSICAL EXAMINATION: VITAL SIGNS: (Last noted in the computer): The temperature is 99.2, pulse 76, respirations 19, blood pressure 143/69. Oxygen saturation on nasal cannula is 95%. HEENT: Normocephalic, atraumatic. No JVD. CARDIOVASCULAR: Positive S1, S2. No S3 gallop. LUNGS: Decreased breath sounds at the bases. Less rhonchi. No wheezing. EXTREMITIES: Positive for edema. No cyanosis, no clubbing. Calves are nontender to palpation. GASTROINTESTINAL: Abdomen is soft, nontender, and nondistended. Bowel sounds are positive. SKIN: No acute rash. NEUROLOGIC: Limited at the present time. IMPRESSION: 1. Acute bronchitis. 2. Advanced chronic obstructive pulmonary disease. 3. Asthma. 4. Obesity. 5. Diabetes mellitus. PLAN: The patient appears comfortable this morning. She is not short of breath at rest. She does state to feeling much better overall. On physical exam, her bronchospasm continues to slowly resolve. In addition, the alveolar-arterial gradient also continues to resolve. I will continue with the current nebulizer treatments and current intravenous steroids (decreased yesterday) for now. Clinical status of the patient appears significantly improved - compared to the initial presentation. The patient will need considerable physical therapy input - to get her back on her feet and walking. Due to her advanced lung disease, the patient's future status/prognosis certainly remains guarded. I will discuss the above with the attending physician. Quang Mnan MD [facility]TD[facility]
[2018-09-21] MEDS: MethylPREDNISolone 40 mg Vial IVP SCH ×2 (09:03→21:36)
[2018-09-21] MEDS: guaiFENesin 100 mg/5 ml Syrup UD PO PRN (11:55)
[2018-09-21] MEDS: Apap-Butalbital-Caffeine 325-50-40mg Tab PO PRN ×2 (13:40→20:32)
--- NOTE | 2018-09-21 13:40 | PN ---
DATE: 09/21/2018 SUBJECTIVE: The patient is a 53-year-old. Sitting by the edge of the bed. First time participated in therapy today. Eating and tolerating. Still has cough and congestion with phlegm production. PHYSICAL EXAMINATION VITAL SIGNS: She is afebrile. Pulse 62, respirations 20, blood pressure 138/61. LUNGS: Bilateral few expiratory rhonchi, a lot of chest congestion. HEART: S1, S2 audible. No gallop. ABDOMEN: Soft, obese, nontender, no rebound, no guarding. NEUROLOGIC: She is awake, alert, oriented, communicative, moves all extremities. Has generalized weakness. LABORATORY DATA: WBC 7.4, hemoglobin 13.8, hematocrit 42.2, platelets 95. Chemistry: Blood sugar is 165. ASSESSMENT: 1. Chronic obstructive pulmonary disease exacerbation. 2. Asthmatic bronchitis. 3. Morbid obesity. 4. Deconditioning and difficulty walking. 5. Bilateral atelectasis. 6. Lsp-ooxnnma-obnibrikp diabetes. 7. Chronic headache. PLAN: We will continue nebulizer treatment, taper down her steroids. Continue to monitor blood sugar according to therapy. We will make arrangement for subacute rehab. Once she is approved, she can be transferred to subacute rehab. Karson Ruiz MD
[2018-09-21] MEDS: TOPIRAMATE 100 MG PO SCH (14:01)
[2018-09-21] MEDS: Budesonide 0.5 mg/2 ml Inhal Susp UD IH SCH (19:46)
[2018-09-21] MEDS: TEMAZEPAM 15 MG PO SCH (21:39)
[2018-09-22] MEDS ORDERED: Oxycodone/Acetaminophen 5/325 mg Tab PO ONE (01:28)
[2018-09-22] MEDS: Albuterol-Ipratrop 3 mg / 0.5 (3 ml) UD IH SCH ×4 (03:01→20:11)
[2018-09-22] MEDS: Levothyroxine 200 MCG TAB PO SCH (05:46)
[2018-09-22] MEDS: Levothyroxine 25 MCG TAB PO SCH (05:46)
[2018-09-22] MEDS: guaiFENesin 100 mg/5 ml Syrup UD PO PRN (06:02)
[2018-09-22] MEDS: Budesonide 0.5 mg/2 ml Inhal Susp UD IH SCH ×2 (07:39→20:12)
[2018-09-22] MEDS: Insulin Lispro (humaLOG) MEDIUM Coverage SC SCH ×4 (09:07→21:58)
[2018-09-22] MEDS: MethylPREDNISolone 40 mg Vial IVP SCH ×2 (09:10→21:33)
[2018-09-22] MEDS: TOPIRAMATE 100 MG PO SCH (11:58)
[2018-09-22] MEDS: Oxycodone/Acetaminophen 5/325 mg Tab PO PRN ×2 (12:01→20:00)
[2018-09-22] MEDS: Apap-Butalbital-Caffeine 325-50-40mg Tab PO PRN (15:14)
[2018-09-22] MEDS: TOPIRAMATE 150 MG PO SCH (21:34)
[2018-09-22] MEDS: TEMAZEPAM 30 MG PO SCH (21:58)
[2018-09-22] MEDS ORDERED: TEMAZEPAM 30 MG PO SCH (22:00)
[2018-09-22] MEDS ORDERED: POLYETHYLENE GLYCOL 3350 17 GM/Dose PACKET PO ONE (22:00)
[2018-09-22] MEDS ORDERED: Home Med 1 UNIT PO SCH ×2 (22:00)
[2018-09-23] MEDS: Albuterol-Ipratrop 3 mg / 0.5 (3 ml) UD IH SCH ×4 (01:33→19:47)
[2018-09-23] MEDS: Oxycodone/Acetaminophen 5/325 mg Tab PO PRN ×3 (02:11→22:35)
[2018-09-23] MEDS: Levothyroxine 25 MCG TAB PO SCH (05:31)
[2018-09-23] MEDS: Levothyroxine 200 MCG TAB PO SCH (05:34)
[2018-09-23] MEDS: Budesonide 0.5 mg/2 ml Inhal Susp UD IH SCH ×2 (08:15→19:48)
[2018-09-23] MEDS: Insulin Lispro (humaLOG) MEDIUM Coverage SC SCH ×4 (08:23→22:00)
[2018-09-23] MEDS: MethylPREDNISolone 40 mg Vial IVP SCH ×2 (09:46→21:24)
[2018-09-23] MEDS ORDERED: TOPIRAMATE 100 MG PO SCH (10:00)
[2018-09-23] MEDS: TOPIRAMATE 100 MG PO SCH (10:56)
--- NOTE | 2018-09-23 14:09 | PN ---
DATE: 09/23/2018 SUBJECTIVE: The patient has no complaints of any chest pain, no shortness of breath, no headaches. She says she is breathing better. PHYSICAL EXAMINATION: VITAL SIGNS: Temperature is 97.9, pulse of 59, blood pressure is 127/66, respiration 20. GENERAL: The patient is lying in bed, flat, comfortable. HEENT: No oral lesion. Anicteric sclerae. Moist mucosa. NECK: No JVD, adenopathy, or thyromegaly. CARDIOVASCULAR: S1 and S2, regular. No murmurs, rubs, or gallops. LUNGS: Clear to auscultation bilaterally. No wheeze, rales, or rhonchi. ABDOMEN: Bowel sounds are positive, soft, nontender and nondistended. EXTREMITIES: No cyanosis, clubbing or edema. LABORATORY DATA: White count of 7.4, hemoglobin 13.8, creatinine 0.5. ASSESSMENT: 1. Acute chronic obstructive pulmonary disease. 2. Bronchitis. 3. Constipation. 4. Anxiety. 5. Gait dysfunction. 6. Diabetes type 2. 7. Chronic headaches. PLAN: The patient said she takes high doses of Klonopin than she is getting in the hospital and we will increase her Klonopin. She is on Amaryl for her diabetes type 2. She is on heparin for DVT prophylaxis. She is going to be on Lasix daily. The patient is on MiraLax for constipation. She is on a nicotine patch. She is on Percocet for pain. She is receiving Solu-Medrol for her COPD. She is on Seroquel, which will be continued. She is on Synthroid for her hypothyroidism. She is on Neurontin for her neuropathy. She is on Zoloft for her anxiety. This will be continued. Adam Wisdom MD
[2018-09-23] MEDS: Apap-Butalbital-Caffeine 325-50-40mg Tab PO PRN (16:21)
[2018-09-23] MEDS: TEMAZEPAM 30 MG PO SCH (21:25)
[2018-09-23] MEDS: TOPIRAMATE 150 MG PO SCH (21:25)
[2018-09-24] MEDS: Albuterol-Ipratrop 3 mg / 0.5 (3 ml) UD IH SCH ×3 (01:37→13:32)
[2018-09-24] MEDS: Oxycodone/Acetaminophen 5/325 mg Tab PO PRN (04:45)
[2018-09-24] MEDS: Levothyroxine 25 MCG TAB PO SCH (05:12)
[2018-09-24] MEDS: Levothyroxine 200 MCG TAB PO SCH (05:13)
[2018-09-24 06:55] VITALS: RESP 20
[2018-09-24 07:10] VITALS: BP 113/60; PULSE 54; TEMP 98.3; O2SAT 96
[2018-09-24] MEDS: Budesonide 0.5 mg/2 ml Inhal Susp UD IH SCH (07:46)
--- NOTE | 2018-09-24 08:05 | PN ---
DATE: 09/24/2018 SUBJECTIVE: The patient appears comfortable this morning. She is not short of breath at rest. PHYSICAL EXAMINATION: VITAL SIGNS (LAST NOTED IN THE COMPUTER): Temperature is 98.2, pulse is 60, respirations 18, blood pressure 107/56. Oxygen saturation on nasal cannula is 97%. HEENT: Normocephalic, atraumatic. NECK: No JVD. CARDIOVASCULAR: Positive S1, S2. No S3 gallop. LUNGS: Decreased breath sounds at the bases. Much less/minimal rhonchi. No wheezing. EXTREMITIES: Positive for edema. No cyanosis. No clubbing. Calves are nontender to palpation. GASTROINTESTINAL: Abdomen is soft, nontender and nondistended. Bowel sounds are positive. SKIN: No acute rash. NEUROLOGIC: Exam limited at the present time. IMPRESSION: 1. Acute bronchitis. 2. Advanced chronic obstructive pulmonary disease. 3. Asthma. 4. Obesity. 5. Diabetes mellitus. PLAN: The patient appears comfortable this morning. She is not short of breath at rest. She does state to feeling much, much better overall. On physical exam, her bronchospasm is certainly less. In addition, the alveolar-arterial gradient is also much less. I will continue the current nebulizer treatments and decrease the intravenous steroids this morning. Clinical status of the patient appears significantly improved - compared to her initial presentation. However, again, the future status/prognosis for this patient does remain guarded - as she continues to have advanced lung disease. I will discuss the above with the attending physician. Quang Mann MD [facility]END[facility]
--- NOTE | 2018-09-24 08:36 | PN ---
DATE: 09/22/2018 PULMONARY PROGRESS NOTE SUBJECTIVE: The patient still has respiratory distress. This is chronic in nature. There are no acute changes noted. The patient believes that her corticosteroids had been decreased. This is not the case as I have discussed this at length with the registered nurse. The patient has a history of severe restrictive lung disease secondary to obesity and pulmonary sarcoidosis. The patient has had acute and chronic sarcoidosis in the past. She has been treated with vigorous corticosteroids and Plaquenil. Further therapy was not available at that time. The status of her pulmonary sarcoidosis is not yet determined. The patient in addition had severe chronic obstructive pulmonary disease and cardiovascular disease. She has severe obesity with restrictive lung disease and diabetes mellitus. At this time, the patient denies any respiratory changes worse than what she has as a normal basis. She has not been followed up by Pulmonary in many years. The current status of her sarcoidosis is not known. PHYSICAL EXAMINATION GENERAL: The patient is sitting in bed, in no acute respiratory distress, stating that she thinks she is slightly more short of breath, but then admits that this is her chronic state of affairs. VITAL SIGNS: Shows a low-grade temperature of 99. Her heart rate is 80, respiratory rate 18, blood pressure 140/70, O2 sat on nasal cannula 96%. HEENT: Normocephalic, atraumatic. No jugular venous distention. CARDIOVASCULAR: Regular rhythm. S1, S2 without murmur, gallop or rub. CHEST: Decrease in breath sounds. Minimal rales appreciated. Minimal rhonchi noted. No wheezing appreciated. ABDOMEN: Soft. Bowel sounds normoactive. Obese. Normoactive bowel sounds. EXTREMITIES: Reveal edema. No cyanosis or clubbing. Homans' sign is negative. SKIN: Puffy. No rash or excoriation. No sarcoid lesions noted. NEUROLOGIC: Shows no focality. The patient is awake and alert. Her mentation appears to be normal. The CAT scan done several days ago shows multiple abnormalities including bilateral infiltrates, atelectasis, fibrosis, possible lymphadenopathy. CLINICAL IMPRESSION: 1. Sarcoidosis. 2. Abnormal CAT scan of the chest. 3. Advanced chronic obstructive pulmonary disease. 4. Severe restrictive lung disease. 5. Bronchospasm. 6. Obesity. 7. Diabetes mellitus. PLAN: The patient is to continue medication for COPD and mild pulmonary vascular congestion. CAT scan is abnormal. Further evaluation for recurrent sarcoidosis is essential. W will do AMALIA level and gallium scan. Echocardiogram to rule out additional pathology. Monitor AA gradient as followed by Dr. Mann. Continue hand nebulizer treatments. Close followup is essential. Continue vigorous supportive care and we will follow closely with you. Frankie Valladares MD
--- NOTE | 2018-09-24 08:37 | PN ---
DATE: 09/23/2018 PULMONARY PROGRESS NOTE SUBJECTIVE: Today, Neena is feeling somewhat better. There are no complaints, other than generalized weakness. She denies shortness of breath or discomfort. PHYSICAL EXAMINATION: GENERAL: The patient remains comfortable with no acute distress. VITAL SIGNS: Stable. She is afebrile. O2 saturation improved. HEENT: Normocephalic, atraumatic. NECK: Supple. No JVD. CARDIOVASCULAR: Regular rhythm without murmur, gallop, or rub. LUNGS: Global decrease in breath sounds, adventitious sounds persist. ABDOMEN: Obese, soft, nontender. EXTREMITIES: Reveal no clubbing, cyanosis, or edema. NEUROLOGIC: No focal findings. SKIN: Dry; intact IMPRESSION: As that of yesterday. The patient needs to have workup for sarcoidosis. The erythrocyte sedimentation rate is elevated. Angiotensin-converting enzyme is not yet been returned. Echocardiogram and gallium scan are still pending. The patient's acute bronchospasm is significantly improved. There is no evidence of pulmonary vascular congestion at this time. PLAN: As discussed yesterday, we will follow up on blood work and testing already ordered. We will attempt to expedite. The patient needs close outpatient followup. Sarcoidosis needs to be entertained as a working diagnosis. It is not clear at this time whether this condition is chronic in nature or there is an exacerbation. Gallium scan and angiotensin-converting enzyme should help. Close monitoring of bronchospasm. Taper steroids as tolerated. We will follow closely with you. To be discussed at length with Dr. Mann and Dr. Ruiz. Thank you for the opportunity to see the patient once again. Frankie Valladares MD [facility]
--- NOTE | 2018-09-24 08:58 | PN ---
DATE: 09/22/2018 SUBJECTIVE: Patient is 53 years old seen and examined, seems to be more alert, complaining of back pain, asking to increase her Zanaflex for her back pain. Denies any nausea or vomiting, eating and tolerating. PHYSICAL EXAMINATION: VITAL SIGNS: Patient is afebrile, pulse 57, respirations 20, blood pressure 111/60. LUNGS: Bilateral fair airflow. No rhonchi or crackle. Soft crackle upon coughing appreciated in lungs posteriorly in mid and lower lung region. HEART: S1, S2 audible. ABDOMEN: Soft, obese, nontender. No rebound, no guarding. NEUROLOGICAL: She is awake, alert, oriented, communicative, moves all extremities, complains of back pain. ASSESSMENT: 1. Morbid obesity. 2. Chronic obstructive pulmonary disease exacerbation. 3. Hypertension. 4. Chronic migraine headaches. 5. Chronic back pain. 6. Anxiety disorder. PLAN: We will continue patient on nebulizer treatment, she is on IV steroids, she is deconditioned, needs to be in subacute rehab. Arrangement is being made to transfer her to subacute rehab and possible discharge on . Karson Ruiz MD
[2018-09-24] MEDS: Insulin Lispro (humaLOG) MEDIUM Coverage SC SCH ×2 (09:43→11:32)
[2018-09-24] MEDS: TOPIRAMATE 100 MG PO SCH (09:46)
[2018-09-24] MEDS ORDERED: MethylPREDNISolone 40 mg Vial IVP SCH (10:00)
--- NOTE | 2018-09-24 23:34 | DS ---
HISTORY OF PRESENT ILLNESS: The patient is 53 years old who brought to emergency room because of increasing cough, congestion, and shortness of breath. The patient states she has been increasingly short of breath, weak, tired, and unable to walk for almost two weeks. The patient was recently admitted on 09/02/2018, she was given tapering lot of steroid, antibiotic. The patient still actively smokes almost half a pack a day. PAST MEDICAL HISTORY: Significant for: 1. Morbid obesity. 2. Migraine headache. 3. Anxiety disorder. 4. Depression. 5. Hypothyroidism. 6. Hoy-zqpzbyz-bntssevdr diabetes. 7. Diabetic neuropathy. 8. Chronic back pain. 9. Chronic constipation. ALLERGIES: THE PATIENT HAS MULTIPLE ALLERGIES INCLUDING CIPRO, CLARITHROMYCIN, CLINDAMYCIN, COLISTIN, LEVAQUIN, AND PENICILLIN. The patient's hospital stay was unremarkable. She was generally weak, but did not participate in therapy, recommendation was to transfer back to subacute rehab. PHYSICAL EXAMINATION: GENERAL: She is awake, alert, oriented, ambulatory, and communicative. VITAL SIGNS: She is afebrile, pulse 64, respirations 20, and blood pressure 113/60. LUNGS: Bilateral diffusely decreased breath sounds. Few occasional scattered expiratory rhonchi. HEART: S1 and S2 audible. ABDOMEN: Soft and nontender. No rebound. No guarding. NEUROLOGIC: The patient is awake, alert, oriented, communicative, and moves all extremities. Bilateral chronic stasis dermatitis. LABORATORY AND DIAGNOSTIC DATA: Blood sugar 131. CT scan of the chest was done that shows bilateral basal atelectasis and bxen-ia-hhkslzno pulmonary venous congestion with patchy scattered opacities in both lower lung regions with possible chronic scarring. ASSESSMENT: 1. Chronic obstructive pulmonary disease exacerbation. 2. Asthmatic bronchitis. 3. Hypertension. 4. Rlg-clplcqh-lltbwsyrx diabetes. PLAN: The patient will be discharged today to [facility] where she will receive tapering dose of steroids. Continue nebulizer treatment. Monitor blood sugar and on-call doctor will be taking over her care. Karson Ruiz MD
== END 2018-09-24 16:15 | DRG 140 ==
LOC: ED 14:46 → ERH 17:14 → 2RNO 21:30 → 3RSO 09-20 14:21
PROVIDERS: ADMIT Internal Medicine; ATTEND Internal Medicine
DX: J44.1 Chronic obstructive pulmonary disease with (acute) exacerbation (principal); I11.0 Hypertensive heart disease with heart failure; I50.9 Heart failure, unspecified; D86.0 Sarcoidosis of lung; J20.9 Acute bronchitis, unspecified; J44.0 Chronic obstructive pulmonary disease with (acute) lower respiratory infection; E11.40 Type 2 diabetes mellitus with diabetic neuropathy, unspecified; E03.9 Hypothyroidism, unspecified; E66.01 Morbid (severe) obesity due to excess calories; E78.5 Hyperlipidemia, unspecified; F17.210 Nicotine dependence, cigarettes, uncomplicated; G43.909 Migraine, unspecified, not intractable, without status migrainosus; K59.00 Constipation, unspecified; M54.9 Dorsalgia, unspecified; G89.29 Other chronic pain; J98.11 Atelectasis; J98.4 Other disorders of lung; Z68.44 Body mass index [BMI] 60.0-69.9, adult; Z79.84 Long term (current) use of oral hypoglycemic drugs; Z85.43 Personal history of malignant neoplasm of ovary; Z99.81 Dependence on supplemental oxygen

== ENCOUNTER 2018-10-02 21:30 | Inpatient (IN) | payer OTHER ==
[2018-10-02 21:30] VITALS: BMI 62.1
[2018-10-02] MEDS ORDERED: Oxycodone/Acetaminophen 5/325 mg Tab PO STA (21:51)
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
[2018-10-02] MEDS ORDERED: Morphine 2 mg/ml ISec SC STA (23:42)
[2018-10-02 23:59] LABS: INR 1.05; PARTIAL THROMBOPLASTIN TIME 34.7 Seconds (25.1-36.5)
[2018-10-03 00:09] LABS: TROPONIN I 0.01 ng/mL
[2018-10-03 00:11] LABS: ALB/GLOB RATIO 0.8 (1.1-1.8); ALT/SGPT 55 U/L (7-56); AST/SGOT 52 U/L (14-36); BLOOD UREA NITROGEN 14 mg/dL (7-21); GFR NON-AFRICAN AMERICAN > 60
[2018-10-03 00:28] LABS: PH,URINE 8.5 (4.7-8.0); URINE BILIRUBIN NEGATIVE (NEGATIVE); URINE BLOOD LARGE (NEGATIVE); URINE GLUCOSE (UA) NEGATIVE (NEGATIVE); URINE LEUKOCYTE ESTERASE SMALL Leu/uL (NEGATIVE); URINE PROTEIN TRACE mg/dL (<30 mg/dL)
[2018-10-03 00:30] LABS: URINE COLOR YELLOW (YELLOW)
[2018-10-03 00:31] LABS: URINE APPEARANCE CLOUDY (CLEAR)
[2018-10-03] MEDS ORDERED: Potassium Chloride 20 mEq ER Tab PO STA (00:49)
[2018-10-03 01:17] LABS: URINE RBC 20 - 25 /hpf (0-2)
[2018-10-03 01:18] LABS: URINE AMORPHOUS SEDIMENT MANY; URINE BACTERIA LARGE (NEG)
[2018-10-03 02:14] LABS: BASO # 0.01 K/mm3 (0.0-2.0); BASO % 0.1 % (0.0-3.0); EOS # 0.1 (0.0-0.7); EOS % 0.9 % (1.5-5.0); GRAN # 5.79 (1.4-6.5); GRAN % 67.9 % (50.0-68.0); HEMOGLOBIN 12.5 g/dL (12.0-16.0); LYMPH # 1.7 (1.2-3.4); LYMPH % 20.2 % (22.0-35.0); MEAN CELL VOLUME 95.5 fl (80.0-105.0); MEAN CORPUSCULAR HEMOGLOBIN 31.6 pg (25.0-35.0); MEAN CORPUSCULAR HGB CONC 33.1 g/dl (31.0-37.0); MEAN PLATELET VOLUME 9.6 fl (7.0-11.0); MONO # 0.9 (0.1-0.6); MONO % 10.9 % (1.0-6.0); RBC 3.96 10^6/uL (3.5-6.1); RED CELL DISTRIBUTION WIDTH 15.1 % (11.5-14.5); WHITE BLOOD COUNT 8.5 10^3/uL (4.5-11.0)
[2018-10-03] MEDS ORDERED: Dextrose 50% SYRINGE Inj (50 ml) IV PRN (03:34)
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
[2018-10-03] MEDS ORDERED: Albuterol-Ipratrop 3 mg / 0.5 (3 ml) UD IH PRN ×2 (03:58→04:08)
[2018-10-03] MEDS: Levothyroxine 200 MCG TAB PO SCH (05:41)
[2018-10-03] MEDS: Levothyroxine 25 MCG TAB PO SCH (05:41)
[2018-10-03] MEDS: Sodium Chloride 0.9% 1,000 ML IV SCH ×2 (06:50→19:10)
[2018-10-03 07:27] LABS: TROPONIN I 0.02 ng/mL
[2018-10-03 07:32] LABS: FREE T4 1.88 ng/dL (0.78-2.19)
[2018-10-03] MEDS: Insulin Lispro (humaLOG) LOW Coverage SC SCH ×4 (08:26→22:19)
--- NOTE | 2018-10-03 09:53 | CT ---
Date of service: 10/03/2018 PROCEDURE: CT HEAD WITHOUT CONTRAST. HISTORY: fall COMPARISON: 05/01/2018. TECHNIQUE: Axial computed tomography images were obtained through the head/brain without intravenous contrast. Supplemental Coronal and Sagittal projections created and reviewed. Radiation dose: Total exam DLP = 1071.28 mGy-cm. This CT exam was performed using one or more of the following dose reduction techniques: Automated exposure control, adjustment of the mA and/or kV according to patient size, and/or use of iterative reconstruction technique. FINDINGS: HEMORRHAGE: No intracranial hemorrhage. BRAIN: No mass effect or edema. No atrophy or chronic microvascular ischemic changes. VENTRICLES: Unremarkable. No hydrocephalus. CALVARIUM: Unremarkable. PARANASAL SINUSES: Unremarkable as visualized. No significant inflammatory changes. MASTOID AIR CELLS: Unremarkable as visualized. No inflammatory changes. OTHER FINDINGS: None. IMPRESSION: No acute intracranial abnormalities. No significant findings to account for the clinical presentation. No significant interval change compared to the prior examination(s). Concordant results (preliminary interpretation) provided by [employer]. Procedure Completed: 01:02. Preliminary Report: Dictated and Authenticated: 02:22. Final Interpretation: 09:49.
[2018-10-03] MEDS ORDERED: TOPIRAMATE 150 MG PO SCH (10:00)
[2018-10-03] MEDS: Enoxaparin 40 mg Syringe SC SCH (10:34)
--- NOTE | 2018-10-03 10:49 | RAD ---
Date of service: 10/03/2018 PROCEDURE: Radiographs of the pelvis. HISTORY: fall COMPARISON: None. FINDINGS: BONES: Pelvic Bones: Unremarkable. Hips: Grossly unremarkable. JOINTS: Sacroiliac Joints: Unremarkable. Pubic Symphysis: Unremarkable. OTHER FINDINGS: None. IMPRESSION: No acute findings related to/accounting for the clinical presentation. Concordant results with the preliminary interpretation rendered by the emergency department physician procedure.
--- NOTE | 2018-10-03 10:49 | RAD ---
Date of service: 10/03/2018 PROCEDURE: CHEST RADIOGRAPH, 1 VIEW HISTORY: syncope COMPARISON: 09/17/2018 FINDINGS: LUNGS: Clear. PLEURA: No pneumothorax or pleural fluid seen. CARDIOVASCULAR: No aortic atherosclerotic calcification present. No radiographic findings to suggest acute or significant cardiovascular disease. OSSEOUS STRUCTURES: No significant abnormalities. VISUALIZED UPPER ABDOMEN: Normal. OTHER FINDINGS: None. IMPRESSION: No active disease. No acute/significant interval changes.
--- NOTE | 2018-10-03 10:52 | RAD ---
Date of service: 10/03/2018 PROCEDURE: Left Wrist Radiographs. HISTORY: fall COMPARISON: None. FINDINGS: BONES: No definite fracture. Oblique lucency traversing the distal ulna. The finding is marked on the study for review. JOINTS: Normal. No dislocation. SOFT TISSUES: Soft tissue swelling about the wrist. OTHER FINDINGS: None. IMPRESSION: Lucency through the distal left ulna without cortical disruption. This may represent an atypical fracture and should be viewed in this context given soft tissue swelling. Follow-up radiographs if clinically appropriate recommended in 7-10 days. Per institutional protocol, the study has been designated for physician assistant manager retail review.
[2018-10-03] MEDS: Nystatin 100,000 Units/gm Cream(15 gm) TOP SCH ×3 (12:30→17:59)
[2018-10-03 12:35] LABS: HEPATITIS B SURFACE AG Negative (NEGATIVE)
[2018-10-03 12:41] LABS: HEPATITIS A IGM NEGATIVE (NEGATIVE); HEPATITIS B CORE AB NEGATIVE (NEGATIVE)
[2018-10-03 12:53] LABS: HEPATITIS C ANTIBODY NEGATIVE (NEGATIVE)
--- NOTE | 2018-10-03 13:43 | CARD ---
APPROVED REPORT Date of service: 10/02/2018 EKG Measurement Heart [id number] <Conclusion> Normal sinus rhythm IVCD STTW changes c/w ischemia Prolonged QT
--- NOTE | 2018-10-03 15:07 | US ---
PROCEDURE: Lower extremity JITENDRA exam HISTORY: Peripheral vascular disease with pain and claudication. Diabetes. Previous smoker PHYSICIAN(S): Panda Osorio MD. FINDINGS: The resting JITENDRA's are normal: right, 1.10and left, 0.96. The brachial systolic pressures are symmetric. The low thigh waveforms are relatively normal. The calf PVR waveforms augment normally. No significant gradients are noted across the thighs. The ankle and metatarsal waveforms are relatively normal and symmetric. No significant pressure gradients are noted across the lower legs. IMPRESSION: 1. Relatively normal JITENDRA and PVR examination at rest.
--- NOTE | 2018-10-03 15:08 | US ---
HISTORY: Leg pain and swelling. Evaluate for DVT PHYSICIAN(S): Panda Osorio MD. TECHNIQUE: Duplex sonography and color-flow Doppler with graded compression were used to evaluate the deep venous systems of both lower extremities. The exam is limited by edema FINDINGS: The visualized deep venous systems of both lower extremities are sonographically normal and compressible. Normal wave forms and augmentation are seen. There is no sonographic evidence for deep venous thrombosis in the visualized segments of both lower extremities. IMPRESSION: No sonographic evidence for deep venous thrombosis in the visualized segments of both lower extremities.
--- NOTE | 2018-10-03 15:40 | US ---
PROCEDURE: Bilateral carotid artery duplex ultrasound HISTORY: Carotid stenosis PHYSICIAN(S): Panda Osorio MD. TECHNIQUE: Duplex sonography and color-flow Doppler were used to evaluate the carotid bifurcations and limited segments of the vertebral arteries bilaterally. FINDINGS: There is mild smooth diffuse plaque noted at the carotid bifurcations bilaterally. The peak systolic velocity in the proximal right internal carotid artery is 86 cm/sec. This corresponds to a 20 to 39% proximal right ICA stenosis. Normal systolic velocities are noted in the proximal right external carotid artery. There is antegrade flow in the right vertebral artery. The peak systolic velocity in the proximal left internal carotid artery is 105 cm/sec. This corresponds to a 20 to 39% proximal left ICA stenosis. Normal systolic velocities are noted in the proximal left external carotid artery. There is antegrade flow in the left vertebral artery. IMPRESSION: 1. Bilateral 20-39% proximal ICA stenoses. 2. Antegrade flow in both vertebral arteries.
--- NOTE | 2018-10-03 16:36 | CT ---
Date of service: 10/03/2018 PROCEDURE: CT of the left upper extremity without contrast HISTORY: w/o contrast- r/o L distal ulna fracture COMPARISON: Plain film same day TECHNIQUE: Radiation dose: Total exam DLP = 177.45 mGy-cm. This CT exam was performed using one or more of the following dose reduction techniques: Automated exposure control, adjustment of the mA and/or kV according to patient size, and/or use of iterative reconstruction technique. FINDINGS: There is a questionable fracture of the distal ulna on plain film. There is no fracture seen on C T. The carpal bones are also intact. There is no soft tissue abnormality. IMPRESSION: No evidence of fracture
[2018-10-04] MEDS: Sodium Chloride 0.9% 1,000 ML IV SCH ×2 (02:50→06:16)
[2018-10-04] MEDS: Levothyroxine 25 MCG TAB PO SCH (06:32)
[2018-10-04] MEDS: Levothyroxine 200 MCG TAB PO SCH (06:32)
[2018-10-04 07:04] LABS: BASO # 0.02 K/mm3 (0.0-2.0); BASO % 0.5 % (0.0-3.0); EOS # 0.1 (0.0-0.7); GRAN # 2.35 (1.4-6.5); HEMOGLOBIN 11.9 g/dL (12.0-16.0); LYMPH # 1.4 (1.2-3.4); LYMPH % 31.4 % (22.0-35.0); MEAN CELL VOLUME 96.8 fl (80.0-105.0); MEAN CORPUSCULAR HEMOGLOBIN 31.5 pg (25.0-35.0); MEAN CORPUSCULAR HGB CONC 32.5 g/dl (31.0-37.0); MEAN PLATELET VOLUME 9.7 fl (7.0-11.0); MONO # 0.6 (0.1-0.6); MONO % 13.1 % (1.0-6.0); RBC 3.78 10^6/uL (3.5-6.1); RED CELL DISTRIBUTION WIDTH 15.4 % (11.5-14.5); WHITE BLOOD COUNT 4.4 10^3/uL (4.5-11.0)
[2018-10-04 07:38] LABS: ALB/GLOB RATIO 0.8 (1.1-1.8); ALBUMIN 2.6 g/dL (3.0-4.8); ALT/SGPT 45 U/L (7-56); AST/SGOT 59 U/L (14-36); BLOOD UREA NITROGEN 11 mg/dL (7-21); CALCIUM 8.2 mg/dL (8.4-10.5); GFR NON-AFRICAN AMERICAN > 60
[2018-10-04] MEDS ORDERED: Potassium Chloride 20 mEq ER Tab PO ONE (07:54)
[2018-10-04] MEDS: Insulin Lispro (humaLOG) LOW Coverage SC SCH ×4 (08:32→22:10)
[2018-10-04] MEDS: Enoxaparin 40 mg Syringe SC SCH (09:19)
[2018-10-04] MEDS: Nystatin 100,000 Units/gm Cream(15 gm) TOP SCH ×2 (09:29→14:03)
--- NOTE | 2018-10-04 11:04 | CP.PCM.PN ---
<Quintin Oseguera - Last Filed: 10/04/18 11:00> Subjective - Date & Time of Evaluation Date of Evaluation: 10/04/18 Time of Evaluation: 11:00 - Subjective Subjective: PGY1 Medicine Progress Note for Dr. Humberto Covington Patient seen and evaluated at bedside this morning. No acute events overnight. Patient without complaints. 12 point ROS negative. Objective - Vital Signs/Intake and Output Vital Signs (last 24 hours): Temp Pulse Resp BP Pulse Ox 97.8 F 70 20 106/53 L 96 10/04/18 06:00 10/04/18 06:00 10/04/18 06:00 10/04/18 06:00 10/04/18 06:00 Intake and Output: 10/04/18 10/04/18 06:59 18:59 Intake Total 4200 Output Total 1300 Balance 2900 - Medications Medications: Current Medications Albuterol/Ipratropium (Duoneb 3 Mg/0.5 Mg (3 Ml) Ud) 3 ml IH Q6H PRN PRN Reason: Shortness of Breath Clonazepam (Klonopin) 1 mg PO AMHS PRN; Protocol PRN Reason: Anxiety Dextrose (Dextrose 50% Inj) 0 ml IV STAT PRN; Protocol PRN Reason: Hypoglycemia Protocol Enoxaparin Sodium (Lovenox) 40 mg SC DAILY [facility]; Protocol Last Admin: 10/04/18 09:19 Dose: 40 mg Famotidine (Pepcid) 20 mg PO DAILY [facility] Last Admin: 10/04/18 09:20 Dose: 20 mg Gabapentin (Neurontin) 300 mg PO TID [facility]; Protocol Last Admin: 10/04/18 09:20 Dose: 300 mg Dextrose (Dextrose 5% In Water 1000 Ml) 1,000 mls @ 0 mls/hr IV .Q0M PRN; Protocol PRN Reason: Hypoglycemia Protocol Ibuprofen (Motrin Tab) 400 mg PO Q6H PRN PRN Reason: Pain, Mild (1-3) Last Admin: 10/03/18 16:11 Dose: 400 mg Insulin Human Lispro (Humalog Low) 0 units SC ACHS [facility]; Protocol Last Admin: 10/04/18 08:32 Dose: Not Given Levothyroxine Sodium (Synthroid) 200 mcg PO 0600 [facility] Last Admin: 10/04/18 06:32 Dose: 200 mcg Levothyroxine Sodium (Synthroid) 25 mcg PO 0600 [facility] Last Admin: 10/04/18 06:32 Dose: 25 mcg Nicotine (Nicoderm Cq) 1 patch TD DAILY [facility] Last Admin: 10/04/18 09:21 Dose: 1 patch Nystatin (Mycostatin Cream) 2 ea TOP TID [facility] Last Admin: 10/04/18 09:29 Dose: 2 applic Sertraline HCl (Zoloft) 200 mg PO DAILY [facility] Last Admin: 10/04/18 09:20 Dose: 200 mg Topiramate (Topamax) 100 mg PO BID [facility]; Protocol Last Admin: 10/04/18 09:20 Dose: 100 mg - Labs Labs: 10/04/18 06:45 10/04/18 06:45 PT 12.0 SECONDS (9.4-12.5) 10/02/18 23:00 INR 1.05 10/02/18 23:00 APTT 34.7 Seconds (25.1-36.5) 10/02/18 23:00 - Additional Findings Additional findings: - Constitutional Appears: No Acute Distress - Head Exam Head Exam: ATRAUMATIC, NORMOCEPHALIC - Eye Exam Eye Exam: EOMI, Normal appearance, PERRL Pupil Exam: NORMAL ACCOMODATION - ENT Exam ENT Exam: Mucous Membranes Moist - Neck Exam Neck exam: Positive for: Normal Inspection - Respiratory Exam Respiratory Exam: Clear to Auscultation Bilateral, NORMAL BREATHING PATTERN. absent: Rales, Rhonchi, Wheezes, Respiratory Distress, Stridor - Cardiovascular Exam Cardiovascular Exam: REGULAR RHYTHM, +S1, +S2. absent: Gallop, Rubs, Systolic Murmur L breast: white collection with surrounding erythema in L lateral inframammary fold - GI/Abdominal Exam GI & Abdominal Exam: Normal Bowel Sounds, Soft. absent: Distended, Firm, Tenderness Additional comments: large body habitus - Extremities Exam Extremities exam: Positive for: pedal edema Additional comments: LUE: tenderness to palpation of L 1st MCP, purpura noted on posterior L hand. limited ROM due to pain stasis derm changes in b/l LE: xerotic, erythematous hyperpigmented - Back Exam Back exam: NORMAL INSPECTION. absent: rash noted - Neurological Exam Neurological exam: Alert, Oriented x3 Neuro: no sensory defecits. 4/5 muscle strength in LLE and LUE. 5/5 muscle strength in RUE and RLE - Psychiatric Exam Psychiatric exam: Normal Affect, Normal Mood - Skin Skin Exam: Dry Assessment and Plan - Assessment and Plan (Free Text) Assessment: Patient is a 53-year-old Female with PMH COPD, Type 2 Diabetes Mellitus, Pseudotumor Cerebri, Hypothyroid, Depression, Anxiety, and Bipolar Disorder who was brought to ED status-post mechanical fall, admitted for further evaluation and treatment. Plan: Mechanical Fall/Pre-Syncope - Status-post fall when walking up stairs, pt denies loss of consciousness - Signed out of rehab 10/02 AGAINST MEDICAL ADVICE - CT head: no acute pathology - X-Ray pelvis: no acute findings - X-Ray left wrist: no acute findings - Orthostatics - Fall precautions - Carotid US: Bilateral 20-39% Proximal ICU Stenosis (See full report for details) - ECHO (11/30): EF 58%, normal LV function, nl diastolic function - PT/OT COPD - Duonebs q4h PRN - CXR 10/03: no active disease DM - Glucose 127 - Low dose sliding scale - Hypoglycemia protocol Hypothyroid - Free T4=1.88 TSH < 0.02 - Start home synthroid 225mcg PO AM Hypokalemia - K+ 3.0 on admission; Repleted in the ED - Magnesium=1.9 - Monitor daily CMP Transaminitis - AST 52 - Alk Phos 199 - Follow-up Hepatitis panel - Continue to monitor Hx of Pseudotumor Cerebri - Start home topamax - Topomax 150 PO AMHS - Topomax 100 PO AM Intertrigo: - Left breast - Likely ludivina - Nystatin topical cream to area Depression/Anxiety - Dlonopin 1mg PO daily - Zoloft 100mg PO daily - Seroquel 100mg PO BID - Neurontin 300mg PO TID Tobacco Use History - Nicotine patch PPX DVT: lovenox 40 sc GI: pepcid 20 po HHD Patient seen and case discussed in detail with Attending Physician Dr. Humberto Oseguera PGY1 <Carie Covington R - Last Filed: 10/05/18 18:52> Objective - Vital Signs/Intake and Output Vital Signs (last 24 hours): Temp Pulse Resp BP Pulse Ox 98 F 73 20 127/67 98 10/05/18 14:00 10/05/18 14:00 10/05/18 14:00 10/05/18 14:00 10/05/18 14:00 Intake and Output: 10/05/18 10/05/18 06:59 18:59 Intake Total 300 Output Total 550 Balance -250 - Medications Medications: Current Medications Albuterol/Ipratropium (Duoneb 3 Mg/0.5 Mg (3 Ml) Ud) 3 ml IH Q6H PRN PRN Reason: Shortness of Breath Clonazepam (Klonopin) 1 mg PO AMHS PRN; Protocol PRN Reason: Anxiety Last Admin: 10/05/18 09:57 Dose: 1 mg Dextrose (Dextrose 50% Inj) 0 ml IV STAT PRN; Protocol PRN Reason: Hypoglycemia Protocol Enoxaparin Sodium (Lovenox) 40 mg SC DAILY [facility]; Protocol Last Admin: 10/05/18 09:57 Dose: 40 mg Famotidine (Pepcid) 20 mg PO DAILY [facility] Last Admin: 10/05/18 09:57 Dose: 20 mg Gabapentin (Neurontin) 300 mg PO TID [facility]; Protocol Last Admin: 10/05/18 17:30 Dose: 300 mg Dextrose (Dextrose 5% In Water 1000 Ml) 1,000 mls @ 0 mls/hr IV .Q0M PRN; Protocol PRN Reason: Hypoglycemia Protocol Ibuprofen (Motrin Tab) 400 mg PO Q6H PRN PRN Reason: Pain, Mild (1-3) Last Admin: 10/03/18 16:11 Dose: 400 mg Insulin Human Lispro (Humalog Low) 0 units SC ACHS [facility]; Protocol Last Admin: 10/05/18 17:25 Dose: Not Given Levothyroxine Sodium 200 mcg/ (Levothyroxine Sodium 25 mcg) 225 mcg PO 0600 [facility] Last Admin: 10/05/18 06:10 Dose: 225 mcg Nicotine (Nicoderm Cq) 1 patch TD DAILY [facility] Last Admin: 10/05/18 09:57 Dose: 1 patch Nystatin (Mycostatin Cream) 2 ea TOP TID [facility] Last Admin: 10/05/18 14:05 Dose: Not Given Sertraline HCl (Zoloft) 200 mg PO DAILY [facility] Last Admin: 10/05/18 09:58 Dose: 200 mg Topiramate (Topamax) 100 mg PO BID [facility]; Protocol Last Admin: 10/05/18 18:25 Dose: 100 mg - Labs Labs: 10/05/18 07:00 10/05/18 07:00 PT 12.0 SECONDS (9.4-12.5) 10/02/18 23:00 INR 1.05 10/02/18 23:00 APTT 34.7 Seconds (25.1-36.5) 10/02/18 23:00 Attending/Attestation - Attestation I have personally seen and examined this patient.: Yes I have fully participated in the care of the patient.: Yes I have reviewed all pertinent clinical information, including history, physical exam and plan: Yes Notes (Text): Patient seen and examined by me with resident at 8:40 AM on 10/04/18. Case including HPI, physical exam, and assessment and plan discussed with resident. Agree with above with following additions/corrections. Patient is a 53-year-old female past medical history significant for COPD, type 2 diabetes, pseudotumor cerebri, hypothyroidism, depression, anxiety, and bipolar disorder presented to the emergency room after having a mechanical fall. Patient states she is feeling ok. Complains of pain in her left wrist. States the wrist brace she is wearing helps. Patient denies chest pain or shortness of breath. No headaches or dizziness. No change in vision. No fevers or chills. No nausea, vomiting, or abdominal pain. No dysuria. No diarrhea or constipation. Physical exam: General: Awake and alert lying in bed in no acute distress. HEENT: Normocephalic, atraumatic. Extraocular muscles intact, pupils equal and reactive, no scleral icterus. Oropharynx is pink and moist. Neck is supple. Cardiovascular: Normal rhythm. Normal S1 and S2. No murmurs, rubs, or gallops appreciated Pulmonary: Normal respiratory effort. No rhonchi, rales, or wheezing appreciated. Gastrointestinal: Soft, nondistended. Nontender. Morbidly obsese abdomen. Positive bowel sounds all 4 quadrants. No guarding. Musculoskeletal: Moves all extremities. No calf tenderness. Trace lower extremity edema appreciated. Central nervous system: AAOx3 Dermatologic: Skin warm and dry. Positive bilateral lowe extremity chronic venous stasis color changes. Positive intertrigo left breast fold. Assessment and plan: Patient is a 53-year-old female past medical history significant for COPD, type 2 diabetes, pseudotumor cerebri, hypothyroidism, depression, anxiety, and bipolar disorder presented to the emergency room after having a mechanical fall. 1. Mechanical fall. No loss of consciousness. Head CT per radiologist showed no acute intracranial abnormalities. Pelvic x-ray per radiologist showed no acute findings related to/accounting for the clinical presentation. Left wrist x-ray per radiologist showed lucency through the distal left ulna without cortical disruption. CT of left upper extremity per radiologist shows no evidence of fracture. Carotid ultrasounds per radiologist showed bilateral 20-39% proximal ICA stenosis. Physical therapist following and recommends [facility]. 2. COPD. Not in acute exacerbations. Continue nebulizer treatments as needed. 3. DM2. Continue insulin sliding scale. HgbA1C 5.6. Blood sugars on the lower side. Diabetic diet stopped. 4. Elevated LFTs. Downtrending. No abdominal pain. Continue to monitor. 5. Hypothyroidism. Free T4 within normal limits. Continue synthroid. 6. Hypokalemia. Replete potassium. Follow up repeat labs in AM. 7. Intertrigo. Left breast fold. Continue nystatin 8. Pseudotumor Cerebri. Continue topamax 9. Depression and anxiety. Bipolar disorder. Continue klonopin as needed. Continue Gabapentin. Continue Zoloft. 10. Tobacco abuse. Counseled on cessation. Continue with nictoine patch 11. Morbid obesity. Counseled on diet and exercise. 12. GI/DVT prophylaxis. Pepcid/lovenox Case discussed in detail with patient regarding current diagnosis and treatment plan. All questions answered.
[2018-10-05] MEDS ORDERED: Levothyroxine 25 MCG TAB ONE (06:11)
[2018-10-05 07:28] LABS: BASO # 0.02 K/mm3 (0.0-2.0); BASO % 0.6 % (0.0-3.0); EOS # 0.1 (0.0-0.7); EOS % 1.7 % (1.5-5.0); GRAN # 1.67 (1.4-6.5); GRAN % 47.4 % (50.0-68.0); HEMOGLOBIN 11.6 g/dL (12.0-16.0); LYMPH # 1.3 (1.2-3.4); LYMPH % 37.8 % (22.0-35.0); MEAN CELL VOLUME 98.1 fl (80.0-105.0); MEAN CORPUSCULAR HEMOGLOBIN 31.6 pg (25.0-35.0); MEAN CORPUSCULAR HGB CONC 32.2 g/dl (31.0-37.0); MEAN PLATELET VOLUME 10.1 fl (7.0-11.0); MONO # 0.4 (0.1-0.6); MONO % 12.5 % (1.0-6.0); RBC 3.67 10^6/uL (3.5-6.1); RED CELL DISTRIBUTION WIDTH 15.5 % (11.5-14.5); WHITE BLOOD COUNT 3.5 10^3/uL (4.5-11.0)
[2018-10-05 07:49] LABS: ALB/GLOB RATIO 0.7 (1.1-1.8); ALBUMIN 2.5 g/dL (3.0-4.8); ALT/SGPT 45 U/L (7-56); AST/SGOT 43 U/L (14-36); BLOOD UREA NITROGEN 13 mg/dL (7-21); CALCIUM 8.5 mg/dL (8.4-10.5); GFR NON-AFRICAN AMERICAN > 60
[2018-10-05] MEDS: Insulin Lispro (humaLOG) LOW Coverage SC SCH ×2 (09:09→17:25)
[2018-10-05] MEDS: Nystatin 100,000 Units/gm Cream(15 gm) TOP SCH ×2 (09:56→14:05)
[2018-10-05] MEDS: Enoxaparin 40 mg Syringe SC SCH (09:57)
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
--- NOTE | 2018-10-05 16:50 | CP.PCM.PN ---
<Matheus Andres - Last Filed: 10/05/18 17:01> Subjective - Date & Time of Evaluation Date of Evaluation: 10/05/18 Time of Evaluation: 11:00 - Subjective Subjective: INTERNAL MEDICINE PROGRESS NOTE FOR DR. OLIVIA Andres PGY-1 Pt seen and examined at bedside this am. No acute nursing events overnight. No acute complaints. 12 point ROS is negative Objective - Vital Signs/Intake and Output Vital Signs (last 24 hours): Temp Pulse Resp BP Pulse Ox 98 F 73 20 127/67 98 10/05/18 14:00 10/05/18 14:00 10/05/18 14:00 10/05/18 14:00 10/05/18 14:00 Intake and Output: 10/05/18 10/05/18 06:59 18:59 Intake Total 300 Output Total 550 Balance -250 - Medications Medications: Current Medications Albuterol/Ipratropium (Duoneb 3 Mg/0.5 Mg (3 Ml) Ud) 3 ml IH Q6H PRN PRN Reason: Shortness of Breath Clonazepam (Klonopin) 1 mg PO AMHS PRN; Protocol PRN Reason: Anxiety Last Admin: 10/05/18 09:57 Dose: 1 mg Dextrose (Dextrose 50% Inj) 0 ml IV STAT PRN; Protocol PRN Reason: Hypoglycemia Protocol Enoxaparin Sodium (Lovenox) 40 mg SC DAILY [facility]; Protocol Last Admin: 10/05/18 09:57 Dose: 40 mg Famotidine (Pepcid) 20 mg PO DAILY [facility] Last Admin: 10/05/18 09:57 Dose: 20 mg Gabapentin (Neurontin) 300 mg PO TID [facility]; Protocol Last Admin: 10/05/18 14:03 Dose: 300 mg Dextrose (Dextrose 5% In Water 1000 Ml) 1,000 mls @ 0 mls/hr IV .Q0M PRN; Protocol PRN Reason: Hypoglycemia Protocol Ibuprofen (Motrin Tab) 400 mg PO Q6H PRN PRN Reason: Pain, Mild (1-3) Last Admin: 10/03/18 16:11 Dose: 400 mg Insulin Human Lispro (Humalog Low) 0 units SC ACHS [facility]; Protocol Last Admin: 10/05/18 09:09 Dose: Not Given Levothyroxine Sodium 200 mcg/ (Levothyroxine Sodium 25 mcg) 225 mcg PO 0600 [facility] Last Admin: 10/05/18 06:10 Dose: 225 mcg Nicotine (Nicoderm Cq) 1 patch TD DAILY [facility] Last Admin: 10/05/18 09:57 Dose: 1 patch Nystatin (Mycostatin Cream) 2 ea TOP TID [facility] Last Admin: 10/05/18 14:05 Dose: Not Given Sertraline HCl (Zoloft) 200 mg PO DAILY [facility] Last Admin: 10/05/18 09:58 Dose: 200 mg Topiramate (Topamax) 100 mg PO BID [facility]; Protocol Last Admin: 10/05/18 09:56 Dose: 100 mg - Labs Labs: 10/05/18 07:00 10/05/18 07:00 PT 12.0 SECONDS (9.4-12.5) 10/02/18 23:00 INR 1.05 10/02/18 23:00 APTT 34.7 Seconds (25.1-36.5) 10/02/18 23:00 - Constitutional Appears: Well, Non-toxic, No Acute Distress - Head Exam Head Exam: ATRAUMATIC, NORMAL INSPECTION - Eye Exam Eye Exam: EOMI, Normal appearance - ENT Exam ENT Exam: Mucous Membranes Moist, Normal Exam - Neck Exam Neck Exam: Normal Inspection - Respiratory Exam Respiratory Exam: Clear to Ausculation Bilateral, NORMAL BREATHING PATTERN - Cardiovascular Exam Cardiovascular Exam: REGULAR RHYTHM, +S1, +S2 - GI/Abdominal Exam GI & Abdominal Exam: Distended, Soft. absent: Tenderness - Extremities Exam Extremities Exam: Normal Inspection. absent: Calf Tenderness - Back Exam Back Exam: NORMAL INSPECTION - Neurological Exam Neurological Exam: Alert, Oriented x3 - Psychiatric Exam Psychiatric exam: Normal Affect, Normal Mood - Skin Skin Exam: Dry, Intact, Warm Additional comments: Dark ecchymoses noted on tricep region b/l Assessment and Plan - Assessment and Plan (Free Text) Assessment: Patient is a 53-year-old Female with PMH COPD, Type 2 Diabetes Mellitus, Pseudotumor Cerebri, Hypothyroid, Depression, Anxiety, and Bipolar Disorder who was brought to ED status-post mechanical fall, admitted for further evaluation and treatment. Plan: Mechanical Fall/Pre-Syncope Status-post fall when walking up stairs, pt denies loss of consciousness Signed out of rehab 10/[address] head: no acute pathology X-Ray pelvis: no acute findings X-Ray left wrist: no acute findings Orthostatics Fall precautions Carotid US: Bilateral 20-39% Proximal ICU Stenosis (See full report for details) ECHO (11/30): EF 58%, normal LV function, nl diastolic function PT/OT COPD Duonebs q4h PRN CXR 10/03: no active disease DM Low dose sliding scale Hypoglycemia protocol Hypothyroid Free T4=1.88 TSH < 0.02 Start home synthroid 225mcg PO AM Hypokalemia Replete as necessary Transaminitis Follow-up 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, pt refusing. Case seen, examined and discussed with attending physician, Dr. Covington <Carie Covington R - Last Filed: 10/05/18 18:58> Objective - Vital Signs/Intake and Output Vital Signs (last 24 hours): Temp Pulse Resp BP Pulse Ox 98 F 73 20 127/67 98 10/05/18 14:00 10/05/18 14:00 10/05/18 14:00 10/05/18 14:00 10/05/18 14:00 Intake and Output: 10/05/18 10/05/18 06:59 18:59 Intake Total 300 Output Total 550 Balance -250 - Medications Medications: Current Medications Albuterol/Ipratropium (Duoneb 3 Mg/0.5 Mg (3 Ml) Ud) 3 ml IH Q6H PRN PRN Reason: Shortness of Breath Clonazepam (Klonopin) 1 mg PO AMHS PRN; Protocol PRN Reason: Anxiety Last Admin: 10/05/18 09:57 Dose: 1 mg Dextrose (Dextrose 50% Inj) 0 ml IV STAT PRN; Protocol PRN Reason: Hypoglycemia Protocol Enoxaparin Sodium (Lovenox) 40 mg SC DAILY [facility]; Protocol Last Admin: 10/05/18 09:57 Dose: 40 mg Famotidine (Pepcid) 20 mg PO DAILY [facility] Last Admin: 10/05/18 09:57 Dose: 20 mg Gabapentin (Neurontin) 300 mg PO TID [facility]; Protocol Last Admin: 10/05/18 17:30 Dose: 300 mg Dextrose (Dextrose 5% In Water 1000 Ml) 1,000 mls @ 0 mls/hr IV .Q0M PRN; Protocol PRN Reason: Hypoglycemia Protocol Ibuprofen (Motrin Tab) 400 mg PO Q6H PRN PRN Reason: Pain, Mild (1-3) Last Admin: 10/03/18 16:11 Dose: 400 mg Insulin Human Lispro (Humalog Low) 0 units SC ACHS [facility]; Protocol Last Admin: 10/05/18 17:25 Dose: Not Given Levothyroxine Sodium 200 mcg/ (Levothyroxine Sodium 25 mcg) 225 mcg PO 0600 [facility] Last Admin: 10/05/18 06:10 Dose: 225 mcg Nicotine (Nicoderm Cq) 1 patch TD DAILY [facility] Last Admin: 10/05/18 09:57 Dose: 1 patch Nystatin (Mycostatin Cream) 2 ea TOP TID [facility] Last Admin: 10/05/18 14:05 Dose: Not Given Sertraline HCl (Zoloft) 200 mg PO DAILY [facility] Last Admin: 10/05/18 09:58 Dose: 200 mg Topiramate (Topamax) 100 mg PO BID [facility]; Protocol Last Admin: 10/05/18 18:25 Dose: 100 mg - Labs Labs: 10/05/18 07:00 10/05/18 07:00 PT 12.0 SECONDS (9.4-12.5) 10/02/18 23:00 INR 1.05 10/02/18 23:00 APTT 34.7 Seconds (25.1-36.5) 10/02/18 23:00 Attending/Attestation - Attestation I have personally seen and examined this patient.: Yes I have fully participated in the care of the patient.: Yes I have reviewed all pertinent clinical information, including history, physical exam and plan: Yes Notes (Text): Patient seen and examined by me with resident at 10:30 AM on 10/05/18. Case including HPI, physical exam, and assessment and plan discussed with resident. Agree with above with following additions/corrections. Patient is a 53-year-old female past medical history significant for COPD, type 2 diabetes, pseudotumor cerebri, hypothyroidism, depression, anxiety, and bipolar disorder presented to the emergency room after having a mechanical fall. Patient states she is feeling better today. Left wrist pain improved. States the wrist brace is helping. Patient denies chest pain or shortness of breath. No headaches or dizziness. No change in vision. No fevers or chills. No nausea, vomiting, or abdominal pain. No dysuria. No diarrhea or constipation. Patient states she does not want to go to [facility]. She states she wants to go home but can not go up stairs. Patient has stairs to get into her home. Physical exam: General: Awake and alert lying in bed in no acute distress. HEENT: Normocephalic, atraumatic. Extraocular muscles intact, pupils equal and reactive, no scleral icterus. Oropharynx is pink and moist. Neck is supple. Cardiovascular: Normal rhythm. Normal S1 and S2. No murmurs, rubs, or gallops appreciated Pulmonary: Normal respiratory effort. No rhonchi, rales, or wheezing appreciated. Gastrointestinal: Soft, nondistended. Nontender. Morbidly obsese abdomen. Positive bowel sounds all 4 quadrants. No guarding. Musculoskeletal: Moves all extremities. No calf tenderness. Trace lower extremity edema appreciated. Central nervous system: AAOx3 Dermatologic: Skin warm and dry. Positive bilateral lower extremity chronic venous stasis color changes. Improving intertrigo left breast fold. Assessment and plan: Patient is a 53-year-old female past medical history significant for COPD, type 2 diabetes, pseudotumor cerebri, hypothyroidism, depression, anxiety, and bipolar disorder presented to the emergency room after having a mechanical fall. 1. Mechanical fall. No loss of consciousness. Physical therapist following and recommends [facility]. Continue PT. Patient is currently refusing [facility]. Head CT per radiologist showed no acute intracranial abnormalities. Pelvic x-ray per radiologist showed no acute findings related to/accounting for the clinical presentation. Left wrist x-ray per radiologist showed lucency through the distal left ulna without cortical disruption. CT of left upper extremity per radiologist shows no evidence of fracture. Carotid ultrasounds per radiologist showed bilateral 20-39% proximal ICA stenosis. Bilateral lower extremity venous Dopplers negative for DVT. JITENDRA exam per radiologist showed relatively normal JITENDRA and PVR examination at rest. 2. Positive urine culture for beta hemolytic strep group B. ID consulted secondary to multiple antibiotic allergies. Follow-up recommendations. 3. COPD. Not in acute exacerbations. Continue nebulizer treatments as needed. 4. DM2. Continue insulin sliding scale. HgbA1C 5.6. Blood sugars on the lower side. Diabetic diet stopped. 5. Elevated LFTs. Downtrending. No abdominal pain. Continue to monitor. 6. Hypothyroidism. Free T4 within normal limits. Continue synthroid. 7. Hypokalemia. Replete potassium. Follow up repeat labs in AM. 8. Intertrigo. Left breast fold. Improving. Continue nystatin 9. Pseudotumor Cerebri. Continue topamax 10. Depression and anxiety. Bipolar disorder. Continue klonopin as needed. Continue Gabapentin. Continue Zoloft. 11. Tobacco abuse. Counseled on cessation. Continue with nictoine patch 12. Morbid obesity. Counseled on diet and exercise. 13. GI/DVT prophylaxis. Pepcid/lovenox Case discussed in detail with patient regarding current diagnosis and treatment plan. All questions answered.
[2018-10-06] MEDS ORDERED: Levothyroxine 200 MCG TAB ONE (05:18)
[2018-10-06] MEDS: Insulin Lispro (humaLOG) LOW Coverage SC SCH ×4 (06:33→22:00)
[2018-10-06] MEDS: Enoxaparin 40 mg Syringe SC SCH (10:56)
[2018-10-06] MEDS: Nystatin 100,000 Units/gm Cream(15 gm) TOP SCH ×4 (10:58→20:45)
--- NOTE | 2018-10-06 14:02 | CP.PCM.PN ---
Subjective - Date & Time of Evaluation Date of Evaluation: 10/06/18 Time of Evaluation: 12:15 - Subjective Subjective: Infectious Disease Follow Up: October 06, 2018 53yo F with PMHx COPD, DM, pseudotumor cerebri, hypothyroid, depression, anxiety, and bipolar disorder who was brought to ED s/p mechanical fall. Patient reports signing out of acute rehab facility due to lack of cleanliness, and going home yesterday. She states that she tried to go up one step, and immediately felt her legs give out on her. She recalls falling on her left side and hitting her head. She denies any preceding dizziness and denies loss of c onsciousness. She has full memory of the fall. She reports pain in the L wrist, which she rates 7/10. She says she usually ambulates with a walker. She denies any headache, shortness of breath, chest pain, abdominal pain, nausea, vomiting, diarrhea, dysuria. Patient was found to have a urine culture with Group B strep. The patient with multiple antibiotic allergies. No symptoms. Objective - Vital Signs/Intake and Output Vital Signs (last 24 hours): Temp Pulse Resp BP Pulse Ox 97.6 F 67 20 107/57 L 96 10/06/18 06:00 10/06/18 06:00 10/06/18 06:00 10/06/18 06:00 10/06/18 06:00 Intake and Output: 10/06/18 10/06/18 06:59 18:59 Intake Total 300 Output Total 550 Balance -250 - Medications Medications: Current Medications Albuterol/Ipratropium (Duoneb 3 Mg/0.5 Mg (3 Ml) Ud) 3 ml IH Q6H PRN PRN Reason: Shortness of Breath Clonazepam (Klonopin) 1 mg PO AMHS PRN; Protocol PRN Reason: Anxiety Last Admin: 10/05/18 20:44 Dose: 1 mg Dextrose (Dextrose 50% Inj) 0 ml IV STAT PRN; Protocol PRN Reason: Hypoglycemia Protocol Enoxaparin Sodium (Lovenox) 40 mg SC DAILY [facility]; Protocol Last Admin: 10/06/18 10:56 Dose: 40 mg Famotidine (Pepcid) 20 mg PO DAILY [facility] Last Admin: 10/06/18 10:55 Dose: 20 mg Gabapentin (Neurontin) 300 mg PO TID [facility]; Protocol Last Admin: 10/06/18 13:38 Dose: 300 mg Dextrose (Dextrose 5% In Water 1000 Ml) 1,000 mls @ 0 mls/hr IV .Q0M PRN; Protocol PRN Reason: Hypoglycemia Protocol Insulin Human Lispro (Humalog Low) 0 units SC ACHS [facility]; Protocol Last Admin: 10/06/18 10:57 Dose: Not Given Ketorolac Tromethamine (Toradol) 15 mg IVP Q8H PRN PRN Reason: Pain, moderate (4-7) Last Admin: 10/06/18 10:56 Dose: 15 mg Levothyroxine Sodium 200 mcg/ (Levothyroxine Sodium 25 mcg) 225 mcg PO 0600 [facility] Last Admin: 10/06/18 05:29 Dose: 225 mcg Nicotine (Nicoderm Cq) 1 patch TD DAILY [facility] Last Admin: 10/06/18 10:55 Dose: 1 patch Nystatin (Mycostatin Cream) 2 ea TOP TID [facility] Last Admin: 10/06/18 10:58 Dose: 1 applic Sertraline HCl (Zoloft) 200 mg PO DAILY [facility] Last Admin: 10/06/18 10:54 Dose: 200 mg Topiramate (Topamax) 100 mg PO BID [facility]; Protocol Last Admin: 10/06/18 10:54 Dose: 100 mg - Labs Labs: 10/05/18 07:00 10/05/18 07:00 PT 12.0 SECONDS (9.4-12.5) 10/02/18 23:00 INR 1.05 10/02/18 23:00 APTT 34.7 Seconds (25.1-36.5) 10/02/18 23:00 - Constitutional Appears: Non-toxic, No Acute Distress, Chronically Ill - Head Exam Head Exam: ATRAUMATIC, NORMOCEPHALIC - Eye Exam Eye Exam: EOMI, PERRL Pupil Exam: NORMAL ACCOMODATION, PERRL - ENT Exam ENT Exam: Mucous Membranes Moist, Normal External Ear Exam, TM's Normal Bilaterally - Neck Exam Neck Exam: Full ROM, Normal Inspection - Respiratory Exam Respiratory Exam: Clear to Ausculation Bilateral, NORMAL BREATHING PATTERN. absent: Rales, Rhonchi, Wheezes - Cardiovascular Exam Cardiovascular Exam: REGULAR RHYTHM, RRR, +S1, +S2 - GI/Abdominal Exam GI & Abdominal Exam: Soft, Normal Bowel Sounds. absent: Distended, Tenderness - Extremities Exam Extremities Exam: Joint Swelling, Pedal Edema Additional comments: LUE: tenderness to palpation of L 1st MCP, ecchymosis noted on posterior L hand. limited ROM due to pain statis derm changes in b/l LE: xerotic, erythematous hyperpigmented - Neurological Exam Neurological Exam: Alert, CN II-XII Intact, Oriented x3 - Psychiatric Exam Psychiatric exam: Normal Affect, Normal Mood - Skin Additional comments: As above. L breast: white collection with surrounding erythema in L lateral inframammary fold Assessment and Plan - Assessment and Plan (Free Text) Assessment: 53yo F with PMH COPD, DM, pseudotumor cerebri, hypothyroid, depression, anxiety, and bipolar disorder who was brought to ED s/p mechanical fall found to have Group B strep in the urine cultures. Extensive antibiotic allergies. At this point, would give IV Vancomycin for antibiotic coverage for a maximum of 3 days. Recheck urine cultures and urinalysis. Supportive care. Monitor fever trend and WBC trend. So far no fevers or leukocytosis. Thank you for allowing me to participate in the care of this patient, we will follow with you.
--- NOTE | 2018-10-06 14:27 | CP.PCM.PN ---
<Matheus Andres - Last Filed: 10/06/18 14:22> Subjective - Date & Time of Evaluation Date of Evaluation: 10/06/18 Time of Evaluation: 12:00 - Subjective Subjective: INTERNAL MEDICINE PROGRESS NOTE FOR DR. OLIVIA Andres PGY1 Pt seen and examined at bedside this am. Pt reports abdominal pain overnight that was relieved with toradol. She denies other 12 point ROS Objective - Vital Signs/Intake and Output Vital Signs (last 24 hours): Temp Pulse Resp BP Pulse Ox 97.6 F 67 20 107/57 L 96 10/06/18 06:00 10/06/18 06:00 10/06/18 06:00 10/06/18 06:00 10/06/18 06:00 Intake and Output: 10/06/18 10/06/18 06:59 18:59 Intake Total 300 Output Total 550 Balance -250 - Medications Medications: Current Medications Albuterol/Ipratropium (Duoneb 3 Mg/0.5 Mg (3 Ml) Ud) 3 ml IH Q6H PRN PRN Reason: Shortness of Breath Clonazepam (Klonopin) 1 mg PO AMHS PRN; Protocol PRN Reason: Anxiety Last Admin: 10/05/18 20:44 Dose: 1 mg Dextrose (Dextrose 50% Inj) 0 ml IV STAT PRN; Protocol PRN Reason: Hypoglycemia Protocol Enoxaparin Sodium (Lovenox) 40 mg SC DAILY [facility]; Protocol Last Admin: 10/06/18 10:56 Dose: 40 mg Famotidine (Pepcid) 20 mg PO DAILY [facility] Last Admin: 10/06/18 10:55 Dose: 20 mg Gabapentin (Neurontin) 300 mg PO TID [facility]; Protocol Last Admin: 10/06/18 13:38 Dose: 300 mg Dextrose (Dextrose 5% In Water 1000 Ml) 1,000 mls @ 0 mls/hr IV .Q0M PRN; Protocol PRN Reason: Hypoglycemia Protocol Insulin Human Lispro (Humalog Low) 0 units SC ACHS [facility]; Protocol Last Admin: 10/06/18 10:57 Dose: Not Given Ketorolac Tromethamine (Toradol) 15 mg IVP Q8H PRN PRN Reason: Pain, moderate (4-7) Last Admin: 10/06/18 10:56 Dose: 15 mg Levothyroxine Sodium 200 mcg/ (Levothyroxine Sodium 25 mcg) 225 mcg PO 0600 [facility] Last Admin: 10/06/18 05:29 Dose: 225 mcg Nicotine (Nicoderm Cq) 1 patch TD DAILY [facility] Last Admin: 10/06/18 10:55 Dose: 1 patch Nystatin (Mycostatin Cream) 2 ea TOP TID [facility] Last Admin: 10/06/18 10:58 Dose: 1 applic Sertraline HCl (Zoloft) 200 mg PO DAILY [facility] Last Admin: 10/06/18 10:54 Dose: 200 mg Topiramate (Topamax) 100 mg PO BID [facility]; Protocol Last Admin: 10/06/18 10:54 Dose: 100 mg - Labs Labs: 10/05/18 07:00 10/05/18 07:00 PT 12.0 SECONDS (9.4-12.5) 10/02/18 23:00 INR 1.05 10/02/18 23:00 APTT 34.7 Seconds (25.1-36.5) 10/02/18 23:00 - Constitutional Appears: Well, Non-toxic, No Acute Distress - Head Exam Head Exam: ATRAUMATIC, NORMAL INSPECTION - Eye Exam Eye Exam: EOMI, Normal appearance - ENT Exam ENT Exam: Mucous Membranes Moist, Normal Exam - Neck Exam Neck Exam: Normal Inspection - Respiratory Exam Respiratory Exam: Decreased Breath Sounds, NORMAL BREATHING PATTERN - Cardiovascular Exam Cardiovascular Exam: REGULAR RHYTHM, +S1, +S2 - GI/Abdominal Exam GI & Abdominal Exam: Soft, Normal Bowel Sounds - Extremities Exam Extremities Exam: Normal Inspection. absent: Calf Tenderness - Back Exam Back Exam: NORMAL INSPECTION - Neurological Exam Neurological Exam: Alert, Awake, Oriented x3 - Psychiatric Exam Psychiatric exam: Flat Affect, Normal Mood - Skin Skin Exam: Dry, Intact, Warm Assessment and Plan - Assessment and Plan (Free Text) Assessment: Patient is a 53-year-old Female with PMH COPD, Type 2 Diabetes Mellitus, Pseudotumor Cerebri, Hypothyroid, Depression, Anxiety, and Bipolar Disorder who was brought to ED status-post mechanical fall Plan: Mechanical Fall/Pre-Syncope Status-post fall when walking up stairs, No LOC Signed out of rehab 10/02 AGAINST MEDICAL ADVICE PT following and recommends JASMYNE. Continue PT. Patient is currently refusing JASMYNE. Start 15mg toradol for pain control. Avoid opiates CT head: no acute pathology X-Ray pelvis: no acute findings X-Ray left wrist: no acute findings Orthostatics Fall precautions Carotid US: Bilateral 20-39% Proximal ICU Stenosis (See full report for details) ECHO (11/30): EF 58%, normal LV function, nl diastolic function PT/OT Positive urine cultures Urine culture growing b-hemolytic group B strep Likely contaminant obtain repeat urine cultures ID consult d/t multiple allergies COPD Not in exacerbation Duonebs q4h PRN CXR 10/03: no active disease DM Continue low dose sliding scale Hypoglycemia protocol Hypothyroid Free T4=1.88 TSH < 0.02 Start home synthroid 225mcg PO AM Hypokalemia Replete as necessary Transaminitis Downtrending Hep panel is negative Monitor CMP Hx of Pseudotumor Cerebri Start home topamax Topomax 150 PO AMHS Topomax 100 PO AM Intertrigo: Left breast Likely ludivina Nystatin topical cream to area Depression/Anxiety Klonopin 1mg PO daily Zoloft 100mg PO daily Seroquel 100mg PO BID Neurontin 300mg PO TID Tobacco Use History Counseled on cessation Nicotine patch PPX: DVT: lovenox 40 sc GI: pepcid 20 po HHD Dispo: Pt accepted to [facility], pt refusing. Case seen, examined and discussed with attending physician, Dr. Covington <Carie Covington R - Last Filed: 10/06/18 15:14> Objective - Vital Signs/Intake and Output Vital Signs (last 24 hours): Temp Pulse Resp BP Pulse Ox 97.6 F 67 20 107/57 L 96 10/06/18 06:00 10/06/18 06:00 10/06/18 06:00 10/06/18 06:00 10/06/18 06:00 Intake and Output: 10/06/18 10/06/18 06:59 18:59 Intake Total 300 Output Total 550 Balance -250 - Medications Medications: Current Medications Albuterol/Ipratropium (Duoneb 3 Mg/0.5 Mg (3 Ml) Ud) 3 ml IH Q6H PRN PRN Reason: Shortness of Breath Clonazepam (Klonopin) 1 mg PO AMHS PRN; Protocol PRN Reason: Anxiety Last Admin: 10/05/18 20:44 Dose: 1 mg Dextrose (Dextrose 50% Inj) 0 ml IV STAT PRN; Protocol PRN Reason: Hypoglycemia Protocol Enoxaparin Sodium (Lovenox) 40 mg SC DAILY [facility]; Protocol Last Admin: 10/06/18 10:56 Dose: 40 mg Famotidine (Pepcid) 20 mg PO DAILY [facility] Last Admin: 10/06/18 10:55 Dose: 20 mg Gabapentin (Neurontin) 300 mg PO TID [facility]; Protocol Last Admin: 10/06/18 13:38 Dose: 300 mg Dextrose (Dextrose 5% In Water 1000 Ml) 1,000 mls @ 0 mls/hr IV .Q0M PRN; Protocol PRN Reason: Hypoglycemia Protocol Insulin Human Lispro (Humalog Low) 0 units SC ACHS [facility]; Protocol Last Admin: 10/06/18 10:57 Dose: Not Given Ketorolac Tromethamine (Toradol) 15 mg IVP Q8H PRN PRN Reason: Pain, moderate (4-7) Last Admin: 10/06/18 10:56 Dose: 15 mg Levothyroxine Sodium 200 mcg/ (Levothyroxine Sodium 25 mcg) 225 mcg PO 0600 [facility] Last Admin: 10/06/18 05:29 Dose: 225 mcg Nicotine (Nicoderm Cq) 1 patch TD DAILY [facility] Last Admin: 10/06/18 10:55 Dose: 1 patch Nystatin (Mycostatin Cream) 2 ea TOP TID [facility] Last Admin: 10/06/18 10:58 Dose: 1 applic Sertraline HCl (Zoloft) 200 mg PO DAILY [facility] Last Admin: 10/06/18 10:54 Dose: 200 mg Topiramate (Topamax) 100 mg PO BID [facility]; Protocol Last Admin: 10/06/18 10:54 Dose: 100 mg - Labs Labs: 10/05/18 07:00 10/05/18 07:00 PT 12.0 SECONDS (9.4-12.5) 10/02/18 23:00 INR 1.05 10/02/18 23:00 APTT 34.7 Seconds (25.1-36.5) 10/02/18 23:00 Attending/Attestation - Attestation I have personally seen and examined this patient.: Yes I have fully participated in the care of the patient.: Yes I have reviewed all pertinent clinical information, including history, physical exam and plan: Yes Notes (Text): Patient seen and examined by me with resident at 9AM on 10/06/18. Case including HPI, physical exam, and assessment and plan discussed with resident. Agree with above with following additions/corrections. Patient is a 53-year-old female past medical history significant for COPD, type 2 diabetes, pseudotumor cerebri, hypothyroidism, depression, anxiety, and bipolar disorder presented to the emergency room after having a mechanical fall. Patient states she is feeling ok today. States she is having lower abdominal pain and points to her suprapubic area. Patient states she is also unable to urinate. Patient states that she was told that she needs antibiotics. Patient denies any dysuria. Left wrist pain improved. No chest pain or shortness of breath. No headaches or dizziness. No change in vision. No fevers or chills. No nausea, vomiting, or abdominal pain. No dysuria. No diarrhea or constipation. Physical exam: General: Awake and alert lying in bed in no acute distress. HEENT: Normocephalic, atraumatic. Extraocular muscles intact, pupils equal and reactive, no scleral icterus. Oropharynx is pink and moist. Neck is supple. Cardiovascular: Normal rhythm. Normal S1 and S2. No murmurs, rubs, or gallops appreciated Pulmonary: Normal respiratory effort. No rhonchi, rales, or wheezing apprec iated. Gastrointestinal: Soft, nondistended. Morbidly obsese abdomen. Mild suprapubic tendnerss. Positive bowel sounds all 4 quadrants. No guarding. Musculoskeletal: Moves all extremities. No calf tenderness. Trace lower extremity edema appreciated. Central nervous system: AAOx3 Dermatologic: Skin warm and dry. Positive bilateral lower extremity chronic venous stasis color changes. Improving intertrigo left breast fold. Assessment and plan: Patient is a 53-year-old female past medical history significant for COPD, type 2 diabetes, pseudotumor cerebri, hypothyroidism, depression, anxiety, and bipolar disorder presented to the emergency room after having a mechanical fall. 1. Mechanical fall. No loss of consciousness. Physical therapist following and recommended JASMYNE. Continue PT. Patient refusing JASMYNE. Head CT per radiologist showed no acute intracranial abnormalities. Pelvic x-ray per radiologist showed no acute findings related to/accounting for the clinical presentation. Left wr ist x-ray per radiologist showed lucency through the distal left ulna without cortical disruption. CT of left upper extremity per radiologist shows no evidence of fracture. Carotid ultrasounds per radiologist showed bilateral 20- 39% proximal ICA stenosis. Bilateral lower extremity venous Dopplers negative for DVT. JITENDRA exam per radiologist showed relatively normal JITENDRA and PVR examination at rest. 2. Positive urine culture for beta hemolytic strep group B. Likely contaminant. Pending repeat UA and urine culture. Discussed with ID. Dr. Camacho. 3. COPD. Not in acute exacerbation. Continue nebulizer treatments as needed. 4. DM2. Continue insulin sliding scale. HgbA1C 5.6. Blood sugars on the lower s yamileth. Diabetic diet stopped. 5. Elevated LFTs. Downtrending. No abdominal pain. Continue to monitor. 6. Hypothyroidism. Free T4 within normal limits. Continue synthroid. 7. Hypokalemia. Potassium repleted. Follow up labs in AM. 8. Intertrigo. Left breast fold. Improving. Continue nystatin 9. Pseudotumor Cerebri. Continue topamax 10. Depression and anxiety. Bipolar disorder. Continue klonopin as needed. Continue Gabapentin. Continue Zoloft. 11. Tobacco abuse. Counseled on cessation. Continue with nictoine patch 12. Morbid obesity. Counseled on diet and exercise. 13. GI/DVT prophylaxis. Pepcid/lovenox Case discussed in detail with patient regarding current diagnosis and treatment plan. All questions answered.
[2018-10-06 15:40] LABS: URINE BILIRUBIN SMALL (NEGATIVE); URINE BLOOD SMALL (NEGATIVE); URINE GLUCOSE (UA) NEGATIVE (NEGATIVE); URINE LEUKOCYTE ESTERASE MODERATE Leu/uL (NEGATIVE); URINE PROTEIN TRACE mg/dL (<30 mg/dL)
[2018-10-06 15:46] LABS: URINE COLOR YELLOW (YELLOW)
[2018-10-06 15:47] LABS: URINE APPEARANCE CLOUDY (CLEAR)
[2018-10-06 16:29] LABS: URINE BACTERIA MOD (NEG)
[2018-10-06 16:30] LABS: URINE AMORPHOUS SEDIMENT MODERATE; URINE TRIPLE PHOSPHATE CRYSTAL OCC /hpf
[2018-10-07] MEDS: Vancomycin 1gm in NS 250ml 1 GM/250 ML BAG IVPB SCH ×2 (01:00→09:56)
[2018-10-07] MEDS ORDERED: Levothyroxine 25 MCG TAB ONE (05:32)
[2018-10-07 08:19] LABS: HEMOGLOBIN 11.7 g/dL (12.0-16.0); MEAN CELL VOLUME 96.5 fl (80.0-105.0); MEAN CORPUSCULAR HEMOGLOBIN 31.5 pg (25.0-35.0); MEAN CORPUSCULAR HGB CONC 32.6 g/dl (31.0-37.0); MEAN PLATELET VOLUME 9.6 fl (7.0-11.0); RBC 3.72 10^6/uL (3.5-6.1); RED CELL DISTRIBUTION WIDTH 15.2 % (11.5-14.5); WHITE BLOOD COUNT 4.1 10^3/uL (4.5-11.0)
[2018-10-07 08:26] LABS: ALB/GLOB RATIO 0.7 (1.1-1.8); ALBUMIN 2.6 g/dL (3.0-4.8); ALT/SGPT 41 U/L (7-56); AST/SGOT 42 U/L (14-36); BLOOD UREA NITROGEN 21 mg/dL (7-21); CALCIUM 8.5 mg/dL (8.4-10.5); GFR NON-AFRICAN AMERICAN > 60
[2018-10-07] MEDS: Enoxaparin 40 mg Syringe SC SCH (09:55)
[2018-10-07] MEDS: Nystatin 100,000 Units/gm Cream(15 gm) TOP SCH ×3 (09:57→17:21)
--- NOTE | 2018-10-07 13:37 | CP.PCM.PN ---
<Matheus Andres - Last Filed: 10/07/18 13:34> Subjective - Date & Time of Evaluation Date of Evaluation: 10/07/18 Time of Evaluation: 13:34 - Subjective Subjective: INTERNAL MEDICINE PROGRESS NOTE FOR DR. AMADOU Andres PGY1 Pt seen and examined at bedside today. She is resting comfortably. She continues to complain of non-specific lower abdominal pain. 12 point ROS is negative Objective - Vital Signs/Intake and Output Vital Signs (last 24 hours): Temp Pulse Resp BP Pulse Ox 97.6 F 72 20 122/54 L 93 L 10/07/18 06:00 10/07/18 06:00 10/07/18 06:00 10/07/18 06:00 10/07/18 06:00 Intake and Output: 10/07/18 10/07/18 06:59 18:59 Intake Total 540 Balance 540 - Medications Medications: Current Medications Albuterol/Ipratropium (Duoneb 3 Mg/0.5 Mg (3 Ml) Ud) 3 ml IH Q6H PRN PRN Reason: Shortness of Breath Clonazepam (Klonopin) 1 mg PO AMHS PRN; Protocol PRN Reason: Anxiety Last Admin: 10/07/18 10:05 Dose: 1 mg Dextrose (Dextrose 50% Inj) 0 ml IV STAT PRN; Protocol PRN Reason: Hypoglycemia Protocol Enoxaparin Sodium (Lovenox) 40 mg SC DAILY [facility]; Protocol Last Admin: 10/07/18 09:55 Dose: 40 mg Famotidine (Pepcid) 20 mg PO DAILY [facility] Last Admin: 10/07/18 09:56 Dose: 20 mg Gabapentin (Neurontin) 300 mg PO TID [facility]; Protocol Last Admin: 10/07/18 09:56 Dose: 300 mg Dextrose (Dextrose 5% In Water 1000 Ml) 1,000 mls @ 0 mls/hr IV .Q0M PRN; Protocol PRN Reason: Hypoglycemia Protocol Vancomycin HCl (Vancomycin 1gm) 1 gm in 250 mls @ 167 mls/hr IVPB DAILY [facility]; Protocol Stop: 10/08/18 23:59 Last Admin: 10/07/18 09:56 Dose: 167 mls/hr Insulin Human Lispro (Humalog Low) 0 units SC ACHS [facility]; Protocol Last Admin: 10/06/18 22:00 Dose: Not Given Ketorolac Tromethamine (Toradol) 15 mg IVP Q8H PRN PRN Reason: Pain, moderate (4-7) Last Admin: 10/07/18 08:42 Dose: 15 mg Levothyroxine Sodium 200 mcg/ (Levothyroxine Sodium 25 mcg) 225 mcg PO 0600 [facility] Last Admin: 10/07/18 05:43 Dose: 225 mcg Nicotine (Nicoderm Cq) 1 patch TD DAILY [facility] Last Admin: 10/07/18 09:56 Dose: 1 patch Nystatin (Mycostatin Cream) 2 ea TOP TID [facility] Last Admin: 10/07/18 09:57 Dose: 1 applic Sertraline HCl (Zoloft) 200 mg PO DAILY [facility] Last Admin: 10/07/18 09:56 Dose: 200 mg Topiramate (Topamax) 100 mg PO BID [facility]; Protocol Last Admin: 10/07/18 09:56 Dose: 100 mg - Labs Labs: 10/07/18 07:00 10/07/18 07:00 PT 12.0 SECONDS (9.4-12.5) 10/02/18 23:00 INR 1.05 10/02/18 23:00 APTT 34.7 Seconds (25.1-36.5) 10/02/18 23:00 - Constitutional Appears: Well, Non-toxic - Head Exam Head Exam: NORMAL INSPECTION, NORMOCEPHALIC - Eye Exam Eye Exam: EOMI, Normal appearance - ENT Exam ENT Exam: Mucous Membranes Moist, Normal Exam - Neck Exam Neck Exam: Normal Inspection - Respiratory Exam Respiratory Exam: Clear to Ausculation Bilateral, NORMAL BREATHING PATTERN - Cardiovascular Exam Cardiovascular Exam: REGULAR RHYTHM, +S1, +S2 - GI/Abdominal Exam GI & Abdominal Exam: Soft. absent: Tenderness - Extremities Exam Extremities Exam: Normal Inspection. absent: Calf Tenderness - Back Exam Back Exam: NORMAL INSPECTION - Neurological Exam Neurological Exam: Alert, Awake, Oriented x3 - Psychiatric Exam Psychiatric exam: Flat Affect, Normal Mood - Skin Skin Exam: Dry, Intact, Warm Assessment and Plan - Assessment and Plan (Free Text) Assessment: Patient is a 53-year-old Female with PMH COPD, Type 2 Diabetes Mellitus, Pseudotumor Cerebri, Hypothyroid, Depression, Anxiety, and Bipolar Disorder who was brought to ED status-post mechanical fall at rehab facility Plan: Mechanical Fall/Pre-Syncope Status-post fall when walking up stairs, No LOC Signed out of rehab 10/02 AGAINST MEDICAL ADVICE PT following and recommends JASMYNE. Continue PT. Patient is currently refusing JASMYNE. Start 15mg toradol for pain control. Avoid opiates CT head: no acute pathology X-Ray pelvis: no acute findings X-Ray left wrist: no acute findings Orthostatics Fall precautions Carotid US: Bilateral 20-39% Proximal ICU Stenosis (See full report for details) ECHO (11/30): EF 58%, normal LV function, nl diastolic function PT/OT Positive urine cultures Encouraged on oral hydration Urine culture growing b-hemolytic group B strep Likely contaminant Continue empiric vancomycin coverage obtain repeat urine cultures ID consult d/t multiple allergies COPD Not in exacerbation Duonebs q4h PRN CXR 10/03: no active disease DM Continue low dose sliding scale Hypoglycemia protocol Hypothyroid Free T4=1.88 TSH < 0.02 Start home synthroid 225mcg PO AM Hypokalemia Replete as necessary Transaminitis Downtrending Hep panel is negative Monitor CMP Hx of Pseudotumor Cerebri Start home topamax Topomax 150 PO AMHS Topomax 100 PO AM Intertrigo: Left breast, likely ludivina Nystatin topical cream to area Depression/Anxiety Klonopin 1mg PO daily Zoloft 100mg PO daily Seroquel 100mg PO BID Neurontin 300mg PO TID Tobacco Use History Counseled on cessation Nicotine patch Obesity counseled on weight loss PPX: DVT: lovenox 40 sc GI: pepcid 20 po HHD Dispo: Pending [facility]ASMYNE placement Case seen, examined and discussed with attending physician, Dr. Taylor <Eze Taylor - Last Filed: 10/08/18 17:08> Objective - Vital Signs/Intake and Output Vital Signs (last 24 hours): Temp Pulse Resp BP Pulse Ox 98.2 F 69 18 104/48 L 95 10/08/18 14:00 10/08/18 14:00 10/08/18 14:00 10/08/18 14:00 10/08/18 14:00 Intake and Output: 10/08/18 10/08/18 06:59 18:59 Intake Total 640 Output Total 350 Balance 290 - Labs Labs: 10/08/18 07:30 10/08/18 07:30 PT 12.0 SECONDS (9.4-12.5) 10/02/18 23:00 INR 1.05 10/02/18 23:00 APTT 34.7 Seconds (25.1-36.5) 10/02/18 23:00 Attending/Attestation - Attestation I have personally seen and examined this patient.: Yes I have fully participated in the care of the patient.: Yes I have reviewed all pertinent clinical information, including history, physical exam and plan: Yes Notes (Text): 10/08/18 17:04 Attending note; Patient seen and examined with resident. Patient is alert and awake. Complaining of suprapubic discomfort. Tolerating diet well. Denies any fevers, chills. Denies any nausea, vomiting. Patient is a 53-year-old female past medical history significant for COPD, type 2 diabetes, pseudotumor cerebri, hypothyroidism, depression, anxiety, and bipolar disorder presented to the emergency room after having a mechanical fall. 1. Mechanical fall. No loss of consciousness. Physical therapist following and recommended JASMYNE. Patient refusing JASMYNE. Head CT showed no acute intracranial abnormalities. Pelvic x-ray, wrist x ray is negative for fracture. CT of left upper extremity shows no evidence of fracture. Carotid ultrasounds showed bilateral 20-39% proximal ICA stenosis. Bilateral lower extremity venous Dopplers negative for DVT. JITENDRA showed relatively normal JITENDRA and PVR examination at rest. 2. Positive urine culture for beta hemolytic strep group B. Likely contaminant. Currently on IV vancomycin. Repeat urine culture is pending. 3. COPD. Not in acute exacerbation. Continue nebulizer treatments as needed. 4. DM2. Continue insulin sliding scale. HgbA1C 5.6. 5. Intertrigo. Left breast fold. Improving. Continue nystatin 6. Pseudotumor Cerebri. Continue topamax 7. Depression and anxiety. Bipolar disorder. Continue klonopin as needed. Continue Gabapentin. Continue Zoloft. 8. Tobacco abuse. Counseled on cessation. Continue with nictoine patch 9. Morbid obesity. Counseled on diet and exercise. GI/DVT prophylaxis. Pepcid/lovenox. Possible discharge to rehabilitation tomorrow. Will discuss with shoe caser. upon discharge the patient will follow up with PMD Dr. zavala.
[2018-10-07] MEDS: Insulin Lispro (humaLOG) LOW Coverage SC SCH ×3 (13:43→21:15)
--- NOTE | 2018-10-07 17:43 | CP.PCM.PN ---
Subjective - Date & Time of Evaluation Date of Evaluation: 10/07/18 Time of Evaluation: 15:15 - Subjective Subjective: Infectious Disease Follow Up: October 07, 2018 53yo F with PMHx COPD, DM, pseudotumor cerebri, hypothyroid, depression, anxiety, and bipolar disorder who was brought to ED s/p mechanical fall. Patient reports signing out of acute rehab facility due to lack of cleanliness, and going home yesterday. She states that she tried to go up one step, and immediately felt her legs give out on her. She recalls falling on her left side and hitting her head. She denies any preceding dizziness and denies loss of c onsciousness. She has full memory of the fall. She reports pain in the L wrist, which she rates 7/10. She says she usually ambulates with a walker. She denies any headache, shortness of breath, chest pain, abdominal pain, nausea, vomiting, diarrhea, dysuria. Patient was found to have a urine culture with Group B strep. The patient with multiple antibiotic allergies. No symptoms. Patient continues to give vague abdominal complaints but is not in any distress when no one is in her view/vision. Objective - Vital Signs/Intake and Output Vital Signs (last 24 hours): Temp Pulse Resp BP Pulse Ox 98.2 F 70 20 89/45 L 95 10/07/18 14:00 10/07/18 14:00 10/07/18 14:00 10/07/18 14:00 10/07/18 14:00 Intake and Output: 10/07/18 10/07/18 06:59 18:59 Intake Total 540 Balance 540 - Medications Medications: Current Medications Albuterol/Ipratropium (Duoneb 3 Mg/0.5 Mg (3 Ml) Ud) 3 ml IH Q6H PRN PRN Reason: Shortness of Breath Clonazepam (Klonopin) 1 mg PO [facility] PRN; Protocol PRN Reason: Anxiety Last Admin: 10/07/18 10:05 Dose: 1 mg Dextrose (Dextrose 50% Inj) 0 ml IV STAT PRN; Protocol PRN Reason: Hypoglycemia Protocol Enoxaparin Sodium (Lovenox) 40 mg SC DAILY [facility]; Protocol Last Admin: 10/07/18 09:55 Dose: 40 mg Famotidine (Pepcid) 20 mg PO DAILY [facility] Last Admin: 10/07/18 09:56 Dose: 20 mg Gabapentin (Neurontin) 300 mg PO TID [facility]; Protocol Last Admin: 10/07/18 17:19 Dose: 300 mg Dextrose (Dextrose 5% In Water 1000 Ml) 1,000 mls @ 0 mls/hr IV .Q0M PRN; Protocol PRN Reason: Hypoglycemia Protocol Vancomycin HCl (Vancomycin 1gm) 1 gm in 250 mls @ 167 mls/hr IVPB DAILY [facility]; Protocol Stop: 10/08/18 23:59 Last Admin: 10/07/18 09:56 Dose: 167 mls/hr Insulin Human Lispro (Humalog Low) 0 units SC ACHS [facility]; Protocol Last Admin: 10/07/18 17:20 Dose: Not Given Ketorolac Tromethamine (Toradol) 15 mg IVP Q8H PRN PRN Reason: Pain, moderate (4-7) Last Admin: 10/07/18 17:25 Dose: 15 mg Levothyroxine Sodium 200 mcg/ (Levothyroxine Sodium 25 mcg) 225 mcg PO 0600 [facility] Last Admin: 10/07/18 05:43 Dose: 225 mcg Nicotine (Nicoderm Cq) 1 patch TD DAILY [facility] Last Admin: 10/07/18 09:56 Dose: 1 patch Nystatin (Mycostatin Cream) 2 ea TOP TID [facility] Last Admin: 10/07/18 17:21 Dose: Not Given Sertraline HCl (Zoloft) 200 mg PO DAILY [facility] Last Admin: 10/07/18 09:56 Dose: 200 mg Topiramate (Topamax) 100 mg PO BID [facility]; Protocol Last Admin: 10/07/18 17:19 Dose: 100 mg - Labs Labs: 10/07/18 07:00 10/07/18 07:00 PT 12.0 SECONDS (9.4-12.5) 10/02/18 23:00 INR 1.05 10/02/18 23:00 APTT 34.7 Seconds (25.1-36.5) 10/02/18 23:00 - Constitutional Appears: Non-toxic, No Acute Distress, Chronically Ill - Head Exam Head Exam: ATRAUMATIC, NORMOCEPHALIC - Eye Exam Eye Exam: EOMI, PERRL Pupil Exam: NORMAL ACCOMODATION, PERRL - ENT Exam ENT Exam: Mucous Membranes Moist, Normal External Ear Exam, TM's Normal Bilaterally - Neck Exam Neck Exam: Full ROM, Normal Inspection - Respiratory Exam Respiratory Exam: Clear to Ausculation Bilateral, NORMAL BREATHING PATTERN. absent: Rales, Rhonchi, Wheezes - Cardiovascular Exam Cardiovascular Exam: REGULAR RHYTHM, RRR, +S1, +S2 - GI/Abdominal Exam GI & Abdominal Exam: Soft, Normal Bowel Sounds. absent: Distended, Tenderness - Rectal Exam Rectal Exam: Deferred, NORMAL INSPECTION - Extremities Exam Extremities Exam: Joint Swelling, Pedal Edema Additional comments: LUE: tenderness to palpation of L 1st MCP, ecchymosis noted on posterior L hand. limited ROM due to pain statis derm changes in b/l LE: xerotic, erythematous hyperpigmented - Neurological Exam Neurological Exam: Alert, Awake, CN II-XII Intact, Oriented x3 - Psychiatric Exam Psychiatric exam: Normal Affect, Normal Mood - Skin Additional comments: As above. L breast: white collection with surrounding erythema in L lateral inframammary fold Assessment and Plan - Assessment and Plan (Free Text) Assessment: 53yo F with PMH COPD, DM, pseudotumor cerebri, hypothyroid, depression, anxiety, and bipolar disorder who was brought to ED s/p mechanical fall found to have Group B strep in the urine cultures. Extensive antibiotic allergies. At this point, would give IV Vancomycin for antibiotic coverage for a maximum of 3 days. Recheck urine cultures and urinalysis. Supportive care. Monitor fever trend and WBC trend. So far no fevers or leukocytosis. Vague abdominal complaints but not in distress if someone is not in have line of sight/view. Thank you for allowing me to participate in the care of this patient, we will follow with you.
[2018-10-08] MEDS ORDERED: Levothyroxine 25 MCG TAB ONE (05:45)
[2018-10-08 07:49] LABS: HEMOGLOBIN 11.5 g/dL (12.0-16.0); MEAN CELL VOLUME 96.5 fl (80.0-105.0); MEAN CORPUSCULAR HEMOGLOBIN 30.9 pg (25.0-35.0); MEAN PLATELET VOLUME 9.5 fl (7.0-11.0); RBC 3.72 10^6/uL (3.5-6.1); RED CELL DISTRIBUTION WIDTH 15.2 % (11.5-14.5)
[2018-10-08 07:59] LABS: BLOOD UREA NITROGEN 22 mg/dL (7-21); CALCIUM 8.4 mg/dL (8.4-10.5); GFR NON-AFRICAN AMERICAN > 60
[2018-10-08 09:26] VITALS: O2SAT 95
[2018-10-08] MEDS: Vancomycin 1gm in NS 250ml 1 GM/250 ML BAG IVPB SCH (10:24)
[2018-10-08] MEDS: Enoxaparin 40 mg Syringe SC SCH (10:25)
[2018-10-08] MEDS: Nystatin 100,000 Units/gm Cream(15 gm) TOP SCH (10:27)
[2018-10-08] MEDS: Insulin Lispro (humaLOG) LOW Coverage SC SCH ×2 (10:28→11:40)
[2018-10-08 15:16] VITALS: BP 104/48; PULSE 69; RESP 18; TEMP 98.2
--- NOTE | 2018-10-08 16:03 | CP.PCM.PN ---
Subjective - Date & Time of Evaluation Date of Evaluation: 10/08/18 Time of Evaluation: 13:00 - Subjective Subjective: Infectious Disease Follow Up: October 08, 2018 53yo F with PMHx COPD, DM, pseudotumor cerebri, hypothyroid, depression, anxiety, and bipolar disorder who was brought to ED s/p mechanical fall. Patient reports signing out of acute rehab facility due to lack of cleanliness, and going home yesterday. She states that she tried to go up one step, and immediately felt her legs give out on her. She recalls falling on her left side and hitting her head. She denies any preceding dizziness and denies loss of c onsciousness. She has full memory of the fall. She reports pain in the L wrist, which she rates 7/10. She says she usually ambulates with a walker. She denies any headache, shortness of breath, chest pain, abdominal pain, nausea, vomiting, diarrhea, dysuria. Patient was found to have a urine culture with Group B strep. The patient with multiple antibiotic allergies. No symptoms. Patient continues to give vague abdominal complaints but is not in any distress when no one is in her view/vision. Objective - Vital Signs/Intake and Output Vital Signs (last 24 hours): Temp Pulse Resp BP Pulse Ox 98.2 F 69 18 104/48 L 95 10/08/18 14:00 10/08/18 14:00 10/08/18 14:00 10/08/18 14:00 10/08/18 14:00 Intake and Output: 10/08/18 10/08/18 06:59 18:59 Intake Total 640 Output Total 350 Balance 290 - Labs Labs: 10/08/18 07:30 10/08/18 07:30 PT 12.0 SECONDS (9.4-12.5) 10/02/18 23:00 INR 1.05 10/02/18 23:00 APTT 34.7 Seconds (25.1-36.5) 10/02/18 23:00 - Constitutional Appears: Non-toxic, No Acute Distress, Chronically Ill - Head Exam Head Exam: ATRAUMATIC, NORMOCEPHALIC - Eye Exam Eye Exam: EOMI, PERRL Pupil Exam: NORMAL ACCOMODATION, PERRL - ENT Exam ENT Exam: Mucous Membranes Moist, Normal External Ear Exam, TM's Normal Bilaterally - Neck Exam Neck Exam: Full ROM, Normal Inspection - Respiratory Exam Respiratory Exam: Clear to Ausculation Bilateral, NORMAL BREATHING PATTERN. absent: Rales, Rhonchi, Wheezes - Cardiovascular Exam Cardiovascular Exam: REGULAR RHYTHM, RRR, +S1, +S2 - GI/Abdominal Exam GI & Abdominal Exam: Soft, Normal Bowel Sounds. absent: Distended, Tenderness - Extremities Exam Extremities Exam: Joint Swelling, Pedal Edema Additional comments: LUE: tenderness to palpation of L 1st MCP, ecchymosis noted on posterior L hand. limited ROM due to pain statis derm changes in b/l LE: xerotic, erythematous hyperpigmented - Neurological Exam Neurological Exam: Alert, Awake, CN II-XII Intact, Oriented x3 - Psychiatric Exam Psychiatric exam: Normal Affect, Normal Mood - Skin Additional comments: As above. L breast: white collection with surrounding erythema in L lateral inframammary fold Assessment and Plan - Assessment and Plan (Free Text) Assessment: 53yo F with PMH COPD, DM, pseudotumor cerebri, hypothyroid, depression, anxiety, and bipolar disorder who was brought to ED s/p mechanical fall found to have Group B strep in the urine cultures. Extensive antibiotic allergies. At this point, would give IV Vancomycin for antibiotic coverage for a maximum of 3 days. Recheck urine cultures and urinalysis. Supportive care. Monitor fever trend and WBC trend. So far no fevers or leukocytosis. Vague abdominal complaints but not in distress if someone is not in have line of sight/view. She is refusing JASMYNE. Thank you for allowing me to participate in the care of this patient, we will follow with you.
--- NOTE | 2018-10-08 16:20 | CP.PCM.DIS ---
<Matheus Andres - Last Filed: 10/08/18 16:12> Provider - Provider Date of Admission: 10/03/18 13:40 Attending physician: Eze Taylor MD Time Spent in preparation of Discharge (in minutes): 45 Hospital Course - Lab Results Lab Results: Micro Results 10/06/18 13:00 Urine,Clean Catch Urine Culture - Final Proteus Mirabilis 10/05/18 21:45 Urine Urine Culture - Final 50-100,000 CFU/ML. MULTIPLE SPECIES. SUGGEST REPEAT SPECIMEN. 10/03/18 00:00 Urine,Clean Catch Urine Culture - Final Beta Hemolytic Strep Group B Most Recent Lab Values WBC 4.0 10^3/uL (4.5-11.0) L 10/08/18 07:30 RBC 3.72 10^6/uL (3.5-6.1) 10/08/18 07:30 Hgb 11.5 g/dL (12.0-16.0) L 10/08/18 07:30 Hct 35.9 % (36.0-48.0) L 10/08/18 07:30 MCV 96.5 fl (80.0-105.0) 10/08/18 07:30 MCH 30.9 pg (25.0-35.0) 10/08/18 07:30 MCHC 32.0 g/dl (31.0-37.0) 10/08/18 07:30 RDW 15.2 % (11.5-14.5) H 10/08/18 07:30 Plt Count 86 10^3/uL (120.0-450.0) L 10/08/18 07:30 MPV 9.5 fl (7.0-11.0) 10/08/18 07:30 Gran % 47.4 % (50.0-68.0) L 10/05/18 07:00 Lymph % (Auto) 37.8 % (22.0-35.0) H 10/05/18 07:00 Mcdowell % (Auto) 12.5 % (1.0-6.0) H 10/05/18 07:00 Eos % (Auto) 1.7 % (1.5-5.0) 10/05/18 07:00 Baso % (Auto) 0.6 % (0.0-3.0) 10/05/18 07:00 Gran # 1.67 (1.4-6.5) 10/05/18 07:00 Lymph # (Auto) 1.3 (1.2-3.4) 10/05/18 07:00 Mcdowell # (Auto) 0.4 (0.1-0.6) 10/05/18 07:00 Eos # (Auto) 0.1 (0.0-0.7) 10/05/18 07:00 Baso # (Auto) 0.02 K/mm3 (0.0-2.0) 10/05/18 07:00 PT 12.0 SECONDS (9.4-12.5) 10/02/18 23:00 INR 1.05 10/02/18 23:00 APTT 34.7 Seconds (25.1-36.5) 10/02/18 23:00 Sodium 141 mmol/L (132-148) 10/08/18 07:30 Potassium 3.9 mmol/L (3.6-5.0) 10/08/18 07:30 Chloride 116 mmol/L (98-107) H 10/08/18 07:30 Carbon Dioxide 24 mmol/L (21-33) 10/08/18 07:30 Anion Gap 5 (10-20) L 10/08/18 07:30 BUN 22 mg/dL (7-21) H 10/08/18 07:30 Creatinine 0.6 mg/dl (0.7-1.2) L 10/08/18 07:30 Est GFR ( Amer) > 60 10/08/18 07:30 Est GFR (Non-Af Amer) > 60 10/08/18 07:30 POC Glucose (mg/dL) 79 mg/dL (65-110) 10/08/18 11:31 Random Glucose 95 mg/dL (70-110) 10/08/18 07:30 Hemoglobin A1c 5.6 % (4.2-6.5) 10/03/18 06:20 Calcium 8.4 mg/dL (8.4-10.5) 10/08/18 07:30 Phosphorus 4.0 mg/dL (2.5-4.5) 10/07/18 07:00 Magnesium 2.0 mg/dL (1.7-2.2) 10/07/18 07:00 Total Bilirubin 1.2 mg/dL (0.2-1.3) 10/07/18 07:00 AST 42 U/L (14-36) H 10/07/18 07:00 ALT 41 U/L (7-56) 10/07/18 07:00 Alkaline Phosphatase 120 U/L (38-126) 10/07/18 07:00 Troponin I 0.01 ng/mL D 10/03/18 11:00 Total Protein 6.1 g/dL (5.8-8.3) 10/07/18 07:00 Albumin 2.6 g/dL (3.0-4.8) L 10/07/18 07:00 Globulin 3.6 gm/dL 10/07/18 07:00 Albumin/Globulin Ratio 0.7 (1.1-1.8) L 10/07/18 07:00 Free T4 1.88 ng/dL (0.78-2.19) 10/03/18 06:20 TSH 3rd Generation < 0.02 mIU/mL (0.46-4.68) L 10/03/18 06:20 Urine Color Yellow (YELLOW) 10/06/18 13:00 Urine Appearance Cloudy (CLEAR) 10/06/18 13:00 Urine pH 7.0 (4.7-8.0) 10/06/18 13:00 Ur Specific Wilsey 1.020 (1.005-1.035) 10/06/18 13:00 Urine Protein Trace mg/dL (<30 mg/dL) H 10/06/18 13:00 Urine Glucose (UA) Negative mg/dL (NEGATIVE) 10/06/18 13:00 Urine Ketones Negative mg/dL (NEGATIVE) 10/06/18 13:00 Urine Blood Small (NEGATIVE) H 10/06/18 13:00 Urine Nitrate Negative (NEGATIVE) 10/06/18 13:00 Urine Bilirubin Small (NEGATIVE) H 10/06/18 13:00 Urine Urobilinogen 4.0 E.U./dL (<1 E.U./dL) H 10/06/18 13:00 Ur Leukocyte Esterase Moderate Sherry/uL (NEGATIVE) H 10/06/18 13:00 Urine RBC 2 - 5 /hpf (0-2) 10/06/18 13:00 Urine WBC 10 - 15 /hpf (0-6) 10/06/18 13:00 Ur Epithelial Cells 10 - 12 /hpf (0-5) 10/06/18 13:00 Triple Phos Crystals Occ /hpf 10/06/18 13:00 Amorphous Sediment Moderate 10/06/18 13:00 Urine Bacteria Mod (NEG) 10/06/18 13:00 Urine Other Mucus 10/02/18 23:58 Topiramate 6.6 mcg/mL (see note) 10/03/18 06:20 Hepatitis A IgM Ab Negative (NEGATIVE) 10/03/18 06:20 Hep Bs Antigen Negative (NEGATIVE) 10/03/18 06:20 Hep B Core IgM Ab Negative (NEGATIVE) 10/03/18 06:20 Hepatitis C Antibody Negative (NEGATIVE) 10/03/18 06:20 - Hospital Course Hospital Course: Upon Admission 53yo F with PMH COPD, DM, pseudotumor cerebri, hypothyroid, depression, anxiety, and bipolar disorder who was brought to ED s/p mechanical fall. Pt reports signing out of acute rehab facility due to lack of cleanliness, and going home yesterday. She said she tried to go up one step, and immediately felt her legs give out on her. She recalls falling on her left side and hitting her head. She denies any preceding dizziness and denies loss of consciousness. She has full memory of the fall. She reports pain in the L wrist, which she rates 7/10. She says she usually ambulates with a walker. She denies any headache, shortness of breath, chest pain, abdominal pain, nausea, vomiting, diarrhea, dysuria. Hospital Course Imaging was done to evaluate structural abnormalities after pts fall. Xray of pelvis/L wrist were negative. Carotid u/s revealed b/l 20-39% stenosis. Echo was wnl. Pt was found to have positive urine cultures. It initially grew b-hemolytic group B strep, and then grew proteus mirabilis. These were mostly likely contaminated as they were taken from bedpan. She was given duoneb treatments as needed for SOB. She was continued on sliding scale insulin for diabetes. She was continued on her home medications. She was evaluated by physical therapy and was recommended to go back to subacute rehab. Pt had refused several times of going back to subacute rehab. She was informed of the risks of going back home without subacute rehab first. Despite several discussions regarding risks of going home without rehab, patient insisted on being discharged home. She is to be discharged home with home antibiotics and medication for treatment of dysuria. Upon discharge: Pt denies acute complaints. Her vital signs are stable. Labs are stable. She is to be discharged home with bactrim and pyridimine. She has been instructed to follow up with her primary care doctor. Discharge Exam - Head Exam Head Exam: ATRAUMATIC, NORMOCEPHALIC - Eye Exam Eye Exam: EOMI, Normal appearance - ENT Exam ENT Exam: Mucous Membranes Moist, Normal Exam - Neck Exam Neck exam: Normal Inspection - Respiratory Exam Respiratory Exam: NORMAL BREATHING PATTERN, UNREMARKABLE - Cardiovascular Exam Cardiovascular Exam: REGULAR RHYTHM, +S1, +S2 - GI/Abdominal Exam GI & Abdominal Exam: Normal Bowel Sounds, Unremarkable - Neurological Exam Neurological exam: Alert, Oriented x3 - Psychiatric Exam Psychiatric exam: Flat Affect - Skin Skin Exam: Dry, Intact, Warm Discharge Plan - Discharge Medications Prescriptions: Phenazopyridine [Pyridium] 200 mg PO BID #14 tab Sulfamethoxazole/Trimethoprim [Bactrim DS Tab] 1 tab PO BID #14 tab - Follow Up Plan Condition: FAIR Disposition: HOME/ ROUTINE Instructions: Urinary Tract Infection, Adult (DC), Syncope (Fainting) (DC), Flu Vaccine, Urinary Tract Infection in Women (DC), Dysuria (GEN) Additional Instructions: Please follow these instructions upon discharge from the hospital: Please visit your primary care doctor within 3-5 days of leaving the hospital. You have been prescribed an antibiotic for your urinary tract infection. This antibiotic is called "Bactrim." Please take this medication twice daily for 1 week. You have been prescribed a medication called "pyridium 200mg." Please take this medication twice a day for symptoms of pain during urination. Please resume the medications that you were taking previously If your symptoms return, please visit the nearest emergency room. <Eze Taylor - Last Filed: 10/08/18 17:10> Provider - Provider Date of Admission: 10/03/18 13:40 Attending physician: Eze Taylor MD Hospital Course - Lab Results Lab Results: Micro Results 10/06/18 13:00 Urine,Clean Catch Urine Culture - Final Proteus Mirabilis 10/05/18 21:45 Urine Urine Culture - Final 50-100,000 CFU/ML. MULTIPLE SPECIES. SUGGEST REPEAT SPECIMEN. 10/03/18 00:00 Urine,Clean Catch Urine Culture - Final Beta Hemolytic Strep Group B Most Recent Lab Values WBC 4.0 10^3/uL (4.5-11.0) L 10/08/18 07:30 RBC 3.72 10^6/uL (3.5-6.1) 10/08/18 07:30 Hgb 11.5 g/dL (12.0-16.0) L 10/08/18 07:30 Hct 35.9 % (36.0-48.0) L 10/08/18 07:30 MCV 96.5 fl (80.0-105.0) 10/08/18 07:30 MCH 30.9 pg (25.0-35.0) 10/08/18 07:30 MCHC 32.0 g/dl (31.0-37.0) 10/08/18 07:30 RDW 15.2 % (11.5-14.5) H 10/08/18 07:30 Plt Count 86 10^3/uL (120.0-450.0) L 10/08/18 07:30 MPV 9.5 fl (7.0-11.0) 10/08/18 07:30 Gran % 47.4 % (50.0-68.0) L 10/05/18 07:00 Lymph % (Auto) 37.8 % (22.0-35.0) H 10/05/18 07:00 Mcdowell % (Auto) 12.5 % (1.0-6.0) H 10/05/18 07:00 Eos % (Auto) 1.7 % (1.5-5.0) 10/05/18 07:00 Baso % (Auto) 0.6 % (0.0-3.0) 10/05/18 07:00 Gran # 1.67 (1.4-6.5) 10/05/18 07:00 Lymph # (Auto) 1.3 (1.2-3.4) 10/05/18 07:00 Mcdowell # (Auto) 0.4 (0.1-0.6) 10/05/18 07:00 Eos # (Auto) 0.1 (0.0-0.7) 10/05/18 07:00 Baso # (Auto) 0.02 K/mm3 (0.0-2.0) 10/05/18 07:00 PT 12.0 SECONDS (9.4-12.5) 10/02/18 23:00 INR 1.05 10/02/18 23:00 APTT 34.7 Seconds (25.1-36.5) 10/02/18 23:00 Sodium 141 mmol/L (132-148) 10/08/18 07:30 Potassium 3.9 mmol/L (3.6-5.0) 10/08/18 07:30 Chloride 116 mmol/L (98-107) H 10/08/18 07:30 Carbon Dioxide 24 mmol/L (21-33) 10/08/18 07:30 Anion Gap 5 (10-20) L 10/08/18 07:30 BUN 22 mg/dL (7-21) H 10/08/18 07:30 Creatinine 0.6 mg/dl (0.7-1.2) L 10/08/18 07:30 Est GFR ( Amer) > 60 10/08/18 07:30 Est GFR (Non-Af Amer) > 60 10/08/18 07:30 POC Glucose (mg/dL) 79 mg/dL (65-110) 10/08/18 11:31 Random Glucose 95 mg/dL (70-110) 10/08/18 07:30 Hemoglobin A1c 5.6 % (4.2-6.5) 10/03/18 06:20 Calcium 8.4 mg/dL (8.4-10.5) 10/08/18 07:30 Phosphorus 4.0 mg/dL (2.5-4.5) 10/07/18 07:00 Magnesium 2.0 mg/dL (1.7-2.2) 10/07/18 07:00 Total Bilirubin 1.2 mg/dL (0.2-1.3) 10/07/18 07:00 AST 42 U/L (14-36) H 10/07/18 07:00 ALT 41 U/L (7-56) 10/07/18 07:00 Alkaline Phosphatase 120 U/L (38-126) 10/07/18 07:00 Troponin I 0.01 ng/mL D 10/03/18 11:00 Total Protein 6.1 g/dL (5.8-8.3) 10/07/18 07:00 Albumin 2.6 g/dL (3.0-4.8) L 10/07/18 07:00 Globulin 3.6 gm/dL 10/07/18 07:00 Albumin/Globulin Ratio 0.7 (1.1-1.8) L 10/07/18 07:00 Free T4 1.88 ng/dL (0.78-2.19) 10/03/18 06:20 TSH 3rd Generation < 0.02 mIU/mL (0.46-4.68) L 10/03/18 06:20 Urine Color Yellow (YELLOW) 10/06/18 13:00 Urine Appearance Cloudy (CLEAR) 10/06/18 13:00 Urine pH 7.0 (4.7-8.0) 10/06/18 13:00 Ur Specific Wilsey 1.020 (1.005-1.035) 10/06/18 13:00 Urine Protein Trace mg/dL (<30 mg/dL) H 10/06/18 13:00 Urine Glucose (UA) Negative mg/dL (NEGATIVE) 10/06/18 13:00 Urine Ketones Negative mg/dL (NEGATIVE) 10/06/18 13:00 Urine Blood Small (NEGATIVE) H 10/06/18 13:00 Urine Nitrate Negative (NEGATIVE) 10/06/18 13:00 Urine Bilirubin Small (NEGATIVE) H 10/06/18 13:00 Urine Urobilinogen 4.0 E.U./dL (<1 E.U./dL) H 10/06/18 13:00 Ur Leukocyte Esterase Moderate Sherry/uL (NEGATIVE) H 10/06/18 13:00 Urine RBC 2 - 5 /hpf (0-2) 10/06/18 13:00 Urine WBC 10 - 15 /hpf (0-6) 10/06/18 13:00 Ur Epithelial Cells 10 - 12 /hpf (0-5) 10/06/18 13:00 Triple Phos Crystals Occ /hpf 10/06/18 13:00 Amorphous Sediment Moderate 10/06/18 13:00 Urine Bacteria Mod (NEG) 10/06/18 13:00 Urine Other Mucus 10/02/18 23:58 Topiramate 6.6 mcg/mL (see note) 10/03/18 06:20 Hepatitis A IgM Ab Negative (NEGATIVE) 10/03/18 06:20 Hep Bs Antigen Negative (NEGATIVE) 10/03/18 06:20 Hep B Core IgM Ab Negative (NEGATIVE) 10/03/18 06:20 Hepatitis C Antibody Negative (NEGATIVE) 10/03/18 06:20 Attending/Attestation - Attestation I have personally seen and examined this patient.: Yes I have fully participated in the care of the patient.: Yes I have reviewed all pertinent clinical information, including history, physical exam and plan: Yes Notes (Text): 10/08/18 17:08 Attending note; Patient seen and examined with resident. Patient is alert and awake. Complaining of mild suprapubic discomfort. Tolerating diet well. Denies any fevers, chills. Denies any nausea, vomiting. Patient is a 53-year-old female past medical history significant for COPD, type 2 diabetes, pseudotumor cerebri, hypothyroidism, depression, anxiety, and bipolar disorder presented to the emergency room after having a mechanical fall. 1. Mechanical fall. No loss of consciousness. Physical therapist following and recommended JASMYNE. Patient refusing JASMYNE. Head CT showed no acute intracranial abnormalities. Pelvic x-ray, wrist x ray is negative for fracture. CT of left upper extremity shows no evidence of fracture. Carotid ultrasounds showed bilateral 20-39% proximal ICA stenosis. Bilateral lower extremity venous Dopplers negative for DVT. JITENDRA showed relatively normal JITENDRA and PVR examination at rest. 2. Positive urine culture for beta hemolytic strep group B. Likely contaminant. Repeat urine culture is positive for Proteus. Started on by mouth Bactrim. Continue Pyridium. 3. COPD. Not in acute exacerbation. Continue nebulizer treatments as needed. 4. DM2. Continue insulin sliding scale. HgbA1C 5.6. 5. Intertrigo. Left breast fold. Improving. Continue nystatin 6. Pseudotumor Cerebri. Continue topamax 7. Depression and anxiety. Bipolar disorder. Continue klonopin as needed. Continue Gabapentin. Continue Zoloft. 8. Tobacco abuse. Counseled on cessation. Continue with nictoine patch 9. Morbid obesity. Counseled on diet and exercise. GI/DVT prophylaxis. Pepcid/lovenox. Case discussed with director of social work in detail. Patient refused JASMYNE placement. The risks of going home explained to the patient in detail including fall, fracture and life-threatening injuries. Patient still refused to go to [facility]. Patient will be discharged home. upon discharge the patient will follow up with PMD Dr. zavala. 10/08/18 17:09
[2018-10-08] MEDS ORDERED: Tmp-Smz 800 mg-160 mg DS Tab PO SCH (18:00)
== END 2018-10-08 15:16 | disposition home or self-care (01) | DRG 15 ==
LOC: ED 21:30 → ERH 10-03 02:43 → 2RSO 10-03 03:53 → OBSVTOIN 10-03 13:40 → 5RNO 10-04 11:21
PROVIDERS: ADMIT Internal Medicine; ATTEND Internal Medicine
DX: I65.23 Occlusion and stenosis of bilateral carotid arteries (principal); N39.0 Urinary tract infection, site not specified; B96.4 Proteus (mirabilis) (morganii) as the cause of diseases classified elsewhere; G93.2 Benign intracranial hypertension; J44.9 Chronic obstructive pulmonary disease, unspecified; E87.6 Hypokalemia; K74.60 Unspecified cirrhosis of liver; L30.4 Erythema intertrigo; I10 Essential (primary) hypertension; F31.9 Bipolar disorder, unspecified; E03.9 Hypothyroidism, unspecified; E11.9 Type 2 diabetes mellitus without complications; F40.240 Claustrophobia; E66.01 Morbid (severe) obesity due to excess calories; Z68.42 Body mass index [BMI] 45.0-49.9, adult; W18.30XA Fall on same level, unspecified, initial encounter; Z72.0 Tobacco use; Z85.43 Personal history of malignant neoplasm of ovary; Z88.1 Allergy status to other antibiotic agents; Z80.0 Family history of malignant neoplasm of digestive organs; Z82.49 Family history of ischemic heart disease and other diseases of the circulatory system

== ENCOUNTER 2018-10-13 14:01 | Inpatient (IN) | payer OTHER ==
[2018-10-13 14:21] VITALS: BMI 54.9
[2018-10-13 15:54] LABS: INR 1.15; PARTIAL THROMBOPLASTIN TIME 37.2 Seconds (25.1-36.5); PROTHROMBIN TIME 13.1 SECONDS (9.4-12.5)
[2018-10-13 16:02] LABS: TROPONIN I 0.02 ng/mL
[2018-10-13 16:03] LABS: BASO # 0.01 K/mm3 (0.0-2.0); BASO % 0.2 % (0.0-3.0); EOS # 0.1 (0.0-0.7); EOS % 1.4 % (1.5-5.0); GRAN # 3.3 (1.4-6.5); HEMOGLOBIN 10.8 g/dL (12.0-16.0); LYMPH # 1.2 (1.2-3.4); LYMPH % 22.6 % (22.0-35.0); MEAN CELL VOLUME 97.4 fl (80.0-105.0); MEAN CORPUSCULAR HEMOGLOBIN 31.4 pg (25.0-35.0); MEAN CORPUSCULAR HGB CONC 32.2 g/dl (31.0-37.0); MEAN PLATELET VOLUME 9.9 fl (7.0-11.0); MONO # 0.6 (0.1-0.6); MONO % 10.8 % (1.0-6.0); RBC 3.44 10^6/uL (3.5-6.1); RED CELL DISTRIBUTION WIDTH 15.9 % (11.5-14.5); WHITE BLOOD COUNT 5.1 10^3/uL (4.5-11.0)
[2018-10-13 16:19] LABS: ALB/GLOB RATIO 0.8 (1.1-1.8); ALBUMIN 2.9 g/dL (3.0-4.8); ALT/SGPT 34 U/L (7-56); AST/SGOT 49 U/L (14-36); BLOOD UREA NITROGEN 12 mg/dL (7-21); CALCIUM 8.5 mg/dL (8.4-10.5); GFR NON-AFRICAN AMERICAN > 60
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
--- NOTE | 2018-10-13 17:30 | CT ---
Date of service: 10/13/2018 PROCEDURE: CT HEAD WITHOUT CONTRAST. HISTORY: Focal weakness. COMPARISON: Comparison made with prior CT scan brain 10/03/2018.. TECHNIQUE: Axial computed tomography images were obtained through the head/brain without intravenous contrast. Radiation dose: Total exam DLP = 1015.41 mGy-cm. This CT exam was performed using one or more of the following dose reduction techniques: Automated exposure control, adjustment of the mA and/or kV according to patient size, and/or use of iterative reconstruction technique. FINDINGS: HEMORRHAGE: No acute parenchymal, subarachnoid or extra-axial hemorrhage. BRAIN: No evidence of large acute infarct. Minor chronic periventricular white matter ischemic changes. Note that the possibility of a small hyperacute infarct cannot be excluded on this exam. Ventricular and sulcal size exhibit mild age-appropriate volume loss. VENTRICLES: No obstructive hydrocephalus. CALVARIUM: No acute calvarial fractures PARANASAL SINUSES: Unremarkable as visualized. No significant inflammatory changes. MASTOID AIR CELLS: Unremarkable as visualized. No inflammatory changes. OTHER FINDINGS: . Findings suggest mild exophthalmos however clinical correlation with ophthalmologic examination recommended. IMPRESSION: No evidence of acute intracranial hemorrhage. Minor chronic periventricular white matter ischemic changes.
[2018-10-13 17:56] LABS: ARTERIAL BLOOD GAS HCO3 25.9 mmol/L (21-28); ARTERIAL BLOOD GAS HEMOGLOBIN 10.5 g/dL (11.7-17.4); ARTERIAL BLOOD GAS O2 CAPACITY 14.3 mL/dl (16-24); ARTERIAL BLOOD GAS O2 CONTENT 14.1 ML/dl (15-23); ARTERIAL BLOOD GAS O2 SAT 98.3 % (95-98); ARTERIAL BLOOD GAS PCO2 48 mm/Hg (35-45); ARTERIAL BLOOD GAS PH 7.34 (7.35-7.45); ARTERIAL BLOOD GAS TCO2 27.4 mmol.L (22-28)
--- NOTE | 2018-10-13 17:59 | RAD ---
Date of service: 10/13/2018 HISTORY: admission COMPARISON: No comparison made with chest radiograph 10/03/2018. FINDINGS: LUNGS: Poor inspiration with low lung volumes, crowded bronchovascular markings and mild bibasilar atelectasis. The central pulmonary vasculature is also slightly increased which could be due to portable technique, poor inspiration and semi-erect patient positioning however rule out mild pulmonary venous congestion. PLEURA: No significant pleural effusion identified, no pneumothorax apparent. CARDIOVASCULAR: No aortic atherosclerotic calcification present. Cardiomegaly. No pulmonary vascular congestion. OSSEOUS STRUCTURES: Mild multilevel degenerative spondylosis of the thoracic spine VISUALIZED UPPER ABDOMEN: Normal. OTHER FINDINGS: None. IMPRESSION: Poor inspiration with low lung volumes, crowded bronchovascular markings and mild bibasilar atelectasis. The central pulmonary vasculature is also slightly increased which could be due to portable technique, poor inspiration and semi-erect patient positioning however rule out mild pulmonary venous congestion.
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
[2018-10-13 18:58] LABS: PH,URINE 6.5 (4.7-8.0); URINE BILIRUBIN NEGATIVE (NEGATIVE); URINE BLOOD LARGE (NEGATIVE); URINE GLUCOSE (UA) 100 mg/dL (NEGATIVE); URINE LEUKOCYTE ESTERASE TRACE Leu/uL (NEGATIVE); URINE PROTEIN 30 mg/dL (<30 mg/dL)
[2018-10-13 19:00] LABS: URINE APPEARANCE CLEAR (CLEAR); URINE COLOR AMBER (YELLOW); URINE RBC TNTC /hpf (0-2)
[2018-10-13 19:01] LABS: URINE BACTERIA SMALL (NEG)
[2018-10-13] MEDS: Vancomycin 1gm in NS 250ml 1 GM/250 ML BAG IVPB SCH (20:56)
[2018-10-13] MEDS ORDERED: Piperacillin/Tazobact 3.375 gm 100 ML IVPB SCH (22:00)
[2018-10-13] MEDS ORDERED: Pneumococcal 23-Valent Vaccine IM ONE (22:30)
[2018-10-13] MEDS ORDERED: Influenza Vaccine 60 mcg/0.5 mL SYR (4YR UP) IM ONE (22:30)
[2018-10-13] MEDS: Aztreonam 1 Gm in NS 100mL 100 ML IVPB SCH (22:43)
[2018-10-14] MEDS: Aztreonam 1 Gm in NS 100mL 100 ML IVPB SCH (06:16)
[2018-10-14] MEDS: Pantoprazole 40 mg EC Tab PO SCH (06:17)
[2018-10-14] MEDS: Levothyroxine 25 MCG TAB PO SCH (06:17)
[2018-10-14] MEDS: Vancomycin 1gm in NS 250ml 1 GM/250 ML BAG IVPB SCH ×2 (06:18→20:35)
[2018-10-14 08:02] LABS: BASO # 0.02 K/mm3 (0.0-2.0); BASO % 0.4 % (0.0-3.0); EOS # 0.1 (0.0-0.7); EOS % 1.2 % (1.5-5.0); GRAN # 3.27 (1.4-6.5); LYMPH # 1.1 (1.2-3.4); LYMPH % 21.9 % (22.0-35.0); MEAN CELL VOLUME 98.6 fl (80.0-105.0); MEAN CORPUSCULAR HEMOGLOBIN 30.7 pg (25.0-35.0); MEAN CORPUSCULAR HGB CONC 31.2 g/dl (31.0-37.0); MEAN PLATELET VOLUME 9.8 fl (7.0-11.0); MONO # 0.6 (0.1-0.6); MONO % 11.5 % (1.0-6.0); RBC 3.58 10^6/uL (3.5-6.1)
[2018-10-14 09:29] LABS: ALB/GLOB RATIO 0.7 (1.1-1.8); ALBUMIN 2.7 g/dL (3.0-4.8); ALT/SGPT 33 U/L (7-56); AST/SGOT 39 U/L (14-36); BLOOD UREA NITROGEN 13 mg/dL (7-21); CALCIUM 8.4 mg/dL (8.4-10.5); GFR NON-AFRICAN AMERICAN > 60
[2018-10-14] MEDS: Enoxaparin 40 mg Syringe SC SCH (09:33)
--- NOTE | 2018-10-14 13:23 | CP.PCM.PN ---
<Carlos Arenas - Last Filed: 10/14/18 15:13> Subjective - Date & Time of Evaluation Date of Evaluation: 10/14/18 Time of Evaluation: 13:23 - Subjective Subjective: Internal Medicine Progress Note Patient seen and assessed at bedside. No acute events noted overnight. Patient reports that she is still feeling weak. She denies any other complaints at this time and 12 point ROS is unremarkable other than what has been mentioned above. Objective - Vital Signs/Intake and Output Vital Signs (last 24 hours): Temp Pulse Resp BP Pulse Ox 98.3 F 80 20 117/53 L 96 10/14/18 07:00 10/14/18 07:00 10/14/18 07:00 10/14/18 07:00 10/14/18 07:00 - Medications Medications: Current Medications Clonazepam (Klonopin) 1 mg PO [facility]; Protocol Enoxaparin Sodium (Lovenox) 40 mg SC DAILY [facility]; Protocol Last Admin: 10/14/18 09:33 Dose: 40 mg Gabapentin (Neurontin) 300 mg PO Q8H NO[facility]; Protocol Vancomycin HCl (Vancomycin 1gm) 1 gm in 250 mls @ 167 mls/hr IVPB Q12H NOAM; Protocol Last Admin: 10/14/18 06:18 Dose: 167 mls/hr Levothyroxine Sodium (Synthroid) 25 mcg PO 0600 [facility] Last Admin: 10/14/18 06:17 Dose: 25 mcg Levothyroxine Sodium (Synthroid) 224 mcg PO 0700 [facility] Topiramate Er 150 (Mg (Home Med)) 150 mg PO [facility] Pantoprazole Sodium (Protonix Ec Tab) 40 mg PO 0600 [facility] Last Admin: 10/14/18 06:17 Dose: 40 mg Sertraline HCl (Zoloft) 200 mg PO DAILY [facility] - Labs Labs: 10/14/18 07:00 10/14/18 09:00 PT 13.1 SECONDS (9.4-12.5) H 10/13/18 15:20 INR 1.15 10/13/18 15:20 APTT 37.2 Seconds (25.1-36.5) H 10/13/18 15:20 - Constitutional Appears: Non-toxic, No Acute Distress - Head Exam Head Exam: ATRAUMATIC, NORMOCEPHALIC - Eye Exam Eye Exam: EOMI - ENT Exam ENT Exam: Normal Exam - Neck Exam Neck Exam: Full ROM - Respiratory Exam Respiratory Exam: Clear to Ausculation Bilateral, NORMAL BREATHING PATTERN. absent: Accessory Muscle Use, Rales, Rhonchi, Wheezes, Respiratory Distress - Cardiovascular Exam Cardiovascular Exam: RRR, +S1, +S2 - GI/Abdominal Exam GI & Abdominal Exam: Soft, Normal Bowel Sounds. absent: Tenderness - Extremities Exam Extremities Exam: absent: Normal Inspection (Chronic venous stasis changes to b/l lower extremities) - Neurological Exam Neurological Exam: Alert, Awake, Oriented x3 - Psychiatric Exam Psychiatric exam: Normal Affect, Normal Mood - Skin Skin Exam: Dry, Intact, Warm Assessment and Plan - Assessment and Plan (Free Text) Assessment: 53 year old female with past medical history significant for COPD, sarcoidosis, DM2, pseudotumor cerebri, hypothyroidism, depression, anxiety, and bipolar disorder who presented with generalized weakness. Plan: 1. Generalized Weakness -CT Head showed minor periventricular ischemic changes but no acute IC abnormalities -Labs and VS currently within normal limits or near patient's baseline -Blood and Urine cultures pending -Continue Neurochecks Q4 -High fall risk precautions -Skilled PT Screen: Skilled PT indicated -SW/CM referral for discharge planning, all recommendations appreciated -PT and OT consulted, all recommendations appreciated 2. HCAP -Chest X-Ray showed crowded BV markings, mild bibasilar atelectasis and mild PVC -Strep. Pneumo serology, Legionella serology and procalcitonin pending -Continue Vancomycin (Day 1) -Continue Duonebs Q2 PRN for SOB 3. History of Anxiety -Continue home Klonopin 4. History of Depression -Continue home Zoloft 5. History of Seizure Disorder -Continue home Topiramate ER and Gabapentin -Seizure precautions 6. History of DM2 -SSI-Low and Accuchecks ACHS -Moderate carbohydrate consistency diet 7. History of Hypothyroidism -Continue home Synthroid 8. History of Depression -Continue home Zoloft GI Prophylaxis: Protonix DVT Prophylaxis: Lovenox Diet: Heart Healthy Code Status: Full Code Patient seen and case discussed with attending, Dr. Taylor. Carlos Arenas, PGY2 <Eze Taylor - Last Filed: 10/14/18 17:20> Objective - Vital Signs/Intake and Output Vital Signs (last 24 hours): Temp Pulse Resp BP Pulse Ox 98.3 F 80 20 117/53 L 96 10/14/18 07:00 10/14/18 07:00 10/14/18 07:00 10/14/18 07:00 10/14/18 07:00 - Medications Medications: Current Medications Albuterol/Ipratropium (Duoneb 3 Mg/0.5 Mg (3 Ml) Ud) 3 ml IH Q2H PRN PRN Reason: Shortness of Breath Clonazepam (Klonopin) 1 mg PO [facility]; Protocol Enoxaparin Sodium (Lovenox) 40 mg SC DAILY [facility]; Protocol Last Admin: 10/14/18 09:33 Dose: 40 mg Gabapentin (Neurontin) 300 mg PO Q8H [facility]; Protocol Vancomycin HCl (Vancomycin 1gm) 1 gm in 250 mls @ 167 mls/hr IVPB Q12H [facility]; Protocol Last Admin: 10/14/18 06:18 Dose: 167 mls/hr Insulin Human Regular (Humulin R Low) [address] [facility]; Protocol Levothyroxine Sodium (Synthroid) 25 mcg PO 0600 [facility] Last Admin: 10/14/18 06:17 Dose: 25 mcg Levothyroxine Sodium (Synthroid) 224 mcg PO 0700 [facility] Topiramate Er 150 (Mg (Home Med)) 150 mg PO [facility] Pantoprazole Sodium (Protonix Ec Tab) 40 mg PO 0600 [facility] Last Admin: 10/14/18 06:17 Dose: 40 mg Sertraline HCl (Zoloft) 200 mg PO DAILY [facility] - Labs Labs: 10/14/18 07:00 10/14/18 09:00 PT 13.1 SECONDS (9.4-12.5) H 10/13/18 15:20 INR 1.15 10/13/18 15:20 APTT 37.2 Seconds (25.1-36.5) H 10/13/18 15:20 Attending/Attestation - Attestation I have personally seen and examined this patient.: Yes I have fully participated in the care of the patient.: Yes I have reviewed all pertinent clinical information, including history, physical exam and plan: Yes Notes (Text): 10/14/18 17:14 Attending note; Patient seen and examined with resident. Patient is alert and awake. Complaining of generalized weakness. Patient is not able to do stairs at home. Tolerating diet well. Denies any fevers, chills. Denies any nausea, vomiting. Denies any urinary symptoms. Patient is a 53-year-old female past medical history significant for COPD, type 2 diabetes, pseudotumor cerebri, hypothyroidism, depression, anxiety, and bipolar disorder is admitted for generalized weakness and gait instability. Patient was recently discharged from the hospital after patient refused rehabilitation placement. 1. Gait instability; due to morbid obesity, neuropathy. Patient refused far during last admission. Discussed in detail. We will get licensed social worker evaluation for [facility] placement. Patient is agreeing to go to rehabilitation now. 2. Head CT is negative for acute infarcts shows chronic microvascular changes. 3. Chest x-ray with bibasilar atelectasis. Intensive spirometry ordered. Patient is afebrile and nontoxic. 4. Obesity/COPD; Continue nebulizer treatments as needed. 5. DM2. Continue insulin sliding scale. 6. Pseudotumor Cerebri. Continue topamax 7. Depression and anxiety. Bipolar disorder. Continue klonopin,Zoloft. continue Neurontin. 8. Tobacco abuse. Counseled on cessation. Continue with nictoine patch 9. Morbid obesity. Counseled on diet and exercise. We discussed with case filler tomorrow for discharge planning to [facility]. upon discharge the patient will follow up with PMD Dr. zavala.
[2018-10-14] MEDS ORDERED: Albuterol-Ipratrop 3 mg / 0.5 (3 ml) UD IH PRN (15:26)
[2018-10-14] MEDS: Insulin Reg-LOW-Coverage SC SCH ×2 (20:29→22:21)
[2018-10-14] MEDS: TOPIRAMATE 150 MG PO SCH ×2 (20:31→22:24)
--- NOTE | 2018-10-14 22:31 | CARD ---
APPROVED REPORT Date of service: 10/13/2018 EKG Measurement Heart [id number] [id number] <Conclusion> Normal sinus rhythm Normal Electrocardiogram
[2018-10-15] MEDS: Levothyroxine 25 MCG TAB PO SCH (05:52)
[2018-10-15 07:56] LABS: BASO # 0.02 K/mm3 (0.0-2.0); BASO % 0.4 % (0.0-3.0); EOS # 0.1 (0.0-0.7); EOS % 1.4 % (1.5-5.0); GRAN # 3.17 (1.4-6.5); GRAN % 65.5 % (50.0-68.0); HEMOGLOBIN 10.8 g/dL (12.0-16.0); LYMPH # 0.9 (1.2-3.4); LYMPH % 18.4 % (22.0-35.0); MEAN CELL VOLUME 97.4 fl (80.0-105.0); MEAN CORPUSCULAR HEMOGLOBIN 31.3 pg (25.0-35.0); MEAN CORPUSCULAR HGB CONC 32.1 g/dl (31.0-37.0); MEAN PLATELET VOLUME 9.2 fl (7.0-11.0); MONO # 0.7 (0.1-0.6); MONO % 14.3 % (1.0-6.0); RBC 3.45 10^6/uL (3.5-6.1); RED CELL DISTRIBUTION WIDTH 15.9 % (11.5-14.5); WHITE BLOOD COUNT 4.8 10^3/uL (4.5-11.0)
[2018-10-15 08:03] LABS: ALB/GLOB RATIO 0.7 (1.1-1.8); ALBUMIN 2.8 g/dL (3.0-4.8); ALT/SGPT 32 U/L (7-56); AST/SGOT 39 U/L (14-36); BLOOD UREA NITROGEN 13 mg/dL (7-21); CALCIUM 8.6 mg/dL (8.4-10.5); GFR NON-AFRICAN AMERICAN > 60
[2018-10-15] MEDS: Insulin Reg-LOW-Coverage SC SCH ×4 (09:01→22:02)
[2018-10-15] MEDS: Enoxaparin 40 mg Syringe SC SCH (09:05)
[2018-10-15] MEDS: Levothyroxine 112 MCG TAB PO SCH (09:06)
[2018-10-15] MEDS: TOPIRAMATE 150 MG PO SCH (09:08)
--- NOTE | 2018-10-15 15:27 | CP.PCM.PN ---
Subjective - Date & Time of Evaluation Date of Evaluation: 10/15/18 Time of Evaluation: 08:00 - Subjective Subjective: Internal medicine progress note for Dr. Palomino Patient seen and examined this am at bedside. KIMBERLY per nursing. Patient states she is feeling well, her weakness has improved and she denies SOB. She states that she would be amenable to go to [facility] at this time for further strengthening before going home. She understands that it is unsafe for her to go home due to her fall risk. Objective - Vital Signs/Intake and Output Vital Signs (last 24 hours): Temp Pulse Resp BP Pulse Ox 97.5 F L 78 20 128/66 91 L 10/15/18 14:00 10/15/18 14:00 10/15/18 14:00 10/15/18 14:00 10/15/18 14:00 Intake and Output: 10/15/18 10/15/18 06:59 18:59 Intake Total 360 Balance 360 - Medications Medications: Current Medications Albuterol/Ipratropium (Duoneb 3 Mg/0.5 Mg (3 Ml) Ud) 3 ml IH Q2H PRN PRN Reason: Shortness of Breath Clonazepam (Klonopin) 1 mg PO AMHS NOAM; Protocol Last Admin: 10/15/18 09:05 Dose: 1 mg Enoxaparin Sodium (Lovenox) 40 mg SC DAILY NOAM; Protocol Last Admin: 10/15/18 09:05 Dose: 40 mg Gabapentin (Neurontin) 300 mg PO Q8H NOAM; Protocol Last Admin: 10/15/18 14:21 Dose: 300 mg Vancomycin HCl (Vancomycin 1gm) 1 gm in 250 mls @ 167 mls/hr IVPB Q12H NOAM; Protocol Last Admin: 10/14/18 20:35 Dose: 167 mls/hr Insulin Human Regular (Humulin R Low) 0 units SC ACHS NOAM; Protocol Last Admin: 10/15/18 12:56 Dose: 1 units Levothyroxine Sodium (Synthroid) 25 mcg PO 0600 NOAM Last Admin: 10/15/18 05:52 Dose: 25 mcg Levothyroxine Sodium (Synthroid) 224 mcg PO 0700 NOAM Last Admin: 10/15/18 09:06 Dose: 224 mcg Topiramate Er 150 (Mg (Home Med)) 150 mg PO AMHS NOAM Last Admin: 10/15/18 09:08 Dose: Not Given Pantoprazole Sodium (Protonix Ec Tab) 40 mg PO 0600 [facility] Last Admin: 10/14/18 06:17 Dose: 40 mg Sertraline HCl (Zoloft) 200 mg PO DAILY [facility] Last Admin: 10/15/18 14:20 Dose: 200 mg - Labs Labs: 10/15/18 07:30 10/15/18 07:30 PT 13.1 SECONDS (9.4-12.5) H 10/13/18 15:20 INR 1.15 10/13/18 15:20 APTT 37.2 Seconds (25.1-36.5) H 10/13/18 15:20 - Constitutional Appears: Well, Non-toxic, No Acute Distress, Chronically Ill - Head Exam Head Exam: ATRAUMATIC, NORMOCEPHALIC - Eye Exam Eye Exam: EOMI - ENT Exam ENT Exam: Mucous Membranes Moist - Respiratory Exam Respiratory Exam: NORMAL BREATHING PATTERN - Cardiovascular Exam Cardiovascular Exam: REGULAR RHYTHM - GI/Abdominal Exam GI & Abdominal Exam: Soft. absent: Distended, Firm, Guarding, Tenderness - Extremities Exam Extremities Exam: absent: Calf Tenderness, Pedal Edema - Neurological Exam Neurological Exam: Alert, Awake, Oriented x3 - Psychiatric Exam Psychiatric exam: Flat Affect, Normal Mood - Skin Skin Exam: Dry, Intact, Warm Additional comments: chronic venous stasis skin changes over lower extremities bilaterally Assessment and Plan - Assessment and Plan (Free Text) Assessment: 53 year old female with generalized weakness 2/2 chronic deconditioning Plan: 1. Generalized Weakness -CT Head showed minor periventricular ischemic changes but no acute IC abnormali ties -Labs and VS currently within normal limits or near patient's baseline -Blood and Urine cultures negative as of 24 hours -Continue Neurochecks Q4 -High fall risk precautions -Skilled PT Screen: Skilled PT indicated -SW/CM referral for discharge planning, all recommendations appreciated -PT and OT consulted, all recommendations appreciated 2. HCAP -Chest X-Ray showed crowded BV markings, mild bibasilar atelectasis and mild PVC -Continue Vancomycin (Day 2) -Continue Duonebs Q2 PRN for SOB 3. History of Anxiety -Continue home Klonopin 4. History of Depression -Continue home Zoloft 5. History of Seizure Disorder -Continue home Topiramate ER and Gabapentin -Seizure precautions 6. History of DM2 -SSI-Low and Accuchecks ACHS -Moderate carbohydrate consistency diet 7. History of Hypothyroidism -Continue home Synthroid 8. History of Depression -Continue home Zoloft GI Prophylaxis: Protonix DVT Prophylaxis: Lovenox Diet: Heart Healthy Code Status: Full Code
[2018-10-15] MEDS: Vancomycin 1gm in NS 250ml 1 GM/250 ML BAG IVPB SCH ×2 (17:09→17:33)
[2018-10-16] MEDS: TOPIRAMATE 150 MG PO SCH ×2 (00:06→09:53)
[2018-10-16] MEDS: Levothyroxine 25 MCG TAB PO SCH (06:14)
[2018-10-16] MEDS: Levothyroxine 112 MCG TAB PO SCH (06:14)
[2018-10-16] MEDS: Pantoprazole 40 mg EC Tab PO SCH (06:14)
[2018-10-16] MEDS: Vancomycin 1gm in NS 250ml 1 GM/250 ML BAG IVPB SCH ×2 (06:18→09:53)
[2018-10-16] MEDS: Insulin Reg-LOW-Coverage SC SCH ×3 (07:17→16:36)
[2018-10-16 07:19] LABS: BASO # 0.01 K/mm3 (0.0-2.0); BASO % 0.3 % (0.0-3.0); EOS # 0.1 (0.0-0.7); EOS % 1.5 % (1.5-5.0); GRAN # 2.33 (1.4-6.5); GRAN % 58.6 % (50.0-68.0); HEMOGLOBIN 10.8 g/dL (12.0-16.0); LYMPH % 25.7 % (22.0-35.0); MEAN CELL VOLUME 96.3 fl (80.0-105.0); MEAN CORPUSCULAR HGB CONC 32.2 g/dl (31.0-37.0); MONO # 0.6 (0.1-0.6); MONO % 13.9 % (1.0-6.0); RBC 3.48 10^6/uL (3.5-6.1); RED CELL DISTRIBUTION WIDTH 15.8 % (11.5-14.5)
[2018-10-16 07:36] LABS: ALB/GLOB RATIO 0.8 (1.1-1.8); ALBUMIN 2.8 g/dL (3.0-4.8); ALT/SGPT 30 U/L (7-56); AST/SGOT 39 U/L (14-36); BLOOD UREA NITROGEN 13 mg/dL (7-21); CALCIUM 8.6 mg/dL (8.4-10.5); GFR NON-AFRICAN AMERICAN > 60
[2018-10-16] MEDS: Enoxaparin 40 mg Syringe SC SCH (09:52)
--- NOTE | 2018-10-16 13:59 | CP.PCM.DIS ---
Provider - Provider Date of Admission: 10/13/18 18:15 Attending physician: Eagle Hunter MD Primary care physician: Humberto Hoffmann MD Consults: 10/13/18 21:30 Nursing Referral for Palliative Care Routine Comment: poncho score Physician Instructions: Reason For Exam: eval Social Work Referral Routine Comment: dc plan Physician Instructions: Reason For Exam: eval 10/13/18 22:30 Case Management Referral Routine Comment: Physician Instructions: Reason For Exam: Reason for Referral: Discharge Planning Inpatient [employer] Core Measures Referral Routine Comment: weakness both legs Physician Instructions: Reason For Exam: eval Transition In Care/Readmission Reduction Routine Comment: weakness both legs Physician Instructions: Reason For Exam: eval Hospital Course - Lab Results Lab Results: Micro Results 10/13/18 19:00 Blood Blood Culture - Preliminary NO GROWTH AFTER 48 HOURS 10/13/18 18:45 Blood Blood Culture - Preliminary NO GROWTH AFTER 48 HOURS 10/13/18 18:40 Urine,Catheterized Urine Culture - Final No Growth (<1,000 CFU/ML) Most Recent Lab Values WBC 4.0 10^3/uL (4.5-11.0) L 10/16/18 06:50 RBC 3.48 10^6/uL (3.5-6.1) L 10/16/18 06:50 Hgb 10.8 g/dL (12.0-16.0) L 10/16/18 06:50 Hct 33.5 % (36.0-48.0) L 10/16/18 06:50 MCV 96.3 fl (80.0-105.0) 10/16/18 06:50 MCH 31.0 pg (25.0-35.0) 10/16/18 06:50 MCHC 32.2 g/dl (31.0-37.0) 10/16/18 06:50 RDW 15.8 % (11.5-14.5) H 10/16/18 06:50 Plt Count 99 10^3/uL (120.0-450.0) L 10/16/18 06:50 MPV 9.0 fl (7.0-11.0) 10/16/18 06:50 Gran % 58.6 % (50.0-68.0) 10/16/18 06:50 Lymph % (Auto) 25.7 % (22.0-35.0) 10/16/18 06:50 [place] % (Auto) 13.9 % (1.0-6.0) H 10/16/18 06:50 Eos % (Auto) 1.5 % (1.5-5.0) 10/16/18 06:50 Baso % (Auto) 0.3 % (0.0-3.0) 10/16/18 06:50 Gran # 2.33 (1.4-6.5) 10/16/18 06:50 Lymph # (Auto) 1.0 (1.2-3.4) L 10/16/18 06:50 [place] # (Auto) 0.6 (0.1-0.6) 10/16/18 06:50 Eos # (Auto) 0.1 (0.0-0.7) 10/16/18 06:50 Baso # (Auto) 0.01 K/mm3 (0.0-2.0) 10/16/18 06:50 PT 13.1 SECONDS (9.4-12.5) H 10/13/18 15:20 INR 1.15 10/13/18 15:20 APTT 37.2 Seconds (25.1-36.5) H 10/13/18 15:20 pCO2 48 mm/Hg (35-45) H 10/13/18 17:52 pO2 91.0 mm/Hg (80-100) 10/13/18 17:52 HCO3 25.9 mmol/L (21-28) 10/13/18 17:52 ABG pH 7.34 (7.35-7.45) L 10/13/18 17:52 ABG Total CO2 27.4 mmol.L (22-28) 10/13/18 17:52 ABG O2 Saturation 98.3 % (95-98) H 10/13/18 17:52 ABG O2 Content 14.1 ML/dl (15-23) L 10/13/18 17:52 ABG Base Excess -0.2 mmol/L (-2.0-3.0) 10/13/18 17:52 ABG Hemoglobin 10.5 g/dL (11.7-17.4) L 10/13/18 17:52 ABG Carboxyhemoglobin 2.2 % (0.5-1.5) H 10/13/18 17:52 POC ABG HHb (Measured) 1.6 % (0-5) 10/13/18 17:52 ABG Methemoglobin 1.2 % (0.0-3.0) 10/13/18 17:52 ABG O2 Capacity 14.3 mL/dl (16-24) L 10/13/18 17:52 Hgb O2 Saturation 94.9 % (95.0-98.0) L 10/13/18 17:52 FiO2 32.0 % 10/13/18 17:52 Sodium 142 mmol/L (132-148) 10/16/18 06:50 Potassium 3.6 mmol/L (3.6-5.0) 10/16/18 06:50 Chloride 113 mmol/L (98-107) H 10/16/18 06:50 Carbon Dioxide 28 mmol/L (21-33) 10/16/18 06:50 Anion Gap 5 (10-20) L 10/16/18 06:50 BUN 13 mg/dL (7-21) 10/16/18 06:50 Creatinine 0.5 mg/dl (0.7-1.2) L 10/16/18 06:50 Est GFR ( Amer) > 60 10/16/18 06:50 Est GFR (Non-Af Amer) > 60 10/16/18 06:50 POC Glucose (mg/dL) 104 mg/dL (65-110) 10/16/18 06:27 Random Glucose 109 mg/dL (70-110) 10/16/18 06:50 Calcium 8.6 mg/dL (8.4-10.5) 10/16/18 06:50 Phosphorus 2.6 mg/dL (2.5-4.5) 10/16/18 06:50 Magnesium 1.7 mg/dL (1.7-2.2) 10/16/18 06:50 Total Bilirubin 1.5 mg/dL (0.2-1.3) H 10/16/18 06:50 AST 39 U/L (14-36) H 10/16/18 06:50 ALT 30 U/L (7-56) 10/16/18 06:50 Alkaline Phosphatase 129 U/L (38-126) H 10/16/18 06:50 Lactate Dehydrogenase 660 U/L (333-699) 10/13/18 15:20 Total Creatine Kinase 39 U/L (35-230) 10/13/18 15:20 Troponin I 0.02 ng/mL D 10/13/18 15:20 Total Protein 6.4 g/dL (5.8-8.3) 10/16/18 06:50 Albumin 2.8 g/dL (3.0-4.8) L 10/16/18 06:50 Globulin 3.7 gm/dL 10/16/18 06:50 Albumin/Globulin Ratio 0.8 (1.1-1.8) L 10/16/18 06:50 Procalcitonin 0.06 NG/ML (0.19-0.49) L 10/13/18 18:40 Free T4 1.93 ng/dL (0.78-2.19) 10/14/18 07:00 TSH 3rd Generation < 0.02 mIU/mL (0.46-4.68) L 10/13/18 18:40 Urine Color [place] (YELLOW) 10/13/18 18:40 Urine Appearance Clear (CLEAR) 10/13/18 18:40 Urine pH 6.5 (4.7-8.0) 10/13/18 18:40 Ur Specific [place] 1.025 (1.005-1.035) 10/13/18 18:40 Urine Protein 30 mg/dL (<30 mg/dL) H 10/13/18 18:40 Urine Glucose (UA) 100 mg/dL (NEGATIVE) H 10/13/18 18:40 Urine Ketones Negative mg/dL (NEGATIVE) 10/13/18 18:40 Urine Blood Large (NEGATIVE) H 10/13/18 18:40 Urine Nitrate Positive (NEGATIVE) H 10/13/18 18:40 Urine Bilirubin Negative (NEGATIVE) 10/13/18 18:40 Urine Urobilinogen 2.0 E.U./dL (<1 E.U./dL) H 10/13/18 18:40 Ur Leukocyte Esterase Trace [place]ry/uL (NEGATIVE) H 10/13/18 18:40 Urine RBC Tntc /hpf (0-2) 10/13/18 18:40 Urine WBC 1 - 3 /hpf (0-6) 10/13/18 18:40 Ur Epithelial Cells 6 - 8 /hpf (0-5) 10/13/18 18:40 Urine Bacteria Small (NEG) 10/13/18 18:40 Discharge Exam - Head Exam Head Exam: ATRAUMATIC, NORMOCEPHALIC Discharge Plan - Follow Up Plan Condition: STABLE Disposition: HOME/ ROUTINE Instructions: Weakness (ED) Additional Instructions: Please follow these instructions upon discharge from the hospital: Please follow up with your primary care doctor, Dr. Hoffmann, within 3-5 days of being discharged from your [facility]. Please discuss all medical issues addressed during your admission. Please resume all medications that you are taking at [facility] while at [facility] as they are currently prescribed. Please resume taking all home medications as prescribed once you have been discharged from [facility] If your symptoms return, please visit the nearest emergency room immediately. Referrals: Humberto Hoffmann MD [Primary Care Provider] -
[2018-10-16 14:17] VITALS: BP 108/48; PULSE 71; RESP 20; TEMP 98.1; O2SAT 96
== END 2018-10-16 21:20 | DRG 533 ==
LOC: ED 14:01 → ERH 18:15 → 5RSO 19:13
PROVIDERS: ADMIT Internal Medicine; ATTEND Internal Medicine
DX: E11.40 Type 2 diabetes mellitus with diabetic neuropathy, unspecified (principal); J18.9 Pneumonia, unspecified organism; J44.0 Chronic obstructive pulmonary disease with (acute) lower respiratory infection; D86.9 Sarcoidosis, unspecified; J98.11 Atelectasis; K74.60 Unspecified cirrhosis of liver; N18.9 Chronic kidney disease, unspecified; E11.22 Type 2 diabetes mellitus with diabetic chronic kidney disease; R26.81 Unsteadiness on feet; E66.01 Morbid (severe) obesity due to excess calories; I12.9 Hypertensive chronic kidney disease with stage 1 through stage 4 chronic kidney disease, or unspecified chronic kidney disease; E03.9 Hypothyroidism, unspecified; F31.9 Bipolar disorder, unspecified; G93.2 Benign intracranial hypertension; K21.9 Gastro-esophageal reflux disease without esophagitis; K76.0 Fatty (change of) liver, not elsewhere classified; G40.909 Epilepsy, unspecified, not intractable, without status epilepticus; F41.9 Anxiety disorder, unspecified; R53.1 Weakness; Y95 Nosocomial condition; Z68.43 Body mass index [BMI] 50.0-59.9, adult; Z72.0 Tobacco use; Z85.43 Personal history of malignant neoplasm of ovary; Z88.0 Allergy status to penicillin

== ENCOUNTER 2018-12-24 09:30 | Inpatient (IN) | payer OTHER ==
[2018-12-24] MEDS ORDERED: Albuterol-Ipratrop 3 mg / 0.5 (3 ml) UD IH STA (10:25)
--- NOTE | 2018-12-24 10:44 | RAD ---
Date of service: 12/24/2018 HISTORY: cough COMPARISON: 10/13/2018 FINDINGS: LUNGS: There is a patchy infiltrate in the right upper lobe increased from the previous study PLEURA: No significant pleural effusion identified, no pneumothorax apparent. CARDIOVASCULAR: Aortic calcification Mild cardiomegaly no pulmonary vascular congestion. OSSEOUS STRUCTURES: No significant abnormalities. VISUALIZED UPPER ABDOMEN: Normal. OTHER FINDINGS: None. IMPRESSION: There is a patchy infiltrate in the right upper lobe increased from the previous study
[2018-12-24 10:58] LABS: BASO # 0.02 K/mm3 (0.0-2.0); BASO % 0.3 % (0.0-3.0); EOS % 0.1 % (1.5-5.0); HEMOGLOBIN 12.3 g/dL (12.0-16.0); LYMPH % 12.8 % (22.0-35.0); MEAN CELL VOLUME 99.2 fl (80.0-105.0); MEAN CORPUSCULAR HEMOGLOBIN 32.1 pg (25.0-35.0); MEAN CORPUSCULAR HGB CONC 32.4 g/dl (31.0-37.0); MEAN PLATELET VOLUME 9.7 fl (7.0-11.0); MONO # 0.5 (0.1-0.6); MONO % 6.2 % (1.0-6.0); RBC 3.83 10^6/uL (3.5-6.1); RED CELL DISTRIBUTION WIDTH 14.3 % (11.5-14.5); WHITE BLOOD COUNT 7.7 10^3/uL (4.5-11.0)
[2018-12-24 11:06] LABS: ALB/GLOB RATIO 0.7 (1.1-1.8); ALBUMIN 3.2 g/dL (3.0-4.8); ALT/SGPT 21 U/L (7-56); AST/SGOT 38 U/L (14-36); BLOOD UREA NITROGEN 10 mg/dL (7-21); CALCIUM 9.5 mg/dL (8.4-10.5); GFR NON-AFRICAN AMERICAN > 60
[2018-12-24 11:09] LABS: INR 1.14; PARTIAL THROMBOPLASTIN TIME 39.7 Seconds (26.9-38.3); PROTHROMBIN TIME 12.9 SECONDS (9.4-12.5)
[2018-12-24 11:18] LABS: B-TYPE NATRIURETIC PEPTIDE 386 pg/mL (0-450); TROPONIN I < 0.01 ng/mL
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
[2018-12-24] MEDS ORDERED: Aztreonam 1 Gm in NS 100mL 100 ML IVPB STA (12:04)
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
[2018-12-24] MEDS ORDERED: Albuterol-Ipratrop 3 mg / 0.5 (3 ml) UD IH PRN (12:26)
--- NOTE | 2018-12-24 17:09 | CARD ---
APPROVED REPORT Date of service: 12/24/2018 EKG Measurement Heart [id number] <Conclusion> Normal sinus rhythm Prolonged QT Abnormal ECG
[2018-12-24 18:17] VITALS: BMI 48.4
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
[2018-12-24] MEDS: Albuterol-Ipratrop 3 mg / 0.5 (3 ml) UD IH SCH (21:31)
[2018-12-24] MEDS: Aztreonam 1 Gm in NS 100mL 100 ML IVPB SCH (22:44)
[2018-12-24] MEDS: Vancomycin 1gm in NS 250ml 1 GM/250 ML BAG IVPB SCH (23:57)
[2018-12-25] MEDS: Albuterol-Ipratrop 3 mg / 0.5 (3 ml) UD IH SCH ×6 (01:19→19:55)
[2018-12-25] MEDS ORDERED: Levothyroxine 200 MCG TAB ONE (05:21)
[2018-12-25] MEDS: Aztreonam 1 Gm in NS 100mL 100 ML IVPB SCH ×3 (05:37→21:05)
[2018-12-25] MEDS ORDERED: Levothyroxine 200 MCG TAB PO SCH (06:00)
--- NOTE | 2018-12-25 07:41 | CP.PCM.PN ---
<Jj Weems - Last Filed: 12/25/18 15:14> Subjective - Date & Time of Evaluation Date of Evaluation: 12/25/18 Time of Evaluation: 07:41 - Subjective Subjective: Jj Weems DO, PGY-1 Hospitalist Progress Note for Dr. Humberto Covington Patient was seen and examined at bedside this AM. She states she feels less short of breath this morning but still has no appetite. She states she does not have an appetite and would prefer to rest at this time. She denies chills, CP, abdominal pain/nausea/vomiting, or urinary complaints. Objective - Vital Signs/Intake and Output Vital Signs (last 24 hours): Temp Pulse Resp BP Pulse Ox 98.2 F 73 18 134/61 97 12/24/18 21:48 12/24/18 21:48 12/24/18 21:48 12/24/18 21:48 12/24/18 21:48 Intake and Output: 12/25/18 12/25/18 06:59 18:59 Intake Total 100 Output Total 1400 Balance -1300 - Medications Medications: Current Medications Albuterol/Ipratropium (Duoneb 3 Mg/0.5 Mg (3 Ml) Ud) 3 ml IH [id number] CAMILO Last Admin: 12/25/18 05:00 Dose: Not Given Albuterol/Ipratropium (Duoneb 3 Mg/0.5 Mg (3 Ml) Ud) 3 ml IH Q2H PRN PRN Reason: Shortness of Breath Clonazepam (Klonopin) 1 mg PO DAILY PRN; Protocol PRN Reason: Anxiety Gabapentin (Neurontin) 300 mg PO TID CAMILO; Protocol Last Admin: 12/24/18 17:40 Dose: 300 mg Heparin Sodium (Porcine) (Heparin) 5,000 units SC Q8 CAMILO; Protocol Last Admin: 12/25/18 05:38 Dose: 5,000 units Aztreonam (Azactam 1 Gm) 100 mls @ 100 mls/hr IVPB Q8 CAMILO; Protocol Last Admin: 12/25/18 05:37 Dose: 100 mls/hr Vancomycin HCl (Vancomycin 1gm) 1 gm in 250 mls @ 167 mls/hr IVPB Q12H CAMILO; Protocol Last Admin: 12/24/18 23:57 Dose: 167 mls/hr Levothyroxine Sodium 200 mcg/ (Levothyroxine Sodium 25 mcg) 225 mcg PO 0600 CAMILO Methylprednisolone (Solu-Medrol) 40 mg IVP Q12 CAMILO Sertraline HCl (Zoloft) 200 mg PO DAILY CAMILO Topiramate (Topamax) 100 mg PO DAILY CAMILO; Protocol Topiramate (Topamax) 150 mg PO HS CAMILO; Protocol Last Admin: 12/24/18 22:57 Dose: 150 mg - Labs Labs: 12/24/18 10:30 12/24/18 10:30 PT 12.9 SECONDS (9.4-12.5) H 12/24/18 10:30 INR 1.14 12/24/18 10:30 APTT 39.7 Seconds (26.9-38.3) H 12/24/18 10:30 - Constitutional Appears: No Acute Distress, Unkempt, Chronically Ill - Head Exam Head Exam: ATRAUMATIC, NORMOCEPHALIC - Eye Exam Eye Exam: EOMI, PERRL - ENT Exam ENT Exam: Mucous Membranes Moist - Neck Exam Neck Exam: Full ROM, Normal Inspection - Respiratory Exam Respiratory Exam: Rhonchi (loudest RUL). absent: Accessory Muscle Use, Chest Wall Tenderness, Rales, Wheezes, Respiratory Distress - Cardiovascular Exam Cardiovascular Exam: REGULAR RHYTHM, RRR, +S1, +S2. absent: Gallop, Rubs, Murmur - GI/Abdominal Exam GI & Abdominal Exam: Soft. absent: Distended, Tenderness - Extremities Exam Extremities Exam: Pedal Edema (b/l non-pitting edema b/l). absent: Joint Swelling, Tenderness - Neurological Exam Neurological Exam: Awake, Oriented x3 - Psychiatric Exam Psychiatric exam: Flat Affect - Skin Skin Exam: Dry, Rash (erythematous, hyperpigmented patches on b/l LE consistent with venous stasis dermatitis), Warm Assessment and Plan - Assessment and Plan (Free Text) Assessment: 53 yo F with PMH of COPD, sarcoidosis, pseudotumor cerebri, hypothyroidism, bipolar, and anxiety/depression presented to ED with worsening SOB and possible worsened RUL infiltrate on CXR. She is admitted for management of presumed HCAP and COPD exacerbation. Plan: Dyspnea May be 2/2 RUL infiltrate/HCAP vs COPD exacerbation Per radiologist, RUL infiltrate is present on CXR and worse from prior, however procal is negative Continue solumedrol 40 mg IVP q12h Continue camilo and PRN duo-neb treatments Continue empiric treatment with vanc/aztreonam per ID recs Patient is allergic to many antibiotics ID following, all recs appreciated Physical Deconditioning May be 2/2 obesity vs worsening COPD Per prior records and patient's , patient was recently discharged from rehab She was treated at rehab and then signed out AMA Per and patient history, patient was more ambulatory prior to hospitalization in 10/2018 after a fall After rehab, patient continued to be non-ambulatory while at home Physical therapy evaluate and treat F/u PT recs prior to discharge Bipolar disorder Continue home zoloft Hx Pseudotumor cerebri Continue topamax Hx Hypothyroidism F/u TSH and free T4 levels as this may be contributing to patient's somnolence Continue home synthroid DVT PPX: SC heparin Full Code HHD Monitor on med/surg Patient seen, examined, and plan discussed with my attending Dr. Humberto Weems D.O. IM Resident PGY-1 Pager: [phone] <Carie Covington R - Last Filed: 12/26/18 16:41> Objective - Vital Signs/Intake and Output Vital Signs (last 24 hours): Temp Pulse Resp BP Pulse Ox 98.9 F 72 18 135/68 98 12/26/18 06:00 12/26/18 06:00 12/26/18 06:00 12/26/18 06:00 12/26/18 06:00 Intake and Output: 12/26/18 12/26/18 06:59 18:59 Intake Total 240 240 Output Total 700 300 Balance -460 -60 - Medications Medications: Current Medications Albuterol/Ipratropium (Duoneb 3 Mg/0.5 Mg (3 Ml) Ud) 3 ml IH Q2H PRN PRN Reason: Shortness of Breath Albuterol/Ipratropium (Duoneb 3 Mg/0.5 Mg (3 Ml) Ud) 3 ml IH [id number] CAMILO Fluoxetine HCl (Prozac) 10 mg PO DAILY CAMILO Last Admin: 12/26/18 11:21 Dose: 10 mg Gabapentin (Neurontin) 300 mg PO TID CAMILO; Protocol Last Admin: 12/26/18 15:13 Dose: 300 mg Guaifenesin/Dextromethorphan (Robitussin Dm) 10 ml PO Q4H PRN PRN Reason: Cough Heparin Sodium (Porcine) (Heparin) 5,000 units SC Q8 CAMILO; Protocol Last Admin: 12/26/18 15:13 Dose: 5,000 units Aztreonam (Azactam 1 Gm) 100 mls @ 100 mls/hr IVPB Q8 CAMILO; Protocol Last Admin: 12/26/18 15:11 Dose: 100 mls/hr Vancomycin HCl (Vancomycin 1gm) 1 gm in 250 mls @ 167 mls/hr IVPB Q12H CAMILO; Protocol Last Admin: 12/26/18 11:22 Dose: 167 mls/hr Levothyroxine Sodium 200 mcg/ (Levothyroxine Sodium 25 mcg) 225 mcg PO 0600 CAMILO Last Admin: 12/26/18 06:37 Dose: 225 mcg Lorazepam (Ativan) 0.5 mg IVP TID CAMILO; Protocol Last Admin: 12/26/18 15:11 Dose: 0.5 mg Methylprednisolone (Solu-Medrol) 30 mg IVP Q12 CAMILO Sertraline HCl (Zoloft) 100 mg PO DAILY CAMILO Last Admin: 12/26/18 11:22 Dose: 100 mg Topiramate (Topamax) 100 mg PO DAILY CAMILO; Protocol Last Admin: 12/26/18 11:27 Dose: 100 mg Topiramate (Topamax) 150 mg PO HS CAMILO; Protocol Last Admin: 12/25/18 21:07 Dose: 150 mg - Labs Labs: 12/26/18 06:55 12/26/18 06:55 PT 12.9 SECONDS (9.4-12.5) H 12/24/18 10:30 INR 1.14 12/24/18 10:30 APTT 39.7 Seconds (26.9-38.3) H 12/24/18 10:30 Attending/Attestation - Attestation I have personally seen and examined this patient.: Yes I have fully participated in the care of the patient.: Yes I have reviewed all pertinent clinical information, including history, physical exam and plan: Yes Notes (Text): Patient seen and examined by me with resident at 11:15AM on 12/25/18. Case including HPI, physical exam, and assessment and plan discussed with resident. Agree with above with following additions/corrections. Patient is a 53-year-old female past medical history significant for COPD, sarcoidosis, type 2 diabetes, pseudotumor cerebri, hypothyroidism, falls, depression, anxiety, and bipolar disorder presented to the emergency room with shortness of breath. Patient states she is feeling a little better. Still with shortness of breath and coughing. Patient did not eat her breakfast. States she is not hungry. Patient encouraged to increase her PO intake. Patient denies chest pain or palpitations. No nausea, vomiting, or abdominal pain. No headaches or dizziness. No lightheadedness. No diarrhea or constipation. No dysuria or burning with urination. Physical exam: General: Awake and alert lying in bed in no acute distress. HEENT: Normocephalic, atraumatic. Extraocular muscles intact, pupils equal and reactive, no scleral icterus. Oropharynx is pink and moist. Neck is supple. Cardiovascular: Normal rhythm. Normal S1 and S2. No murmurs, rubs, or gallops appreciated Pulmonary: Normal respiratory effort. Decreased breath sounds. No rhonchi, rales, or wheezing appreciated. Gastrointestinal: Soft, nondistended. Nontender. Morbidly obsese abdomen. Positive bowel sounds all 4 quadrants. No guarding. Musculoskeletal: Moves all extremities. No calf tenderness. Trace lower extremity edema appreciated. Central nervous system: AAOx3, CN 2-12 grossly intact. Patient has to be asked question multiple times before she answers, slow to answer questions. Dermatologic: Skin warm and dry. Positive bilateral lower extremity chronic venous stasis/dermatitis color changes. Assessment and plan: Patient is a 53-year-old female past medical history significant for COPD, sarcoidosis, type 2 diabetes, pseudotumor cerebri, hypothyroidism, falls, depression, anxiety, and bipolar disorder presented to the emergency room with shortness of breath. 1. Dyspnea secondary to Healthcare associated pneumonia and COPD exacerbation. Patient was recently in the hospital as well as rehabilitation center. VICTOR HUGO godoy, jairo appreciated. Continue Aztreonam and Vancomycin. Blood cultures negative so far. Procalcitonin <0.05. No leukocytosis. Placed on robitussin as needed. Patient afebrile here. Chest x-ray per radiologist showed patchy infiltrate in the right upper lobe increased from the previous study. 2. COPD exacerbation. Continue nebulizer treatments. Continue IV Solu-Medrol, taper. Continue O2 via nasal cannula as needed. Patient counseled at length about tobacco cessation. 3. Type 2 diabetes. Patient does not take any medications for this at home. Monitor Accu-Cheks. 4. Hypothyroidism. Continue home Synthroid 5. Pseudotumor cerebri. No acute issues. Continue home Topamax. 6. Bipolar disorder. Depression and anxiety. Continue home Zoloft. Continue home Klonopin as needed. Psychiatrist consulted, follow up recommendations. 7. Physical deconditioning. Patient recently in rehab. Per patient, she was walking with walker at home. Unable to get out of bed here. PT eval and treat. 8. Tobacco abuse. Counseled on tobacco cessation 9. Morbid obesity. Counseled on diet and exercise. 10. GI/DVT prophylaxis. Protonix/heparin 11. Patient is a full code. All home medications were confirmed with patient's pharamcy. Case was discussed in detail with the patient regarding her diagnosis and treatment plan. All questions answered.
[2018-12-25 07:48] LABS: BASO # 0.02 K/mm3 (0.0-2.0); BASO % 0.2 % (0.0-3.0); EOS % 0.3 % (1.5-5.0); HEMOGLOBIN 12.1 g/dL (12.0-16.0); LYMPH # 1.6 (1.2-3.4); LYMPH % 17.5 % (22.0-35.0); MEAN CELL VOLUME 98.4 fl (80.0-105.0); MEAN CORPUSCULAR HEMOGLOBIN 31.5 pg (25.0-35.0); MEAN PLATELET VOLUME 9.8 fl (7.0-11.0); MONO % 11.4 % (1.0-6.0); RBC 3.84 10^6/uL (3.5-6.1); RED CELL DISTRIBUTION WIDTH 14.4 % (11.5-14.5); WHITE BLOOD COUNT 8.9 10^3/uL (4.5-11.0)
[2018-12-25 08:17] LABS: ALB/GLOB RATIO 0.8 (1.1-1.8); ALBUMIN 3.2 g/dL (3.0-4.8); ALT/SGPT 21 U/L (7-56); AST/SGOT 30 U/L (14-36); BLOOD UREA NITROGEN 15 mg/dL (7-21); CALCIUM 9.5 mg/dL (8.4-10.5); GFR NON-AFRICAN AMERICAN > 60
[2018-12-25] MEDS: Vancomycin 1gm in NS 250ml 1 GM/250 ML BAG IVPB SCH ×2 (10:09→21:05)
[2018-12-25] MEDS: MethylPREDNISolone 40 mg Vial IVP SCH ×2 (10:11→21:05)
[2018-12-25] MEDS ORDERED: Potassium Chloride 40 mEq/30 ml LIQ UD PO ONE (11:00)
[2018-12-25] MEDS ORDERED: guaiFENesin DM 200 mg-20 mg/10 ml UD PO PRN (11:26)
--- NOTE | 2018-12-25 14:24 | CP.PCM.PCO ---
Addendum Addendum: 12/25/18 14:23 this proposal writer attempted to speak to the pt, pt appeared to be drowsy, was opening her eyes, and falling back to sleep. as per RN report, no agitation/no aggression will f/u on pt tomorrow.
--- NOTE | 2018-12-25 16:26 | CT ---
Date of service: 12/25/2018 PROCEDURE: CT HEAD WITHOUT CONTRAST. HISTORY: lethargic COMPARISON: None available. TECHNIQUE: Axial computed tomography images were obtained through the head/brain without intravenous contrast. Radiation dose: Total exam DLP = 981.65 mGy-cm. This CT exam was performed using one or more of the following dose reduction techniques: Automated exposure control, adjustment of the mA and/or kV according to patient size, and/or use of iterative reconstruction technique. FINDINGS: HEMORRHAGE: No intracranial hemorrhage. BRAIN: No mass effect or edema. No atrophy or chronic microvascular ischemic changes. VENTRICLES: Unremarkable. No hydrocephalus. CALVARIUM: Unremarkable. PARANASAL SINUSES: There opacification of the sphenoid sinus MASTOID AIR CELLS: Unremarkable as visualized. No inflammatory changes. OTHER FINDINGS: None. IMPRESSION: No acute findings
--- NOTE | 2018-12-25 17:27 | CP.PCM.PN ---
Subjective - Date & Time of Evaluation Date of Evaluation: 12/25/18 Time of Evaluation: 15:30 - Subjective Subjective: Infectious Disease Follow Up: December 25, 2018 53yo F with PMHx COPD, DM, pseudotumor cerebri, hypothyroid, depression, anxiety, and bipolar disorder who was brought to ED for fevers, chills, SOB, and productive cough that started 1 day prior to admission. She was given azithromycin and promethazine as per a family member. Patient is currently afebrile and without leukocytosis. She is still fatigued and lethargic. Chest X-ray showing patchy infiltrate in the right upper lobe of the lung. The patient with multiple antibiotic allergies. Patient states that she feels a little better than yesterday. Tolerating Aztreonam so far. Objective - Vital Signs/Intake and Output Vital Signs (last 24 hours): Temp Pulse Resp BP Pulse Ox 99.8 F H 80 20 133/71 97 12/25/18 14:00 12/25/18 14:00 12/25/18 14:00 12/25/18 14:00 12/25/18 14:00 Intake and Output: 12/25/18 12/25/18 06:59 18:59 Intake Total 100 0 Output Total 1400 300 Balance -1300 -300 - Medications Medications: Current Medications Albuterol/Ipratropium (Duoneb 3 Mg/0.5 Mg (3 Ml) Ud) 3 ml IH [id number] NOAM Last Admin: 12/25/18 11:30 Dose: 3 ml Albuterol/Ipratropium (Duoneb 3 Mg/0.5 Mg (3 Ml) Ud) 3 ml IH Q2H PRN PRN Reason: Shortness of Breath Clonazepam (Klonopin) 1 mg PO DAILY PRN; Protocol PRN Reason: Anxiety Gabapentin (Neurontin) 300 mg PO TID NOAM; Protocol Last Admin: 12/25/18 14:32 Dose: 300 mg Guaifenesin/Dextromethorphan (Robitussin Dm) 10 ml PO Q4H PRN PRN Reason: Cough Heparin Sodium (Porcine) (Heparin) 5,000 units SC Q8 NOAM; Protocol Last Admin: 12/25/18 14:32 Dose: 5,000 units Aztreonam (Azactam 1 Gm) 100 mls @ 100 mls/hr IVPB Q8 NOAM; Protocol Last Admin: 12/25/18 14:32 Dose: 100 mls/hr Vancomycin HCl (Vancomycin 1gm) 1 gm in 250 mls @ 167 mls/hr IVPB Q12H NOAM; Protocol Last Admin: 12/25/18 10:09 Dose: 167 mls/hr Levothyroxine Sodium 200 mcg/ (Levothyroxine Sodium 25 mcg) 225 mcg PO 0600 NOAM Methylprednisolone (Solu-Medrol) 40 mg IVP Q12 NOAM Last Admin: 12/25/18 10:11 Dose: 40 mg Sertraline HCl (Zoloft) 200 mg PO DAILY NOAM Last Admin: 12/25/18 10:10 Dose: 200 mg Topiramate (Topamax) 100 mg PO DAILY [facility]; Protocol Last Admin: 12/25/18 10:11 Dose: 100 mg Topiramate (Topamax) 150 mg PO HS NOAM; Protocol Last Admin: 12/24/18 22:57 Dose: 150 mg - Labs Labs: 12/25/18 07:35 12/25/18 07:35 PT 12.9 SECONDS (9.4-12.5) H 12/24/18 10:30 INR 1.14 12/24/18 10:30 APTT 39.7 Seconds (26.9-38.3) H 12/24/18 10:30 - Constitutional Appears: Non-toxic, No Acute Distress, Chronically Ill - Head Exam Head Exam: ATRAUMATIC, NORMOCEPHALIC - Eye Exam Eye Exam: EOMI, PERRL Pupil Exam: NORMAL ACCOMODATION, PERRL - ENT Exam ENT Exam: Mucous Membranes Moist, Normal External Ear Exam, TM's Normal Hamzah aterally - Neck Exam Neck Exam: Full ROM, Normal Inspection - Respiratory Exam Respiratory Exam: Decreased Breath Sounds (right upper lobe.), NORMAL BREATHING PATTERN. absent: Rales, Rhonchi, Wheezes - Cardiovascular Exam Cardiovascular Exam: REGULAR RHYTHM, RRR, +S1, +S2 - GI/Abdominal Exam GI & Abdominal Exam: Soft, Normal Bowel Sounds. absent: Distended, Tenderness - Extremities Exam Extremities Exam: Full ROM, Normal Inspection - Neurological Exam Neurological Exam: Alert, Awake, CN II-XII Intact, Oriented x3 - Psychiatric Exam Psychiatric exam: Normal Affect, Normal Mood - Skin Skin Exam: Intact, Normal Color Assessment and Plan - Assessment and Plan (Free Text) Assessment: 53 yo Cauc female with multiple antibiotic allergies presents with SOB, fevers, chills, and productive cough. The patient is found to have right upper lobe pneumonia on Chest X-ray. Will continue IV Vancomycin and IV Aztreonam for antibiotic coverage. She appears to be tolerating Aztreonam. The patient states that she feels a little better today. Cultures negative so far. Procalcitonin was less than 0.05 which argues against a septic or pneumonic process. Supportive care. Consider repeating Chest X-ray. Thank you for allowing me to participate in the care of the patient, we will follow with you.
[2018-12-26] MEDS: Albuterol-Ipratrop 3 mg / 0.5 (3 ml) UD IH SCH ×6 (00:39→20:40)
[2018-12-26] MEDS ORDERED: Levothyroxine 200 MCG TAB ONE (05:06)
[2018-12-26] MEDS: Aztreonam 1 Gm in NS 100mL 100 ML IVPB SCH ×3 (06:37→23:30)
[2018-12-26 07:08] LABS: BASO # 0.01 K/mm3 (0.0-2.0); BASO % 0.2 % (0.0-3.0); HEMOGLOBIN 11.6 g/dL (12.0-16.0); LYMPH # 1.4 (1.2-3.4); LYMPH % 21.9 % (22.0-35.0); MEAN CELL VOLUME 98.6 fl (80.0-105.0); MEAN CORPUSCULAR HEMOGLOBIN 31.4 pg (25.0-35.0); MEAN CORPUSCULAR HGB CONC 31.8 g/dl (31.0-37.0); MEAN PLATELET VOLUME 9.7 fl (7.0-11.0); MONO # 0.6 (0.1-0.6); MONO % 9.7 % (1.0-6.0); RBC 3.7 10^6/uL (3.5-6.1); RED CELL DISTRIBUTION WIDTH 14.5 % (11.5-14.5); WHITE BLOOD COUNT 6.5 10^3/uL (4.5-11.0)
--- NOTE | 2018-12-26 07:37 | CP.PCM.PN ---
<Jj Weems - Last Filed: 12/26/18 14:20> Subjective - Date & Time of Evaluation Date of Evaluation: 12/26/18 Time of Evaluation: 07:37 - Subjective Subjective: Jj Weems DO, PGY-1 Hospitalist Progress Note for Dr. Humberto Covington Patient was seen and examined at bedside this AM. She reports continued lack of appetite and has not been eating since admission. She states she does not feel hungry or want to eat or work with PT. She denies fever/chills, CP, SOB, abdominal pain/nausea/vomiting, or urinary complaints. Objective - Vital Signs/Intake and Output Vital Signs (last 24 hours): Temp Pulse Resp BP Pulse Ox 98.9 F 77 20 123/63 97 12/25/18 21:50 12/25/18 21:50 12/25/18 21:50 12/25/18 21:50 12/25/18 21:50 Intake and Output: 12/26/18 12/26/18 06:59 18:59 Intake Total 240 Output Total 700 Balance -460 - Medications Medications: Current Medications Albuterol/Ipratropium (Duoneb 3 Mg/0.5 Mg (3 Ml) Ud) 3 ml IH [id number] [facility] Last Admin: 12/26/18 04:40 Dose: 3 ml Albuterol/Ipratropium (Duoneb 3 Mg/0.5 Mg (3 Ml) Ud) 3 ml IH Q2H PRN PRN Reason: Shortness of Breath Clonazepam (Klonopin) 1 mg PO DAILY PRN; Protocol PRN Reason: Anxiety Gabapentin (Neurontin) 300 mg PO TID [facility]; Protocol Last Admin: 12/25/18 17:35 Dose: 300 mg Guaifenesin/Dextromethorphan (Robitussin Dm) 10 ml PO Q4H PRN PRN Reason: Cough Heparin Sodium (Porcine) (Heparin) 5,000 units SC Q8 [facility]; Protocol Last Admin: 12/26/18 06:36 Dose: 5,000 units Aztreonam (Azactam 1 Gm) 100 mls @ 100 mls/hr IVPB Q8 [facility]; Protocol Last Admin: 12/26/18 06:37 Dose: 100 mls/hr Vancomycin HCl (Vancomycin 1gm) 1 gm in 250 mls @ 167 mls/hr IVPB Q12H [facility]; Pr otocol Last Admin: 12/25/18 21:05 Dose: 167 mls/hr Levothyroxine Sodium 200 mcg/ (Levothyroxine Sodium 25 mcg) 225 mcg PO 0600 [facility] Last Admin: 12/26/18 06:37 Dose: 225 mcg Methylprednisolone (Solu-Medrol) 40 mg IVP Q12 [facility] Last Admin: 12/25/18 21:05 Dose: 40 mg Sertraline HCl (Zoloft) 200 mg PO DAILY [facility] Last Admin: 12/25/18 10:10 Dose: 200 mg Topiramate (Topamax) 100 mg PO DAILY [facility]; Protocol Last Admin: 12/25/18 10:11 Dose: 100 mg Topiramate (Topamax) 150 mg PO HS [facility]; Protocol Last Admin: 12/25/18 21:07 Dose: 150 mg - Labs Labs: 12/26/18 06:55 12/25/18 07:35 PT 12.9 SECONDS (9.4-12.5) H 12/24/18 10:30 INR 1.14 12/24/18 10:30 APTT 39.7 Seconds (26.9-38.3) H 12/24/18 10:30 - Constitutional Appears: Non-toxic, No Acute Distress - Head Exam Head Exam: ATRAUMATIC, NORMOCEPHALIC - Eye Exam Eye Exam: EOMI, PERRL - ENT Exam ENT Exam: Mucous Membranes Moist - Neck Exam Neck Exam: Full ROM, Normal Inspection - Respiratory Exam Respiratory Exam: Clear to Ausculation Bilateral, NORMAL BREATHING PATTERN. absent: Rales, Rhonchi, Wheezes - Cardiovascular Exam Cardiovascular Exam: REGULAR RHYTHM, RRR, +S1, +S2. absent: Gallop, Rubs, Murmur - GI/Abdominal Exam GI & Abdominal Exam: Soft, Normal Bowel Sounds. absent: Guarding, Tenderness - Extremities Exam Extremities Exam: Full ROM, Normal Inspection - Back Exam Back Exam: Full ROM, NORMAL INSPECTION - Neurological Exam Neurological Exam: Alert, Awake, Oriented x3 - Psychiatric Exam Psychiatric exam: Normal Affect, Normal Mood - Skin Skin Exam: Dry, Intact, Warm Assessment and Plan - Assessment and Plan (Free Text) Assessment: 53 yo F with PMH of COPD, sarcoidosis, pseudotumor cerebri, hypothyroidism, bipolar, and anxiety/depression presented to ED with worsening SOB and possible worsened RUL infiltrate on CXR. She is admitted for management of presumed HCAP and COPD exacerbation. Plan: Dyspnea May be 2/2 RUL infiltrate/HCAP vs COPD exacerbation Has persistent RUL infiltrate per repeat CXR Continue camilo and PRN duo-neb treatments May wean solumedrol to 30 mg IVP q12h Continue HCAP treatment with vanc/aztreonam per ID recs Patient is allergic to many antibiotics ID following, all recs appreciated Physical Deconditioning May be 2/2 obesity vs worsening COPD Per prior records and patient's , patient was recently discharged from rehab and has been in and out multiple times She was treated at rehab and then signed out AMA Per and patient history, patient was more ambulatory prior to hospitalization in 10/2018 after a fall After rehab, patient continued to be non-ambulatory while at home Physical therapy evaluate and treat, patient refused therapy this AM but will recheck in the afternoon F/u PT recs prior to discharge Bipolar disorder Continue home zoloft Hx Pseudotumor cerebri Continue topamax Hx Hypothyroidism F/u TSH and free T4 levels as this may be contributing to patient's somnolence Continue home synthroid DVT PPX: SC heparin Full Code HHD Monitor on med/surg Patient seen, examined, and plan discussed with my attending Dr. Humberto Weems D.O. IM Resident PGY-1 Pager: [phone] <Carie Covington R - Last Filed: 12/26/18 16:56> Objective - Vital Signs/Intake and Output Vital Signs (last 24 hours): Temp Pulse Resp BP Pulse Ox 98.9 F 72 18 135/68 98 12/26/18 06:00 12/26/18 06:00 12/26/18 06:00 12/26/18 06:00 12/26/18 06:00 Intake and Output: 12/26/18 12/26/18 06:59 18:59 Intake Total 240 240 Output Total 700 300 Balance -460 -60 - Medications Medications: Current Medications Albuterol/Ipratropium (Duoneb 3 Mg/0.5 Mg (3 Ml) Ud) 3 ml IH Q2H PRN PRN Reason: Shortness of Breath Albuterol/Ipratropium (Duoneb 3 Mg/0.5 Mg (3 Ml) Ud) 3 ml IH [id number] [facility] Fluoxetine HCl (Prozac) 10 mg PO DAILY [facility] Last Admin: 12/26/18 11:21 Dose: 10 mg Gabapentin (Neurontin) 300 mg PO TID [facility]; Protocol Last Admin: 12/26/18 15:13 Dose: 300 mg Guaifenesin/Dextromethorphan (Robitussin Dm) 10 ml PO Q4H PRN PRN Reason: Cough Heparin Sodium (Porcine) (Heparin) 5,000 units SC Q8 [facility]; Protocol Last Admin: 12/26/18 15:13 Dose: 5,000 units Aztreonam (Azactam 1 Gm) 100 mls @ 100 mls/hr IVPB Q8 [facility]; Protocol Last Admin: 12/26/18 15:11 Dose: 100 mls/hr Vancomycin HCl (Vancomycin 1gm) 1 gm in 250 mls @ 167 mls/hr IVPB Q12H [facility]; Protocol Last Admin: 12/26/18 11:22 Dose: 167 mls/hr Levothyroxine Sodium 200 mcg/ (Levothyroxine Sodium 25 mcg) 225 mcg PO 0600 [facility] Last Admin: 12/26/18 06:37 Dose: 225 mcg Lorazepam (Ativan) 0.5 mg IVP TID [facility]; Protocol Last Admin: 12/26/18 15:11 Dose: 0.5 mg Methylprednisolone (Solu-Medrol) 30 mg IVP Q12 [facility] Sertraline HCl (Zoloft) 100 mg PO DAILY [facility] Last Admin: 12/26/18 11:22 Dose: 100 mg Topiramate (Topamax) 100 mg PO DAILY [facility]; Protocol Last Admin: 12/26/18 11:27 Dose: 100 mg Topiramate (Topamax) 150 mg PO HS [facility]; Protocol Last Admin: 12/25/18 21:07 Dose: 150 mg - Labs Labs: 12/26/18 06:55 12/26/18 06:55 PT 12.9 SECONDS (9.4-12.5) H 12/24/18 10:30 INR 1.14 12/24/18 10:30 APTT 39.7 Seconds (26.9-38.3) H 12/24/18 10:30 Attending/Attestation - Attestation I have personally seen and examined this patient.: Yes I have fully participated in the care of the patient.: Yes I have reviewed all pertinent clinical information, including history, physical exam and plan: Yes Notes (Text): Patient seen and examined by me with resident at 10:55AM on 12/26/18. Case including HPI, physical exam, and assessment and plan discussed with resident. Agree with above with following additions/corrections. Patient is a 53-year-old female past medical history significant for COPD, sarcoidosis, type 2 diabetes, pseudotumor cerebri, hypothyroidism, falls, depression, anxiety, and bipolar disorder presented to the emergency room with shortness of breath. Patient states she feels ok. Still not eating breakfast. Patient unable to get out of bed. Encouraged to eat. Shortness of breath improved. Still with cough but improved. No chest pain or palpitations. No nausea, vomiting, or abdominal pain. No headaches or dizziness. No lightheadedness. No diarrhea or constipation. No dysuria or burning with urination. Physical exam: General: Awake and alert lying in bed in no acute distress. HEENT: Normocephalic, atraumatic. Extraocular muscles intact, pupils equal and reactive, no scleral icterus. Oropharynx is pink and moist. Neck is supple. Cardiovascular: Normal rhythm. Normal S1 and S2. No murmurs, rubs, or gallops appreciated Pulmonary: Normal respiratory effort. Decreased breath sounds. No rhonchi, rales, or wheezing appreciated. Gastrointestinal: Soft, nondistended. Nontender. Morbidly obsese abdomen. Positive bowel sounds all 4 quadrants. No guarding. Musculoskeletal: Moves all extremities. No calf tenderness. Trace lower extremity edema appreciated. Central nervous system: AAOx3, CN 2-12 grossly intact. Patient has to be asked question multiple times before she answers, slow to answer questions. Dermatologic: Skin warm and dry. Positive bilateral lower extremity chronic venous stasis/dermatitis color changes. Assessment and plan: Patient is a 53-year-old female past medical history significant for COPD, sarcoidosis, type 2 diabetes, pseudotumor cerebri, hypothyroidism, falls, depression, anxiety, and bipolar disorder presented to the emergency room with shortness of breath. 1. Dyspnea secondary to Healthcare associated pneumonia and COPD exacerbation. Patient was recently in the hospital as well as rehabilitation center. ID following, recommendations appreciated. Continue Aztreonam and Vancomycin. Blood cultures negative so far. Procalcitonin <0.05. No leukocytosis. Continue Robitussin as needed. Patient afebrile. Chest x-ray on admission per radiologist showed patchy infiltrate in the right upper lobe increased from the previous study. Will repeat chest xray. 2. COPD exacerbation. Continue nebulizer treatments. Continue IV Solu-Medrol, taper. Continue O2 via nasal cannula as needed. Patient counseled at length about tobacco cessation. 3. Type 2 diabetes. Patient does not take any medications for this at home. Continue to monitor Accu-Cheks. 4. Hypothyroidism. Continue home Synthroid 5. Pseudotumor cerebri. No acute issues. Continue home Topamax. 6. Bipolar disorder. Depression and anxiety. Psychiatrist following, recommendations appreciated. Per psychiatrist, patient in catatonic state. Placed on Ativan 3 times a day. Zoloft dose decreased. Continue Topamax. Prozac added. 7. Physical deconditioning. Patient recently in rehab. Per patient, she was walking with walker at home. Unable to get out of bed here. PT eval and treat. 8. Tobacco abuse. Counseled on tobacco cessation 9. Morbid obesity. Counseled on diet and exercise. 10. GI/DVT prophylaxis. Protonix/heparin 11. Patient is a full code. All home medications were confirmed with patient's pharmacy. Case was discussed in detail with the patient regarding her diagnosis and treatment plan. All questions answered.
[2018-12-26 07:59] LABS: ALB/GLOB RATIO 0.7 (1.1-1.8); ALT/SGPT 10 U/L (7-56); AST/SGOT 30 U/L (14-36); BLOOD UREA NITROGEN 18 mg/dL (7-21); CALCIUM 9.4 mg/dL (8.4-10.5); GFR NON-AFRICAN AMERICAN > 60
[2018-12-26] MEDS: FLUoxetine Elix 20 MG/5 ML PO SCH (11:21)
[2018-12-26] MEDS: Vancomycin 1gm in NS 250ml 1 GM/250 ML BAG IVPB SCH ×2 (11:22→20:40)
[2018-12-26] MEDS: MethylPREDNISolone 40 mg Vial IVP SCH ×2 (11:24→21:00)
--- NOTE | 2018-12-26 13:24 | RAD ---
Date of service: 12/26/2018 HISTORY: infiltrate COMPARISON: 12/24/2018 FINDINGS: LUNGS: No significant change in patchy infiltrate in the right upper lobe peripherally. PLEURA: No significant pleural effusion identified, no pneumothorax apparent. CARDIOVASCULAR: Aortic calcification Mild cardiomegaly mild vascular congestion OSSEOUS STRUCTURES: No significant abnormalities. VISUALIZED UPPER ABDOMEN: Normal. OTHER FINDINGS: None. IMPRESSION: No significant change in patchy infiltrate in the right upper lobe peripherally.
--- NOTE | 2018-12-26 13:41 | CON ---
DATE: 12/26/2018 HISTORY OF PRESENT ILLNESS: In short, the patient is 53-year-old female with not known previous psychiatric history. The patient has multiple medical issues including COPD, sarcoidosis, diabetes, pseudotumor cerebri, hypothyroidism. The patient was admitted on the medical site for treatment of fever, chills, shortness of breath as well as productive cough. Psych consult was called because the patient presented with psychomotor retardation and medical team wants to rule out major depressive disorder. The patient was seen and examined yesterday. The patient presented to be very sleepy and drowsy, was not able to participate in interview. This conventional underwriter had full conversation with the patient today. 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 The patient stares at this conventional underwriter, has only yes no answers and it takes forever to give such answer to this conventional underwriter. The patient was not able to provide history, nodded to this conventional underwriter that she feels depressed and hopeless. The patient denied that she is hearing voices or seeing things, but the patient reported that she feels anxious. The patient knows that she is in [facility], but when this conventional underwriter asked what is the day today, the patient keep repeating [facility], [facility], [facility]. Collaterals from the nursing staff, the patient presented with some psychomotor retardation. The patient refused to eat, sleeps whole day long, and not participating in any physical therapy activities and this is acute deviation from the patient's baseline because the patient has history at this hospital in the past. This conventional underwriter educated patient about Ativan and possible diagnosis of catatonia. This conventional underwriter educated the patient about the risks, benefits, and alternatives as well as Prozac might be helpful for this patient. The patient nodded her head that she is willing to get treatment. VITAL SIGNS: Going back to the patient's presentation, vital signs reviewed. Temperature 98.8, pulse is 72, blood pressure 135/68, respirations 18, oxygen saturation is 98. MEDICATIONS: Medications reviewed. The patient is on DuoNeb, aztreonam, Klonopin will be discontinued because this conventional underwriter will start IV push of Ativan. This conventional underwriter started Prozac liquid 10 mg a day. The patient is on Zoloft 200 mg daily, this conventional underwriter has impression that this medication is not that helpful. We will start tapering that down and this conventional underwriter is not sure how long the patient was on that medication before. We will decrease the dose to 100 mg daily. The patient also is on Topamax. We will continue that and vancomycin. LABORATORY DATA: Labs reviewed. Most recent was from today. Coagulation reviewed. Chemistry reviewed. Serology reviewed. MENTAL STATUS EXAMINATION: The patient presented with some psychomotor retardation. The patient most likely in catatonic stage, intermittent eye contact. Speech was yes no answers and underproductive very low volume. Thought process seems to be concrete. Thought content, the patient denied any psychotic symptoms. The patient denied thoughts of harming himself and others. Insight and judgment seems to be limited. Impulses are well controlled. This conventional underwriter reviewed previous history. The patient had multiple hospitalizations to this facility under Dr. Art and Dr. [facility]. The patient had multiple diagnosis such as generalized anxiety disorder, major depressive disorder, bipolar disorder. This conventional underwriter is not familiar with this patient. We will evaluate and examine further. IMPRESSION: Most likely at present moment, the patient is in catatonic stage due to general medical condition. The patient has history of mental illness, multiple diagnosis as this conventional underwriter mentioned before, major depressive disorder, generalized anxiety disorder, bipolar disorder. PLAN: This conventional underwriter decreased the dose of Zoloft, Prozac will be started 10 mg liquid form, Ativan IV push to help with the catatonia 0.5 mg three times a day. The patient is on Topamax, which needs to be continued. We will follow up and advise accordingly. Thank you very much for letting me participate in care of your patient. Jie Carrillo MD [facility]
--- NOTE | 2018-12-26 16:05 | CP.PCM.PN ---
Subjective - Date & Time of Evaluation Date of Evaluation: 12/26/18 Time of Evaluation: 14:30 - Subjective Subjective: Infectious Disease Follow Up: December 26, 2018 53yo F with PMHx COPD, DM, pseudotumor cerebri, hypothyroid, depression, anxiety, and bipolar disorder who was brought to ED for fevers, chills, SOB, and productive cough that started 1 day prior to admission. She was given azithromycin and promethazine as per a family member. Patient is currently afebrile and without leukocytosis. She is still fatigued and lethargic. Chest X-ray showing patchy infiltrate in the right upper lobe of the lung. The patient with multiple antibiotic allergies. Patient states that she feels a little better than yesterday. Tolerating Aztreonam so far. The patient still has a flat and distant affect on interaction which is very different from the bubbly personality she displayed on the last hospitalization. Objective - Vital Signs/Intake and Output Vital Signs (last 24 hours): Temp Pulse Resp BP Pulse Ox 98.9 F 72 18 135/68 98 12/26/18 06:00 12/26/18 06:00 12/26/18 06:00 12/26/18 06:00 12/26/18 06:00 Intake and Output: 12/26/18 12/26/18 06:59 18:59 Intake Total 240 240 Output Total 700 300 Balance -460 -60 - Medications Medications: Current Medications Albuterol/Ipratropium (Duoneb 3 Mg/0.5 Mg (3 Ml) Ud) 3 ml IH [id number] [facility] Last Admin: 12/26/18 11:20 Dose: 3 ml Albuterol/Ipratropium (Duoneb 3 Mg/0.5 Mg (3 Ml) Ud) 3 ml IH Q2H PRN PRN Reason: Shortness of Breath Fluoxetine HCl (Prozac) 10 mg PO DAILY [facility] Last Admin: 12/26/18 11:21 Dose: 10 mg Gabapentin (Neurontin) 300 mg PO TID [facility]; Protocol Last Admin: 12/26/18 15:13 Dose: 300 mg Guaifenesin/Dextromethorphan (Robitussin Dm) 10 ml PO Q4H PRN PRN Reason: Cough Heparin Sodium (Porcine) (Heparin) 5,000 units SC Q8 [facility]; Protocol Last Admin: 12/26/18 15:13 Dose: 5,000 units Aztreonam (Azactam 1 Gm) 100 mls @ 100 mls/hr IVPB Q8 [facility]; Protocol Last Admin: 12/26/18 15:11 Dose: 100 mls/hr Vancomycin HCl (Vancomycin 1gm) 1 gm in 250 mls @ 167 mls/hr IVPB Q12H [facility]; Protocol Last Admin: 12/26/18 11:22 Dose: 167 mls/hr Levothyroxine Sodium 200 mcg/ (Levothyroxine Sodium 25 mcg) 225 mcg PO 0600 [facility] Last Admin: 12/26/18 06:37 Dose: 225 mcg Lorazepam (Ativan) 0.5 mg IVP TID [facility]; Protocol Last Admin: 12/26/18 15:11 Dose: 0.5 mg Methylprednisolone (Solu-Medrol) 30 mg IVP Q12 [facility] Sertraline HCl (Zoloft) 100 mg PO DAILY [facility] Last Admin: 12/26/18 11:22 Dose: 100 mg Topiramate (Topamax) 100 mg PO DAILY [facility]; Protocol Last Admin: 12/26/18 11:27 Dose: 100 mg Topiramate (Topamax) 150 mg PO HS [facility]; Protocol Last Admin: 12/25/18 21:07 Dose: 150 mg - Labs Labs: 12/26/18 06:55 12/26/18 06:55 PT 12.9 SECONDS (9.4-12.5) H 12/24/18 10:30 INR 1.14 12/24/18 10:30 APTT 39.7 Seconds (26.9-38.3) H 12/24/18 10:30 - Constitutional Appears: Non-toxic, No Acute Distress, Chronically Ill - Head Exam Head Exam: ATRAUMATIC, NORMOCEPHALIC - Eye Exam Eye Exam: EOMI, PERRL Pupil Exam: NORMAL ACCOMODATION, PERRL - ENT Exam ENT Exam: Mucous Membranes Moist, Normal External Ear Exam, TM's Normal Bilaterally - Neck Exam Neck Exam: Full ROM, Normal Inspection - Respiratory Exam Respiratory Exam: Decreased Breath Sounds (right upper lobe), NORMAL BREATHING P ATTERN. absent: Rales, Rhonchi, Wheezes - Cardiovascular Exam Cardiovascular Exam: REGULAR RHYTHM, RRR, +S1, +S2 - GI/Abdominal Exam GI & Abdominal Exam: Soft, Normal Bowel Sounds. absent: Distended, Tenderness - Extremities Exam Extremities Exam: Full ROM, Normal Inspection - Neurological Exam Neurological Exam: Alert, Awake, CN II-XII Intact, Oriented x3 - Psychiatric Exam Psychiatric exam: Normal Affect, Normal Mood - Skin Skin Exam: Intact, Normal Color Assessment and Plan - Assessment and Plan (Free Text) Assessment: 53 yo Cauc female with multiple antibiotic allergies presents with SOB, fevers, chills, and productive cough. The patient is found to have right upper lobe pneumonia on Chest X-ray. Will continue IV Vancomycin and IV Aztreonam for antibiotic coverage. She appears to be tolerating Aztreonam. The patient states that she feels a little better today. Cultures negative so far. Procalcitonin was less than 0.05 which argues against a septic or pneumonic process. Supportive care. Consider repeating Chest X-ray... showed no change to the patchy infiltrate in the right upper lobe peripherally. Thank you for allowing me to participate in the care of the patient, we will follow with you.
[2018-12-27] MEDS: Albuterol-Ipratrop 3 mg / 0.5 (3 ml) UD IH SCH ×4 (02:03→19:41)
[2018-12-27] MEDS ORDERED: Levothyroxine 25 MCG TAB ONE (05:57)
[2018-12-27] MEDS: Aztreonam 1 Gm in NS 100mL 100 ML IVPB SCH ×3 (07:00→21:14)
--- NOTE | 2018-12-27 07:37 | CP.PCM.PN ---
<Jj Weems - Last Filed: 12/27/18 17:24> Subjective - Date & Time of Evaluation Date of Evaluation: 12/27/18 Time of Evaluation: 07:37 - Subjective Subjective: Jj Weems DO, PGY-1 Hospitalist Progress Note for Dr. Humberto Covington Patient was seen and examined at bedside this AM. She continues to report not working with PT or having an appetite. She states she does not feel well enough to participate. Objective - Vital Signs/Intake and Output Vital Signs (last 24 hours): Temp Pulse Resp BP Pulse Ox 98 F 74 20 109/51 L 93 L 12/26/18 22:00 12/26/18 22:00 12/26/18 22:00 12/26/18 22:00 12/26/18 22:00 Intake and Output: 12/27/18 12/27/18 06:59 18:59 Intake Total 360 Output Total 360 Balance 0 - Medications Medications: Current Medications Albuterol/Ipratropium (Duoneb 3 Mg/0.5 Mg (3 Ml) Ud) 3 ml IH Q2H PRN PRN Reason: Shortness of Breath Albuterol/Ipratropium (Duoneb 3 Mg/0.5 Mg (3 Ml) Ud) 3 ml IH [id number] [facility] Last Admin: 12/27/18 02:03 Dose: 3 ml Fluoxetine HCl (Prozac) 10 mg PO DAILY [facility] Last Admin: 12/26/18 11:21 Dose: 10 mg Gabapentin (Neurontin) 300 mg PO TID [facility]; Protocol Last Admin: 12/26/18 18:30 Dose: 300 mg Guaifenesin/Dextromethorphan (Robitussin Dm) 10 ml PO Q4H PRN PRN Reason: Cough Heparin Sodium (Porcine) (Heparin) 5,000 units SC Q8 [facility]; Protocol Last Admin: 12/26/18 21:00 Dose: 5,000 units Aztreonam (Azactam 1 Gm) 100 mls @ 100 mls/hr IVPB Q8 [facility]; Protocol Last Admin: 12/26/18 23:30 Dose: 100 mls/hr Vancomycin HCl (Vancomycin 1gm) 1 gm in 250 mls @ 167 mls/hr IVPB Q12H [facility]; Protocol Last Admin: 12/26/18 20:40 Dose: 167 mls/hr Levothyroxine Sodium 200 mcg/ (Levothyroxine Sodium 25 mcg) 225 mcg PO 0600 [facility] Last Admin: 12/26/18 06:37 Dose: 225 mcg Lorazepam (Ativan) 0.5 mg IVP TID [facility]; Protocol Last Admin: 12/26/18 18:30 Dose: 0.5 mg Methylprednisolone (Solu-Medrol) 30 mg IVP Q12 [facility] Last Admin: 12/26/18 21:00 Dose: 30 mg Sertraline HCl (Zoloft) 100 mg PO DAILY [facility] Last Admin: 12/26/18 11:22 Dose: 100 mg Topiramate (Topamax) 100 mg PO DAILY [facility]; Protocol Last Admin: 12/26/18 11:27 Dose: 100 mg Topiramate (Topamax) 150 mg PO HS [facility]; Protocol Last Admin: 12/26/18 22:45 Dose: 150 mg - Labs Labs: 12/26/18 06:55 12/26/18 06:55 PT 12.9 SECONDS (9.4-12.5) H 12/24/18 10:30 INR 1.14 12/24/18 10:30 APTT 39.7 Seconds (26.9-38.3) H 12/24/18 10:30 - Constitutional Appears: No Acute Distress, Chronically Ill - Head Exam Head Exam: ATRAUMATIC, NORMOCEPHALIC - Eye Exam Eye Exam: EOMI, PERRL - ENT Exam ENT Exam: Mucous Membranes Moist - Neck Exam Neck Exam: Full ROM Additional comments: thick neck - Respiratory Exam Respiratory Exam: Rhonchi (coarse breath sounds b/l), Wheezes (end expiratory wheezes b/l worse with deep breathing). absent: Accessory Muscle Use, Decreased Breath Sounds, Rales, Respiratory Distress, Stridor - Cardiovascular Exam Cardiovascular Exam: REGULAR RHYTHM, RRR, +S1, +S2. absent: Gallop, Rubs, Murmur - GI/Abdominal Exam GI & Abdominal Exam: Soft, Normal Bowel Sounds. absent: Guarding, Tenderness - Extremities Exam Extremities Exam: Pedal Edema Additional comments: venous stasis dermatitis - Back Exam Back Exam: NORMAL INSPECTION - Neurological Exam Additional comments: somnolent, cooperative with exam but appears to be in catatonic state - Psychiatric Exam Psychiatric exam: Flat Affect - Skin Skin Exam: Dry, Intact, Warm Assessment and Plan - Assessment and Plan (Free Text) Assessment: 53 yo F with PMH of COPD, sarcoidosis, pseudotumor cerebri, hypothyroidism, bipolar, and anxiety/depression presented to ED with worsening SOB and possible worsened RUL infiltrate on CXR. She is admitted for management of presumed HCAP and COPD exacerbation. Plan: Dyspnea May be 2/2 RUL infiltrate/HCAP vs COPD exacerbation Has persistent RUL infiltrate per repeat CXR Continue camilo and PRN duo-neb treatments Continue HCAP coverage with vanc/aztreonam per ID recs ID following, all recs appreciated Physical Deconditioning May be 2/2 obesity vs worsening COPD vs catatonic state from psychiatric condition Per prior records and patient's , patient was recently discharged from rehab and has been in and out multiple times Psychiatry suspects catatonic state, has started on scheduled ativan Patient tolerating ativan well so far Patient continues to refuse PT Psychiatry following, all recs appreciated Bipolar disorder Continue home zoloft Hx Pseudotumor cerebri Continue topamax Hx Hypothyroidism Continue home synthroid DVT PPX: SC heparin Full Code HHD Monitor on med/surg Patient seen, examined, and plan discussed with my attending Dr. Humberto Weems D.O. IM Resident PGY-1 Pager: [phone] <Carie Covington R - Last Filed: 12/28/18 13:59> Objective - Vital Signs/Intake and Output Vital Signs (last 24 hours): Temp Pulse Resp BP Pulse Ox 98 F 69 18 122/68 98 12/28/18 06:00 12/28/18 06:00 12/28/18 06:00 12/28/18 06:00 12/28/18 06:00 Intake and Output: 12/28/18 12/28/18 06:59 18:59 Intake Total 660 Output Total 900 Balance -240 - Medications Medications: Current Medications Albuterol/Ipratropium (Duoneb 3 Mg/0.5 Mg (3 Ml) Ud) 3 ml IH Q2H PRN PRN Reason: Shortness of Breath Albuterol/Ipratropium (Duoneb 3 Mg/0.5 Mg (3 Ml) Ud) 3 ml IH [id number] [facility] Last Admin: 12/28/18 13:23 Dose: 3 ml Gabapentin (Neurontin) 300 mg PO TID [facility]; Protocol Last Admin: 12/28/18 10:44 Dose: 300 mg Guaifenesin/Dextromethorphan (Robitussin Dm) 10 ml PO Q4H PRN PRN Reason: Cough Heparin Sodium (Porcine) (Heparin) 5,000 units SC Q8 [facility]; Protocol Last Admin: 12/28/18 06:24 Dose: 5,000 units Ibuprofen (Motrin Tab) 400 mg PO Q6H PRN PRN Reason: Pain, moderate (4-7) Levothyroxine Sodium 200 mcg/ (Levothyroxine Sodium 25 mcg) 225 mcg PO 0600 [facility] Last Admin: 12/28/18 06:23 Dose: 225 mcg Lorazepam (Ativan) 0.5 mg PO TID [facility]; Protocol Methylprednisolone (Solu-Medrol) 30 mg IVP Q12 [facility] Last Admin: 12/28/18 10:44 Dose: 30 mg Sertraline HCl (Zoloft) 200 mg PO DAILY [facility] Last Admin: 12/28/18 10:44 Dose: 200 mg Topiramate (Topamax) 100 mg PO DAILY [facility]; Protocol Last Admin: 12/28/18 10:44 Dose: 100 mg Topiramate (Topamax) 150 mg PO HS [facility]; Protocol Last Admin: 12/27/18 21:18 Dose: 150 mg - Labs Labs: 12/28/18 06:20 12/28/18 06:20 PT 12.9 SECONDS (9.4-12.5) H 12/24/18 10:30 INR 1.14 12/24/18 10:30 APTT 39.7 Seconds (26.9-38.3) H 12/24/18 10:30 Attending/Attestation - Attestation I have personally seen and examined this patient.: Yes I have fully participated in the care of the patient.: Yes I have reviewed all pertinent clinical information, including history, physical exam and plan: Yes Notes (Text): Patient seen and examined by me with resident at 10:15AM on 12/27/18. Case including HPI, physical exam, and assessment and plan discussed with resident. Agree with above with following additions/corrections. Patient is a 53-year-old female past medical history significant for COPD, sarcoidosis, type 2 diabetes, pseudotumor cerebri, hypothyroidism, falls, depression, anxiety, and bipolar disorder presented to the emergency room with shortness of breath. Patient states she feels a little better today. States she ate some breakfast. Patient encouraged to eat and work with physical therapy. Patient states she "thinks" shorntess of breath as improved. Still with cough. No chest pain or palpitations. No nausea, vomiting, or abdominal pain. No headaches or dizziness. No lightheadedness. No diarrhea or constipation. No dysuria or burning with urination. Physical exam: General: Awake and alert lying in bed in no acute distress. HEENT: Normocephalic, atraumatic. Extraocular muscles intact, pupils equal and reactive, no scleral icterus. Oropharynx is pink and moist. Neck is supple. Cardiovascular: Normal rhythm. Normal S1 and S2. No murmurs, rubs, or gallops appreciated Pulmonary: Normal respiratory effort. Decreased breath sounds. No rhonchi, rales, or wheezing appreciated. Gastrointestinal: Soft, nondistended. Nontender. Morbidly obsese abdomen. Positive bowel sounds all 4 quadrants. No guarding. Musculoskeletal: Moves all extremities. No calf tenderness. Trace lower extremity edema appreciated. Central nervous system: AAOx3, CN 2-12 grossly intact. Slow to answer questions. Dermatologic: Skin warm and dry. Positive bilateral lower extremity chronic venous stasis/dermatitis color changes. Assessment and plan: Patient is a 53-year-old female past medical history significant for COPD, sarcoidosis, type 2 diabetes, pseudotumor cerebri, hypothyroidism, falls, depression, anxiety, and bipolar disorder presented to the emergency room with shortness of breath. 1. Dyspnea secondary to healthcare associated pneumonia and COPD exacerbation. Patient was recently in the hospital as well as rehabilitation center. ID following, recommendations appreciated. Continue Aztreonam and Vancomycin. Blood cultures negative so far. Procalcitonin <0.05. No leukocytosis. Continue Robitussin as needed. Patient afebrile. Chest x-ray on admission per radiologist showed patchy infiltrate in the right upper lobe increased from the previous study. Repeat chest xray showed no significant change in patch infiltrate in the right upper lobe peripherally. 2. COPD exacerbation. Improving. Continue nebulizer treatments. Continue IV Solu -Medrol, taper. Continue O2 via nasal cannula as needed. Patient counseled at length about tobacco cessation. 3. Type 2 diabetes. Patient does not take any medications for this at home. Continue to monitor Accu-Cheks. 4. Hypothyroidism. Continue home Synthroid 5. Pseudotumor cerebri. No acute issues. Continue home Topamax. 6. Bipolar disorder. Depression and anxiety. Psychiatrist following, recom mendations appreciated. Per psychiatrist, patient in catatonic state. Continue on Ativan 3 times a day. Continue Zoloft. Continue Topamax. 7. Physical deconditioning. Patient recently in rehab. Per patient, she was walking with walker at home. Unable to get out of bed here so far. PT eval and treat. 8. Tobacco abuse. Counseled on tobacco cessation 9. Morbid obesity. Counseled on diet and exercise. 10. GI/DVT prophylaxis. Protonix/heparin 11. Patient is a full code. All home medications were confirmed with patient's pharamcy. Case was discussed in detail with the patient regarding her diagnosis and treatment plan. All questions answered.
[2018-12-27 07:54] LABS: BASO # 0.01 K/mm3 (0.0-2.0); BASO % 0.2 % (0.0-3.0); EOS % 0.2 % (1.5-5.0); HEMOGLOBIN 11.4 g/dL (12.0-16.0); LYMPH # 1.7 (1.2-3.4); LYMPH % 26.4 % (22.0-35.0); MEAN CELL VOLUME 98.4 fl (80.0-105.0); MEAN CORPUSCULAR HEMOGLOBIN 31.1 pg (25.0-35.0); MEAN CORPUSCULAR HGB CONC 31.6 g/dl (31.0-37.0); MEAN PLATELET VOLUME 10.3 fl (7.0-11.0); MONO # 0.7 (0.1-0.6); MONO % 10.4 % (1.0-6.0); RBC 3.67 10^6/uL (3.5-6.1); RED CELL DISTRIBUTION WIDTH 14.3 % (11.5-14.5); WHITE BLOOD COUNT 6.4 10^3/uL (4.5-11.0)
[2018-12-27 08:04] LABS: ALB/GLOB RATIO 0.7 (1.1-1.8); ALT/SGPT 12 U/L (7-56); AST/SGOT 31 U/L (14-36); BLOOD UREA NITROGEN 19 mg/dL (7-21); CALCIUM 9.2 mg/dL (8.4-10.5); GFR NON-AFRICAN AMERICAN > 60
[2018-12-27] MEDS: FLUoxetine Elix 20 MG/5 ML PO SCH (10:00)
[2018-12-27] MEDS: MethylPREDNISolone 40 mg Vial IVP SCH ×2 (10:12→21:16)
[2018-12-27] MEDS: Vancomycin 1gm in NS 250ml 1 GM/250 ML BAG IVPB SCH ×2 (10:13→21:15)
--- NOTE | 2018-12-27 17:18 | CP.PCM.PN ---
Subjective - Date & Time of Evaluation Date of Evaluation: 12/27/18 Time of Evaluation: 15:45 - Subjective Subjective: Infectious Disease Follow Up: December 27, 2018 53yo F with PMHx COPD, DM, pseudotumor cerebri, hypothyroid, depression, anxiety, and bipolar disorder who was brought to ED for fevers, chills, SOB, and productive cough that started 1 day prior to admission. She was given azithromycin and promethazine as per a family member. Patient is currently afebrile and without leukocytosis. She is still fatigued and lethargic. Chest X-ray showing patchy infiltrate in the right upper lobe of the lung. The patient with multiple antibiotic allergies. Patient states that she feels a little better than yesterday. Tolerating Aztreonam so far. The patient still has a flat and distant affect on interaction which is very different from the bubbly personality she displayed on the last hospitalization. Psychiatry is adjusting her medications. Objective - Vital Signs/Intake and Output Vital Signs (last 24 hours): Temp Pulse Resp BP Pulse Ox 99.5 F 81 20 106/52 L 96 12/27/18 14:00 12/27/18 14:00 12/27/18 14:00 12/27/18 14:00 12/27/18 14:00 Intake and Output: 12/27/18 12/27/18 06:59 18:59 Intake Total 360 600 Output Total 360 200 Balance 0 400 - Medications Medications: Current Medications Albuterol/Ipratropium (Duoneb 3 Mg/0.5 Mg (3 Ml) Ud) 3 ml IH Q2H PRN PRN Reason: Shortness of Breath Albuterol/Ipratropium (Duoneb 3 Mg/0.5 Mg (3 Ml) Ud) 3 ml IH [id number] [facility] Last Admin: 12/27/18 13:14 Dose: 3 ml Gabapentin (Neurontin) 300 mg PO TID [facility]; Protocol Last Admin: 12/27/18 10:11 Dose: 300 mg Guaifenesin/Dextromethorphan (Robitussin Dm) 10 ml PO Q4H PRN PRN Reason: Cough Heparin Sodium (Porcine) (Heparin) 5,000 units SC Q8 [facility]; Protocol Last Admin: 12/27/18 13:39 Dose: 5,000 units Aztreonam (Azactam 1 Gm) 100 mls @ 100 mls/hr IVPB Q8 [facility]; Protocol Last Admin: 12/27/18 13:38 Dose: 100 mls/hr Vancomycin HCl (Vancomycin 1gm) 1 gm in 250 mls @ 167 mls/hr IVPB Q12H [facility]; Protocol Last Admin: 12/27/18 10:13 Dose: 167 mls/hr Levothyroxine Sodium 200 mcg/ (Levothyroxine Sodium 25 mcg) 225 mcg PO 0600 [facility] Last Admin: 12/26/18 06:37 Dose: 225 mcg Lorazepam (Ativan) 0.5 mg IVP TID [facility]; Protocol Last Admin: 12/27/18 10:10 Dose: 0.5 mg Methylprednisolone (Solu-Medrol) 30 mg IVP Q12 [facility] Last Admin: 12/27/18 10:12 Dose: 30 mg Sertraline HCl (Zoloft) 200 mg PO DAILY [facility] Topiramate (Topamax) 100 mg PO DAILY [facility]; Protocol Last Admin: 12/27/18 10:12 Dose: 100 mg Topiramate (Topamax) 150 mg PO HS [facility]; Protocol Last Admin: 12/26/18 22:45 Dose: 150 mg - Labs Labs: 12/27/18 07:45 12/27/18 07:45 PT 12.9 SECONDS (9.4-12.5) H 12/24/18 10:30 INR 1.14 12/24/18 10:30 APTT 39.7 Seconds (26.9-38.3) H 12/24/18 10:30 - Constitutional Appears: Non-toxic, No Acute Distress, Chronically Ill - Head Exam Head Exam: ATRAUMATIC, NORMOCEPHALIC - Eye Exam Eye Exam: EOMI, PERRL Pupil Exam: NORMAL ACCOMODATION, PERRL - ENT Exam ENT Exam: Mucous Membranes Moist, Normal External Ear Exam, TM's Normal Bilaterally - Neck Exam Neck Exam: Full ROM, Normal Inspection - Respiratory Exam Respiratory Exam: Decreased Breath Sounds (right upper lobe), NORMAL BREATHING PATTERN. absent: Rales, Rhonchi, Wheezes - Cardiovascular Exam Cardiovascular Exam: REGULAR RHYTHM, RRR, +S1, +S2 - GI/Abdominal Exam GI & Abdominal Exam: Soft, Normal Bowel Sounds. absent: Distended, Tenderness - Extremities Exam Extremities Exam: Full ROM, Normal Inspection - Neurological Exam Neurological Exam: Alert, Awake, CN II-XII Intact, Oriented x3 - Psychiatric Exam Psychiatric exam: Normal Affect, Normal Mood - Skin Skin Exam: Intact, Normal Color Assessment and Plan - Assessment and Plan (Free Text) Assessment: 53 yo Cauc female with multiple antibiotic allergies presents with SOB, fevers, chills, and productive cough. The patient is found to have right upper lobe pneumonia on Chest X-ray. Will continue IV Vancomycin and IV Aztreonam for antibiotic coverage. She appears to be tolerating Aztreonam. The patient states that she feels a little better today. Cultures negative so far. Procalcitonin was less than 0.05 which argues against a septic or pneumonic process. Supportive care. Consider repeating Chest X-ray... showed no change to the patchy infiltrate in the right upper lobe peripherally. Seems to be responding to the new psych medications. Thank you for allowing me to participate in the care of the patient, we will follow with you.
--- NOTE | 2018-12-27 19:46 | PN ---
DATE: 12/27/2018 SUBJECTIVE: The patient was followed up today. The patient presented with some improvement with her presentation. The patient is more talkative as per staff. The patient presented much better to compare with the past couple of days. 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 Ativan was started and the patient has traumatic improvement with her presentation. The patient was able to have full conversation. The patient reported that she is on Zoloft for many years and she wants to continue that medication. The patient has psychiatrist, Marilin Ornelas and she is seeing her as outpatient. The patient reported that her is power of regulatory attorney and the patient gave permission to talk to him. Meanwhile, the patient reported that she feels little bit better from the mental standpoint and she is concerned about her medical issues. Vital signs reviewed. Medications reviewed. The patient has Zoloft to be resumed to 100 mg today. This abstract writer will discontinue Prozac and Topamax will be continued. Labs reviewed. Coagulation reviewed. Chemistry reviewed. Serology reviewed. MENTAL STATUS EXAM: The patient presented to be more alert, more talkative. Speech was more productive. Mood described as depressed. Affect was constricted. Thought process was coherent and goal directed. Thought content, the patient denied visual, auditory, tactile hallucinations and paranoid ideation. The patient has episodes of hopelessness, but denied any thoughts of harming herself or others. Denied hearing voices. Denied seeing things. Insight and judgment seems to be improving. Impulses are well controlled. IMPRESSION: Most likely, the patient was in catatonic stage due to general medical condition and the patient has history of bipolar disorder. PLAN: Continue current management. Continue current medications. Family will be involved, patient's is her POA, so far patient is improving. Continue Zoloft. Continue Ativan 0.5 mg three times a day scheduled, Topamax should be continued. Thank you very much for letting me participate in care of your patient. Should you have any questions, give me a call. Jie Carrillo MD [facility] # [id number] MTDD
[2018-12-28] MEDS: Albuterol-Ipratrop 3 mg / 0.5 (3 ml) UD IH SCH ×4 (01:57→20:03)
[2018-12-28] MEDS ORDERED: Levothyroxine 200 MCG TAB ONE (06:26)
[2018-12-28 07:02] LABS: BASO # 0.01 K/mm3 (0.0-2.0); BASO % 0.2 % (0.0-3.0); HEMOGLOBIN 11.6 g/dL (12.0-16.0); LYMPH % 18.9 % (22.0-35.0); MEAN CELL VOLUME 98.9 fl (80.0-105.0); MEAN CORPUSCULAR HGB CONC 31.4 g/dl (31.0-37.0); MEAN PLATELET VOLUME 9.7 fl (7.0-11.0); MONO # 0.5 (0.1-0.6); MONO % 9.4 % (1.0-6.0); RBC 3.74 10^6/uL (3.5-6.1); RED CELL DISTRIBUTION WIDTH 14.3 % (11.5-14.5); WHITE BLOOD COUNT 5.3 10^3/uL (4.5-11.0)
[2018-12-28 07:39] LABS: ALB/GLOB RATIO 0.7 (1.1-1.8); ALT/SGPT 17 U/L (7-56); AST/SGOT 40 U/L (14-36); BLOOD UREA NITROGEN 15 mg/dL (7-21); CALCIUM 9.1 mg/dL (8.4-10.5); GFR NON-AFRICAN AMERICAN > 60
--- NOTE | 2018-12-28 10:40 | CP.PCM.PN ---
<Jj Weems - Last Filed: 12/28/18 12:48> Subjective - Date & Time of Evaluation Date of Evaluation: 12/28/18 Time of Evaluation: 10:38 - Subjective Subjective: Jj Weems DO, PGY-1 Hospitalist Progress Note for Dr. Humberto Covington Patient was seen and examined at bedside this AM. She appears more alert today, has been eating more, and ambulated with PT yesterday. Objective - Vital Signs/Intake and Output Vital Signs (last 24 hours): Temp Pulse Resp BP Pulse Ox 98 F 69 18 122/68 98 12/28/18 06:00 12/28/18 06:00 12/28/18 06:00 12/28/18 06:00 12/28/18 06:00 Intake and Output: 12/28/18 12/28/18 06:59 18:59 Intake Total 660 Output Total 900 Balance -240 - Medications Medications: Current Medications Albuterol/Ipratropium (Duoneb 3 Mg/0.5 Mg (3 Ml) Ud) 3 ml IH Q2H PRN PRN Reason: Shortness of Breath Albuterol/Ipratropium (Duoneb 3 Mg/0.5 Mg (3 Ml) Ud) 3 ml IH [id number] CAMILO Last Admin: 12/28/18 08:01 Dose: 3 ml Gabapentin (Neurontin) 300 mg PO TID CAMILO; Protocol Last Admin: 12/27/18 17:37 Dose: 300 mg Guaifenesin/Dextromethorphan (Robitussin Dm) 10 ml PO Q4H PRN PRN Reason: Cough Heparin Sodium (Porcine) (Heparin) 5,000 units SC Q8 CAMILO; Protocol Last Admin: 12/28/18 06:24 Dose: 5,000 units Levothyroxine Sodium 200 mcg/ (Levothyroxine Sodium 25 mcg) 225 mcg PO 0600 CAMILO Last Admin: 12/28/18 06:23 Dose: 225 mcg Lorazepam (Ativan) 0.5 mg IVP TID CAMILO; Protocol Last Admin: 12/27/18 17:36 Dose: 0.5 mg Methylprednisolone (Solu-Medrol) 30 mg IVP Q12 CAMILO Last Admin: 12/27/18 21:16 Dose: 30 mg Sertraline HCl (Zoloft) 200 mg PO DAILY CAMILO Topiramate (Topamax) 100 mg PO DAILY CAMILO; Protocol Last Admin: 12/27/18 10:12 Dose: 100 mg Topiramate (Topamax) 150 mg PO HS CAMILO; Protocol Last Admin: 12/27/18 21:18 Dose: 150 mg - Labs Labs: 12/28/18 06:20 12/28/18 06:20 PT 12.9 SECONDS (9.4-12.5) H 12/24/18 10:30 INR 1.14 12/24/18 10:30 APTT 39.7 Seconds (26.9-38.3) H 12/24/18 10:30 - Constitutional Appears: Non-toxic, No Acute Distress - Head Exam Head Exam: ATRAUMATIC, NORMOCEPHALIC - Eye Exam Eye Exam: EOMI, PERRL - ENT Exam ENT Exam: Mucous Membranes Moist - Neck Exam Neck Exam: Full ROM, Normal Inspection - Respiratory Exam Respiratory Exam: Clear to Ausculation Bilateral, NORMAL BREATHING PATTERN. absent: Rales, Rhonchi, Wheezes - Cardiovascular Exam Cardiovascular Exam: REGULAR RHYTHM, RRR, +S1, +S2. absent: Gallop, Rubs, Murmur - GI/Abdominal Exam GI & Abdominal Exam: Soft, Normal Bowel Sounds. absent: Guarding, Tenderness - Extremities Exam Extremities Exam: Pedal Edema (2+ pitting edema b/l, venous stasis dermatitis b/l) - Back Exam Back Exam: NORMAL INSPECTION - Neurological Exam Neurological Exam: Alert, Awake, Oriented x3 - Psychiatric Exam Psychiatric exam: Flat Affect - Skin Skin Exam: Dry, Intact, Warm Assessment and Plan - Assessment and Plan (Free Text) Assessment: 53 yo F with PMH of COPD, sarcoidosis, pseudotumor cerebri, hypothyroidism, bipolar, and anxiety/depression presented to ED with worsening SOB and possible worsened RUL infiltrate on CXR. She is admitted for management of presumed HCAP and COPD exacerbation. Plan: Dyspnea May be 2/2 RUL infiltrate/HCAP vs COPD exacerbation Patient's breathing and cough improved today Wean solumedrol to 30 mg IVP q12h Continue camilo and PRN duo-neb treatments Continue HCAP coverage with vanc/aztreonam per ID recs ID following, all recs appreciated Physical Deconditioning May be 2/2 obesity vs worsening COPD vs catatonic state from psychiatric condition Continue scheduled ativan Patient was able to ambulate with PT yesterday and will evaluate again today PT likely to recommend JASMYNE placement and/or continued psych treatment Patient reports her mood is improved today Psychiatry following, all recs appreciated Bipolar disorder Continue home zoloft Psych following closely, all recs appreciated Hx Pseudotumor cerebri Continue topamax Hx Hypothyroidism Continue home synthroid DVT PPX: SC heparin Full Code HHD Monitor on med/surg Patient seen, examined, and plan discussed with my attending Dr. Humberto Weems D.O. IM Resident PGY-1 Pager: [phone] <Craie Covington R - Last Filed: 12/28/18 15:37> Objective - Vital Signs/Intake and Output Vital Signs (last 24 hours): Temp Pulse Resp BP Pulse Ox 98 F 69 18 122/68 98 12/28/18 06:00 12/28/18 06:00 12/28/18 06:00 12/28/18 06:00 12/28/18 06:00 Intake and Output: 12/28/18 12/28/18 06:59 18:59 Intake Total 660 Output Total 900 Balance -240 - Medications Medications: Current Medications Albuterol/Ipratropium (Duoneb 3 Mg/0.5 Mg (3 Ml) Ud) 3 ml IH Q2H PRN PRN Reason: Shortness of Breath Albuterol/Ipratropium (Duoneb 3 Mg/0.5 Mg (3 Ml) Ud) 3 ml IH [id number] CAMILO Last Admin: 12/28/18 13:23 Dose: 3 ml Gabapentin (Neurontin) 300 mg PO TID CAMILO; Protocol Last Admin: 12/28/18 14:58 Dose: 300 mg Guaifenesin/Dextromethorphan (Robitussin Dm) 10 ml PO Q4H PRN PRN Reason: Cough Heparin Sodium (Porcine) (Heparin) 5,000 units SC Q8 CAMILO; Protocol Last Admin: 12/28/18 14:57 Dose: 5,000 units Ibuprofen (Motrin Tab) 400 mg PO Q6H PRN PRN Reason: Pain, moderate (4-7) Last Admin: 12/28/18 14:56 Dose: 400 mg Levothyroxine Sodium 200 mcg/ (Levothyroxine Sodium 25 mcg) 225 mcg PO 0600 CAMILO Last Admin: 12/28/18 06:23 Dose: 225 mcg Lorazepam (Ativan) 0.5 mg PO TID CAMILO; Protocol Methylprednisolone (Solu-Medrol) 30 mg IVP Q12 CAMILO Last Admin: 12/28/18 10:44 Dose: 30 mg Sertraline HCl (Zoloft) 200 mg PO DAILY CAMILO Last Admin: 12/28/18 10:44 Dose: 200 mg Topiramate (Topamax) 100 mg PO DAILY CAMILO; Protocol Last Admin: 12/28/18 10:44 Dose: 100 mg Topiramate (Topamax) 150 mg PO HS CAMILO; Protocol Last Admin: 12/27/18 21:18 Dose: 150 mg - Labs Labs: 12/28/18 06:20 12/28/18 06:20 PT 12.9 SECONDS (9.4-12.5) H 12/24/18 10:30 INR 1.14 12/24/18 10:30 APTT 39.7 Seconds (26.9-38.3) H 12/24/18 10:30 Attending/Attestation - Attestation I have personally seen and examined this patient.: Yes I have fully participated in the care of the patient.: Yes I have reviewed all pertinent clinical information, including history, physical exam and plan: Yes Notes (Text): Patient seen and examined by me with resident at 10:50 AM on 12/28/18. Case including HPI, physical exam, and assessment and plan discussed with resident. Agree with above with following additions/corrections. Patient is a 53-year-old female past medical history significant for COPD, sarcoidosis, type 2 diabetes, pseudotumor cerebri, hypothyroidism, falls, depression, anxiety, and bipolar disorder presented to the emergency room with shortness of breath. Patient states she is feeling better today. Patient is more awake and alert and more responsive. Patient states breathing is better. Patient was able get out of bed and go to the restroom today. She states she is eating better. Still with cough. No chest pain or palpitations. No nausea, vomiting, or abdominal pain. No headaches or dizziness. No lightheadedness. No diarrhea or constipation. No dysuria or burning with urination. Physical exam: General: Awake and alert lying in bed in no acute distress. HEENT: Normocephalic, atraumatic. Extraocular muscles intact, pupils equal and reactive, no scleral icterus. Oropharynx is pink and moist. Neck is supple. Cardiovascular: Normal rhythm. Normal S1 and S2. No murmurs, rubs, or gallops appreciated Pulmonary: Normal respiratory effort. Decreased breath sounds. No rhonchi, rales, or wheezing appreciated. Gastrointestinal: Soft, nondistended. Nontender. Morbidly obsese abdomen. Positive bowel sounds all 4 quadrants. No guarding. Musculoskeletal: Moves all extremities. No calf tenderness. Trace lower extremity edema appreciated. Central nervous system: AAOx3, CN 2-12 grossly intact. Slow to answer questions. Dermatologic: Skin warm and dry. Positive bilateral lower extremity chronic ve nous stasis/dermatitis color changes. Assessment and plan: Patient is a 53-year-old female past medical history significant for COPD, sarcoidosis, type 2 diabetes, pseudotumor cerebri, hypothyroidism, falls, depression, anxiety, and bipolar disorder presented to the emergency room with shortness of breath. 1. Dyspnea secondary to healthcare associated pneumonia and COPD exacerbation. Improving. Patient was recently in the hospital as well as rehabilitation center. ID following, recommendations appreciated. Continue Aztreonam and Vancomycin. Continue Robitussin as needed. Blood cultures negative so far. Procalcitonin <0.05. No leukocytosis. Patient afebrile. Chest x-ray on admission per radiologist showed patchy infiltrate in the right upper lobe increased from the previous study. Repeat chest xray showed no significant change in patch infiltrate in the right upper lobe peripherally. 2. COPD exacerbation. Continues to improve. Continue nebulizer treatments. Continue IV Solu-Medrol, taper. Continue O2 via nasal cannula as needed. Patient again counseled at length about tobacco cessation. 3. Type 2 diabetes. Patient does not take any medications for this at home. Continue to monitor Accu-Cheks. 4. Hypothyroidism. Continue home Synthroid. Free T4 within normal limits. 5. Pseudotumor cerebri. No acute issues. Continue home Topamax. 6. Bipolar disorder. Depression and anxiety. Psychiatrist following, recommendations appreciated. Per psychiatrist, patient in catatonic state. Continue on Ativan 3 times a day. Continue Zoloft. Continue Topamax. 7. Physical deconditioning. Patient recently in rehab. Per patient, she was walking with walker at home. Unable to get out of bed here so far. PT eval and treat. 8. Tobacco abuse. Counseled on tobacco cessation 9. Morbid obesity. Counseled on diet and exercise. 10. GI/DVT prophylaxis. Protonix/heparin 11. Patient is a full code. Case was discussed in detail with the patient regarding her diagnosis and treatment plan. All questions answered.
[2018-12-28] MEDS: MethylPREDNISolone 40 mg Vial IVP SCH ×2 (10:44→22:26)
--- NOTE | 2018-12-28 15:24 | PN ---
DATE: 12/28/2018 SUBJECTIVE: The patient was seen and examined today. The patient presented much better compared with the first evaluation. The patient is more talkative, catatonia is improving. For now, this grant writer would suggest to discontinue IV push of Ativan and give oral medication. The patient was seen and examined today. The patient presented to be alert and oriented, more talkative as this grant writer mentioned above. The patient said that she feels better. Her night was uneventful. The patient reported that she is more hopeful for the future. Denied feelings of hopelessness or helplessness. Denied psychosis. As per staff, the patient is participating in physical therapy, has fair appetite and sleep. OBJECTIVE: Vital signs are stable. Temperature 98, pulse 69, blood pressure 122/68, respirations 18, oxygen saturation is 98%. MEDICATIONS: Reviewed. The patient is on DuoNeb, Neurontin 300 mg three times a day, Robitussin, heparin, Motrin, levothyroxine. Ativan will be switched from IV push to oral form. The patient is on Solu-Medrol, Zoloft 200 mg daily. The patient is on Topamax 150 mg at nighttime and 100 mg daily. LABORATORY DATA: Labs reviewed. MENTAL STATUS EXAM: The patient presented to be alert and oriented, good eye contact. Speech was more productive. Mood described as I feel better. Affect was more reactive and mood congruent. Thought process seems to be coherent and goal directed. The patient denied thoughts of harming herself or others. Denied intent or plan. The patient also denied hearing voices, seeing things. The patient does not present to be psychotic. Insight and judgment seems to be improving. Impulses are well controlled. IMPRESSION: Most likely the patient has been in catatonic stage due to general medical condition. The patient has history of bipolar disorder that is why she is on Zoloft as well as Topamax. PLAN: Continue current management. Continue current medications. This grant writer would suggest to continue Zoloft, Ativan 0.5 mg three times a day scheduled for catatonia, Topamax should be continued. The patient has outpatient psychiatrist, Dr. Marilin Ornelas. The patient's is her [id number]. Over the weekend, Dr. Causey will see the patient every other day. Next followup is on Monday12/30/2018. Meanwhile, the patient posed no imminent danger to self or others. Should you have any questions give me a call back. Jie Carrillo MD
[2018-12-28] MEDS ORDERED: Apap-Butalbital-Caffeine 325-50-40mg Tab PO STA (18:04)
--- NOTE | 2018-12-28 20:37 | CP.PCM.PN ---
Subjective - Date & Time of Evaluation Date of Evaluation: 12/28/18 Time of Evaluation: 18:45 - Subjective Subjective: Infectious Disease Follow Up: December 28, 2018 53yo F with PMHx COPD, DM, pseudotumor cerebri, hypothyroid, depression, anxiety, and bipolar disorder who was brought to ED for fevers, chills, SOB, and productive cough that started 1 day prior to admission. She was given azithromycin and promethazine as per a family member. Patient is currently afebrile and without leukocytosis. She is still fatigued and lethargic. Chest X-ray showing patchy infiltrate in the right upper lobe of the lung. The patient with multiple antibiotic allergies. Patient states that she feels a little better than yesterday. Tolerating Aztreonam so far. The patient still has a flat and distant affect on interaction which is very different from the bubbly personality she displayed on the last hospitalization. Psychiatry is adjusting her medications. This is improving. Objective - Vital Signs/Intake and Output Vital Signs (last 24 hours): Temp Pulse Resp BP Pulse Ox 98.2 F 74 18 108/44 L 96 12/28/18 14:00 12/28/18 14:00 12/28/18 14:00 12/28/18 14:00 12/28/18 14:00 - Medications Medications: Current Medications Albuterol/Ipratropium (Duoneb 3 Mg/0.5 Mg (3 Ml) Ud) 3 ml IH Q2H PRN PRN Reason: Shortness of Breath Albuterol/Ipratropium (Duoneb 3 Mg/0.5 Mg (3 Ml) Ud) 3 ml IH [id number] NOAM Last Admin: 12/28/18 20:03 Dose: 3 ml Gabapentin (Neurontin) 300 mg PO TID NOAM; Protocol Last Admin: 12/28/18 18:40 Dose: 300 mg Guaifenesin/Dextromethorphan (Robitussin Dm) 10 ml PO Q4H PRN PRN Reason: Cough Heparin Sodium (Porcine) (Heparin) 5,000 units SC Q8 NOAM; Protocol Last Admin: 12/28/18 14:57 Dose: 5,000 units Ibuprofen (Motrin Tab) 400 mg PO Q6H PRN PRN Reason: Pain, moderate (4-7) Last Admin: 12/28/18 14:56 Dose: 400 mg Levothyroxine Sodium 200 mcg/ (Levothyroxine Sodium 25 mcg) 225 mcg PO 0600 NOAM Last Admin: 12/28/18 06:23 Dose: 225 mcg Lorazepam (Ativan) 0.5 mg PO TID NOAM; Protocol Last Admin: 12/28/18 18:40 Dose: 0.5 mg Methylprednisolone (Solu-Medrol) 30 mg IVP Q12 NOAM Last Admin: 12/28/18 10:44 Dose: 30 mg Sertraline HCl (Zoloft) 200 mg PO DAILY NOAM Last Admin: 12/28/18 10:44 Dose: 200 mg Topiramate (Topamax) 100 mg PO DAILY NOAM; Protocol Last Admin: 12/28/18 10:44 Dose: 100 mg Topiramate (Topamax) 150 mg PO HS NOAM; Protocol Last Admin: 12/27/18 21:18 Dose: 150 mg - Labs Labs: 12/28/18 06:20 12/28/18 06:20 PT 12.9 SECONDS (9.4-12.5) H 12/24/18 10:30 INR 1.14 12/24/18 10:30 APTT 39.7 Seconds (26.9-38.3) H 12/24/18 10:30 - Constitutional Appears: Non-toxic, No Acute Distress, Chronically Ill - Head Exam Head Exam: ATRAUMATIC, NORMOCEPHALIC - Eye Exam Eye Exam: EOMI, PERRL Pupil Exam: NORMAL ACCOMODATION, PERRL - ENT Exam ENT Exam: Mucous Membranes Moist, Normal External Ear Exam, TM's Normal B ilaterally - Neck Exam Neck Exam: Full ROM, Normal Inspection - Respiratory Exam Respiratory Exam: Decreased Breath Sounds, NORMAL BREATHING PATTERN. absent: Rales, Rhonchi, Wheezes - Cardiovascular Exam Cardiovascular Exam: REGULAR RHYTHM, RRR, +S1, +S2 - GI/Abdominal Exam GI & Abdominal Exam: Soft, Normal Bowel Sounds. absent: Distended, Tenderness - Extremities Exam Extremities Exam: Full ROM, Normal Inspection - Neurological Exam Neurological Exam: Alert, Awake, CN II-XII Intact, Oriented x3 - Psychiatric Exam Psychiatric exam: Normal Affect, Normal Mood - Skin Skin Exam: Intact, Normal Color Assessment and Plan - Assessment and Plan (Free Text) Assessment: 53 yo Cauc female with multiple antibiotic allergies presents with SOB, fevers, chills, and productive cough. The patient is found to have right upper lobe pneumonia on Chest X-ray. Will continue IV Vancomycin and IV Aztreonam for antibiotic coverage. She appears to be tolerating Aztreonam. The patient states that she feels a little better today. Cultures negative so far. Procalcitonin was less than 0.05 which argues against a septic or pneumonic process. Supportive care. Consider repeating Chest X-ray... showed no change to the patchy infiltrate in the right upper lobe peripherally. Seems to be responding to the new psych medications. Can stop IV Vancomycin. Would give no more than 7 days of Aztreonam. Thank you for allowing me to participate in the care of the patient, we will follow with you.
[2018-12-29] MEDS: Albuterol-Ipratrop 3 mg / 0.5 (3 ml) UD IH SCH ×5 (01:02→20:31)
[2018-12-29] MEDS ORDERED: Levothyroxine 200 MCG TAB ONE (05:18)
[2018-12-29 08:03] LABS: BASO # 0.01 K/mm3 (0.0-2.0); BASO % 0.2 % (0.0-3.0); HEMOGLOBIN 12.4 g/dL (12.0-16.0); LYMPH # 1.3 (1.2-3.4); LYMPH % 23.1 % (22.0-35.0); MEAN CELL VOLUME 98.7 fl (80.0-105.0); MEAN CORPUSCULAR HEMOGLOBIN 31.5 pg (25.0-35.0); MEAN CORPUSCULAR HGB CONC 31.9 g/dl (31.0-37.0); MEAN PLATELET VOLUME 9.8 fl (7.0-11.0); MONO # 0.5 (0.1-0.6); MONO % 8.1 % (1.0-6.0); RBC 3.94 10^6/uL (3.5-6.1); RED CELL DISTRIBUTION WIDTH 14.4 % (11.5-14.5); WHITE BLOOD COUNT 5.6 10^3/uL (4.5-11.0)
[2018-12-29 08:13] LABS: ALB/GLOB RATIO 0.8 (1.1-1.8); ALBUMIN 3.4 g/dL (3.0-4.8); ALT/SGPT 18 U/L (7-56); AST/SGOT 44 U/L (14-36); BLOOD UREA NITROGEN 16 mg/dL (7-21); CALCIUM 9.7 mg/dL (8.4-10.5); GFR NON-AFRICAN AMERICAN > 60
[2018-12-29] MEDS: MethylPREDNISolone 40 mg Vial IVP SCH ×2 (09:17→21:47)
[2018-12-29] MEDS ORDERED: Aztreonam 1 Gm in NS 100mL 100 ML IVPB SCH (14:00)
--- NOTE | 2018-12-29 15:52 | CP.PCM.PN ---
<Flex Benoit - Last Filed: 12/29/18 15:48> Subjective - Date & Time of Evaluation Date of Evaluation: 12/29/18 Time of Evaluation: 08:00 - Subjective Subjective: Flex Benoit PGY1 Medicine Progress Note for Dr. Covington Patient seen and examined at bedside this morning. Vital signs stable. Patient denied chest pain, shortness of breath, abdominal pain, n/v/d, fevers, chills, numbness/tingling. A full 12 point ROS was conducted and unremarkable except as stated above. Objective - Vital Signs/Intake and Output Vital Signs (last 24 hours): Temp Pulse Resp BP Pulse Ox 98.9 F 64 20 101/48 L 96 12/29/18 06:00 12/29/18 06:00 12/29/18 06:00 12/29/18 06:00 12/29/18 06:00 Intake and Output: 12/29/18 12/29/18 06:59 18:59 Intake Total 620 480 Output Total 400 700 Balance 220 -220 - Medications Medications: Current Medications Albuterol/Ipratropium (Duoneb 3 Mg/0.5 Mg (3 Ml) Ud) 3 ml IH Q2H PRN PRN Reason: Shortness of Breath Albuterol/Ipratropium (Duoneb 3 Mg/0.5 Mg (3 Ml) Ud) 3 ml IH [id number] [facility] Last Admin: 12/29/18 13:34 Dose: 3 ml Gabapentin (Neurontin) 300 mg PO TID [facility]; Protocol Last Admin: 12/29/18 13:17 Dose: 300 mg Guaifenesin/Dextromethorphan (Robitussin Dm) 10 ml PO Q4H PRN PRN Reason: Cough Heparin Sodium (Porcine) (Heparin) 5,000 units SC Q8 [facility]; Protocol Last Admin: 12/29/18 13:17 Dose: 5,000 units Ibuprofen (Motrin Tab) 400 mg PO Q6H PRN PRN Reason: Pain, moderate (4-7) Last Admin: 12/28/18 14:56 Dose: 400 mg Ketorolac Tromethamine (Toradol) 30 mg IVP STAT STA Stop: 12/29/18 15:48 Levothyroxine Sodium 200 mcg/ (Levothyroxine Sodium 25 mcg) 225 mcg PO 0600 [facility] Last Admin: 12/29/18 05:49 Dose: 225 mcg Lorazepam (Ativan) 0.5 mg PO TID [facility]; Protocol Last Admin: 12/29/18 13:18 Dose: 0.5 mg Methylprednisolone (Solu-Medrol) 30 mg IVP Q12 [facility] Last Admin: 12/29/18 09:17 Dose: 30 mg Sertraline HCl (Zoloft) 200 mg PO DAILY [facility] Last Admin: 12/29/18 09:19 Dose: 200 mg Topiramate (Topamax) 100 mg PO DAILY [facility]; Protocol Last Admin: 12/29/18 09:19 Dose: 100 mg Topiramate (Topamax) 150 mg PO HS [facility]; Protocol Last Admin: 12/28/18 22:25 Dose: 150 mg - Labs Labs: 12/29/18 07:20 12/29/18 07:20 PT 12.9 SECONDS (9.4-12.5) H 12/24/18 10:30 INR 1.14 12/24/18 10:30 APTT 39.7 Seconds (26.9-38.3) H 12/24/18 10:30 - Constitutional Appears: Non-toxic, No Acute Distress - Head Exam Head Exam: ATRAUMATIC, NORMOCEPHALIC - Eye Exam Eye Exam: EOMI, PERRL - ENT Exam ENT Exam: Mucous Membranes Moist - Neck Exam Neck Exam: Full ROM, Normal Inspection - Respiratory Exam Respiratory Exam: Clear to Ausculation Bilateral, NORMAL BREATHING PATTERN. absent: Rales, Rhonchi, Wheezes - Cardiovascular Exam Cardiovascular Exam: REGULAR RHYTHM, RRR, +S1, +S2. absent: Gallop, Rubs, Murmur - GI/Abdominal Exam GI & Abdominal Exam: Soft, Normal Bowel Sounds. absent: Guarding, Tenderness - Extremities Exam Extremities Exam: Pedal Edema (2+ pitting edema b/l, venous stasis dermatitis b/l) - Back Exam Back Exam: NORMAL INSPECTION - Neurological Exam Neurological Exam: Alert, Awake, Oriented x3 - Psychiatric Exam Psychiatric exam: Flat Affect - Skin Skin Exam: Dry, Intact, Warm Assessment and Plan - Assessment and Plan (Free Text) Assessment: 53 yo F with PMH of COPD, sarcoidosis, pseudotumor cerebri, hypothyroidism, bipolar, and anxiety/depression presented to ED with worsening SOB and possible worsened RUL infiltrate on CXR. She is admitted for SOB 2/2 HCAP and COPD exacerbation. Plan: Dyspnea 2/2 HCAP vs COPD Exacerbation As per ID recs, give no more than 7 days total of aztreonam Continue camilo and PRN duo-nebs Procal level is .05 Continue with solumedrol 30 mg IVP q12h ID following, all recs appreciated Physical Deconditioning May be 2/2 obesity vs worsening COPD vs catatonic state from psychiatric condition Continue with PT Encourage OOB to chair Continue scheduled ativan PT recommends Home PT vs [facility] pending progress Psychiatry following, all recs appreciated Bipolar disorder Continue home zoloft Psych following closely, all recs appreciated Hx Pseudotumor cerebri Continue topamax Hx Hypothyroidism Continue home synthroid DVT PPX: SC heparin Full Code HHD Dispo: monitor patient on the floor. Patient will be seen by PT today. Encourage OOB to chair. Case was discussed and reviewed with Attending Physician, Dr. Covington. <Carie Covington R - Last Filed: 12/29/18 16:07> Objective - Vital Signs/Intake and Output Vital Signs (last 24 hours): Temp Pulse Resp BP Pulse Ox 98.9 F 73 20 121/53 L 99 12/29/18 16:03 12/29/18 16:03 12/29/18 16:03 12/29/18 16:03 12/29/18 16:03 Intake and Output: 12/29/18 12/29/18 06:59 18:59 Intake Total 620 480 Output Total 400 700 Balance 220 -220 - Medications Medications: Current Medications Albuterol/Ipratropium (Duoneb 3 Mg/0.5 Mg (3 Ml) Ud) 3 ml IH Q2H PRN PRN Reason: Shortness of Breath Albuterol/Ipratropium (Duoneb 3 Mg/0.5 Mg (3 Ml) Ud) 3 ml IH [id number] [facility] Last Admin: 12/29/18 13:34 Dose: 3 ml Gabapentin (Neurontin) 300 mg PO TID [facility]; Protocol Last Admin: 12/29/18 13:17 Dose: 300 mg Guaifenesin/Dextromethorphan (Robitussin Dm) 10 ml PO Q4H PRN PRN Reason: Cough Heparin Sodium (Porcine) (Heparin) 5,000 units SC Q8 [facility]; Protocol Last Admin: 12/29/18 13:17 Dose: 5,000 units Ibuprofen (Motrin Tab) 400 mg PO Q6H PRN PRN Reason: Pain, moderate (4-7) Last Admin: 12/28/18 14:56 Dose: 400 mg Levothyroxine Sodium 200 mcg/ (Levothyroxine Sodium 25 mcg) 225 mcg PO 0600 [facility] Last Admin: 12/29/18 05:49 Dose: 225 mcg Lorazepam (Ativan) 0.5 mg PO TID [facility]; Protocol Last Admin: 12/29/18 13:18 Dose: 0.5 mg Methylprednisolone (Solu-Medrol) 30 mg IVP Q12 [facility] Last Admin: 12/29/18 09:17 Dose: 30 mg Sertraline HCl (Zoloft) 200 mg PO DAILY [facility] Last Admin: 12/29/18 09:19 Dose: 200 mg Topiramate (Topamax) 100 mg PO DAILY [facility]; Protocol Last Admin: 12/29/18 09:19 Dose: 100 mg Topiramate (Topamax) 150 mg PO HS [facility]; Protocol Last Admin: 12/28/18 22:25 Dose: 150 mg - Labs Labs: 12/29/18 07:20 12/29/18 07:20 PT 12.9 SECONDS (9.4-12.5) H 12/24/18 10:30 INR 1.14 12/24/18 10:30 APTT 39.7 Seconds (26.9-38.3) H 12/24/18 10:30 Attending/Attestation - Attestation I have personally seen and examined this patient.: Yes I have fully participated in the care of the patient.: Yes I have reviewed all pertinent clinical information, including history, physical exam and plan: Yes Notes (Text): Patient seen and examined by me with resident at 10:10 AM on 12/29/18. Case including HPI, physical exam, and assessment and plan discussed with resident. Agree with above with following additions/corrections. Patient is a 53-year-old female past medical history significant for COPD, sarcoidosis, type 2 diabetes, pseudotumor cerebri, hypothyroidism, falls, depression, anxiety, and bipolar disorder presented to the emergency room with shortness of breath. Patient states she is feeling ok. States she wasn't very hungry today but did eat her food yesterday. Patient states she still has a cough but it has improved. Patient asking to get out of bed. Paitent denies chest pain or palpitations. No nausea, vomiting, or abdominal pain. No headaches or dizziness. No lightheadedness. No diarrhea or constipation. No dysuria or burning with urination. Physical exam: General: Awake and alert lying in bed in no acute distress. HEENT: Normocephalic, atraumatic. Extraocular muscles intact, pupils equal and reactive, no scleral icterus. Oropharynx is pink and moist. Neck is supple. Cardiovascular: Normal rhythm. Normal S1 and S2. No murmurs, rubs, or gallops appreciated Pulmonary: Normal respiratory effort. Decreased breath sounds. No rhonchi, ra les, or wheezing appreciated. Gastrointestinal: Soft, nondistended. Nontender. Morbidly obsese abdomen. Positive bowel sounds all 4 quadrants. No guarding. Musculoskeletal: Moves all extremities. No calf tenderness. Trace lower extremity edema appreciated. Central nervous system: AAOx3, CN 2-12 grossly intact. Slow to answer questions. Dermatologic: Skin warm and dry. Positive bilateral lower extremity chronic venous stasis/dermatitis color changes. Assessment and plan: Patient is a 53-year-old female past medical history significant for COPD, sarcoidosis, type 2 diabetes, pseudotumor cerebri, hypothyroidism, falls, depression, anxiety, and bipolar disorder presented to the emergency room with shortness of breath. 1. Gait instability. Weakness. Seen by physical therapy. Recommended TCU. TCU evaluation placed. Continue physical therapy. 2. Dyspnea secondary to healthcare associated pneumonia and COPD exacerbation. Improving. Patient was recently in the hospital as well as rehabilitation center. ID following, recommendations appreciated. Continue Aztreonam for total of 7 days. Continue Robitussin as needed. Blood cultures negative so far. Procalcitonin <0.05. No leukocytosis. Patient afebrile. Chest x-ray on admission per radiologist showed patchy infiltrate in the right upper lobe increased from the previous study. Repeat chest xray showed no significant change in patch infiltrate in the right upper lobe peripherally. 3. COPD exacerbation. Continues to improve. Continue nebulizer treatments. Continue IV Solu-Medrol, taper. Continue O2 via nasal cannula as needed. Patient was again counseled at length about tobacco cessation. 4. Type 2 diabetes. Patient does not take any medications for this at home. Continue to monitor Accu-Cheks. 5. Hypothyroidism. Continue home Synthroid. Free T4 within normal limits. 6. Pseudotumor cerebri. No acute issues. Continue home Topamax. 7. Bipolar disorder. Depression and anxiety. Psychiatrist following, recommendations appreciated. Per psychiatrist, patient in catatonic state. Improving. Continue on Ativan 3 times a day. Continue Zoloft. Continue Topamax. 8. Tobacco abuse. Counseled on tobacco cessation 9. Morbid obesity. Counseled on diet and exercise. 10. GI/DVT prophylaxis. Protonix/heparin 11. Patient is a full code. Case was discussed in detail with the patient regarding her diagnosis and treatment plan. All questions answered.
[2018-12-29 21:41] VITALS: O2SAT 97
--- NOTE | 2018-12-29 21:52 | CP.PCM.PN ---
Subjective - Date & Time of Evaluation Date of Evaluation: 12/29/18 Time of Evaluation: 19:30 - Subjective Subjective: Infectious Disease Follow Up: December 29, 2018 53yo F with PMHx COPD, DM, pseudotumor cerebri, hypothyroid, depression, anxiety, and bipolar disorder who was brought to ED for fevers, chills, SOB, and productive cough that started 1 day prior to admission. She was given azithromycin and promethazine as per a family member. Patient is currently afebrile and without leukocytosis. She is still fatigued and lethargic. Chest X-ray showing patchy infiltrate in the right upper lobe of the lung. The patient with multiple antibiotic allergies. Patient states that she feels a little better than yesterday. Tolerating Aztreonam so far. The patient still has a flat and distant affect on interaction which is very different from the bubbly personality she displayed on the last hospitalization. Psychiatry is adjusting her medications. This is improving. Objective - Vital Signs/Intake and Output Vital Signs (last 24 hours): Temp Pulse Resp BP Pulse Ox 98.3 F 66 20 121/65 97 12/29/18 21:40 12/29/18 21:40 12/29/18 21:40 12/29/18 21:40 12/29/18 21:40 Intake and Output: 12/29/18 12/30/18 18:59 06:59 Intake Total 480 Output Total 700 Balance -220 - Medications Medications: Current Medications Albuterol/Ipratropium (Duoneb 3 Mg/0.5 Mg (3 Ml) Ud) 3 ml IH Q2H PRN PRN Reason: Shortness of Breath Albuterol/Ipratropium (Duoneb 3 Mg/0.5 Mg (3 Ml) Ud) 3 ml IH [id number] [facility] Last Admin: 12/29/18 20:31 Dose: 3 ml Gabapentin (Neurontin) 300 mg PO TID [facility]; Protocol Last Admin: 12/29/18 17:06 Dose: 300 mg Guaifenesin/Dextromethorphan (Robitussin Dm) 10 ml PO Q4H PRN PRN Reason: Cough Heparin Sodium (Porcine) (Heparin) 5,000 units SC Q8 [facility]; Protocol Last Admin: 12/29/18 13:17 Dose: 5,000 units Ibuprofen (Motrin Tab) 400 mg PO Q6H PRN PRN Reason: Pain, moderate (4-7) Last Admin: 12/28/18 14:56 Dose: 400 mg Levothyroxine Sodium 200 mcg/ (Levothyroxine Sodium 25 mcg) 225 mcg PO 0600 [facility] Last Admin: 12/29/18 05:49 Dose: 225 mcg Lorazepam (Ativan) 0.5 mg PO TID [facility]; Protocol Last Admin: 12/29/18 17:06 Dose: 0.5 mg Methylprednisolone (Solu-Medrol) 30 mg IVP Q12 [facility] Last Admin: 12/29/18 09:17 Dose: 30 mg Sertraline HCl (Zoloft) 200 mg PO DAILY [facility] Last Admin: 12/29/18 09:19 Dose: 200 mg Topiramate (Topamax) 100 mg PO DAILY [facility]; Protocol Last Admin: 12/29/18 09:19 Dose: 100 mg Topiramate (Topamax) 150 mg PO HS [facility]; Protocol Last Admin: 12/28/18 22:25 Dose: 150 mg - Labs Labs: 12/29/18 07:20 12/29/18 07:20 PT 12.9 SECONDS (9.4-12.5) H 12/24/18 10:30 INR 1.14 12/24/18 10:30 APTT 39.7 Seconds (26.9-38.3) H 12/24/18 10:30 - Constitutional Appears: Non-toxic, No Acute Distress, Chronically Ill - Head Exam Head Exam: ATRAUMATIC, NORMOCEPHALIC - Eye Exam Eye Exam: EOMI, PERRL Pupil Exam: NORMAL ACCOMODATION, PERRL - ENT Exam ENT Exam: Mucous Membranes Moist, Normal External Ear Exam, TM's Normal Bilaterally - Neck Exam Neck Exam: Full ROM, Normal Inspection - Respiratory Exam Respiratory Exam: Clear to Ausculation Bilateral, NORMAL BREATHING PATTERN. absent: Rales, Rhonchi, Wheezes - Cardiovascular Exam Cardiovascular Exam: REGULAR RHYTHM, RRR, +S1, +S2 - GI/Abdominal Exam GI & Abdominal Exam: Soft, Normal Bowel Sounds. absent: Distended, Tenderness - Extremities Exam Extremities Exam: Full ROM, Normal Inspection - Neurological Exam Neurological Exam: Alert, Awake, CN II-XII Intact, Oriented x3 - Psychiatric Exam Psychiatric exam: Normal Affect, Normal Mood - Skin Skin Exam: Intact, Normal Color Assessment and Plan - Assessment and Plan (Free Text) Assessment: 53 yo Cauc female with multiple antibiotic allergies presents with SOB, fevers, chills, and productive cough. The patient is found to have right upper lobe pneumonia on Chest X-ray. Will continue IV Vancomycin and IV Aztreonam for antibiotic coverage. She appears to be tolerating Aztreonam. The patient states that she feels a little better today. Cultures negative so far. Procalcitonin was less than 0.05 which argues against a septic or pneumonic process. Supportive care. Consider repeating Chest X-ray... showed no change to the patchy infiltrate in the right upper lobe peripherally. Seems to be responding to the new psych medications. Can stop IV Vancomycin. Would give no more than 7 days of Aztreonam. Aztreonam was stopped. Thank you for allowing me to participate in the care of the patient, we will follow with you.
[2018-12-30] MEDS: Albuterol-Ipratrop 3 mg / 0.5 (3 ml) UD IH SCH ×3 (02:14→16:07)
[2018-12-30] MEDS ORDERED: Levothyroxine 200 MCG TAB ONE (05:25)
[2018-12-30 07:57] LABS: EOS % 0.2 % (1.5-5.0); HEMOGLOBIN 11.9 g/dL (12.0-16.0); LYMPH # 1.4 (1.2-3.4); LYMPH % 22.8 % (22.0-35.0); MEAN CORPUSCULAR HEMOGLOBIN 31.1 pg (25.0-35.0); MEAN CORPUSCULAR HGB CONC 31.4 g/dl (31.0-37.0); MEAN PLATELET VOLUME 10.1 fl (7.0-11.0); MONO # 0.5 (0.1-0.6); RBC 3.83 10^6/uL (3.5-6.1); RED CELL DISTRIBUTION WIDTH 14.9 % (11.5-14.5); WHITE BLOOD COUNT 5.9 10^3/uL (4.5-11.0)
[2018-12-30 08:27] LABS: ALB/GLOB RATIO 0.8 (1.1-1.8); ALBUMIN 3.2 g/dL (3.0-4.8); ALT/SGPT 21 U/L (7-56); AST/SGOT 38 U/L (14-36); BLOOD UREA NITROGEN 18 mg/dL (7-21); CALCIUM 9.6 mg/dL (8.4-10.5); GFR NON-AFRICAN AMERICAN > 60
[2018-12-30] MEDS: MethylPREDNISolone 40 mg Vial IVP SCH ×2 (09:45→21:26)
--- NOTE | 2018-12-30 11:14 | CON ---
DATE: 12/30/2018 HISTORY OF PRESENT ILLNESS: The patient is a 53-year-old female with reported history of bipolar disorder, who is being seen by Psychiatry due to catatonia and delirium-associated symptoms. She has been improving on the medical floor and I reviewed Dr. Carrillo's consultation from 12/28/2018, recent staff notes and it appears that patient's mental status is improving. I met with patient at bedside this morning and she is oriented to current month, year and location. She appears to be superficially aware of circumstances. Her focus is fair, responses are consistent. She denies any hallucinations. She denies any acute depressive symptoms. She does admit to some anxiety. We reviewed her psychaitric medication list, their indications and dosing. She feels that Klonopin is more beneficial for her anxiety than Ativan and wishes to change the medication back to klonopin. Overall, Zoloft and Topamax has been helping her a great deal and she defers the need for further medication changes and there have been no behavioral issues on the medical floor. Labs and vitals were reviewed. RELEVANT PSYCHIATRIC MEDICATIONS: Include Ativan 0.5 mg three times a day, Topamax 150 mg at bedtime and 100 mg daily as well as Zoloft 200 mg daily. IMPRESSION: Improving delirium and catatonia. RECOMMENDATIONS: We will continue Zoloft and Topamax at the aforementioned dosages. We will discontinue Ativan in favor of Klonopin 0.5 mg po TID as the patient feel the Klonopin has been more beneficial for her anxiety. ADDENDUM: Nursing phoned this provider on 12/30/18 regarding patient's report that she is also prescribed seroquel 100 mg po bid. Nursing confirmed this medication with . It is unclear why patient didn't mention this medication during our interview. I restarted seroquel at 50 mg HS with plan to titrate to prior dose. Information was endorsed to Dr. Anderson. Psychiatry will follow up on 12/31/18. Miriam Causey MD [facility] # [id number] MTDD
--- NOTE | 2018-12-30 16:41 | CP.PCM.PN ---
Subjective - Date & Time of Evaluation Date of Evaluation: 12/30/18 Time of Evaluation: 14:45 - Subjective Subjective: Infectious Disease Follow Up: December 30, 2018 53yo F with PMHx COPD, DM, pseudotumor cerebri, hypothyroid, depression, anxiety, and bipolar disorder who was brought to ED for fevers, chills, SOB, and productive cough that started 1 day prior to admission. She was given azithromycin and promethazine as per a family member. Patient is currently afebrile and without leukocytosis. She is still fatigued and lethargic. Chest X-ray showing patchy infiltrate in the right upper lobe of the lung. The patient with multiple antibiotic allergies. Patient states that she feels a little better than yesterday. Tolerating Aztreonam so far. The patient still has a flat and distant affect on interaction which is very different from the bubbly personality she displayed on the last hospitalization. Psychiatry is adjusting her medications. This has been improving with the adjustments from Psychiatry. Objective - Vital Signs/Intake and Output Vital Signs (last 24 hours): Temp Pulse Resp BP Pulse Ox 98.2 F 66 20 123/63 97 12/30/18 14:00 12/30/18 14:00 12/30/18 14:00 12/30/18 14:00 12/30/18 14:00 Intake and Output: 12/30/18 12/30/18 06:59 18:59 Intake Total 180 720 Output Total 500 150 Balance -320 570 - Medications Medications: Current Medications Albuterol/Ipratropium (Duoneb 3 Mg/0.5 Mg (3 Ml) Ud) 3 ml IH Q2H PRN PRN Reason: Shortness of Breath Albuterol/Ipratropium (Duoneb 3 Mg/0.5 Mg (3 Ml) Ud) 3 ml IH [id number] [facility] Last Admin: 12/30/18 16:07 Dose: 3 ml Clonazepam (Klonopin) 0.5 mg PO TID [facility]; Protocol Last Admin: 12/30/18 14:10 Dose: 0.5 mg Gabapentin (Neurontin) 300 mg PO TID [facility]; Protocol Last Admin: 12/30/18 14:10 Dose: 300 mg Guaifenesin/Dextromethorphan (Robitussin Dm) 10 ml PO Q4H PRN PRN Reason: Cough Heparin Sodium (Porcine) (Heparin) 5,000 units SC Q8 [facility]; Protocol Last Admin: 12/30/18 14:10 Dose: 5,000 units Ibuprofen (Motrin Tab) 400 mg PO Q6H PRN PRN Reason: Pain, moderate (4-7) Last Admin: 12/28/18 14:56 Dose: 400 mg Levothyroxine Sodium 200 mcg/ (Levothyroxine Sodium 25 mcg) 225 mcg PO 0600 [facility] Last Admin: 12/30/18 05:35 Dose: 225 mcg Methylprednisolone (Solu-Medrol) 30 mg IVP Q12 [facility] Last Admin: 12/30/18 09:45 Dose: 30 mg Sertraline HCl (Zoloft) 200 mg PO DAILY [facility] Last Admin: 12/30/18 09:44 Dose: 200 mg Topiramate (Topamax) 100 mg PO DAILY [facility]; Protocol Last Admin: 12/30/18 09:44 Dose: 100 mg Topiramate (Topamax) 150 mg PO HS [facility]; Protocol Last Admin: 12/29/18 21:48 Dose: 150 mg - Labs Labs: 12/30/18 07:30 12/30/18 07:30 PT 12.9 SECONDS (9.4-12.5) H 12/24/18 10:30 INR 1.14 12/24/18 10:30 APTT 39.7 Seconds (26.9-38.3) H 12/24/18 10:30 - Constitutional Appears: Non-toxic, No Acute Distress, Chronically Ill - Head Exam Head Exam: ATRAUMATIC, NORMOCEPHALIC - Eye Exam Eye Exam: EOMI, PERRL Pupil Exam: NORMAL ACCOMODATION, PERRL - ENT Exam ENT Exam: Mucous Membranes Moist, Normal External Ear Exam, TM's Normal Bilate rally - Neck Exam Neck Exam: Full ROM, Normal Inspection - Respiratory Exam Respiratory Exam: Clear to Ausculation Bilateral, NORMAL BREATHING PATTERN. absent: Rales, Rhonchi, Wheezes - Cardiovascular Exam Cardiovascular Exam: REGULAR RHYTHM, RRR, +S1, +S2 - GI/Abdominal Exam GI & Abdominal Exam: Soft, Normal Bowel Sounds. absent: Distended, Tenderness - Extremities Exam Extremities Exam: Full ROM, Normal Inspection - Neurological Exam Neurological Exam: Alert, Awake, CN II-XII Intact, Oriented x3 - Psychiatric Exam Psychiatric exam: Normal Affect, Normal Mood - Skin Skin Exam: Intact, Normal Color Assessment and Plan - Assessment and Plan (Free Text) Assessment: 53 yo Cauc female with multiple antibiotic allergies presents with SOB, fevers, chills, and productive cough. The patient is found to have right upper lobe pneumonia on Chest X-ray. Will continue IV Vancomycin and IV Aztreonam for antibiotic coverage. She appears to be tolerating Aztreonam. The patient states that she feels a little better today. Cultures negative so far. Procalcitonin was less than 0.05 which argues against a septic or pneumonic process. Supportive care. Consider repeating Chest X-ray... showed no change to the patc hy infiltrate in the right upper lobe peripherally. Seems to be responding to the new psych medications. Can stop IV Vancomycin. Would give no more than 7 days of Aztreonam... Aztreonam was stopped. Off antibiotics at this time. Thank you for allowing me to participate in the care of the patient, we will follow with you.
--- NOTE | 2018-12-30 17:37 | CP.PCM.PN ---
<Flex Benoit - Last Filed: 12/30/18 17:29> Subjective - Date & Time of Evaluation Date of Evaluation: 12/30/18 Time of Evaluation: 08:00 - Subjective Subjective: Flex Benoit PGY1 Medicine Progress Note for Dr. Covington Patient seen and examined at bedside this morning. Vital signs stable. She was noted to be out of bed, sitting in chair. Patient denied chest pain, shortness of breath, abdominal pain, n/v/d, fevers, chills, numbness/tingling. A full 12 point ROS was conducted and unremarkable except as stated above. Objective - Vital Signs/Intake and Output Vital Signs (last 24 hours): Temp Pulse Resp BP Pulse Ox 98.2 F 66 20 123/63 97 12/30/18 14:00 12/30/18 14:00 12/30/18 14:00 12/30/18 14:00 12/30/18 14:00 Intake and Output: 12/30/18 12/30/18 06:59 18:59 Intake Total 180 720 Output Total 500 150 Balance -320 570 - Medications Medications: Current Medications Albuterol/Ipratropium (Duoneb 3 Mg/0.5 Mg (3 Ml) Ud) 3 ml IH Q2H PRN PRN Reason: Shortness of Breath Albuterol/Ipratropium (Duoneb 3 Mg/0.5 Mg (3 Ml) Ud) 3 ml IH [id number] CAMILO Last Admin: 12/30/18 16:07 Dose: 3 ml Clonazepam (Klonopin) 0.5 mg PO TID CAIMLO; Protocol Last Admin: 12/30/18 17:12 Dose: 0.5 mg Gabapentin (Neurontin) 300 mg PO TID CAMILO; Protocol Last Admin: 12/30/18 17:12 Dose: 300 mg Guaifenesin/Dextromethorphan (Robitussin Dm) 10 ml PO Q4H PRN PRN Reason: Cough Heparin Sodium (Porcine) (Heparin) 5,000 units SC Q8 CAMILO; Protocol Last Admin: 12/30/18 14:10 Dose: 5,000 units Ibuprofen (Motrin Tab) 400 mg PO Q6H PRN PRN Reason: Pain, moderate (4-7) Last Admin: 12/28/18 14:56 Dose: 400 mg Levothyroxine Sodium 200 mcg/ (Levothyroxine Sodium 25 mcg) 225 mcg PO 0600 [facility] Last Admin: 12/30/18 05:35 Dose: 225 mcg Methylprednisolone (Solu-Medrol) 20 mg IVP Q12 [facility] Sertraline HCl (Zoloft) 200 mg PO DAILY [facility] Last Admin: 12/30/18 09:44 Dose: 200 mg Topiramate (Topamax) 100 mg PO DAILY [facility]; Protocol Last Admin: 12/30/18 09:44 Dose: 100 mg Topiramate (Topamax) 150 mg PO HS CAMILO; Protocol Last Admin: 12/29/18 21:48 Dose: 150 mg - Labs Labs: 12/30/18 07:30 12/30/18 07:30 PT 12.9 SECONDS (9.4-12.5) H 12/24/18 10:30 INR 1.14 12/24/18 10:30 APTT 39.7 Seconds (26.9-38.3) H 12/24/18 10:30 - Constitutional Appears: Non-toxic, No Acute Distress - Head Exam Head Exam: ATRAUMATIC, NORMOCEPHALIC - Eye Exam Eye Exam: EOMI, PERRL - ENT Exam ENT Exam: Mucous Membranes Moist - Neck Exam Neck Exam: Full ROM, Normal Inspection - Respiratory Exam Respiratory Exam: Clear to Ausculation Bilateral, NORMAL BREATHING PATTERN. absent: Rales, Rhonchi, Wheezes - Cardiovascular Exam Cardiovascular Exam: REGULAR RHYTHM, RRR, +S1, +S2. absent: Gallop, Rubs, Murmur - GI/Abdominal Exam GI & Abdominal Exam: Soft, Normal Bowel Sounds. absent: Guarding, Tenderness - Extremities Exam Extremities Exam: Pedal Edema (2+ pitting edema b/l, venous stasis dermatitis b/l) - Back Exam Back Exam: NORMAL INSPECTION - Neurological Exam Neurological Exam: Alert, Awake, Oriented x3 - Psychiatric Exam Psychiatric exam: Flat Affect - Skin Skin Exam: Dry, Intact, Warm Assessment and Plan - Assessment and Plan (Free Text) Assessment: 53 yo F with PMH of COPD, sarcoidosis, pseudotumor cerebri, hypothyroidism, bipolar, and anxiety/depression presented to ED with worsening SOB. She was admitted for SOB 2/2 HCAP vs COPD exacerbation. Also managed for physical deconditioning given her obesity. Plan: Gait Instability 2/2 Physical Deconditioning - May be 2/2 obesity vs worsening COPD vs catatonic state from psychiatric condition - Continue with PT; recommends TCU - Encourage OOB to chair - Continue scheduled ativan - Psychiatry following, all recs appreciated Dyspnea 2/2 HCAP vs COPD Exacerbation - completed course of aztreonam - Continue duonebs prn and camilo - blood cx negative x2 - tapered solumedrol 20 mg IVP q12h - ID following, all recs appreciated Bipolar disorder - Continue home zoloft - Psych following closely, all recs appreciated Pseudotumor cerebri - Continue topamax Hypothyroidism - Continue home synthroid DVT PPX: SC heparin Full Code HHD Dispo: monitor patient on the floor. Continue with PT. Case was discussed and reviewed with Attending Physician, Dr. Covington. <Carie Covington R - Last Filed: 12/30/18 18:22> Objective - Vital Signs/Intake and Output Vital Signs (last 24 hours): Temp Pulse Resp BP Pulse Ox 98.2 F 66 20 123/63 97 12/30/18 14:00 12/30/18 14:00 12/30/18 14:00 12/30/18 14:00 12/30/18 14:00 Intake and Output: 12/30/18 12/30/18 06:59 18:59 Intake Total 180 720 Output Total 500 150 Balance -320 570 - Medications Medications: Current Medications Albuterol/Ipratropium (Duoneb 3 Mg/0.5 Mg (3 Ml) Ud) 3 ml IH Q2H PRN PRN Reason: Shortness of Breath Albuterol/Ipratropium (Duoneb 3 Mg/0.5 Mg (3 Ml) Ud) 3 ml IH [id number] CAMILO Last Admin: 12/30/18 16:07 Dose: 3 ml Clonazepam (Klonopin) 0.5 mg PO TID CAMILO; Protocol Last Admin: 12/30/18 17:12 Dose: 0.5 mg Gabapentin (Neurontin) 300 mg PO TID CAMILO; Protocol Last Admin: 12/30/18 17:12 Dose: 300 mg Guaifenesin/Dextromethorphan (Robitussin Dm) 10 ml PO Q4H PRN PRN Reason: Cough Heparin Sodium (Porcine) (Heparin) 5,000 units SC Q8 CAMILO; Protocol Last Admin: 12/30/18 14:10 Dose: 5,000 units Ibuprofen (Motrin Tab) 400 mg PO Q6H PRN PRN Reason: Pain, moderate (4-7) Last Admin: 12/28/18 14:56 Dose: 400 mg Levothyroxine Sodium 200 mcg/ (Levothyroxine Sodium 25 mcg) 225 mcg PO 0600 CAM[facility] Last Admin: 12/30/18 05:35 Dose: 225 mcg Methylprednisolone (Solu-Medrol) 20 mg IVP Q12 [facility] Quetiapine Fumarate (Seroquel) 50 mg PO HS CAMILO; Protocol Sertraline HCl (Zoloft) 200 mg PO DAILY [facility] Last Admin: 12/30/18 09:44 Dose: 200 mg Topiramate (Topamax) 100 mg PO DAILY CAMILO; Protocol Last Admin: 12/30/18 09:44 Dose: 100 mg Topiramate (Topamax) 150 mg PO HS CAMILO; Protocol Last Admin: 12/29/18 21:48 Dose: 150 mg - Labs Labs: 12/30/18 07:30 12/30/18 07:30 PT 12.9 SECONDS (9.4-12.5) H 12/24/18 10:30 INR 1.14 12/24/18 10:30 APTT 39.7 Seconds (26.9-38.3) H 12/24/18 10:30 Attending/Attestation - Attestation I have personally seen and examined this patient.: Yes I have fully participated in the care of the patient.: Yes I have reviewed all pertinent clinical information, including history, physical exam and plan: Yes Notes (Text): Patient seen and examined by me with resident at approximately 10:15 AM on 12/30/18. Case including HPI, physical exam, and assessment and plan discussed with resident. Agree with above with following additions/corrections. Patient is a 53-year-old female past medical history significant for COPD, sarcoidosis, type 2 diabetes, pseudotumor cerebri, hypothyroidism, falls, depression, anxiety, and bipolar disorder presented to the emergency room with shortness of breath. Patient states she is feeling better today. Sitting up in chair. States she was getting ativan and didnt like the way it felt and likes the klonopin better. States she tolerated her breakfast. Shortness of breath is much improved. Cough is much improved. Patient denies chest pain or palpitations. No nausea, vomiting, or abdominal pain. No headaches or dizziness. No lightheadedness. No diarrhea or constipation. No dysuria or burning with urination. Physical exam: General: Awake and alert sitting up in chair in no acute distress. HEENT: Normocephalic, atraumatic. Extraocular muscles intact, pupils equal and reactive, no scleral icterus. Oropharynx is pink and moist. Neck is supple. Cardiovascular: Normal rhythm. Normal S1 and S2. No murmurs, rubs, or gallops appreciated Pulmonary: Normal respiratory effort. Decreased breath sounds. No rhonchi, rales, or wheezing appreciated. Gastrointestinal: Soft, nondistended. Nontender. Morbidly obsese abdomen. Positive bowel sounds all 4 quadrants. No guarding. Musculoskeletal: Moves all extremities. No calf tenderness. Trace lower extremity edema appreciated. Central nervous system: AAOx3, CN 2-12 grossly intact. Dermatologic: Skin warm and dry. Positive bilateral lower extremity chronic venous stasis/dermatitis color changes. Assessment and plan: Patient is a 53-year-old female past medical history significant for COPD, sarcoidosis, type 2 diabetes, pseudotumor cerebri, hypothyroidism, falls, depression, anxiety, and bipolar disorder presented to the emergency room with shortness of breath. 1. Gait instability. Weakness. Seen by physical therapy. Recommended TCU. TCU evaluation placed. Continue physical therapy. 2. Dyspnea secondary to healthcare associated pneumonia and COPD exacerbation. Improving. Patient was recently in the hospital as well as rehabilitation center. ID following, recommendations appreciated. S/P treatment with Aztreonam. Continue Robitussin as needed. Blood cultures negative. Procalcitonin <0.05. No leukocytosis. Patient afebrile. Chest x-ray on admission per radiologist showed patchy infiltrate in the right upper lobe increased from the previous study. R epeat chest xray showed no significant change in patch infiltrate in the right upper lobe peripherally. 3. COPD exacerbation. Improving. Continue nebulizer treatments. Continue IV Solu-Medrol, taper. Continue O2 via nasal cannula as needed. Patient was again counseled at length about tobacco cessation. 4. Type 2 diabetes. Patient does not take any medications for this at home. Continue to monitor Accu-Cheks. 5. Hypothyroidism. Continue home Synthroid. Free T4 within normal limits. 6. Pseudotumor cerebri. No acute issues. Continue home Topamax. 7. Bipolar disorder. Depression and anxiety. Psychiatrist following, recommendations appreciated. Per psychiatrist, patient was in catatonic state which has improved. Continue on klonopin 3 times a day. Continue Zoloft. Continue Topamax. 8. Tobacco abuse. Counseled on tobacco cessation 9. Morbid obesity. Counseled on diet and exercise. 10. GI/DVT prophylaxis. Protonix/heparin 11. Patient is a full code. Case was discussed in detail with the patient regarding her diagnosis and treatment plan. All questions answered.
[2018-12-31] MEDS: Albuterol-Ipratrop 3 mg / 0.5 (3 ml) UD IH SCH ×3 (01:57→14:09)
[2018-12-31] MEDS ORDERED: Levothyroxine 200 MCG TAB ONE (05:40)
[2018-12-31 07:07] LABS: BASO # 0.01 K/mm3 (0.0-2.0); BASO % 0.2 % (0.0-3.0); EOS % 0.4 % (1.5-5.0); LYMPH # 1.2 (1.2-3.4); LYMPH % 22.4 % (22.0-35.0); MEAN CELL VOLUME 97.7 fl (80.0-105.0); MEAN CORPUSCULAR HGB CONC 31.7 g/dl (31.0-37.0); MEAN PLATELET VOLUME 9.6 fl (7.0-11.0); MONO # 0.3 (0.1-0.6); RBC 3.55 10^6/uL (3.5-6.1); RED CELL DISTRIBUTION WIDTH 14.7 % (11.5-14.5); WHITE BLOOD COUNT 5.4 10^3/uL (4.5-11.0)
[2018-12-31 07:25] LABS: ALB/GLOB RATIO 0.7 (1.1-1.8); ALBUMIN 2.8 g/dL (3.0-4.8); ALT/SGPT 21 U/L (7-56); AST/SGOT 34 U/L (14-36); BLOOD UREA NITROGEN 17 mg/dL (7-21); CALCIUM 9.1 mg/dL (8.4-10.5); GFR NON-AFRICAN AMERICAN > 60
[2018-12-31 08:15] VITALS: RESP 18
[2018-12-31] MEDS: MethylPREDNISolone 40 mg Vial IVP SCH (10:09)
[2018-12-31 14:22] VITALS: BP 127/57; PULSE 66; TEMP 98.6
--- NOTE | 2018-12-31 16:54 | CP.PCM.DIS ---
<Jj Weems - Last Filed: 12/31/18 16:54> Provider - Provider Date of Admission: 12/24/18 11:15 Attending physician: Eze Taylor MD Primary care physician: Shun Consults: 12/24/18 11:46 Physician Consult Routine Comment: Consulting Provider: Zechariah Camacho Consulting Physician: Zechariah Camacho Reason for Consult: abx recs for HCAP in setting of mult abx allergies 12/25/18 11:29 Psychiatry Consult Routine Comment: Consulting Provider: Jie Carrillo Consulting Physician: Jie Carrillo Reason for Consult: depression, anxiety 12/26/18 06:34 Nursing Referral for Wound Care Routine Comment: Physician Instructions: Reason For Exam: met criteria 12/26/18 10:38 Palliative Care Consult Routine Comment: Consulting Provider: Frida Stein Physician Instructions: Reason For Exam: limited activites of daily living 12/26/18 21:58 Nursing Referral for Wound Care Routine Comment: Physician Instructions: Reason For Exam: met criteria 12/29/18 15:37 TCU [Evaluation for TRCU] Routine Comment: Physician Instructions: Reason For Exam: deconditioning requiring PT Time Spent in preparation of Discharge (in minutes): 40 Diagnosis - Discharge Diagnosis (1) Acute exacerbation of COPD with asthma Status: Resolved (2) Sarcoidosis Status: Chronic Hospital Course - Lab Results Lab Results: Micro Results 12/24/18 11:00 Blood-Venous Blood Culture - Final NO GROWTH AFTER 5 DAYS 12/24/18 11:00 Blood-Venous Gram Stain - Final TEST NOT PERFORMED 12/24/18 10:30 Blood-Venous Blood Culture - Final NO GROWTH AFTER 5 DAYS 12/24/18 10:30 Blood-Venous Gram Stain - Final TEST NOT PERFORMED Most Recent Lab Values WBC 5.4 10^3/uL (4.5-11.0) 12/31/18 06:40 RBC 3.55 10^6/uL (3.5-6.1) 12/31/18 06:40 Hgb 11.0 g/dL (12.0-16.0) L 12/31/18 06:40 Hct 34.7 % (36.0-48.0) L 12/31/18 06:40 MCV 97.7 fl (80.0-105.0) 12/31/18 06:40 MCH 31.0 pg (25.0-35.0) 12/31/18 06:40 MCHC 31.7 g/dl (31.0-37.0) 12/31/18 06:40 RDW 14.7 % (11.5-14.5) H 12/31/18 06:40 Plt Count 93 10^3/uL (120.0-450.0) L 12/31/18 06:40 MPV 9.6 fl (7.0-11.0) 12/31/18 06:40 Neut % (Auto) 71.0 % (50.0-68.0) H 12/31/18 06:40 Lymph % (Auto) 22.4 % (22.0-35.0) 12/31/18 06:40 Hyde % (Auto) 6.0 % (1.0-6.0) 12/31/18 06:40 Eos % (Auto) 0.4 % (1.5-5.0) L 12/31/18 06:40 Baso % (Auto) 0.2 % (0.0-3.0) 12/31/18 06:40 Lymph # (Auto) 1.2 (1.2-3.4) 12/31/18 06:40 Hyde # (Auto) 0.3 (0.1-0.6) 12/31/18 06:40 Eos # (Auto) 0.0 (0.0-0.7) 12/31/18 06:40 Baso # (Auto) 0.01 K/mm3 (0.0-2.0) 12/31/18 06:40 Absolute Neuts (auto) 3.80 (1.4-6.5) 12/31/18 06:40 PT 12.9 SECONDS (9.4-12.5) H 12/24/18 10:30 INR 1.14 12/24/18 10:30 APTT 39.7 Seconds (26.9-38.3) H 12/24/18 10:30 Sodium 139 mmol/L (132-148) 12/31/18 06:40 Potassium 4.0 mmol/L (3.6-5.0) 12/31/18 06:40 Chloride 109 mmol/L (98-107) H 12/31/18 06:40 Carbon Dioxide 28 mmol/L (21-33) 12/31/18 06:40 Anion Gap 6 (10-20) L 12/31/18 06:40 BUN 17 mg/dL (7-21) 12/31/18 06:40 Creatinine 0.6 mg/dl (0.7-1.2) L 12/31/18 06:40 Est GFR ( Amer) > 60 12/31/18 06:40 Est GFR (Non-Af Amer) > 60 12/31/18 06:40 POC Glucose (mg/dL) 90 mg/dL (65-110) 12/31/18 16:05 Random Glucose 122 mg/dL (70-110) H 12/31/18 06:40 Calcium 9.1 mg/dL (8.4-10.5) 12/31/18 06:40 Phosphorus 2.9 mg/dL (2.5-4.5) 12/25/18 07:35 Magnesium 1.9 mg/dL (1.7-2.2) 12/25/18 07:35 Total Bilirubin 0.6 mg/dL (0.2-1.3) 12/31/18 06:40 AST 34 U/L (14-36) 12/31/18 06:40 ALT 21 U/L (7-56) 12/31/18 06:40 Alkaline Phosphatase 127 U/L (38-126) H 12/31/18 06:40 Lactate Dehydrogenase 433 U/L (333-699) 12/24/18 10:30 Total Creatine Kinase < 20 U/L (35-230) L 12/24/18 10:30 Troponin I < 0.01 ng/mL D 12/24/18 10:30 NT-Pro-B Natriuret Pep 386 pg/mL (0-450) 12/24/18 10:30 Total Protein 6.5 g/dL (5.8-8.3) 12/31/18 06:40 Albumin 2.8 g/dL (3.0-4.8) L 12/31/18 06:40 Globulin 3.8 gm/dL 12/31/18 06:40 Albumin/Globulin Ratio 0.7 (1.1-1.8) L 12/31/18 06:40 Procalcitonin < 0.05 NG/ML (0.19-0.49) L 12/24/18 13:00 Free T4 1.53 ng/dL (0.78-2.19) 12/28/18 09:30 TSH 3rd Generation < 0.02 mIU/mL (0.46-4.68) L 12/28/18 06:20 Influenza Typ A,B (EIA) Negative for flu a/b (NEGATIVE) 12/24/18 10:30 Mycoplasma pneumon IgM Negative (NEGATIVE) 12/24/18 13:00 - Hospital Course Hospital Course: Jj Weems DO, PGY-1 Hospitalist Discharge Summary for Dr. Taylor Prior to admission: Neean is a 53 year old female with PMH of COPD, sarcoidosis, pseudotumor cerebri, hypothyroidism, bipolar, and anxiety/depression presented to ED with worsening SOB and possible worsened RUL infiltrate on CXR. She was subsequently admitted for management of presumed HCAP and COPD exacerbation. Hospitalization course: On admission, patient was started on duo-neb camilo and PRN and solumedrol. Solumedrol was weaned and patient's breathing continued to improve. She finished course of vanc and aztreonam for possible RUL HCAP. She remained in a catatonic state the first days of admission and was subsequently placed on scheduled ativan per psych recs. Her mood and affect continued to improve after starting scheduled ativan and she became more willing to work with PT. She continued to work with PT and was subsequently evaluated for placement by TCU. She will go to TCU for continued rehab and PT. Discharge plan was discussed with patient in detail. All questions were answered. Patient seen, examined, and discharge plan discussed with my attending Dr. Brandon Weems D.O. IM Resident PGY-1 Discharge Exam - Head Exam Head Exam: ATRAUMATIC, NORMOCEPHALIC - Eye Exam Eye Exam: EOMI, PERRL - ENT Exam ENT Exam: Mucous Membranes Moist - Neck Exam Neck exam: Full Rom, Normal Inspection - Respiratory Exam Respiratory Exam: Wheezes (faint end expiratory wheezes b/l, improved from admission). absent: Accessory Muscle Use, Chest Wall Tenderness, Decreased Breath Sounds, Rales, Rhonchi, Respiratory Distress, Stridor - Cardiovascular Exam Cardiovascular Exam: REGULAR RHYTHM, RRR, +S1, +S2. absent: Diastolic murmur, Gallop, Rubs, Systolic Murmur - GI/Abdominal Exam GI & Abdominal Exam: Normal Bowel Sounds, Soft, Unremarkable. absent: Tenderness - Extremities Exam Extremities exam: full ROM, normal inspection - Back Exam Back exam: NORMAL INSPECTION - Neurological Exam Neurological exam: Alert, Oriented x3 - Psychiatric Exam Additional comments: mood improved, no longer catatonic - Skin Skin Exam: Dry, Intact, Warm Discharge Plan - Follow Up Plan Condition: FAIR Disposition: REHAB FACILITY/REHAB UNIT Instructions: Cellulitis (Skin Infection), Adult (DC), Exacerbation of COPD (DC), Flu Vaccine, Asthma (GEN) Additional Instructions: Patient getting transferred to TCU Please cont meds as outlined in med rec Please consult Psych Dr. Ceron <Eze Taylor - Last Filed: 01/01/19 07:44> Provider - Provider Date of Admission: 12/24/18 11:15 Attending physician: Eze Taylor MD Consults: 12/24/18 11:46 Physician Consult Routine Comment: Consulting Provider: Zechariah Camacho Consulting Physician: Zechariah Camacho Reason for Consult: abx recs for HCAP in setting of mult abx allergies 12/25/18 11:29 Psychiatry Consult Routine Comment: Consulting Provider: Jie Carrillo Consulting Physician: Jie Carrillo Reason for Consult: depression, anxiety 12/26/18 06:34 Nursing Referral for Wound Care Routine Comment: Physician Instructions: Reason For Exam: met criteria 12/26/18 10:38 Palliative Care Consult Routine Comment: Consulting Provider: Frida Stein Physician Instructions: Reason For Exam: limited activites of daily living 12/26/18 21:58 Nursing Referral for Wound Care Routine Comment: Physician Instructions: Reason For Exam: met criteria 12/29/18 15:37 TCU [Evaluation for TRCU] Routine Comment: Physician Instructions: Reason For Exam: deconditioning requiring PT Hospital Course - Lab Results Lab Results: Micro Results 12/24/18 11:00 Blood-Venous Blood Culture - Final NO GROWTH AFTER 5 DAYS 12/24/18 11:00 Blood-Venous Gram Stain - Final TEST NOT PERFORMED 12/24/18 10:30 Blood-Venous Blood Culture - Final NO GROWTH AFTER 5 DAYS 12/24/18 10:30 Blood-Venous Gram Stain - Final TEST NOT PERFORMED Most Recent Lab Values WBC 5.4 10^3/uL (4.5-11.0) 12/31/18 06:40 RBC 3.55 10^6/uL (3.5-6.1) 12/31/18 06:40 Hgb 11.0 g/dL (12.0-16.0) L 12/31/18 06:40 Hct 34.7 % (36.0-48.0) L 12/31/18 06:40 MCV 97.7 fl (80.0-105.0) 12/31/18 06:40 MCH 31.0 pg (25.0-35.0) 12/31/18 06:40 MCHC 31.7 g/dl (31.0-37.0) 12/31/18 06:40 RDW 14.7 % (11.5-14.5) H 12/31/18 06:40 Plt Count 93 10^3/uL (120.0-450.0) L 12/31/18 06:40 MPV 9.6 fl (7.0-11.0) 12/31/18 06:40 Neut % (Auto) 71.0 % (50.0-68.0) H 12/31/18 06:40 Lymph % (Auto) 22.4 % (22.0-35.0) 12/31/18 06:40 Hyde % (Auto) 6.0 % (1.0-6.0) 12/31/18 06:40 Eos % (Auto) 0.4 % (1.5-5.0) L 12/31/18 06:40 Baso % (Auto) 0.2 % (0.0-3.0) 12/31/18 06:40 Lymph # (Auto) 1.2 (1.2-3.4) 12/31/18 06:40 Hyde # (Auto) 0.3 (0.1-0.6) 12/31/18 06:40 Eos # (Auto) 0.0 (0.0-0.7) 12/31/18 06:40 Baso # (Auto) 0.01 K/mm3 (0.0-2.0) 12/31/18 06:40 Absolute Neuts (auto) 3.80 (1.4-6.5) 12/31/18 06:40 PT 12.9 SECONDS (9.4-12.5) H 12/24/18 10:30 INR 1.14 12/24/18 10:30 APTT 39.7 Seconds (26.9-38.3) H 12/24/18 10:30 Sodium 139 mmol/L (132-148) 12/31/18 06:40 Potassium 4.0 mmol/L (3.6-5.0) 12/31/18 06:40 Chloride 109 mmol/L (98-107) H 12/31/18 06:40 Carbon Dioxide 28 mmol/L (21-33) 12/31/18 06:40 Anion Gap 6 (10-20) L 12/31/18 06:40 BUN 17 mg/dL (7-21) 12/31/18 06:40 Creatinine 0.6 mg/dl (0.7-1.2) L 12/31/18 06:40 Est GFR ( Amer) > 60 12/31/18 06:40 Est GFR (Non-Af Amer) > 60 12/31/18 06:40 POC Glucose (mg/dL) 90 mg/dL (65-110) 12/31/18 16:05 Random Glucose 122 mg/dL (70-110) H 12/31/18 06:40 Calcium 9.1 mg/dL (8.4-10.5) 12/31/18 06:40 Phosphorus 2.9 mg/dL (2.5-4.5) 12/25/18 07:35 Magnesium 1.9 mg/dL (1.7-2.2) 12/25/18 07:35 Total Bilirubin 0.6 mg/dL (0.2-1.3) 12/31/18 06:40 AST 34 U/L (14-36) 12/31/18 06:40 ALT 21 U/L (7-56) 12/31/18 06:40 Alkaline Phosphatase 127 U/L (38-126) H 12/31/18 06:40 Lactate Dehydrogenase 433 U/L (333-699) 12/24/18 10:30 Total Creatine Kinase < 20 U/L (35-230) L 12/24/18 10:30 Troponin I < 0.01 ng/mL D 12/24/18 10:30 NT-Pro-B Natriuret Pep 386 pg/mL (0-450) 12/24/18 10:30 Total Protein 6.5 g/dL (5.8-8.3) 12/31/18 06:40 Albumin 2.8 g/dL (3.0-4.8) L 12/31/18 06:40 Globulin 3.8 gm/dL 12/31/18 06:40 Albumin/Globulin Ratio 0.7 (1.1-1.8) L 12/31/18 06:40 Procalcitonin < 0.05 NG/ML (0.19-0.49) L 12/24/18 13:00 Free T4 1.53 ng/dL (0.78-2.19) 12/28/18 09:30 TSH 3rd Generation < 0.02 mIU/mL (0.46-4.68) L 12/28/18 06:20 Influenza Typ A,B (EIA) Negative for flu a/b (NEGATIVE) 12/24/18 10:30 Mycoplasma pneumon IgM Negative (NEGATIVE) 12/24/18 13:00 Attending/Attestation - Attestation I have personally seen and examined this patient.: Yes I have fully participated in the care of the patient.: Yes I have reviewed all pertinent clinical information, including history, physical exam and plan: Yes Notes (Text): 01/01/19 07:41 Attending note ; Patient seen and examined with resident . Patient is alert and awake . On oxygen nasal cannula . Complaining of generalized weakness /gait instability . Patient is a 53-year-old female past medical history significant for COPD, sarcoidosis, type 2 diabetes, pseudotumor cerebri, hypothyroidism, falls, depression, anxiety, and bipolar disorder presented to the emergency room with shortness of breath. 1. Gait instability. Weakness. Seen by physical therapy. Recommended TCU. Case discussed with TCU until detail. Patient will be transferred to TCU today. 2. Dyspnea secondary to healthcare associated pneumonia and COPD exacerbation. I mproving. Patient was recently in the hospital as well as rehabilitation center. ID following, recommendations appreciated. S/P treatment with Aztreonam. Continue Robitussin as needed. Blood cultures negative. Procalcitonin <0.05. No leukocytosis. Patient afebrile. Chest x-ray showed patchy infiltrate in the right upper lobe increased from the previous study. Repeat chest xray showed no significant change in patch infiltrate in the right upper lobe peripherally. 3. COPD exacerbation. Improving. Continue nebulizer treatments. Continue IV Solu-Medrol, taper. Continue O2 via nasal cannula as needed. Patient was again counseled at length about tobacco cessation. 4. Type 2 diabetes. Patient does not take any medications for this at home. dietary education given. 5. Hypothyroidism. Continue home Synthroid. Free T4 within normal limits. 6. Pseudotumor cerebri. No acute issues. Continue home Topamax. 7. Bipolar disorder. Depression and anxiety. Psychiatrist following, recommendations appreciated. Per psychiatrist, patient was in catatonic state which has improved. Continue on klonopin 3 times a day. Continue Zoloft. Continue Topamax. 8. Tobacco abuse. Counseled on tobacco cessation 9. Morbid obesity. Counseled on diet and exercise. 10. GI/DVT prophylaxis. Protonix/heparin Transfer to TCU today. Upon discharge the patient will follow up with PMD Dr. Hoffmann.
--- NOTE | 2018-12-31 18:35 | CP.PCM.PN ---
Subjective - Date & Time of Evaluation Date of Evaluation: 12/31/18 Time of Evaluation: 15:45 - Subjective Subjective: Infectious Disease Follow Up: December 31, 2018 53yo F with PMHx COPD, DM, pseudotumor cerebri, hypothyroid, depression, anxiety, and bipolar disorder who was brought to ED for fevers, chills, SOB, and productive cough that started 1 day prior to admission. She was given azithromycin and promethazine as per a family member. Patient is currently afebrile and without leukocytosis. She is still fatigued and lethargic. Chest X-ray showing patchy infiltrate in the right upper lobe of the lung. The patient with multiple antibiotic allergies. Patient states that she feels a little better than yesterday. Tolerated Aztreonam during this hospitalization. Currently off of antibiotics. The patient had a flat and distant affect on interaction early in this hospitalization which is very different from the bubbly personality she displayed on the last hospitalization. Psychiatry adjusted her medications. This has been improving with the adjustments from Psychiatry. Objective - Vital Signs/Intake and Output Vital Signs (last 24 hours): Temp Pulse Resp BP Pulse Ox 98.6 F 66 18 127/57 L 97 12/31/18 14:21 12/31/18 14:21 12/31/18 14:21 12/31/18 14:21 12/31/18 14:21 Intake and Output: 12/31/18 12/31/18 06:59 18:59 Intake Total 240 1020 Output Total 700 Balance -460 1020 - Medications Medications: Current Medications Albuterol/Ipratropium (Duoneb 3 Mg/0.5 Mg (3 Ml) Ud) 3 ml IH Q2H PRN PRN Reason: Shortness of Breath Last Admin: 12/31/18 16:21 Dose: 3 ml Albuterol/Ipratropium (Duoneb 3 Mg/0.5 Mg (3 Ml) Ud) 3 ml IH [id number] NOAM Last Admin: 12/31/18 14:09 Dose: 3 ml Clonazepam (Klonopin) 0.5 mg PO TID NOAM; Protocol Last Admin: 12/31/18 17:45 Dose: 0.5 mg Gabapentin (Neurontin) 300 mg PO TID NOAM; Protocol Last Admin: 12/31/18 17:45 Dose: 300 mg Guaifenesin/Dextromethorphan (Robitussin Dm) 10 ml PO Q4H PRN PRN Reason: Cough Heparin Sodium (Porcine) (Heparin) 5,000 units SC Q8 NOMA; Protocol Last Admin: 12/31/18 16:01 Dose: 5,000 units Ibuprofen (Motrin Tab) 400 mg PO Q6H PRN PRN Reason: Pain, moderate (4-7) Last Admin: 12/30/18 23:41 Dose: 400 mg Levothyroxine Sodium 200 mcg/ (Levothyroxine Sodium 25 mcg) 225 mcg PO 0600 NOAM Last Admin: 12/31/18 06:45 Dose: 225 mcg Methylprednisolone (Solu-Medrol) 20 mg IVP Q12 NOAM Last Admin: 12/31/18 10:09 Dose: 20 mg Quetiapine Fumarate (Seroquel) 100 mg PO HS NOAM; Protocol Sertraline HCl (Zoloft) 200 mg PO DAILY [facility] Last Admin: 12/31/18 10:08 Dose: 200 mg Topiramate (Topamax) 100 mg PO DAILY NOAM; Protocol Last Admin: 12/31/18 10:09 Dose: 100 mg Topiramate (Topamax) 150 mg PO HS NOAM; Protocol Last Admin: 12/30/18 21:28 Dose: 150 mg Zolpidem Tartrate (Ambien) 5 mg PO HS PRN; Protocol PRN Reason: Insomnia - Labs Labs: 12/31/18 06:40 12/31/18 06:40 PT 12.9 SECONDS (9.4-12.5) H 12/24/18 10:30 INR 1.14 12/24/18 10:30 APTT 39.7 Seconds (26.9-38.3) H 12/24/18 10:30 - Constitutional Appears: Non-toxic, No Acute Distress, Chronically Ill - Head Exam Head Exam: ATRAUMATIC, NORMOCEPHALIC - Eye Exam Eye Exam: EOMI, PERRL Pupil Exam: NORMAL ACCOMODATION, PERRL - ENT Exam ENT Exam: Mucous Membranes Moist, Normal External Ear Exam, TM's Normal Bilaterally - Neck Exam Neck Exam: Full ROM, Normal Inspection - Respiratory Exam Respiratory Exam: Clear to Ausculation Bilateral, NORMAL BREATHING PATTERN. absent: Rales, Rhonchi, Wheezes - Cardiovascular Exam Cardiovascular Exam: REGULAR RHYTHM, RRR, +S1, +S2 - GI/Abdominal Exam GI & Abdominal Exam: Soft, Normal Bowel Sounds. absent: Distended, Tenderness - Extremities Exam Extremities Exam: Full ROM, Normal Inspection - Neurological Exam Neurological Exam: Alert, Awake, CN II-XII Intact, Oriented x3 - Psychiatric Exam Psychiatric exam: Normal Affect, Normal Mood - Skin Skin Exam: Intact, Normal Color Assessment and Plan - Assessment and Plan (Free Text) Assessment: 53 yo Cauc female with multiple antibiotic allergies presents with SOB, fevers, chills, and productive cough. The patient is found to have right upper lobe pneumonia on Chest X-ray. Will continue IV Vancomycin and IV Aztreonam for antibiotic coverage. She appears to be tolerating Aztreonam. The patient states that she feels a little better today. Cultures negative so far. Procalcitonin was less than 0.05 which argues against a septic or pneumonic process. Supportive care. Consider repeating Chest X-ray... showed no change to the patchy infiltrate in the right upper lobe peripherally. Seems to be responding to the new psych medications. Can stop IV Vancomycin. Would give no more than 7 days of Aztreonam... Aztreonam was stopped. Off antibiotics at this time. Cleared for discharge from an ID perspective. Thank you for allowing me to participate in the care of the patient, we will follow with you.
--- NOTE | 2018-12-31 19:49 | PN ---
DATE: 12/31/2018 SUBJECTIVE: The patient was seen today. The patient presented much better to compare with the last week. The patient was more alert, more talkative. The patient remembers her medication . The patient reported that she was on Zoloft 200 mg daily, Klonopin 1 mg at the morning time and at the nighttime, Seroquel 100 mg at the morning time and at the nighttime. Also, the patient reported that she was on diazepam for sleep. At the same time, the patient is willing to try Ambien if needed for insomnia. 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 PHYSICAL EXAMINATION VITAL SIGNS: Going back to the patient's presentation, vital signs seems to be stable. Temperature 98.6, pulse is 66, blood pressure 127/57, respiration 18, oxygen saturation is 97. MENTAL STATUS: The patient presented to be alert and oriented, fair eye contact. Mood described as better. Affect was more reactive, mood congruent. Thought process is more coherent and goal directed. Thought content, the patient denied visual, auditory, tactile hallucinations. Denied paranoid ideation. The patient denied thoughts of harming herself or others. Denied intent or plan. Insight and judgment seems to be improving. Impulses are well controlled. LABORATORY DATA: Labs reviewed. Microbiology reviewed. MEDICATIONS: Medications reviewed. The patient is on Klonopin 0.5 mg three times a day, but the patient reported that she was on 1 mg twice a day. We will consider to adjust it. The patient is on Neurontin, Robitussin, heparin, Motrin, levothyroxine. 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 The patient was on 100 mg twice a day. The patient is on Zoloft 200 mg daily, Topamax 150 mg at the nighttime as well as 100 mg daily. IMPRESSION: As per history, the patient has mental illness, most likely bipolar spectrum disorder. The patient was on delirium stage with catatonia which is improving. PLAN: Medications are adjusted slowly. The patient will be resumed on Klonopin 1 mg twice a day within couple of days, Seroquel 100 mg at the nighttime was increased today. The patient was on 100 mg twice a day. The patient will be on Ambien 5 mg as needed, Zoloft 200 mg daily for depression and anxiety. We will follow up and advise accordingly. Thank you very much for letting me participate in care of your patient. Jie Carrillo MD
== END 2018-12-31 18:38 | DRG 88 ==
LOC: ED 09:30 → ERH 11:15 → 5RSO 15:41
PROVIDERS: ADMIT Hospitalist; ATTEND Internal Medicine
PROC: 3E0F7GC Introduction of Other Therapeutic Substance into Respiratory Tract, Via Natural or Artificial Opening (ICD-10-PCS; principal; 2018-12-24)
DX: J44.1 Chronic obstructive pulmonary disease with (acute) exacerbation (principal); J18.1 Lobar pneumonia, unspecified organism; D86.9 Sarcoidosis, unspecified; J45.901 Unspecified asthma with (acute) exacerbation; K74.60 Unspecified cirrhosis of liver; J44.0 Chronic obstructive pulmonary disease with (acute) lower respiratory infection; G93.2 Benign intracranial hypertension; E03.9 Hypothyroidism, unspecified; E66.01 Morbid (severe) obesity due to excess calories; Z68.42 Body mass index [BMI] 45.0-49.9, adult; E11.9 Type 2 diabetes mellitus without complications; I10 Essential (primary) hypertension; F41.1 Generalized anxiety disorder; F31.9 Bipolar disorder, unspecified; F20.2 Catatonic schizophrenia; K76.0 Fatty (change of) liver, not elsewhere classified; F17.210 Nicotine dependence, cigarettes, uncomplicated; Y95 Nosocomial condition; Z85.43 Personal history of malignant neoplasm of ovary; Z88.1 Allergy status to other antibiotic agents; Z80.0 Family history of malignant neoplasm of digestive organs; Z82.49 Family history of ischemic heart disease and other diseases of the circulatory system

== ENCOUNTER 2018-12-31 18:33 | Inpatient (IN) | payer OTHER | END 2019-01-08 18:28 | disposition home or self-care (01) | DRG 462 | LOC: TRCU 18:33 | PROC: F07Z9FZ Gait Training/Functional Ambulation Treatment using Assistive, Adaptive, Supportive or Protective Equipment (ICD-10-PCS; principal; 2019-01-02) | PROC: F07L6ZZ Therapeutic Exercise Treatment of Musculoskeletal System - Lower Back / Lower Extremity (ICD-10-PCS; 2019-01-02) | PROC: F07Z8FZ Transfer Training Treatment using Assistive, Adaptive, Supportive or Protective Equipment (ICD-10-PCS; 2019-01-03) | PROC: F08Z2ZZ Grooming/Personal Hygiene Treatment (ICD-10-PCS; 2019-01-04) | PROC: 3E0234Z Introduction of Serum, Toxoid and Vaccine into Muscle, Percutaneous Approach (ICD-10-PCS; 2019-01-08) | DX: R53.1 Weakness (principal); J18.9 Pneumonia, unspecified organism; J44.1 Chronic obstructive pulmonary disease with (acute) exacerbation; J44.0 Chronic obstructive pulmonary disease with (acute) lower respiratory infection; E11.40 Type 2 diabetes mellitus with diabetic neuropathy, unspecified; D86.9 Sarcoidosis, unspecified; K74.60 Unspecified cirrhosis of liver; R26.81 Unsteadiness on feet; E03.9 Hypothyroidism, unspecified; I10 Essential (primary) hypertension; F42.9 Obsessive-compulsive disorder, unspecified; K76.0 Fatty (change of) liver, not elsewhere classified; N20.0 Calculus of kidney; R31.9 Hematuria, unspecified; G93.2 Benign intracranial hypertension; F17.210 Nicotine dependence, cigarettes, uncomplicated; F31.9 Bipolar disorder, unspecified; E66.01 Morbid (severe) obesity due to excess calories; K21.9 Gastro-esophageal reflux disease without esophagitis; F06.1 Catatonic disorder due to known physiological condition; Y95 Nosocomial condition; Z99.81 Dependence on supplemental oxygen; Z68.42 Body mass index [BMI] 45.0-49.9, adult; Z88.0 Allergy status to penicillin; Z88.1 Allergy status to other antibiotic agents; Z85.43 Personal history of malignant neoplasm of ovary; Z23 Encounter for immunization; Z71.3 Dietary counseling and surveillance; Z80.8 Family history of malignant neoplasm of other organs or systems; Z80.1 Family history of malignant neoplasm of trachea, bronchus and lung ==

== ENCOUNTER 2019-01-05 09:35 | Outpatient (CLI) | payer OTHER | END 2019-01-05 09:36 | disposition home or self-care (01) | LOC: RAD 09:35 ==